=== PATIENT | male | born 1950 | race Caucasian/White ===

== ENCOUNTER 2019-01-25 10:08 | Inpatient (IN) | payer MEDICARE, OTHER ==
[~2019-01-25] VITALS: Ht 132.1 cm; Wt 101.2 kg
[~2019-01-25 10:08] MED LIST: CLIN150C14 PO; HYDR-3164 PO
[2019-01-25 12:37] LABS: PROTHROMBIN TIME PATIENT 18.9 SEC (11.7-14.0)
[2019-01-25] MEDS ORDERED: ZINC50TA2 PO (12:57)
[2019-01-25] MEDS ORDERED: CARV25TA2 PO (12:57)
[2019-01-25] MEDS ORDERED: FOLI1TAB16 PO (12:57)
[2019-01-25] MEDS ORDERED: LISI10TA2 PO (12:57)
[2019-01-25] MEDS ORDERED: FAMO20TA5 PO (12:57)
[2019-01-25] MEDS ORDERED: OLAN5TAB9 PO (12:57)
[2019-01-25] MEDS ORDERED: NITR1PAT5 TD (12:57)
[2019-01-25] MEDS ORDERED: POLY255P11 PO (12:57)
[2019-01-25] MEDS ORDERED: HYDR25TA PO ×2 (12:57)
[2019-01-25] MEDS ORDERED: ESCITALOPRAM OX10 MG PO (12:57)
[2019-01-25] MEDS ORDERED: [UNRECOGNIZED DRUG - CODE] VG (12:57)
[2019-01-25] MEDS ORDERED: TAMS0.4C97 PO (12:57)
[2019-01-25] MEDS ORDERED: TRAM50TA PO (12:57)
[2019-01-25] MEDS ORDERED: AMIO200T4 PO (12:57)
[2019-01-25] MEDS ORDERED: OXCA300T19 PO (12:57)
[2019-01-25] MEDS ORDERED: ASCO500C PO (12:57)
[2019-01-25] MEDS ORDERED: ASPI-630 PO (12:57)
[2019-01-25] MEDS ORDERED: MIRT15TA3 PO (12:57)
[2019-01-25] MEDS ORDERED: APIX5TAB PO (12:57)
[2019-01-25] MEDS ORDERED: MELA3TAB2 PO (12:57)
[2019-01-25] MEDS ORDERED: OLAN10TA9 PO (12:57)
[2019-01-25] MEDS ORDERED: MERO1VIA15 IV (12:57)
[2019-01-25] MEDS ORDERED: SENN8.6T99 PO (12:57)
[2019-01-25] MEDS ORDERED: ATOR20TA58 PO (12:57)
[2019-01-25] MEDS ORDERED: MULT1TAB52 PO (12:57)
[2019-01-25] MEDS ORDERED: AMLO5TAB10 PO (12:57)
[2019-01-25] MEDS ORDERED: VALP500V2 IV (12:57)
[2019-01-25 13:08] LABS: ALBUMIN 1.7 g/dL (3.4-5.0); ALBUMIN/GLOBULIN RATIO 0.5 (1.0-1.7); CALCIUM 8.6 mg/dL (8.5-10.1); CREATININE 0.7 mg/dL (0.7-1.3); GFR 111.8; MAGNESIUM 2.5 mg/dL (1.8-2.4); POTASSIUM 4.3 mmol/L (3.5-5.1); TOTAL BILIRUBIN 0.3 mg/dL (0.2-1.0); TOTAL PROTEIN 5.2 g/dL (6.4-8.2)
[2019-01-25] MEDS ORDERED: OLANZAPINE PO PRN (13:15)
[2019-01-25] MEDS ORDERED: HYDROXYZINE HCL PO PRN (13:15)
[2019-01-25] MEDS ORDERED: DEXTROSE 50% 25 GM / 50ML DISP.SYRIN. IV PRN (13:30)
--- NOTE | 2019-01-25 13:49 | PDOC2 ---
CARDIAC CONSULT DATE OF CONSULT Date of Consult DATE: 01/25/19 TIME: 13:46 REASON FOR CONSULT Reason for Consult: Bradycardia REFERRING PHYSICIAN Referring Physician: Dr. Reece SOURCE Source: Chart review HISTORY OF PRESENT ILLNESS HISTORY OF PRESENT ILLNESS This is a 68 yo male who was transferred from [facility] secondary to bradycardia and significant pause reportedly 15 seconds in duration. He initially presented to 12/23/18 secondary to respiratory failure. Was diagnosed with sepsis and bacteremia. Was tranferred to [facility] for ongoing IV antibiotic therapy 01/06/19. Last night, patient was noted with pause on telemetry. Patient was asymptomatic. Telemetry strip sent with patient notable for 4 second pause. Contact Charge Nurse at [facility]; this was apparently the longest pause noted. No 15 second pause occurred as agency nurse had initially reported. Patient presently denies any chest pain, palpitations, dizziness, diaphoresis, or SOA. PAST MEDICAL HISTORY Past Medical History achondroplasia Cardiovascular: AFIB, CAD, CHF, HTN, Hyperlipidemia, Other (cardiac arrest due to ventrivular arrhythmia at [facility] 2/2 hyperkalemia ) Pulmonary: COPD, Pulmonary embolus CENTRAL NERVOUS SYSTEM: CVA Psych: Anxiety, Depression Renal/: UTI, Other (bladder outlet obstruction) Endocrine: Diabetes PAST SURGICAL HISTORY Past Surgical History: No pertinent history FAMILY HISTORY Family History: Other (noncontributory ) SOCIAL HISTORY Smoke: Quit ALCOHOL: none Drugs: None Lives: Alone ALLERGIES ALLERGIES: Coded Allergies: No Known Drug Allergies (Unverified , 07/20/16) ROS Review of System 14 point ROS conducted with pertinent positives noted above in HPI. PHYSICAL EXAM General: Alert, Oriented X3, Cooperative, No acute distress HEENT: Atraumatic Lungs: Clear to auscultation Heart: Regular rate (SR/SB) Abdomen: Soft, No tenderness, Other (obese ) Extremities: No edema, Normal pulses Skin: No significant lesion Neuro: Normal speech, Sensation intact Psych/Mental Status: Mental status NL, Mood NL MUSCULOSKELETAL: No swelling LABS Lab: Laboratory Tests Test 01/25/19 12:20 Prothrombin Time 18.9 SEC (11.7-14.0) Prothromb Time International Ratio 1.6 (0.8-1.1) Activated Partial Thromboplast Time 30 SEC (24-38) Sodium Level 150 mmol/L (136-145) Potassium Level 4.3 mmol/L (3.5-5.1) Chloride Level 113 mmol/L (98-107) Carbon Dioxide Level 32 mmol/L (21-32) Anion Gap 5 (6-14) Blood Urea Nitrogen 16 mg/dL (8-26) Creatinine 0.7 mg/dL (0.7-1.3) Estimated GFR (Cockcroft-Gault) 111.8 BUN/Creatinine Ratio 23 (6-20) Glucose Level 89 mg/dL (70-99) Calcium Level 8.6 mg/dL (8.5-10.1) Magnesium Level 2.5 mg/dL (1.8-2.4) Total Bilirubin 0.3 mg/dL (0.2-1.0) Aspartate Amino Transf (AST/SGOT) 45 U/L (15-37) Alanine Aminotransferase (ALT/SGPT) 60 U/L (16-63) Alkaline Phosphatase 71 U/L (46-116) Total Protein 5.2 g/dL (6.4-8.2) Albumin 1.7 g/dL (3.4-5.0) Albumin/Globulin Ratio 0.5 (1.0-1.7) ASSESSMENT/PLAN ASSESSMENT/PLAN 1. Bradycardia, sinus. 4 second pause noted overnight at [facility]. No acute event or significant bradycardia noted on tele thus far 2. CAD; reportedly abnormal stress test at 10/2018. No prior cardiac cath. Clinically stable. 3. Hypertension; controlled. 4. Hyperlipidemia 5. PAFIB; on Amiodarone. maintaining SR 6. Diabetes, II; per PCP 7. Hypernatremia 8. Chronic sacral pressure wound Recommendations Echo to assess LV systolic function D/c coreg, amiodarone Avoid AV dagoberto blocking agents. Hold Eliquis for now Start heparin per protocol Keep NPO Monitor telemetry overnight Obtain cardiac records from [facility] JUAN LOPEZ APRN Jan 25, 2019 13:49
[2019-01-25] MEDS: FOLIC ACID 1 MG TABLET. PO SCH (14:00)
[2019-01-25] MEDS ORDERED: hydrOXYzine PAMOATE 25 MG CAPSULE PO PRN (14:00)
[2019-01-25] MEDS: MULTIVITAMIN with MINERAL TABLET. PO SCH (14:00)
[2019-01-25] MEDS ORDERED: MEROPENEM 1 GM IV SCH (14:00)
[2019-01-25] MEDS: TAMSULOSIN 0.4 MG CAP.ER.24H. PO SCH (14:00)
[2019-01-25] MEDS: ASCORBIC ACID 500 MG TABLET PO SCH (14:00)
[2019-01-25] MEDS: amLODIPine BESYLATE 5 MG TABLET PO SCH (14:00)
[2019-01-25] MEDS: LISINOPRIL 10 MG TABLET PO SCH (14:00)
[2019-01-25] MEDS: NITROGLYCERIN 0.2MG/HR PATCH. TD SCH (14:00)
--- NOTE | 2019-01-25 14:07 | PDOC ---
Infectious Disease Note Subjective Subjective Known to service from [facility]. Transferred to [facility] for Bradycardia Doing ok but feels a little cold No F/S/SOA/N/V/D/RASH and no gross pain ROS ROS O/w neg Physical Exam PHYSICAL EXAM CONST: NAD and coop HEENT: PERRLA, nml conj, OC/OP - edentulous and clean NECK: Supple, No JVD LUNGS: CTA CV: S1/S2 ABD: Soft, NT, ND, Soft EXT: No C/C/E NEURO: Alert and coop. talkative - less confused today than 01/24 Skin: No Rash IV: RUE - PICC - clean Labs Lab Laboratory Tests Test 01/25/19 12:20 Prothrombin Time 18.9 SEC (11.7-14.0) Prothromb Time International Ratio 1.6 (0.8-1.1) Activated Partial Thromboplast Time 30 SEC (24-38) Sodium Level 150 mmol/L (136-145) Potassium Level 4.3 mmol/L (3.5-5.1) Chloride Level 113 mmol/L (98-107) Carbon Dioxide Level 32 mmol/L (21-32) Anion Gap 5 (6-14) Blood Urea Nitrogen 16 mg/dL (8-26) Creatinine 0.7 mg/dL (0.7-1.3) Estimated GFR (Cockcroft-Gault) 111.8 BUN/Creatinine Ratio 23 (6-20) Glucose Level 89 mg/dL (70-99) Calcium Level 8.6 mg/dL (8.5-10.1) Magnesium Level 2.5 mg/dL (1.8-2.4) Total Bilirubin 0.3 mg/dL (0.2-1.0) Aspartate Amino Transf (AST/SGOT) 45 U/L (15-37) Alanine Aminotransferase (ALT/SGPT) 60 U/L (16-63) Alkaline Phosphatase 71 U/L (46-116) Total Protein 5.2 g/dL (6.4-8.2) Albumin 1.7 g/dL (3.4-5.0) Albumin/Globulin Ratio 0.5 (1.0-1.7) Objective Assessment Bradycardia Large sacral decub with osteo s/p Sugery 12/30 bone covered now ESBL Ecoli/Morganella/Pseuodomonas Res Forta I Zosyn, Bacteroides and clostridium species Transaminitis - improving Afib H/o CVA Chronic crooks DM Plan Plan of Care Cont Meropenem until 02/12 Labs in am Reviewed [facility] notes D/w nursing JENNIFER MCNAMARA MD Jan 25, 2019 14:07
--- NOTE | 2019-01-25 14:10 | HP ---
ADMIT DATE: 01/25/2019 HISTORY OF PRESENT ILLNESS: The patient is a 68-year-old male patient who was transferred from [facility] where he was noted this morning to have prolonged pauses and his heart rate dropped down to 29 beats per minute. He apparently has had history of cardiac arrest before when he was at [facility] due to ventricular arrhythmia secondary to hyperkalemia and apparently had abnormal thallium stress test in 11/15/2018 with finding consistent with coronary artery disease. We did contacted Dr. Reece who recommended to transfer him to [facility] for permanent pacemaker placement. The patient himself is very confused and does not really give useful information. His past medical history is significant for achondroplasia, chronic heart disease, chronic obstructive pulmonary disease, hyperlipidemia, hypertension. He is also known to have paroxysmal atrial fibrillation and had cardiac arrest at [facility] due to ventricular arrhythmia secondary to hyperkalemia. He has also had recent cerebellar stroke and an MRI of the brain done on 11/25/2018 showed left subacute cerebellar infarct, moderate cerebellar volume loss and mild chronic white matter microvascular ischemia. The patient also known to have pulmonary embolism, for which he is on apixaban. He is also known to have type 2 diabetes with recurrent urinary tract infection, bladder outlet obstruction, for which he has a Linn catheter. He anxiety and depression and in fact, he was admitted as a transfer from [facility] to [facility] to continue treatment of his stage IV sacral decubitus ulcer. He has had a CT scan of the abdomen and pelvis, which showed sacrococcygeal pressure ulcer with gas and soft tissue thickening, no bone destruction with underlying osteomyelitis, nonobstructing 9 mm right ureteropelvic junction stone with no hydronephrosis. He was admitted to continue with IV antibiotic in the form of meropenem 1 gram IV q.8 hourly, to continue with wound care and wound VAC and assist closure device. PAST SURGICAL HISTORY: Significant for surgical debridement of his sacral decubitus ulcer. FAMILY HISTORY: Unremarkable. SOCIAL HISTORY: He is apparently . He is a former smoker. He used to smoke 2 packs a day and smoked for 30 years. He quit smoking in 08/29/2009. He has never used smokeless tobacco. He does not drink alcohol. He does not use any recreational drugs. ALLERGIES: The patient has no known drug allergies. MEDICATIONS: He is currently on following medications: He is on meropenem 1 gram IV q.8 hourly, tamsulosin 0.4 mg once a day, apixaban 5 mg twice a day, amiodarone 200 mg twice a day, atorvastatin calcium 20 mg at bedtime, nitroglycerin (Nitro-Dur) 0.2 mg per hour patch topically daily, carvedilol 3.125 mg twice a day with meals, amlodipine 5 mg once a day, lisinopril 10 mg once a day, aspirin 81 mg once a day, tramadol 50 mg 4 times a day, oxcarbazepine 150 mg twice a day, valproic acid 250 mg IV twice a day, escitalopram oxalate 10 mg once a day, mirtazapine 50 mg at bedtime, olanzapine ____ mg every 4 hours, hydroxyzine 25 mg every 6-8 hours, zinc gluconate 220 mg twice a day, polyethylene glycol 17 g p.o. b.i.d., Senokot 1 tablet twice a day, famotidine 20 mg p.o. b.i.d., miconazole cream apply topically twice a day, folic acid 1 mg once a day, ascorbic acid 500 mg p.o. daily, multivitamin 1 tablet once a day, and melatonin 3 mg p.o. at bedtime. REVIEW OF SYSTEMS: As per history of present illness. PHYSICAL EXAMINATION GENERAL: When I examined him, the patient was resting slightly propped up in bed, in no apparent respiratory distress. He was pale. No jaundice, cyanosis, or thyromegaly. No jugular venous distension. No lower limb edema. VITAL SIGNS: His heart rate was 55, blood pressure was 90/60, temperature was 98, respiratory rate was 18 and oxygen saturation was 94%. HEAD, EYES, EARS, NOSE AND THROAT: Showed normocephalic, atraumatic. NECK: Supple. HEART: Showed normal first and second sounds. No gallop, rub or murmur. CHEST: Showed central trachea, equal bilateral expansion, air entry, vesicular sounds with no crepitation or rhonchi. ABDOMEN: Distended, soft, nontender. NEUROLOGIC: He is somewhat confused, but however, otherwise he is definitely more awake and alert. All his cranial nerves are intact. He moves his upper extremities to much good extent than lower extremities. He has stage 4 sacral decubitus ulcer with clean base, no surrounding erythema. He has an indwelling Linn catheter. LABORATORY DATA: His lab work as of this morning showed a serum sodium 150, potassium 4.3, chloride 113, bicarbonate 32, anion gap of 5, BUN 16, creatinine 0.7, estimated GFR was 111, glucose was 89, calcium was 8.6, magnesium 2.5. Total bilirubin, AST, ALT, alkaline phosphatase were normal. Total protein was 5.2, albumin was 1.7. His prothrombin time was 18.9, INR 1.6, aPTT was 30. His white cell count this morning was 7900, hemoglobin 10, hematocrit 33, MCV 98 and platelet count 240,000 with normal manual differential. IMPRESSION: In summary, this is a 68-year-old male patient who was transferred from [facility] with prolonged pauses and he had history of cardiac arrest twice according to his son. We did contact Dr. Reece recommended transferring him to [facility] for placement of a permanent pacemaker. I held his aspirin and apixaban as he is known to have deep venous thrombosis and pulmonary emboli. The patient has multiple other medical problems including, 1. Sepsis due to Proteus mirabilis, for which he continues to be on IV meropenem. 2. Sacral decubitus ulcer, stage 4. 3. Acute metabolic encephalopathy, it has improved. 4. Acute hypoxic respiratory failure, it has resolved. 5. He has multiple other medical problems including, A. Achondroplasia. B. Chronic obstructive pulmonary disease. C. Chronic heart failure with reduced ejection fraction. D. Hypertension. E. Hyperlipidemia. F. He is also known to have paroxysmal atrial fibrillation and recent cardiac arrest while at [facility]. G. History of coronary artery disease. H. Multiple strokes including left subacute cerebellar infarct. I. He is also known to have type 2 diabetes mellitus, benign prostatic hypertrophy and an occlusive pulmonary emboli. We will resume all his medication. I held both his aspirin and apixaban. His sodium is high, we will start him on D5 half normal. We will cover him with aspirin if need be. CINDY SULLIVAN MD DR: AMY/afsaneh JOB#: [id number] / [id number]
[2019-01-25] MEDS ORDERED: OLANZapine 5 MG TABLET PO PRN (14:15)
[2019-01-25] MEDS: traMADol 50 MG TABLET PO SCH ×3 (14:52→21:57)
[2019-01-25] MEDS: CITALOPRAM 20 MG TABLET. PO SCH (14:52)
[2019-01-25] MEDS: MEROPENEM 1 GM in IV NORMAL SALINE 100ML 100 ML IV SCH ×2 (14:53→21:56)
[2019-01-25] MEDS: IV DEXTROSE 5% 1,000 ML IV SCH (14:54)
[2019-01-25 15:00] VITALS: BP 117/53
--- NOTE | 2019-01-25 15:50 | NUR ---
Functional screen complete. Per RN, Pt admitted for bradycardia. Reports that family stated that pt had recent stroke. Pt would benefit from PT/Ot assessment. Please write PT/Ot evla and treat orders if you agree. Addendum: 01/25/19 at 1550 by ROSALINO HA PT Amended: Links added.
--- NOTE | 2019-01-25 16:12 | NUR ---
Wound Care: Consult to eval and treat for ST IV PU present on admission. Pt admits from [facility]. Per pt, has had wound vac before. Pt is poor historian and it is unclear how this wound originated, and how long ago. Pt states that he does prefer to sit in a wheelchair much of the time. Advised RN and pt that sitting upright in WC should be limited to mealtimes, all other times pt much be positioned in bed turning every 2H from side to side, to minimize pressure to coccyx wound. Wound cleansed and 3 pieces of silver foam applied to wound bed. Ostomy ring to periwound bordering rectum. Bridged to L lateral abdomen, exuderm to border of dressing proximal to rectum. Pt is in ICU bed at this time. No other open areas noted on head to toe assessment. Plan to follow up 01/27/19 to change vac dressing.
[2019-01-25] MEDS ORDERED: CARVEDILOL 3.125 MG TABLET. PO SCH (17:00)
[2019-01-25] MEDS: INSULIN LISPRO 300 UNITS/3 ML INSULN.PEN. SQ SCH (17:00)
--- NOTE | 2019-01-25 18:22 | NUR ---
Patient arrived to room as direct admission from [facility] due to reported bradycardia and 20 second pause. Patient arrived to unit asymptomatic with rate in the 60s. Dr. Lin and consults notified. Patient was noted to have massive wound on alfaro area. Wound was pictured, wet to dry packed, and wound care notified. Patient had crooks on arrival and IV abx at [facility]. ID continued abx. Patient was admitted as CVC patient but placed in ICU due to bed availability.
[2019-01-25 19:00] VITALS: BP 167/82
[2019-01-25] MEDS ORDERED: MICONAZOLE NITRATE VG SCH (21:00)
[2019-01-25] MEDS ORDERED: AMIODARONE HCL 200 MG TABLET. PO SCH (21:00)
[2019-01-25] MEDS ORDERED: NON FORMULARY ITEM (Melatonin 1 TAB) PO SCH (21:00)
[2019-01-25] MEDS ORDERED: VALPROATE SODIUM 250 MG IV SCH (21:00)
[2019-01-25] MEDS: FAMOTIDINE 20 MG TABLET. PO SCH (21:56)
[2019-01-25] MEDS: VALPROIC ACID (AS SODIUM SALT) 250 MG in IV DEXTROSE 5% 50 ML IV SCH (21:56)
[2019-01-25] MEDS: ATORVASTATIN CALCIUM 20 MG TABLET PO SCH (21:56)
[2019-01-25] MEDS: MIRTAZAPINE 15 MG TABLET PO SCH (21:57)
[2019-01-25] MEDS: OXcarbazepine 300 MG TABLET PO SCH (21:57)
[2019-01-25] MEDS: ZINC SULFATE 220 MG CAPSULE. PO SCH (21:57)
[2019-01-25 22:06] VITALS: BP 100/55
[2019-01-25 23:58] VITALS: BP 110/43
[2019-01-26] MEDS: IV DEXTROSE 5% 1,000 ML IV SCH ×2 (02:50→22:14)
[2019-01-26 04:30] VITALS: BP 92/52
[2019-01-26 05:12] LABS: HEMATOCRIT 27.8 % (39.0-53.0); HEMOGLOBIN 8.8 g/dL (13.0-17.5); RED BLOOD COUNT 2.94 x10^6/uL (4.30-5.70); WHITE BLOOD COUNT 8.6 x10^3/uL (4.0-11.0)
[2019-01-26] MEDS: MEROPENEM 1 GM in IV NORMAL SALINE 100ML 100 ML IV SCH ×3 (05:39→23:25)
[2019-01-26 05:43] LABS: ALBUMIN 1.6 g/dL (3.4-5.0); CALCIUM 8.2 mg/dL (8.5-10.1); CREATININE 0.9 mg/dL (0.7-1.3); DIRECT BILIRUBIN 0.1 mg/dL (0.0-0.2); GFR 83.7; TOTAL BILIRUBIN 0.3 mg/dL (0.2-1.0)
[2019-01-26 05:50] LABS: CHOLESTEROL/HDL RATIO 2.8
[2019-01-26 07:00] VITALS: BP 86/50
--- NOTE | 2019-01-26 07:32 | PDOC ---
Infectious Disease Note Subjective Subjective Known to service from [facility] Transferred to [facility] for Bradycardia Doing well. Going to be transferred upstairs No F/S/SOA/N/V/D/RASH and no gross pain. No CP/palpatations ROS ROS o/w neg Vital Sign Vital Signs Vital Signs Date Time Temp Pulse Resp B/P (MAP) Pulse Ox O2 Delivery O2 Flow Rate FiO2 01/26/19 04:30 98.9 66 16 92/52 (65) 94 Room Air 98.9 01/25/19 15:52 2.0 Physical Exam PHYSICAL EXAM CONST: NAD and coop HEENT: PERRLA, nml conj, OC/OP - edentulous and clean NECK: Supple, No JVD LUNGS: CTA CV: S1/S2 ABD: Soft, NT, ND, Soft EXT: No C/C/E NEURO: Alert and coop. talkative - less confused today than 01/24 Skin: No Rash IV: RUE - PICC - clean Sacral Wound vac in place. examined 01/25 with Wound care and very clean and no bone Labs Lab Laboratory Tests Test 01/25/19 12:20 01/25/19 17:07 01/25/19 23:53 01/26/19 04:35 Prothrombin Time 18.9 SEC (11.7-14.0) Prothromb Time International Ratio 1.6 (0.8-1.1) Activated Partial Thromboplast Time 30 SEC (24-38) Sodium Level 150 mmol/L (136-145) 145 mmol/L (136-145) Potassium Level 4.3 mmol/L (3.5-5.1) 4.0 mmol/L (3.5-5.1) Chloride Level 113 mmol/L (98-107) 109 mmol/L (98-107) Carbon Dioxide Level 32 mmol/L (21-32) 30 mmol/L (21-32) Anion Gap 5 (6-14) 6 (6-14) Blood Urea Nitrogen 16 mg/dL (8-26) 17 mg/dL (8-26) Creatinine 0.7 mg/dL (0.7-1.3) 0.9 mg/dL (0.7-1.3) Estimated GFR (Cockcroft-Gault) 111.8 83.7 BUN/Creatinine Ratio 23 (6-20) Glucose Level 89 mg/dL (70-99) 105 mg/dL (70-99) Calcium Level 8.6 mg/dL (8.5-10.1) 8.2 mg/dL (8.5-10.1) Magnesium Level 2.5 mg/dL (1.8-2.4) Total Bilirubin 0.3 mg/dL (0.2-1.0) 0.3 mg/dL (0.2-1.0) Aspartate Amino Transf (AST/SGOT) 45 U/L (15-37) 38 U/L (15-37) Alanine Aminotransferase (ALT/SGPT) 60 U/L (16-63) 63 U/L (16-63) Alkaline Phosphatase 71 U/L (46-116) 69 U/L (46-116) Total Protein 5.2 g/dL (6.4-8.2) 5.0 g/dL (6.4-8.2) Albumin 1.7 g/dL (3.4-5.0) 1.6 g/dL (3.4-5.0) Albumin/Globulin Ratio 0.5 (1.0-1.7) Glucose (Fingerstick) 106 mg/dL (70-99) 113 mg/dL (70-99) White Blood Count 8.6 x10^3/uL (4.0-11.0) Red Blood Count 2.94 x10^6/uL (4.30-5.70) Hemoglobin 8.8 g/dL (13.0-17.5) Hematocrit 27.8 % (39.0-53.0) Mean Corpuscular Volume 95 fL (79-100) Mean Corpuscular Hemoglobin 30 pg (25-35) Mean Corpuscular Hemoglobin Concent 32 g/dL (31-37) Red Cell Distribution Width 17.0 % (11.5-14.5) Platelet Count 227 x10^3/uL (140-400) Direct Bilirubin 0.1 mg/dL (0.0-0.2) Triglycerides Level 84 mg/dL (0-150) Cholesterol Level 92 mg/dL (0-200) LDL Cholesterol, Calculated 42 mg/dL (0-100) VLDL Cholesterol, Calculated 17 mg/dL (0-40) Non-HDL Cholesterol Calculated 59 mg/dL (0-129) HDL Cholesterol 33 mg/dL (40-60) Cholesterol/HDL Ratio 2.8 Objective Assessment Bradycardia Large sacral decub with osteo s/p Sugery 12/30 bone covered now ESBL Ecoli/Morganella/Pseuodomonas Res Forta I Zosyn, Bacteroides and clostridium species Transaminitis - improving Afib H/o CVA Chronic crooks DM Plan Plan of Care Cont Meropenem until 02/[address] [facility] with ID but await Card f/u D/w nursing JENNIFER MCNAMARA MD Jan 26, 2019 07:32
[2019-01-26] MEDS: INSULIN LISPRO 300 UNITS/3 ML INSULN.PEN. SQ SCH ×3 (08:00→17:00)
[2019-01-26] MEDS: LISINOPRIL 10 MG TABLET PO SCH (09:00)
[2019-01-26] MEDS: ZINC SULFATE 220 MG CAPSULE. PO SCH ×2 (09:00→22:14)
[2019-01-26] MEDS: NITROGLYCERIN 0.2MG/HR PATCH. TD SCH (09:00)
[2019-01-26] MEDS ORDERED: POLYETHYLENE GLYCOL 3350 17 GM PACKET. PO PRN (09:00)
[2019-01-26] MEDS: traMADol 50 MG TABLET PO SCH ×4 (09:00→22:15)
[2019-01-26] MEDS: CITALOPRAM 20 MG TABLET. PO SCH (09:00)
[2019-01-26] MEDS: FOLIC ACID 1 MG TABLET. PO SCH (09:00)
[2019-01-26] MEDS: TAMSULOSIN 0.4 MG CAP.ER.24H. PO SCH (09:00)
[2019-01-26] MEDS: amLODIPine BESYLATE 5 MG TABLET PO SCH (09:00)
[2019-01-26] MEDS: ASCORBIC ACID 500 MG TABLET PO SCH (09:00)
[2019-01-26] MEDS: FAMOTIDINE 20 MG TABLET. PO SCH ×2 (09:00→22:14)
[2019-01-26] MEDS: OXcarbazepine 300 MG TABLET PO SCH ×2 (09:00→22:18)
[2019-01-26] MEDS: MULTIVITAMIN with MINERAL TABLET. PO SCH (09:00)
--- NOTE | 2019-01-26 09:08 | CARD ---
MR#: [id number] Date of Study: 01/26/2019 Ordering Physician: JUAN LOPEZ, Referring Physician: CINDY SULLIVAN Tech: Alicja Foreman RDCS APPROVED REPORT EXAM: Two-dimensional and M-mode echocardiogram with Doppler and color Doppler. Other Information Technically limited study due to body habitus. INDICATION Arrhythmia 2D DIMENSIONS RVDd2.8 (2.9-3.5cm)Left Atrium(2D)3.2 (1.6-4.0cm) IVSd0.9 (0.7-1.1cm)Aortic Root(2D)2.8 (2.0-3.7cm) LVDd4.0 (3.9-5.9cm)LVOT Diameter2.0 (1.8-2.4cm) PWd1.0 (0.7-1.1cm)LVDs2.6 (2.5-4.0cm) FS (%) 34.6 %SV43.9 ml LVEF(%)64.3 (>50%) Aortic Valve AoV Peak Maged.124.4cm/sAoV VTI22.6cm AO Peak GR.6.2mmHgLVOT VTI 16.07cm AO Mean GR.4mmHgAVA (VTI)2.20cm2 Mitral Valve MV E Ocxinguz33.2cm/sMV DECEL OHZH732ps MV A Ubfmbaop04.8cm/sE/A Ratio0.9 TDI Lateral E' P. V9.14cm/sMedial E' P. V8.69cm/s E/Lateral E'6.8E/Medial E'7.2 Tricuspid Valve TR P. Jnxffllv881vs/sRAP BYAIJLLN4gzIt TR Peak Gr.76lvUgZCGF47tjKv Pulmonary Vein S1 Yatpbmcc48.4cm/sS2 Obflpzxv14.71cm/s D2 Hcncdhdq97.7cm/s LEFT VENTRICLE The left ventricle is normal size. There is normal left ventricular wall thickness. The left ventricu lar systolic function is normal and the ejection fraction is within normal range. The Ejection Fracti on is 60-65%. There is grossly normal LV segmental wall motion. Transmitral Doppler flow pattern is G rade II-pseudonormal filling dynamics. RIGHT VENTRICLE The right ventricle is normal size. The right ventricular systolic function is normal. ATRIA The left atrium size is normal. The right atrium size is normal. The interatrial septum is intact wit h no evidence for an atrial septal defect or patent foramen ovale as noted on 2-D or Doppler imaging. AORTIC VALVE Not well visualized. Doppler and Color Flow revealed no significant aortic regurgitation. There is no significant aortic valvular stenosis. MITRAL VALVE The mitral valve is calcified but opens well. There is no evidence of mitral valve prolapse. There is no mitral valve stenosis. Doppler and Color Flow revealed no mitral valve regurgitation noted. TRICUSPID VALVE Not well visualized. Doppler and Color Flow revealed physiological tricuspid regurgitation. The PA pr essure was estimated at 38 mmHg. There is no tricuspid valve stenosis. PULMONIC VALVE The pulmonic valve is not well visualized. Doppler and Color Flow revealed trace pulmonic valvular re gurgitation. There is no pulmonic valvular stenosis. GREAT VESSELS The aortic root is normal in size. The ascending aorta is normal in size. The IVC is normal in size a nd collapses >50% with inspiration. PERICARDIAL EFFUSION There is no evidence of significant pericardial effusion. Critical Notification Critical Value: No <Conclusion> The left ventricular systolic function is normal and the ejection fraction is within normal range. Th e Ejection Fraction is 60-65%. There is grossly normal LV segmental wall motion. Doppler and Color Flow revealed physiological tricuspid regurgitation. The PA pressure was estimated at 38 mmHg. Signed by : Bari Peterson, Electronically Approved : 01/26/2019 09:07:53
[2019-01-26] MEDS: VALPROIC ACID (AS SODIUM SALT) 250 MG in IV DEXTROSE 5% 50 ML IV SCH ×2 (09:29→22:13)
--- NOTE | 2019-01-26 09:56 | EKG ---
[facility] [address] [place] [address] Test Date: 2019-01-26 Test Time: 09:46:59 Pat Name: ROGELIO MYERS Department: Room: 204 1 Gender: M Oral Pathologist: KELLIE : 1950 Requested By: JUAN LOPEZ Order Number: [id number] Reading MD: Bari Peterson MD Measurements Intervals [place] Rate: 68 P: 31 MS: 188 QRS: 65 QRSD: 80 T: 44 QT: 406 QTc: 432 Interpretive Statements SINUS RHYTHM NON-SPECIFIC ST/T CHANGES Electronically Signed On 01-26-2019 14:31:31 CDT by Bari Peterson MD
[2019-01-26 11:00] VITALS: BP 82/50
--- NOTE | 2019-01-26 11:13 | PDOC ---
CARDIO Progress Notes Date and Time Date of Service 01/26/19 Time of Evaluation 0910 Subjective Subjective: No Chest Pain, No shortness of breath, No Palpitations Vitals Vitals Vital Signs Date Time Temp Pulse Resp B/P (MAP) Pulse Ox O2 Delivery O2 Flow Rate FiO2 01/26/19 09:00 73 86/50 01/26/19 08:00 Room Air 2.0 01/26/19 07:00 98.3 18 96 98.3 Weight Weight [ ] Input and Output Intake and Output Intake and Output 01/26/19 06:59 Intake Total 712.5 ml Output Total 400 ml Balance 312.5 ml Intake Oral 560 ml IV Total 152.5 ml Output Urine Total 400 ml Laboratory Labs Laboratory Tests Test 01/25/19 12:20 01/25/19 17:07 01/25/19 23:53 01/26/19 04:35 Prothrombin Time 18.9 SEC (11.7-14.0) Prothromb Time International Ratio 1.6 (0.8-1.1) Activated Partial Thromboplast Time 30 SEC (24-38) Sodium Level 150 mmol/L (136-145) 145 mmol/L (136-145) Potassium Level 4.3 mmol/L (3.5-5.1) 4.0 mmol/L (3.5-5.1) Chloride Level 113 mmol/L (98-107) 109 mmol/L (98-107) Carbon Dioxide Level 32 mmol/L (21-32) 30 mmol/L (21-32) Anion Gap 5 (6-14) 6 (6-14) Blood Urea Nitrogen 16 mg/dL (8-26) 17 mg/dL (8-26) Creatinine 0.7 mg/dL (0.7-1.3) 0.9 mg/dL (0.7-1.3) Estimated GFR (Cockcroft-Gault) 111.8 83.7 BUN/Creatinine Ratio 23 (6-20) Glucose Level 89 mg/dL (70-99) 105 mg/dL (70-99) Calcium Level 8.6 mg/dL (8.5-10.1) 8.2 mg/dL (8.5-10.1) Magnesium Level 2.5 mg/dL (1.8-2.4) Total Bilirubin 0.3 mg/dL (0.2-1.0) 0.3 mg/dL (0.2-1.0) Aspartate Amino Transf (AST/SGOT) 45 U/L (15-37) 38 U/L (15-37) Alanine Aminotransferase (ALT/SGPT) 60 U/L (16-63) 63 U/L (16-63) Alkaline Phosphatase 71 U/L (46-116) 69 U/L (46-116) Total Protein 5.2 g/dL (6.4-8.2) 5.0 g/dL (6.4-8.2) Albumin 1.7 g/dL (3.4-5.0) 1.6 g/dL (3.4-5.0) Albumin/Globulin Ratio 0.5 (1.0-1.7) Glucose (Fingerstick) 106 mg/dL (70-99) 113 mg/dL (70-99) White Blood Count 8.6 x10^3/uL (4.0-11.0) Red Blood Count 2.94 x10^6/uL (4.30-5.70) Hemoglobin 8.8 g/dL (13.0-17.5) Hematocrit 27.8 % (39.0-53.0) Mean Corpuscular Volume 95 fL (79-100) Mean Corpuscular Hemoglobin 30 pg (25-35) Mean Corpuscular Hemoglobin Concent 32 g/dL (31-37) Red Cell Distribution Width 17.0 % (11.5-14.5) Platelet Count 227 x10^3/uL (140-400) Direct Bilirubin 0.1 mg/dL (0.0-0.2) Triglycerides Level 84 mg/dL (0-150) Cholesterol Level 92 mg/dL (0-200) LDL Cholesterol, Calculated 42 mg/dL (0-100) VLDL Cholesterol, Calculated 17 mg/dL (0-40) Non-HDL Cholesterol Calculated 59 mg/dL (0-129) HDL Cholesterol 33 mg/dL (40-60) Cholesterol/HDL Ratio 2.8 Physical Exam HEENT: Neck Supple W Full Motion Chest: Symmetric LUNGS: Clear to Auscultation Heart: S1S2, RRR (SR) Abdomen: Soft N/T Extremities: No Edema Neurology: alert, oriented, follow commands Assessment Assessment 1. Bradycardia, sinus. 4 second pause noted overnight at [facility]. Coreg and Amiodarone discontinued. No further pauses noted overnight, but reportedly mildly bradycardic. Discontinued from ICU tele so it cannot be review. No significant bradycardiac since transfer since transfer to 2nd floor. Echo showed preserved LV systolic function. 2. Possible CAD; Stress test 11/15/18 at [facility] showed abnormal myocardial perfusion with relative hypoperfusion of the mid to apical inferior wall, septal wall, and anteroseptal wall. Technically difficult study. Opted for medical management. Clinically stable, CP free. 3. Hypertension; controlled. 4. Hyperlipidemia 5. PAFIB; maintaining SR 6. Diabetes, II; per PCP 7. Hypernatremia 8. Chronic sacral pressure wound 9. Recent PE Recommendations ASA, statin No BB with bradycardia Avoid AV dagoberto blocking agents. Eliquis presently on hold in the event that intervention is warranted; anticoagulation with heparin Keep NPO p MN Monitor telemetry overnight Supportive care If no further significant pauses/significant bradycardiac noted overnight, will plan for transfer back to [facility] tomorrow. JUAN LOPEZ APRN Jan 26, 2019 11:13
--- NOTE | 2019-01-26 11:36 | NUR ---
SS following for discharge planning. SS reviewed pt chart. Pt is from [facility], ; fax [phone]. SS contacted [facility] to verify pt's previous placement. [facility] confirmed that pt was from there facility and was able to return when medically stable for transfer.
[2019-01-26] MEDS ORDERED: HEPARIN 25,000UTS/500ML PREMIX 500 ML IV PRN (14:15)
[2019-01-26] MEDS ORDERED: HEPARIN for IV BOLUS 10,000 UNIT/10 ML VIAL. IV PRN (14:15)
[2019-01-26 15:00] VITALS: BP 101/56
[2019-01-26 19:33] VITALS: BP 93/43
[2019-01-26 22:13] VITALS: BP 108/53
[2019-01-26] MEDS: MIRTAZAPINE 15 MG TABLET PO SCH (22:13)
[2019-01-26] MEDS: LACTOBACILLUS RHAMNOSUS GG 1 CAPSULE. PO SCH (22:14)
[2019-01-26] MEDS: ATORVASTATIN CALCIUM 20 MG TABLET PO SCH (23:29)
[2019-01-27 02:03] VITALS: BP 109/75
--- NOTE | 2019-01-27 03:53 | PN ---
DATE: 01/26/2019 SUBJECTIVE: The patient is resting, slightly propped up in bed. No apparent distress. Awake, alert at times, confused; however, he denied any complaint. Nursing staff stated that he is hypertensive, however, his heart rate is 60s and 70s. PHYSICAL EXAMINATION: GENERAL: When I examined him, he was pale. No jaundice, cyanosis or thyromegaly. No jugular venous distension. No limb edema. VITAL SIGNS: His heart rate was 73, blood pressure was 86/50, temperature was 98.3, respiratory rate was 18 and oxygen saturation was 96% on room air. HEAD, EYES, EARS, NOSE AND THROAT: Showed normocephalic and atraumatic. NECK: Supple. HEART: Showed normal first and second heart sounds. No gallop, rub or murmur. CHEST: Clear to auscultation. No crepitation or rhonchi. ABDOMEN: Distended, soft and nontender. No guarding or rigidity. No organomegaly. All hernial orifice intact. Bowel sounds normal. NEUROLOGICAL: He is awake, alert and responding appropriately. All cranial nerves intact. He moves extremities without difficulty, although he is mostly bed bound. He has a large stage 4 sacral decubitus ulcer. His intake and output are incompletely recorded. LABORATORY DATA: His white cell count was 8600; hemoglobin 8.8; hematocrit 27.8; MCV 95 and platelet count 227,000. His chemistry showed a serum sodium of 145, potassium 4, chloride 109, bicarbonate 30, anion gap of 6, BUN 17, creatinine 0.9, estimated GFR was 84 mL per minute, his glucose 105 and calcium was 8.2. Total bilirubin, AST, ALT, alkaline phosphatase were normal. Total protein 5, albumin was 1.6. His lipid panel was well within normal range. RADIOLOGICAL DATA: Has had an echocardiogram done, which basically showed that his left ventricular systolic function is normal and ejection fraction is within normal range and the ejection fraction is 60%-65%, grossly normal left ventricular segmental wall motion showed he has a physiological tricuspid regurgitation. Pulmonary artery pressure was estimated 38 mmHg. PLAN: To continue with IV antibiotic as recommended by the Infectious Disease specialist. Continue with wound care. Await Cardiology evauation. CINDY SULLIVAN MD DR: AMY/afsaneh JOB#: [id number] / [id number]
[2019-01-27] MEDS: MEROPENEM 1 GM in IV NORMAL SALINE 100ML 100 ML IV SCH ×3 (05:50→21:44)
[2019-01-27 07:00] VITALS: BP 114/64
[2019-01-27 07:16] LABS: HEMATOCRIT 32.3 % (39.0-53.0); HEMOGLOBIN 9.9 g/dL (13.0-17.5); RED BLOOD COUNT 3.3 x10^6/uL (4.30-5.70); WHITE BLOOD COUNT 5.5 x10^3/uL (4.0-11.0)
--- NOTE | 2019-01-27 07:52 | PDOC ---
Infectious Disease Note Subjective Subjective Known to service from [facility]. Transferred to [facility] for Bradycardia Doing well. No major complaints No F/S/SOA/N/V/D/RASH and no gross pain. No CP/palpatations ROS ROS o/w neg Vital Sign Vital Signs Vital Signs Date Time Temp Pulse Resp B/P (MAP) Pulse Ox O2 Delivery O2 Flow Rate FiO2 01/27/19 02:03 98.1 63 16 109/75 (86) 99 Nasal Cannula 1.0 98.1 Physical Exam PHYSICAL EXAM CONST: NAD and coop - looks well HEENT: PERRLA, nml conj, OC/OP - edentulous and clean NECK: Supple, No JVD LUNGS: CTA CV: S1/S2 ABD: Soft, NT, ND, Soft EXT: No C/C/E NEURO: Alert and coop. talkative - less confused today Skin: No Rash IV: RUE - PICC - clean Sacral Wound vac in place. examined 01/25 with Wound care and very clean and no bone Labs Lab Laboratory Tests Test 01/26/19 11:45 01/26/19 17:18 01/26/19 20:41 01/26/19 22:35 Glucose (Fingerstick) 109 mg/dL (70-99) 89 mg/dL (70-99) 120 mg/dL (70-99) Heparin Anti-Xa Act, Unfractionated > 1.10 IU/mL (0.30-0.70) Test 01/27/19 06:00 White Blood Count 5.5 x10^3/uL (4.0-11.0) Red Blood Count 3.30 x10^6/uL (4.30-5.70) Hemoglobin 9.9 g/dL (13.0-17.5) Hematocrit 32.3 % (39.0-53.0) Mean Corpuscular Volume 98 fL (79-100) Mean Corpuscular Hemoglobin 30 pg (25-35) Mean Corpuscular Hemoglobin Concent 31 g/dL (31-37) Red Cell Distribution Width 17.0 % (11.5-14.5) Platelet Count 194 x10^3/uL (140-400) Objective Assessment Bradycardia Large sacral decub with osteo s/p Sugery 12/30 bone covered now ESBL Ecoli/Morganella/Pseuodomonas Res Forta I Zosyn, Bacteroides and clostridium species MRSA + Transaminitis - improving Afib H/o CVA Chronic crooks DM Plan Plan of Care Cont Meropenem until 02/12 PICC Await further Card assessment Transfer to [facility] with ID if PICC placed D/w nursing JENNIFER MCNAMARA MD Jan 27, 2019 07:52
[2019-01-27] MEDS ORDERED: ASPIRIN ENTERIC COATED 81 MG TABLET.DR. PO SCH ×2 (08:00)
[2019-01-27] MEDS: INSULIN LISPRO 300 UNITS/3 ML INSULN.PEN. SQ SCH ×3 (08:00→17:00)
--- NOTE | 2019-01-27 08:52 | NUR ---
IP: Pt is mrsa screen + requiring contact precautions.
[2019-01-27] MEDS: amLODIPine BESYLATE 5 MG TABLET PO SCH (09:00)
[2019-01-27] MEDS: traMADol 50 MG TABLET PO SCH ×4 (09:00→20:37)
[2019-01-27] MEDS: LISINOPRIL 10 MG TABLET PO SCH (09:00)
[2019-01-27] MEDS: NITROGLYCERIN 0.2MG/HR PATCH. TD SCH (09:00)
[2019-01-27] MEDS: VALPROIC ACID (AS SODIUM SALT) 250 MG in IV DEXTROSE 5% 50 ML IV SCH ×2 (09:18→20:35)
--- NOTE | 2019-01-27 09:42 | NUR ---
SS following up with discharge planning. SS phoned and faxed clinical updates to [facility], ; fax [phone]. SS will continue to follow for discharge planning.
--- NOTE | 2019-01-27 10:30 | PDOC ---
CARDIO Progress Notes Date and Time Date of Service 01/27/2019 Time of Evaluation 1020 Subjective Subjective: No Chest Pain, No shortness of breath, No Palpitations Vitals Vitals Vital Signs Date Time Temp Pulse Resp B/P (MAP) Pulse Ox O2 Delivery O2 Flow Rate FiO2 01/27/19 07:00 98.3 68 18 114/64 (81) 97 Room Air 98.3 01/27/19 02:03 1.0 Weight Weight [ ] Input and Output Intake and Output Intake and Output 01/27/19 07:00 Intake Total 1700 ml Balance 1700 ml Intake Oral 550 ml IV Total 1150 ml Laboratory Labs Laboratory Tests Test 01/26/19 11:45 01/26/19 17:18 01/26/19 20:41 01/26/19 22:35 Glucose (Fingerstick) 109 mg/dL (70-99) 89 mg/dL (70-99) 120 mg/dL (70-99) Heparin Anti-Xa Act, Unfractionated > 1.10 IU/mL (0.30-0.70) Test 01/27/19 06:00 01/27/19 07:35 White Blood Count 5.5 x10^3/uL (4.0-11.0) Red Blood Count 3.30 x10^6/uL (4.30-5.70) Hemoglobin 9.9 g/dL (13.0-17.5) Hematocrit 32.3 % (39.0-53.0) Mean Corpuscular Volume 98 fL (79-100) Mean Corpuscular Hemoglobin 30 pg (25-35) Mean Corpuscular Hemoglobin Concent 31 g/dL (31-37) Red Cell Distribution Width 17.0 % (11.5-14.5) Platelet Count 194 x10^3/uL (140-400) Heparin Anti-Xa Act, Unfractionated > 1.10 IU/mL (0.30-0.70) Glucose (Fingerstick) 83 mg/dL (70-99) Physical Exam HEENT: Neck Supple W Full Motion Chest: Symmetric LUNGS: Clear to Auscultation, Other (diminished bases) Heart: S1S2, RRR (SR/SB) Abdomen: Soft N/T Extremities: Other (trace LE edema) Neurology: alert, oriented, follow commands Assessment Assessment 1. Asymptomatic SB: lowest mid 40s overnight. So far no pauses like reported from [facility]. EF and WM nml. 2. Possible CAD; Stress test 11/15/18 at [facility] showed abnormal myocardial perfusion with relative hypoperfusion of the mid to apical inferior wall, septal wall, and anteroseptal wall. Technically difficult study. Opted for medical management. Clinically stable, CP free. 3. Hypertension; controlled. 4. Hyperlipidemia 5. PAFIB; maintaining SR/SB 6. Diabetes, II; per PCP 7. Hypernatremia 8. Chronic sacral pressure wound: per ID 9. Recent PE 10. Protein malnutrition Recommendations ASA, statin. on Heparin drip. Will resume eliquis. Pause likely associated with AV dagoberto blocking agents namely amiodarone, BB. No indication for PPM currently. With intolerance to AFIB controlling meds with potential tachy shane issue will likely need future PPM. Possible [facility] transfer and will continue to monitor from over there. Supportive care TIMBO CHRISTENSEN APRN Jan 27, 2019 10:30
[2019-01-27 11:00] VITALS: BP 106/61
[2019-01-27] MEDS ORDERED: ANTI-COAG MONITOR BY PHARMACY. MC PRN (11:15)
[2019-01-27] MEDS: LACTOBACILLUS RHAMNOSUS GG 1 CAPSULE. PO SCH ×2 (12:25→20:35)
[2019-01-27] MEDS: FAMOTIDINE 20 MG TABLET. PO SCH ×2 (12:26→20:36)
[2019-01-27] MEDS: TAMSULOSIN 0.4 MG CAP.ER.24H. PO SCH (12:26)
[2019-01-27] MEDS: CITALOPRAM 20 MG TABLET. PO SCH (12:26)
[2019-01-27] MEDS: OXcarbazepine 300 MG TABLET PO SCH ×2 (12:26→20:37)
[2019-01-27] MEDS: ASCORBIC ACID 500 MG TABLET PO SCH (12:26)
[2019-01-27] MEDS: ZINC SULFATE 220 MG CAPSULE. PO SCH ×2 (12:26→20:36)
[2019-01-27] MEDS: SENNOSIDES 8.6 MG TABLET PO PRN (12:27)
[2019-01-27] MEDS: APIXABAN 5 MG TABLET. PO SCH ×2 (12:27→20:36)
[2019-01-27] MEDS: FOLIC ACID 1 MG TABLET. PO SCH (12:27)
[2019-01-27] MEDS: MULTIVITAMIN with MINERAL TABLET. PO SCH (12:27)
[2019-01-27] MEDS: IV DEXTROSE 5% 1,000 ML IV SCH (12:29)
--- NOTE | 2019-01-27 13:14 | NUR ---
SS following up with discharge planning. Pt's RN reported that pt may be ready for discharge today or tomorrow. SS contacted [facility] and notified. [facility] reported that they do not currently have any beds available but have put pt on the weekend list for admissions. [facility] will notify when bed is available. SS will continue to follow for discharge planning.
[2019-01-27] MEDS ORDERED: LIDOCAINE WITH 8.4% SOD BICARB 3 ML DISP.SYRIN. ONE (14:21)
[2019-01-27 15:00] VITALS: BP 119/60
[2019-01-27] MEDS ORDERED: LIDOCAINE WITH 8.4% SOD BICARB 3 ML DISP.SYRIN. INJ ONE (15:15)
--- NOTE | 2019-01-27 15:27 | NUR ---
Pt to IR for PICC placement, R upper arm. Pt tolerated without difficulty. ELLY RN
--- NOTE | 2019-01-27 16:08 | RAD ---
Exam: Fluoroscopic and ultrasound guided right percutaneous inserted central venous catheter placement 01/27/2019 4:04 PM .Indication: manager long term care antibiotic Technique: Informed oral and written consent were obtained. The right upper extremity was prepped and draped using sterile barrier technique. All elements of maximal sterile barrier technique including the use of a cap, mask, sterile gown, sterile gloves, large sterile sheet, appropriate hand hygiene, and 2% chlorhexidine for cutaneous antisepsis (or acceptable alternative antiseptic per current guidelines) were followed for this procedure.. Real-time ultrasound demonstrated a patent right basilic vein. The right upper extremity was prepped and draped in usual sterile fashion. 1% lidocaine used for local anesthesia. Using real-time ultrasound guidance the access needle percutaneously punctured the selected vein. Reference ultrasound images were saved to the medical record. A guidewire was advanced through the needle to the cavoatrial junction, and a peel-away sheath placed. The catheter was cut to length and inserted through the peel-away sheath such that its tip is at the cavoatrial junction. The wire and sheath were removed, and the catheter secured in place, and a sterile dressing was applied. Catheter was found to flush and aspirate normally. No immediate complications are identified. FLUORO TIME: 1.5 MIN Dose area product: 2 Gycm2 Impression: Ultrasound and fluoroscopically guided placement of a right upper extremity PICC line.
--- NOTE | 2019-01-27 17:00 | NUR ---
Wound Care: Wound care f/u on coccyx wound with wound vac change today. Wound cleansed with wound wash, skin prep applied to periwound, ostomy ring applied to periwound bordering rectum, 2 pieces of silver foam applied to wound bed. Bridged to L lateral abdomen, Exuderm to border of dressing proximal to rectum applied. Wound care to change vac dressing on 01/30/19. Pt turned to his left side, side rails up x2, call light within reach.
[2019-01-27 19:26] VITALS: BP 93/51
[2019-01-27] MEDS: MIRTAZAPINE 15 MG TABLET PO SCH (20:35)
[2019-01-27] MEDS: ATORVASTATIN CALCIUM 20 MG TABLET PO SCH (20:35)
[2019-01-27 23:08] VITALS: BP 101/52
[2019-01-28] VITALS (7 sets, daily range): BP systolic 81–122; BP diastolic 47–58
[2019-01-28] MEDS: IV DEXTROSE 5% 1,000 ML IV SCH ×2 (03:30→19:39)
--- NOTE | 2019-01-28 04:35 | PN ---
DATE: 01/27/2019 SUBJECTIVE: The patient is resting slightly propped up in bed, sleeping comfortably. On questioning him, he denied any complaint. The nursing staff did not voice any concern. The Cardiology team apparently decided not to proceed with the pacemaker placement and to hold basically his AV dagoberto blocking agent, namely amiodarone and beta dominic. When I saw him this afternoon, he looked well and was clearly in no apparent respiratory distress. No pallor, jaundice, cyanosis. PHYSICAL EXAMINATION: GENERAL: When I examined him, he looked pale. No jaundice, cyanosis, or thyromegaly. No jugular venous distension. No limb edema. VITAL SIGNS: His heart rate was 68, blood pressure 114/64, temperature was 98.3, respiratory rate was 18, oxygen saturation was 97% on room air, on 1 liter of oxygen. The rest of clinical exam is stable, has not changed. LABORATORY DATA: His lab work this morning showed a white cell count 5500, hemoglobin 10, hematocrit 32, MCV 98 and platelet count of 194,000. His serum sodium 145, potassium 4, chloride 109, bicarbonate 30, anion gap of 6, BUN 17, creatinine 0.9, estimated GFR was 84 mL per minute, his glucose 105, calcium was 8.2. Total bilirubin, AST, ALT, alkaline phosphatase are normal. Total protein is 5, albumin was 1.6. Serum triglyceride was 84, total cholesterol 92, LDL was 42, VLDL was 17, and HDL was 33, and cholesterol to HDL cholesterol ratio was 2.8. ASSESSMENT AND PLAN: The patient has no pauses since admission to [facility], hypertension, hyperlipidemia, paroxysmal atrial fibrillation, type 2 diabetes, hypernatremia, chronic sacral decubitus ulcer stage 4, recent pulmonary emboli for which he is on apixaban, severe protein-calorie malnutrition. The patient is needing a PICC line for long-term IV antibiotic. If this can be done today, probably can be discharged later on to [facility]. CINDY SULLIVAN MD DR: AMY/afsaneh JOB#: [id number] / [id number]
[2019-01-28] MEDS: MEROPENEM 1 GM in IV NORMAL SALINE 100ML 100 ML IV SCH ×3 (05:47→21:44)
[2019-01-28] MEDS: INSULIN LISPRO 300 UNITS/3 ML INSULN.PEN. SQ SCH ×3 (08:00→17:00)
[2019-01-28] MEDS: MULTIVITAMIN with MINERAL TABLET. PO SCH (08:25)
[2019-01-28] MEDS: FOLIC ACID 1 MG TABLET. PO SCH (08:25)
[2019-01-28] MEDS: OXcarbazepine 300 MG TABLET PO SCH ×2 (08:25→21:00)
[2019-01-28] MEDS: FAMOTIDINE 20 MG TABLET. PO SCH ×2 (08:26→21:00)
[2019-01-28] MEDS: LACTOBACILLUS RHAMNOSUS GG 1 CAPSULE. PO SCH ×2 (08:26→21:00)
[2019-01-28] MEDS: ASPIRIN CHEWABLE 81 MG TABLET. PO SCH (08:26)
[2019-01-28] MEDS: traMADol 50 MG TABLET PO SCH ×4 (08:26→21:00)
[2019-01-28] MEDS: CITALOPRAM 20 MG TABLET. PO SCH (08:27)
[2019-01-28] MEDS: APIXABAN 5 MG TABLET. PO SCH ×2 (08:27→21:01)
[2019-01-28] MEDS: ASCORBIC ACID 500 MG TABLET PO SCH (08:27)
[2019-01-28] MEDS: TAMSULOSIN 0.4 MG CAP.ER.24H. PO SCH (08:27)
[2019-01-28] MEDS: LISINOPRIL 10 MG TABLET PO SCH (08:32)
[2019-01-28] MEDS: amLODIPine BESYLATE 5 MG TABLET PO SCH (08:32)
[2019-01-28] MEDS: NITROGLYCERIN 0.2MG/HR PATCH. TD SCH (08:32)
[2019-01-28] MEDS: ZINC SULFATE 220 MG CAPSULE. PO SCH ×2 (09:00→21:00)
[2019-01-28] MEDS: VALPROIC ACID (AS SODIUM SALT) 250 MG in IV DEXTROSE 5% 50 ML IV SCH ×2 (10:10→21:00)
--- NOTE | 2019-01-28 10:51 | PDOC ---
Infectious Disease Note Subjective Subjective Known to service from [facility]. Transferred to [facility] for Bradycardia Doing well. No major complaints No F/S/SOA/N/V/D/RASH and no gross pain. No CP/palpatations ROS ROS NO N/V/D/ Vital Sign Vital Signs Vital Signs Date Time Temp Pulse Resp B/P (MAP) Pulse Ox O2 Delivery O2 Flow Rate FiO2 01/28/19 09:25 96 Room Air 01/28/19 08:26 2.0 01/28/19 07:20 98.1 84 20 117/52 (73) 98.1 Physical Exam PHYSICAL EXAM CONST: NAD and coop - looks well HEENT: PERRLA, nml conj, OC/OP - edentulous and clean NECK: Supple, No JVD LUNGS: CTA CV: S1/S2 ABD: Soft, NT, ND, Soft EXT: No C/C/E NEURO: Alert and coop. talkative - less confused today Skin: No Rash IV: RUE - PICC - clean Sacral Wound vac in place. examined 01/25 with Wound care and very clean and no bone Labs Lab Laboratory Tests Test 01/27/19 12:14 01/27/19 17:01 01/27/19 20:53 01/28/19 07:55 Glucose (Fingerstick) 78 mg/dL (70-99) 115 mg/dL (70-99) 109 mg/dL (70-99) 88 mg/dL (70-99) Objective Assessment Bradycardia Large sacral decub with osteo s/p Sugery 12/30 bone covered now ESBL Ecoli/Morganella/Pseuodomonas Res Forta I Zosyn, Bacteroides and clostridium species MRSA + Transaminitis - improving Afib H/o CVA Chronic crooks DM Plan Plan of Care Cont Meropenem until 02/12 PICC Await further Card assessment Transfer to [facility] ok D/w nursing ERLINDA QUINTERO MD Jan 28, 2019 10:51
[2019-01-28] MEDS: MIRTAZAPINE 15 MG TABLET PO SCH (21:00)
[2019-01-28] MEDS: ATORVASTATIN CALCIUM 20 MG TABLET PO SCH (21:00)
--- NOTE | 2019-01-28 21:43 | PN ---
DATE: 01/28/2019 SUBJECTIVE: The patient is resting, slightly propped up in bed, no apparent distress. He is awake, alert. On questioning him, he denied any complaint. Nursing staff stated that he has had an uneventful night. He actually asked to get out of the bed; however, he has stage 4 sacral decubitus ulcer. He is on bed rest. PHYSICAL EXAMINATION: GENERAL: When I examined him this morning, he was pale. No jaundice, cyanosis or thyromegaly. No jugular venous distension. No lower limb edema. VITAL SIGNS: Her heart rate was 84, blood pressure was 117/52, temperature was 98.1, respiratory rate 20 and oxygen saturation was 100% on 2 liters of oxygen. HEAD, EYES, EARS, NOSE AND THROAT: Showed normocephalic and atraumatic. NECK: Supple. HEART: Showed normal first and second sounds. No gallop, rub or murmur. CHEST: Clear to auscultation. No crepitation or rhonchi. ABDOMEN: Distended, soft and nontender. NEUROLOGICAL: He is definitely awake, alert, responding appropriately. All cranial nerves intact. He moves extremities without difficulty, though he is mostly bed bound. DERMATOLOGICAL: He has large stage 4 sacral decubitus ulcer. GENITOURINARY: He has an indwelling Linn catheter. His intake was 1700 AND output was 2450. His blood sugar seems to be well controlled. ASSESSMENT AND PLAN: 1. The patient was transferred after has a prolonged on Telemetry and was on the basis of Cardiology recommendation as he might require permanent pacemaker placement and he is on beta blockers and amiodarone that was discontinued. So far, he has not displayed any severe sinus bradycardia or high-grade heart block after discontinuing his amiodarone and beta dominic. 2. The patient has other medical problems include: A. Hypertension. B. Hyperlipidemia. C. Paroxysmal atrial fibrillation, although he is in sinus rhythm. D. Type 2 diabetes mellitus. E. Chronic stage 4 sacral decubitus ulcer. F. Deep venous thrombosis and pulmonary emboli for which he is on apixaban. G. Severe protein-calorie malnutrition with serum albumin is only 1.6 g/dL. The patient has had a peripherally inserted central catheter line placed and he is now on IV antibiotic. Apparently [facility] are unable to accept him today. We will keep him over the weekend and hopefully transfer him there on Wednesday once a bed becomes available. CINDY SULLIVAN MD DR: AMY/afsaneh JOB#: [id number] / [id number]
[2019-01-29 03:30] VITALS: BP 95/49
[2019-01-29] MEDS: MEROPENEM 1 GM in IV NORMAL SALINE 100ML 100 ML IV SCH ×3 (05:33→21:05)
[2019-01-29 05:37] LABS: HEMATOCRIT 27.2 % (39.0-53.0); HEMOGLOBIN 8.6 g/dL (13.0-17.5); RED BLOOD COUNT 2.9 x10^6/uL (4.30-5.70); WHITE BLOOD COUNT 7.2 x10^3/uL (4.0-11.0)
[2019-01-29 06:08] LABS: CALCIUM 7.9 mg/dL (8.5-10.1); CREATININE 0.8 mg/dL (0.7-1.3); GFR 95.8; MAGNESIUM 2.3 mg/dL (1.8-2.4); POTASSIUM 4.2 mmol/L (3.5-5.1)
[2019-01-29 07:31] VITALS: BP 105/53
[2019-01-29] MEDS: INSULIN LISPRO 300 UNITS/3 ML INSULN.PEN. SQ SCH ×3 (08:00→17:00)
[2019-01-29] MEDS: FOLIC ACID 1 MG TABLET. PO SCH (08:34)
[2019-01-29] MEDS: MULTIVITAMIN with MINERAL TABLET. PO SCH (08:36)
[2019-01-29] MEDS: CITALOPRAM 20 MG TABLET. PO SCH (08:36)
[2019-01-29] MEDS: LACTOBACILLUS RHAMNOSUS GG 1 CAPSULE. PO SCH ×2 (08:36→20:04)
[2019-01-29] MEDS: ASPIRIN CHEWABLE 81 MG TABLET. PO SCH (08:36)
[2019-01-29] MEDS: ASCORBIC ACID 500 MG TABLET PO SCH (08:37)
[2019-01-29] MEDS: SENNOSIDES 8.6 MG TABLET PO PRN (08:37)
[2019-01-29] MEDS: VALPROIC ACID (AS SODIUM SALT) 250 MG in IV DEXTROSE 5% 50 ML IV SCH ×2 (08:37→20:04)
[2019-01-29] MEDS: traMADol 50 MG TABLET PO SCH ×4 (08:37→20:06)
[2019-01-29] MEDS: FAMOTIDINE 20 MG TABLET. PO SCH ×2 (08:37→20:05)
[2019-01-29] MEDS: amLODIPine BESYLATE 5 MG TABLET PO SCH (08:37)
[2019-01-29] MEDS: APIXABAN 5 MG TABLET. PO SCH ×2 (08:37→20:04)
[2019-01-29] MEDS: TAMSULOSIN 0.4 MG CAP.ER.24H. PO SCH (08:37)
[2019-01-29] MEDS: LISINOPRIL 10 MG TABLET PO SCH (08:38)
[2019-01-29] MEDS: NITROGLYCERIN 0.2MG/HR PATCH. TD SCH (08:38)
[2019-01-29] MEDS: ZINC SULFATE 220 MG CAPSULE. PO SCH ×2 (08:44→21:06)
[2019-01-29] MEDS: OXcarbazepine 300 MG TABLET PO SCH ×2 (09:43→20:04)
--- NOTE | 2019-01-29 09:45 | PDOC ---
Infectious Disease Note Subjective Subjective Known to service from [facility] [place]. Transferred to [facility] for Bradycardia Doing well. No major complaints No F/S/SOA/N/V/D/RASH and no gross pain. No CP/palpatations Vital Sign Vital Signs Vital Signs Date Time Temp Pulse Resp B/P (MAP) Pulse Ox O2 Delivery O2 Flow Rate FiO2 01/29/19 09:35 92 Room Air 2.0 01/29/19 07:31 98.6 76 18 105/53 (70) 98.6 Physical Exam PHYSICAL EXAM CONST: NAD and coop - looks well HEENT: PERRLA, nml conj, OC/OP - edentulous and clean NECK: Supple, No JVD LUNGS: CTA CV: S1/S2 ABD: Soft, NT, ND, Soft EXT: No C/C/E NEURO: Alert and coop. talkative - less confused today Skin: No Rash IV: RUE - PICC - clean Sacral Wound vac in place. examined 01/25 with Wound care and very clean and no bone Labs Lab Laboratory Tests Test 01/28/19 12:05 01/28/19 17:06 01/28/19 20:59 01/29/19 05:20 Glucose (Fingerstick) 110 mg/dL (70-99) 83 mg/dL (70-99) 94 mg/dL (70-99) White Blood Count 7.2 x10^3/uL (4.0-11.0) Red Blood Count 2.90 x10^6/uL (4.30-5.70) Hemoglobin 8.6 g/dL (13.0-17.5) Hematocrit 27.2 % (39.0-53.0) Mean Corpuscular Volume 94 fL (79-100) Mean Corpuscular Hemoglobin 30 pg (25-35) Mean Corpuscular Hemoglobin Concent 32 g/dL (31-37) Red Cell Distribution Width 16.0 % (11.5-14.5) Platelet Count 219 x10^3/uL (140-400) Sodium Level 140 mmol/L (136-145) Potassium Level 4.2 mmol/L (3.5-5.1) Chloride Level 105 mmol/L (98-107) Carbon Dioxide Level 33 mmol/L (21-32) Anion Gap 2 (6-14) Blood Urea Nitrogen 14 mg/dL (8-26) Creatinine 0.8 mg/dL (0.7-1.3) Estimated GFR (Cockcroft-Gault) 95.8 Glucose Level 140 mg/dL (70-99) Calcium Level 7.9 mg/dL (8.5-10.1) Magnesium Level 2.3 mg/dL (1.8-2.4) Test 01/29/19 07:57 Glucose (Fingerstick) 78 mg/dL (70-99) Objective Assessment Bradycardia Large sacral decub with osteo s/p Sugery 12/30 bone covered now ESBL Ecoli/Morganella/Pseuodomonas Res Forta I Zosyn, Bacteroides and clostridium species MRSA + Transaminitis - improving Afib H/o CVA Chronic crooks DM Plan Plan of Care Cont Meropenem until 02/12 PICC Await further Card assessment Transfer to [facility] D/w nursing ERLINDA QUINTERO MD Jan 29, 2019 09:45
--- NOTE | 2019-01-29 10:26 | PN ---
DATE: 01/29/2019 SUBJECTIVE: The patient is resting, slightly propped up, sleeping comfortably, in no apparent respiratory distress, sleepy but arousable. On questioning him, he denied any complaint. The nursing staff did not voice any concern except that his blood pressure medications were held as the blood pressure was low. OBJECTIVE: GENERAL: When I examined him this morning, he looked pale, not jaundice or cyanosed or thyromegaly. No jugular venous distension. No limb edema. VITAL SIGNS: His heart rate was 76, blood pressure is 105/53, temperature was 98.6, respiratory rate was 18, and oxygen saturation was 92%. HEAD, EYES, EARS, NOSE AND THROAT: Normocephalic, atraumatic. NECK: Supple. HEART: Showed normal first and second heart sounds. No gallop or murmur. CHEST: Clear to auscultation. No crepitation or rhonchi. ABDOMEN: Distended, soft, nontender. No guarding or rigidity. No organomegaly. All hernial orifice intact. Bowel sounds normal. NEUROLOGIC: He was sleepy, but arousable. All cranial nerves are intact. He moves extremities without difficulty. He has large stage 4 sacral decubitus ulcer. He has an indwelling Linn catheter. INS AND OUTS: His intake over the last 24 hours was 1400, output was 2450. LABORATORY AND DIAGNOSTIC DATA: As of this morning, his white cell count was 7200, hemoglobin 8.6, hematocrit 27.2, MCV 94 and platelet count 219,000. His chemistry showed a serum sodium 140, potassium 4.2, chloride 105, bicarbonate 33, anion gap of 2, BUN 14, creatinine 0.8, estimated GFR was 96 mL per minute, his glucose was 140, calcium was 7.9, and magnesium was 2.3. ASSESSMENT: 1. The patient was transferred to [facility] as he has prolonged pauses on telemetry and Dr. Reece recommended transferring him as he might require permanent pacemaker placement. 2. His beta blockers amiodarone was discontinued and so far he has not displayed any severe sinus bradycardia or high grade heart block after discontinuing his amiodarone and beta dominic. 3. The patient has multiple other medical problems including: A. Hypertension. B. Hyperlipidemia. C. Paroxysmal atrial fibrillation, although he is currently in sinus rhythm. D. Type 2 diabetes mellitus that seems to be reasonably controlled. E. Chronic stage 4 sacral decubitus ulcer. F. Deep vein thrombosis and pulmonary embolism for which he is on apixaban. G. Severe protein-calorie malnutrition, serum albumin is only 1.6 g/dL. PLAN: To continue with IV antibiotic. Again the patient could not be transferred to [facility] today as his blood pressure is consistently low. I will discontinue some of his blood pressure medication. CINDY SULLIVAN MD DR: AMY/afsaneh JOB#: [id number] / [id number]
[2019-01-29 10:31] VITALS: BP 117/87
[2019-01-29] MEDS: IV DEXTROSE 5% 1,000 ML IV SCH ×2 (11:33→21:05)
[2019-01-29 14:06] VITALS: BP 96/73
[2019-01-29 19:45] VITALS: BP 83/52
[2019-01-29] MEDS: MIRTAZAPINE 15 MG TABLET PO SCH (20:04)
[2019-01-29] MEDS: ATORVASTATIN CALCIUM 20 MG TABLET PO SCH (20:05)
[2019-01-29 22:55] VITALS: BP 97/61
[2019-01-30] MEDS: IV DEXTROSE 5% 1,000 ML IV SCH (00:10)
[2019-01-30 03:20] VITALS: BP 111/67
[2019-01-30] MEDS: MEROPENEM 1 GM in IV NORMAL SALINE 100ML 100 ML IV SCH (05:04)
[2019-01-30 07:16] VITALS: BP 137/78
[2019-01-30] MEDS: INSULIN LISPRO 300 UNITS/3 ML INSULN.PEN. SQ SCH ×2 (08:00→12:00)
--- NOTE | 2019-01-30 08:24 | SNU/HH DC ---
DISCHARGE ORDERS DISCHARGE INFORMATION: CONDITION ON DISCHARGE: Stable CODE STATUS: Code Status: Full NURSING HOME: SNF STAY <30 DAYS: Yes POST DISCHARGE ORDERS: ACTIVITY ORDERS: Resume previous activity DIET AFTER DISCHARGE: Cardiac TREATMENT/EQUIPMENT ORDERS: Physical Therapy For: Evalulation/Treatment Occupational Therapy For: Evaluation/Treatment DISCHARGE MEDICATIONS: Home Meds Reported Medications Apixaban (ELIQUIS) 5 Mg Tablet, 5 MG PO BID for a fib, TAB 01/25/19 Ascorbic Acid (VITAMIN C) 500 Mg Capsule.er, 500 MG PO DAILY for wound, CAP.SR 01/25/19 Multivitamin (MULTIVITAMINS) 1 Each Tablet, 1 TAB PO DAILY for wound, #90 TAB 3 Refills 01/25/19 Zinc Gluconate (ZINC) 50 Mg Tablet, 220 MG PO BID for wound, TAB 01/25/19 Atorvastatin Calcium (ATORVASTATIN CALCIUM) 20 Mg Tablet, 1 TAB PO HS for cholest., #30 TAB 5 Refills 01/25/19 Aspirin (ASPIRIN) 81 Mg Tab.chew, 1 TAB PO DAILY for blood, #30 TAB 3 Refills 01/25/19 Famotidine (FAMOTIDINE) 20 Mg Tablet, 20 MG PO BID for stomach, TAB 01/25/19 Folic Acid (FOLIC ACID) 1 Mg Tablet, 1 TAB PO DAILY for replacement, #90 TAB 1 Refill 01/25/19 Hydroxyzine Hcl (HYDROXYZINE HCL) 25 Mg Tablet, 1 TAB PO Q6HRS PRN for ITCHING, #30 TAB 01/25/19 Hydroxyzine Hcl (HYDROXYZINE HCL) 25 Mg Tablet, 1 TAB PO Q6-8HRS PRN for ITCHING , #30 TAB 01/25/19 Melatonin (MELATONIN) 3 Mg Tablet, 1 TAB PO QHS for sleep, #30 TAB 2 Refills 01/25/19 Miconazole Nitrate (MICONAZOLE 3) 24 Gm Cmb.pf.crm, 24 GM VG BID for yeast, EACH 01/25/19 Sennosides (SENOKOT) 8.6 Mg Tablet, 1 TAB PO BID PRN for CONSTIPATION, #40 TAB 01/25/19 Tamsulosin Hcl (FLOMAX) 0.4 Mg Cap.er.24h, 1 CAP PO DAILY for flow, #30 CAP 11 Refills 01/25/19 Meropenem (MEROPENEM) 1 Gm Vial, 1 GM IV Q8HRS for antibiotic, EACH 01/25/19 Nitroglycerin (NITRO-DUR 0.2mg/hr) 1 Each Patch.td24, 1 EACH TD DAILY for heart , PATCH 01/25/19 Polyethylene Glycol 3350 (POLYETHYLENE GLYCOL 3350) 255 Gm Powder, 17 GM PO BID PRN for CONSTIPATION, #527 GM 01/25/19 Olanzapine (OLANZAPINE) 5 Mg Tablet, 1 TAB PO Q4DAYS PRN for AGITATION, #30 TAB 2 Refills 01/25/19 Amlodipine Besylate (AMLODIPINE BESYLATE) 5 Mg Tablet, 5 MG PO DAILY for htn, TAB 01/25/19 Lisinopril (LISINOPRIL) 10 Mg Tablet, 1 TAB PO DAILY for htn, #30 TAB 5 Refills 01/25/19 Escitalopram Oxalate (ESCITALOPRAM OXALATE) 10 Mg Tablet, 1 TAB PO DAILY for depression, #30 TAB 3 Refills 01/25/19 Olanzapine (OLANZAPINE) 10 Mg Tablet, 10 MG PO Q4HRS PRN for AGITATION, TAB 01/25/19 Valproate Sodium (VALPROATE SODIUM) 500 Mg/5 Ml Vial, 250 MG IV BID for ?, EACH 01/25/19 Tramadol Hcl (TRAMADOL HCL) 50 Mg Tablet, 50 MG PO QID for pain, TAB 0 Refills 01/25/19 Mirtazapine (MIRTAZAPINE) 15 Mg Tablet, 1 TAB PO QHS for depression, #30 TAB 3 Refills 01/25/19 Oxcarbazepine (OXCARBAZEPINE) 300 Mg Tablet, 150 MG PO BID for ?, TAB 01/25/19 Discontinued Reported Medications Amiodarone Hcl (AMIODARONE HCL) 200 Mg Tablet, 1 TAB PO BID for heart, #90 TAB 1 Refill 01/25/19 Carvedilol (CARVEDILOL) 25 Mg Tablet, 3.125 MG PO BIDWMEALS for CARDIAC, TAB 01/25/19 CINDY SULLIVAN MD Jan 30, 2019 08:24
[2019-01-30] MEDS: FOLIC ACID 1 MG TABLET. PO SCH (08:53)
[2019-01-30] MEDS: TAMSULOSIN 0.4 MG CAP.ER.24H. PO SCH (08:53)
[2019-01-30] MEDS: LISINOPRIL 10 MG TABLET PO SCH (08:53)
[2019-01-30] MEDS: APIXABAN 5 MG TABLET. PO SCH (08:54)
[2019-01-30] MEDS: CITALOPRAM 20 MG TABLET. PO SCH (08:54)
[2019-01-30] MEDS: FAMOTIDINE 20 MG TABLET. PO SCH (08:54)
[2019-01-30] MEDS: ASCORBIC ACID 500 MG TABLET PO SCH (08:54)
[2019-01-30] MEDS: ZINC SULFATE 220 MG CAPSULE. PO SCH (08:55)
[2019-01-30] MEDS: LACTOBACILLUS RHAMNOSUS GG 1 CAPSULE. PO SCH (08:55)
[2019-01-30] MEDS: ASPIRIN CHEWABLE 81 MG TABLET. PO SCH (08:55)
[2019-01-30] MEDS: OXcarbazepine 300 MG TABLET PO SCH (08:55)
[2019-01-30] MEDS: MULTIVITAMIN with MINERAL TABLET. PO SCH (08:55)
[2019-01-30] MEDS: traMADol 50 MG TABLET PO SCH (08:55)
[2019-01-30] MEDS: VALPROIC ACID (AS SODIUM SALT) 250 MG in IV DEXTROSE 5% 50 ML IV SCH (08:59)
[2019-01-30] MEDS: NITROGLYCERIN 0.2MG/HR PATCH. TD SCH (09:00)
--- NOTE | 2019-01-30 09:24 | PDOC ---
Infectious Disease Note Subjective Subjective Known to service from [facility]. Transferred to [facility] for Bradycardia Doing well. No major complaints No F/S/SOA/N/V/D/RASH and no gross pain. No CP/palpatations ROS ROS no n/v/d/ Vital Sign Vital Signs Vital Signs Date Time Temp Pulse Resp B/P (MAP) Pulse Ox O2 Delivery O2 Flow Rate FiO2 01/30/19 08:55 18 98 Room Air 2.0 01/30/19 08:53 79 137/78 01/30/19 07:16 98.0 98.0 Physical Exam PHYSICAL EXAM CONST: NAD and coop - looks well HEENT: PERRLA, nml conj, OC/OP - edentulous and clean NECK: Supple, No JVD LUNGS: CTA CV: S1/S2 ABD: Soft, NT, ND, Soft EXT: No C/C/E NEURO: Alert and coop. talkative - less confused today Skin: No Rash IV: RUE - PICC - clean Sacral Wound vac in place. examined 01/25 with Wound seen and very clean, healthy granulation, and a very small area of bone palpable Labs Lab Laboratory Tests Test 01/29/19 11:29 01/29/19 16:18 01/29/19 20:41 01/30/19 07:21 Glucose (Fingerstick) 116 mg/dL (70-99) 95 mg/dL (70-99) 121 mg/dL (70-99) 75 mg/dL (70-99) Objective Assessment Bradycardia Large sacral decub with osteo s/p Sugery 12/30 bone covered now ESBL Ecoli/Morganella/Pseuodomonas Res Forta I Zosyn, Bacteroides and clostridium species MRSA + Transaminitis - improving Afib H/o CVA Chronic crooks DM Plan Plan of Care Cont Meropenem until 02/12 PICC Transfer to [facility] ok D/w nursing ERLINDA QUINTERO MD Jan 30, 2019 09:24
[2019-01-30 11:24] VITALS: BP 114/62
--- NOTE | 2019-01-30 11:40 | NUR ---
SS following up with discharge planning. [facility] contacted SS and stated that bed was available at 1200. Discharge orders received. SS phoned and faxed discharge orders to [facility], ; fax [phone]. Pt will discharge today and return to [facility] at 1200 via [facility] ambulance. Pt, pt's son, and pt's RN notified.
--- NOTE | 2019-01-30 12:27 | NUR ---
Discharge Note: ROGELIO [facility] Discharge instructions and discharge home medications reviewed with Other facility and a copy given. All questions have been answered and understanding verbalized. Pt sent with right upper arm sinlge lumen PICC. Pt wound vac removed prior to DC and wet to dry dressing applied. Pt stable at time of DC.
--- NOTE | 2019-01-30 13:07 | DS ---
DATE OF DISCHARGE: 01/30/2019 HOSPITAL COURSE: The patient is a 68-year-old male patient who was transferred from [facility] as he has prolonged sinus pauses and on their bridge operator's recommendation the patient was transferred as he might require permanent pacemaker placement. He was on amiodarone and carvedilol. Both were discontinued and has been observed over the last 4 days and his heart rate remained stable, showed no further episode of bradycardia and as he remained stable hemodynamically, has had no further episodes of bradycardia, a decision was made to discharge him back to [facility] to continue with IV antibiotic, continue with wound care, nutritional support and to start the process of physical and occupational therapy. When I questioned him this morning, he denied any complaint and said that he had an uneventful night. PHYSICAL EXAMINATION: GENERAL: When I examined him, he looked pale, no jaundice, cyanosis, or thyromegaly. No jugular venous distension. No lower limb edema. VITAL SIGNS: His heart rate was 79, blood pressure was 137/78, temperature was 98, respiratory rate was 18 and oxygen saturation was 98% on room air. HEAD, EYES, EARS, NOSE AND THROAT: Showed normocephalic, atraumatic. NECK: Supple. HEART: Showed normal first and second heart sounds. No gallop, rub or murmur. CHEST: Clear to auscultation. No crepitation or rhonchi. ABDOMEN: Distended, soft, nontender. NEUROLOGIC: He was awake, alert, responding appropriately. All cranial nerves intact. He moves extremities without difficulty, ambulates without assistance or assistive devices. INS AND OUTS: His intake over the last 24 hours was 600, output was 2075. LABORATORY DATA: As of yesterday showed a serum sodium 140, potassium 4.2, chloride 105, bicarbonate 33, anion gap of 2, BUN 14, creatinine 0.8, estimated GFR was 96 mL per minute, his glucose 140, calcium was 7.9, magnesium 2.3. White cell count was 7200, hemoglobin 8.6, hematocrit 27.2, MCV 94 and platelet count 219,000. His nasal screen for MRSA by PCR was negative. DISCHARGE MEDICATIONS: He was discharged back to [facility] to continue with amlodipine 5 mg once a day, apixaban 5 mg twice a day, ascorbic acid 500 mg daily, aspirin 81 mg once a day, atorvastatin calcium 20 mg at bedtime, escitalopram oxalate 10 mg once a day, famotidine 20 mg p.o. b.i.d., folic acid 1 mg daily, hydroxyzine 25 mg every 6-8 hours, lisinopril 10 mg once a day, melatonin 3 mg at bedtime, meropenem 1 gram IV q.8 hourly, econazole nitrate applied twice a day, mirtazapine 15 mg at bedtime, multivitamin 1 tablet once a day, nitroglycerin 0.2 mg per hour transdermal daily, olanzapine 10 mg every 4 hours, olanzapine 5 mg every 4 hours as needed for agitation, oxcarbazepine 150 mg twice a day, polyethylene glycol 17 grams daily, senna 1 tablet twice a day, tamsulosin for Flomax 0.4 mg at bedtime, tramadol 50 mg 4 times a day as needed, valproic acid 250 mg IV b.i.d., zinc gluconate 220 mg twice a day. We discontinued his amiodarone and carvedilol as per bridge operator's recommendation. FINAL DISCHARGE DIAGNOSES: 1. The patient was transferred to [facility] as prolonged sinus pauses on telemetry. However, after discontinuation of his amiodarone and beta blockers he has had no further episode of bradycardia. 2. The patient has multiple other medical problems including: A. Hypertension. B. Hyperlipidemia. C. Paroxysmal atrial fibrillation, rate controlled, well anticoagulated. D. Type 2 diabetes mellitus, seems to be reasonably controlled. E. Chronic stage 4 sacral decubitus ulcer. F. Deep vein thrombosis and pulmonary embolism for which he is on apixaban. G. Severe protein-calorie malnutrition, serum albumin is only 1.6 g/dL. CINDY SULLIVAN MD DR: AMY/afsaneh JOB#: [id number] / [id number]
== END 2019-01-30 12:29 | DRG 871 ==
LOC: 1 WEST ICU 11:09 → 2 NORTH 01-26 06:44
PROVIDERS: ADMIT Internal Medicine; ATTEND Internal Medicine
PROC: 02HV33Z Insertion of Infusion Device into Superior Vena Cava, Percutaneous Approach (ICD-10-PCS; principal; 2019-01-27)
PROC: B5181ZA Fluoroscopy of Superior Vena Cava using Low Osmolar Contrast, Guidance (ICD-10-PCS; 2019-01-27)
PROC: B548ZZA Ultrasonography of Superior Vena Cava, Guidance (ICD-10-PCS; 2019-01-27)
DX: A41.59 Other Gram-negative sepsis (principal); L89.154 Pressure ulcer of sacral region, stage 4; G93.41 Metabolic encephalopathy; J96.01 Acute respiratory failure with hypoxia; E43 Unspecified severe protein-calorie malnutrition; E87.0 Hyperosmolality and hypernatremia; Z68.43 Body mass index [BMI] 50.0-59.9, adult; I25.10 Atherosclerotic heart disease of native coronary artery without angina pectoris; J44.9 Chronic obstructive pulmonary disease, unspecified; E78.5 Hyperlipidemia, unspecified; I11.0 Hypertensive heart disease with heart failure; I48.0 Paroxysmal atrial fibrillation; E11.9 Type 2 diabetes mellitus without complications; Q77.4 Achondroplasia; F32.9 Major depressive disorder, single episode, unspecified; F41.9 Anxiety disorder, unspecified; E66.9 Obesity, unspecified; I50.9 Heart failure, unspecified; Z86.74 Personal history of sudden cardiac arrest; Z86.73 Personal history of transient ischemic attack (TIA), and cerebral infarction without residual deficits; Z86.711 Personal history of pulmonary embolism; Z87.440 Personal history of urinary (tract) infections; Z87.891 Personal history of nicotine dependence; Z79.899 Other long term (current) drug therapy
CPT/HCPCS: 36415; 36569; 76937; 77001; 80048; 80053; 80061; 80076; 82962; 83735; 85027; 85520; 85610; 85730; 87641; 93005; 93306; C1751; C1892; J1815; J2185

== ENCOUNTER 2019-02-25 21:56 | Inpatient (IN) | payer MEDICARE, OTHER ==
[~2019-02-25] VITALS: Ht 121.9 cm; Wt 92.5 kg
[~2019-02-25 21:56] MED LIST changes: +AMIO200T4 PO; +AMLO5TAB10 PO; +APIX5TAB PO; +ASCO500C PO; +ASPI-630 PO; +ATOR20TA58 PO; +CARV25TA2 PO; +ESCITALOPRAM OX10 MG PO; +FAMO20TA5 PO; +FOLI1TAB16 PO; +HYDR25TA PO; +LISI10TA2 PO; +MELA3TAB2 PO; +MERO1VIA15 IV; +MIRT15TA3 PO; +MULT1TAB52 PO; +NITR1PAT5 TD; +OLAN10TA9 PO; +OLAN5TAB9 PO; +OXCA300T19 PO; +POLY255P11 PO; +SENN8.6T99 PO; +TAMS0.4C97 PO; +TRAM50TA PO; +VALP500V2 IV; +ZINC50TA2 PO; +[UNRECOGNIZED DRUG - CODE] VG
[2019-02-25] MEDS ORDERED: IV NORMAL SALINE 1000ML BAG 1,000 ML IV ONE (22:45)
[2019-02-25] MEDS ORDERED: PIP/TAZO PER PHARMACY MC PRN (22:45)
[2019-02-25 23:19] LABS: BASO % 0 % (0-3); EOS # 0.2 x10^3/uL (0.0-0.7); EOS % 1 % (0-3); HEMATOCRIT 32.9 % (39.0-53.0); HEMOGLOBIN 10.4 g/dL (13.0-17.5); LYMPH % 6 % (24-48); MEAN CORPUSCULAR HEMOGLOBIN 28 pg (25-35); MEAN CORPUSCULAR HGB CONC 32 g/dL (31-37); MEAN CORPUSCULAR VOLUME 90 fL (79-100); MONO % 12 % (0-9); NEUT # 13.4 x10^3uL (1.8-7.7); NEUT % 81 % (31-73); PLATELET COUNT 320 x10^3/uL (140-400); RED BLOOD COUNT 3.67 x10^6/uL (4.30-5.70); RED CELL DISTRIBUTION WIDTH 14.6 % (11.5-14.5); WHITE BLOOD COUNT 16.6 x10^3/uL (4.0-11.0)
[2019-02-25 23:26] LABS: CALCIUM 8.9 mg/dL (8.5-10.1); GFR 33.3; POTASSIUM 3.4 mmol/L (3.5-5.1)
[2019-02-25 23:32] LABS: ALBUMIN 1.5 g/dL (3.4-5.0); ALBUMIN/GLOBULIN RATIO 0.4 (1.0-1.7); TOTAL BILIRUBIN 0.2 mg/dL (0.2-1.0); TOTAL PROTEIN 4.9 g/dL (6.4-8.2)
[2019-02-26] VITALS (7 sets, daily range): BP systolic 58–123; BP diastolic 40–64
[2019-02-26] MEDS ORDERED: PIPERACILLIN/TAZOBACTAM 2.25 GM in IV NORMAL SALINE 50ML 50 ML IV ONE (00:15)
[2019-02-26] MEDS ORDERED: fentaNYL PF VIAL 100 MCG/2 ML VIAL IV PRN (00:30)
[2019-02-26] MEDS ORDERED: IV NORMAL SALINE 1000ML BAG 1,000 ML IV ONE (00:30)
[2019-02-26 00:40] LABS: BILIRUBIN,URINE NEGATIVE (NEG); CLARITY,URINE CLOUDY; COLOR,URINE YELLOW; NITRITE,URINE NEGATIVE (NEG); PROTEIN,URINE 30 mg/dL (NEG-TRACE)
[2019-02-26 00:53] LABS: BACTERIA,URINE MODERATE /HPF (0-FEW); WBC,URINE TNTC /HPF (0-4)
[2019-02-26 00:54] LABS: SQUAMOUS EPITHELIAL CELL,UR MOD /LPF
[2019-02-26 01:01] LABS: % BANDS 17 % (0-9); % BASOS 2 % (0-3); % EOS 2 % (0-5); % LYMPHS 5 % (24-48); % MONOS 11 % (0-10); % SEGS 63 % (35-66)
[2019-02-26 01:02] LABS: BURR CELLS OCC; PLT ESTIMATE ADEQUATE (ADEQUATE)
--- NOTE | 2019-02-26 01:33 | RAD ---
Examination: CT of the abdomen pelvis without contrast HISTORY: History of sacral ulcer COMPARISON: None available TECHNIQUE: Axial CT images of the abdomen pelvis were performed without contrast. Coronal and sagittal reformats are performed. Exposure: One or more of the following individualized dose reduction techniques were utilized for this examination: 1. Automated exposure control 2. Adjustment of the mA and/or kV according to patient size 3. Use of iterative reconstruction technique Findings: Mild bibasilar lung atelectasis. No evidence of free air identified in the abdomen. The evaluation of the solid organs is limited due to lack of IV contrast. The evaluation of bowel is limited due to lack of oral contrast. The visualized noncontrasted liver, adrenals grossly appears unremarkable. The gallbladder is likely collapsed. Faint fat stranding identified about the pancreas probably artifactual and less likely mild pancreatitis. Few calcifications identified in the spleen. The stomach is mildly distended. Small bowel is nondilated. There is moderate thickened appearance of the wall of the distal sigmoid colon and the rectum with surrounding inflammatory fat stranding likely colitis/proctitis. The appendix is normal. Feces and gas noted in the colon. 6 mm calculus identified in the right kidney likely intrarenal collecting system calculus. No evidence of hydronephrosis. Linn catheter balloon identified in the urinary bladder. There is mild fat stranding identified about the collapsed urinary bladder. There is a moderate-sized ulcer identified in the midline low back extending up to the sacrum. No obvious sacral cortical disruption evident. Dysplastic bilateral hips. Moderate degenerative changes lumbar spine. IMPRESSION: 1. Moderate diffuse thickening of the wall of the sigmoid colon and the rectum with surrounding inflammatory fat stranding likely colitis/proctitis. 2. Moderate size ulcer identified in the low back extending of the sacrum. No evidence of cortical disruption evident in the sacrum however osteomyelitis is not cannot be completely excluded. 3. Questionable minimal fat stranding identified about the pancreas probably due to artifactual and less likely mild pancreatitis. Correlate with lab values. 4. 6 mm calculus right kidney 5. Mild fracture identified about the collapsed urinary bladder nonspecific underlying cystitis is not excluded. Electronically signed by: Lucio Patel MD (02/26/2019 1:30 AM) [facility]
[2019-02-26] MEDS: IV NORMAL SALINE 1000ML BAG 1,000 ML IV SCH ×3 (02:01→16:30)
--- NOTE | 2019-02-26 02:10 | NUR ---
Pt arrived to unit via cart accompanied by ED staff. Pt was transferred to bed from cart X3 assist. Pt was rolled on his side and pt had a large Diarrhea BM also a very large wound was exposed see chart for picture and wound assessment. Pt was cleaned, wound was rinsed with saline wound wash and a pkg of NS soaked kerlex was packed in wound with an ABD and medipore tape over it. Pt was then placed on his right side with a wedge behind him to keep pt off his back side. Call light was placed in reach. Assessment was completed. Home medications and medical history was obtained from past admissions and papers brought from nursing station. Pt is alert to self only and not able to provide any history.
--- NOTE | 2019-02-26 02:17 | PHYS DOC ---
Past Medical History Past Medical History: Asthma, Other Additional Past Medical Histor: BORDERLINE DM Past Surgical History: No Surgical History Alcohol Use: None Drug Use: None Adult General Chief Complaint Chief Complaint: ALTERED MENTAL STATUS HPI HPI Patient is a 68 year old M P/W CC OF elevated white blood count as well as rising creatinine. Patient has a history of a large sacral ulcer he had a significant surgery at some sort of a debridement followed by wound VAC the wound VAC just got taken off 2 days ago he has had increasing drainage and abnormal smell to this area he also has a rising white blood so, creatinine is now 2.0 blood pressure was okay denies chest pain shortness of breath she was somewhat limited by the patient's underlying mental status. He was referred in for admission Review of Systems Review of Systems Constitutional: No definite fever Eyes: Denies change in visual acuity, redness, or eye pain [] Musculoskeletal: Denies back pain or joint pain [] Integument: See above Neurologic: Denies headache, focal weakness or sensory changes [] Endocrine: Denies polyuria or polydipsia [] All other systems were reviewed and found to be within normal limits, except as documented in this note. Current Medications Current Medications Current Medications Medications (Trade) Dose Ordered Sig/Ronald Start Time Stop Time Status Last Admin Dose Admin Fentanyl Citrate (Fentanyl 2ml Vial) 50 mcg PRN Q1HR PRN 02/26/19 00:30 02/27/19 00:29 Piperacillin Sod/ Tazobactam Sod (Zosyn Per Pharmacy) 1 each PRN DAILY PRN 02/25/19 22:45 UNV Piperacillin Sod/ Tazobactam Sod 2.25 gm/Sodium Chloride 50 ml @ 100 mls/hr ONCE ONCE 02/26/19 00:15 02/26/19 00:44 DC 02/26/19 00:25 100 MLS/HR Sodium Chloride 1,000 ml @ 1,000 mls/hr 1X ONCE 02/26/19 00:30 02/26/19 01:29 DC Allergies Allergies Allergies Coded Allergies Type Severity Reaction Last Updated Verified I S O L A T I O N *CONTACT* Allergy Unknown 01/27/19 Yes No Known Medication Allergies Allergy Unknown 01/27/19 Yes Physical Exam Physical Exam Constitutional: Patient appears 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 [] Eyes: PERRLA, EOMI, conjunctiva normal, no discharge. [] Neck: Normal range of motion, no tenderness, supple, no stridor. [] Cardiovascular:Heart rate regular rhythm, no murmur [] Lungs & Thorax: Decreased breath sounds bilateral bases Abdomen: Bowel sounds normal, soft, no tenderness, no masses, no pulsatile masses. [] Skin: There is a large wound significant sized at least 10-12 cm very close BUT APPEARS SOMEWHAT FROM the ANUS to. THERE IS ABNORMAL SMELLING DISCHARGE. Extremities: No tenderness, no cyanosis, no clubbing, ROM intact, no edema. [] Achondroplasia otherwise no obvious pathology Neurologic: Alert and oriented X 2, normal motor function, normal sensory function, no focal deficits noted. [] Psychologic: Affect normal, judgement normal, mood normal. [] Current Patient Data Vital Signs Vital Signs Date Time Temp Pulse Resp B/P (MAP) Pulse Ox O2 Delivery O2 Flow Rate FiO2 02/26/19 00:28 82 17 97 Lab Values Laboratory Tests Test 02/25/19 23:00 02/26/19 00:20 02/26/19 00:25 White Blood Count 16.6 x10^3/uL (4.0-11.0) H Red Blood Count 3.67 x10^6/uL (4.30-5.70) L Hemoglobin 10.4 g/dL (13.0-17.5) L Hematocrit 32.9 % (39.0-53.0) L Mean Corpuscular Volume 90 fL (79-100) Mean Corpuscular Hemoglobin 28 pg (25-35) Mean Corpuscular Hemoglobin Concent 32 g/dL (31-37) Red Cell Distribution Width 14.6 % (11.5-14.5) H Platelet Count 320 x10^3/uL (140-400) Neutrophils (%) (Auto) 81 % (31-73) H Lymphocytes (%) (Auto) 6 % (24-48) L Monocytes (%) (Auto) 12 % (0-9) H Eosinophils (%) (Auto) 1 % (0-3) Basophils (%) (Auto) 0 % (0-3) Neutrophils # (Auto) 13.4 x10^3uL (1.8-7.7) H Lymphocytes # (Auto) 1.0 x10^3/uL (1.0-4.8) Monocytes # (Auto) 2.0 x10^3/uL (0.0-1.1) H Eosinophils # (Auto) 0.2 x10^3/uL (0.0-0.7) Basophils # (Auto) 0.0 x10^3/uL (0.0-0.2) Segmented Neutrophils % 63 % (35-66) Band Neutrophils % 17 % (0-9) H Lymphocytes % 5 % (24-48) L Monocytes % 11 % (0-10) H Eosinophils % 2 % (0-5) Basophils % 2 % (0-3) Platelet Estimate Adequate (ADEQUATE) Senthil Cells Occ Sodium Level 140 mmol/L (136-145) Potassium Level 3.4 mmol/L (3.5-5.1) L Chloride Level 104 mmol/L (98-107) Carbon Dioxide Level 21 mmol/L (21-32) Anion Gap 15 (6-14) H Blood Urea Nitrogen 82 mg/dL (8-26) H Creatinine 2.0 mg/dL (0.7-1.3) H Estimated GFR (Cockcroft-Gault) 33.3 BUN/Creatinine Ratio 41 (6-20) H Glucose Level 81 mg/dL (70-99) Calcium Level 8.9 mg/dL (8.5-10.1) Total Bilirubin 0.2 mg/dL (0.2-1.0) Aspartate Amino Transferase (AST) 31 U/L (15-37) Alanine Aminotransferase (ALT) 26 U/L (16-63) Alkaline Phosphatase 77 U/L (46-116) Troponin I Quantitative < 0.017 ng/mL (0.000-0.055) Total Protein 4.9 g/dL (6.4-8.2) L Albumin 1.5 g/dL (3.4-5.0) L Albumin/Globulin Ratio 0.4 (1.0-1.7) L Procalcitonin 0.60 ng/mL (0.00-0.10) H Urine Collection Type U cath Urine Color Yellow Urine Clarity Cloudy Urine pH 5.0 Urine Specific Markle 1.020 Urine Protein 30 mg/dL (NEG-TRACE) Urine Glucose (UA) Negative mg/dL (NEG) Urine Ketones (Stick) Negative mg/dL (NEG) Urine Blood Trace (NEG) Urine Nitrite Negative (NEG) Urine Bilirubin Negative (NEG) Urine Urobilinogen Dipstick 1.0 mg/dL (0.2 mg/dL) Urine Leukocyte Esterase Moderate (NEG) Urine RBC 6-10 /HPF (0-2) Urine WBC Tntc /HPF (0-4) Urine Squamous Epithelial Cells Mod /LPF Urine Bacteria Moderate /HPF (0-FEW) Urine Mucus Mod /LPF Lactic Acid Level 0.9 mmol/L (0.4-2.0) Laboratory Tests 02/25/19 23:00 Laboratory Tests 02/25/19 23:00 EKG EKG [] Radiology/Procedures Radiology/Procedures [] Impressions: IMPRESSION: 1. Moderate diffuse thickening of the wall of the sigmoid colon and the rectum with surrounding inflammatory fat stranding likely colitis/proctitis. 2. Moderate size ulcer identified in the low back extending of the sacrum. No evidence of cortical disruption evident in the sacrum however osteomyelitis is not cannot be completely excluded. 3. Questionable minimal fat stranding identified about the pancreas probably due to artifactual and less likely mild pancreatitis. Correlate with lab values. 4. 6 mm calculus right kidney 5. Mild fracture identified about the collapsed urinary bladder nonspecific underlying cystitis is not excluded. Electronically signed by: Lucio Patel MD (02/26/2019 1:30 AM) [facility] I ADDED THE LIPASE BACK ON. Course & Med Decision Making Course & Med Decision Making Pertinent Labs and Imaging studies reviewed. (See chart for details) 68-year-old male presenting with elevated white blood count leukocytosis as well as rising creatinine found to have a large sacral wound he had a complex debridement at [facility] time in the last 2 months recent wound VAC Noted the CT abdomen and pelvis patient was given broad-spectrum antibiotics in the emergency room as well as IV fluids likely lactic acid and blood pressure were within normal limits Patient be admitted to the service of Dr. carreon I discussed case with him. Chest x-ray no definite pneumonia may be some streaking at the lung bases lipase is pending I noted the CT read plan for surgical consultation in the morning. Family was in agreement with the plan. Dragon Disclaimer Dragon Disclaimer This electronic medical record was generated, in whole or in part, using a voice recognition dictation system. Departure Departure Impression: Primary Impression: Leukocytosis Additional Impression: Decubitus ulcer of sacral region, stage 4 Disposition: 09 ADMITTED INPATIENT Admitting Physician: Bianca Carreon Condition: STABLE Referrals: Ozzy AHN MD (PCP) Problem Qualifiers MARTY DC MD February 26, 2019 02:17
[2019-02-26] MEDS: PIPERACILLIN/TAZOBACTAM 2.25 GM in IV NORMAL SALINE 50ML 50 ML IV SCH ×2 (05:33→11:58)
[2019-02-26] MEDS ORDERED: DIVA500T4 PO (07:15)
[2019-02-26] MEDS ORDERED: FLUC200T PO (07:15)
[2019-02-26] MEDS ORDERED: MAGN400O7 PO (07:15)
[2019-02-26] MEDS ORDERED: CALC200T3 PO (07:15)
[2019-02-26] MEDS ORDERED: AMOX1TAB61 PO (07:15)
--- NOTE | 2019-02-26 07:38 | RAD ---
EXAM: Chest, single view. HISTORY: Line placement. COMPARISON: 01/27/2019 FINDINGS: A frontal view of the chest is obtained. The left costophrenic angle is partially excluded from the [id number]. There is suspected bilateral basilar atelectasis. There is a stable prominent cardiac silhouette, a component of which is due to portable technique. There is curvilinear opacity overlying the right mid thorax due to a prominent anterior rib end. There is no consolidation. There is no pneumothorax. IMPRESSION: No acute pulmonary finding. No correlate for reported line placement. Electronically signed by: Monik Kim MD (02/26/2019 7:35 AM) [facility]
--- NOTE | 2019-02-26 09:44 | NUR ---
This nurse paged MD, orders received, this nurse will continue to monitor.
[2019-02-26] MEDS ORDERED: IV NORMAL SALINE 500ML BAG 500 ML IV ONE (10:15)
--- NOTE | 2019-02-26 10:30 | NUR ---
This nurse discussed with Dr. Cherry who was to take over care, Dr. Cherry researched the patient's last admission at the hospital, Dr. Lin was handling the patient's care at that time. This nurse notified Dr. Lin to request patient be added to case load, Dr. Lin agreed. This nurse received orders, and will continue to monitor.
[2019-02-26] MEDS ORDERED: VANCOMYCIN 2 GM in IV NORMAL SALINE 500ML BAG 500 ML IV ONE (11:30)
[2019-02-26 13:27] LABS: CREATININE 1.7 mg/dL (0.7-1.3); GFR 40.2
[2019-02-26] MEDS: VANCOMYCIN PER PHARMACY MC PRN ×2 (14:32→14:36)
--- NOTE | 2019-02-26 14:34 | NUR ---
Pharmacy Vancomycin Dosing Note S:Consulted to monitor and dose vancomycin started 02/26/19. O:ROGELIO MYERS is a 68 year old M with Cellulitis Osteomyelitis SACRAL WOUND . Height: 4 feet, 0 inches Weight: 92.945487 kg [place] Body Weight: 22.40 Adjusted Body Weight: 50.24 Dosing Weight: Actual Other Antibiotics: ZOSYN LABS: Last BUN: 84 Last Creatinine: 1.7 Creatinine Clearance: 38 mL/min Last WBC: 16.6 Last Procalcitonin: - Tmax (past 24 hours): 98.6 Microbiology: 02/26 BCX, UCX IN PROCESS I/O: - Drug Levels: Last level: on at Last dose given 02/26/19 at 1300 Vancomycin Dosing: Loading Dose: 2000 mg x1 Dosing Weight: Actual Target Trough: 15-20 A: Based on: WEIGHT, CRCL~38, P: 1. Initiate Vancomycin 2000 mg IV q24h the 1250 mg q24h 2. Follow up Trough level on 02/28/19 at 1230 3. Pharmacy will continue to monitor, follow and adjust therapy as needed. CECY DESHPANDE [facility], 02/26/19 1327
--- NOTE | 2019-02-26 14:44 | PDOC2 ---
CONSULT Date of Consult Date of Consult DATE: 02/26/19 TIME: 14:43 History of Present Illness Reason for Visit: The patient is a 68 year old male who was admitted due to altered mental status. He is a poor historian but the records indicate that he has had prior surgeries for a sacral decubitus at . Surgery was consulted due to concerns regarding the sacral ulcer. Past Medical History Past Medical History records indicate asthma, sacral ulcer Past Surgical History Past Surgical History sacral debridement Social History Social History unknown Current Medications Current Medications Current Medications Piperacillin Sod/ Tazobactam Sod (Zosyn Per Pharmacy) 1 each PRN DAILY PRN MC SEE COMMENTS; Start 02/25/19 at 22:45 Sodium Chloride 1,000 ml @ 1,000 mls/hr 1X ONCE IV Last administered on 02/26/19at 00:25; Start 02/25/19 at 22:45; Stop 02/25/19 at 23:44; Status DC Piperacillin Sod/ Tazobactam Sod 2.25 gm/Sodium Chloride 50 ml @ 100 mls/hr ONCE ONCE IV Last administered on 02/26/19at 00:25; Start 02/26/19 at 00:15; Stop 02/26/19 at 00:44; Status DC Fentanyl Citrate (Fentanyl 2ml Vial) 50 mcg PRN Q1HR PRN IV PAIN; Start 02/26/19 at 00:30; Stop 02/27/19 at 00:29 Sodium Chloride 1,000 ml @ 125 mls/hr Q8H IV Last administered on 02/26/19at 02:01; Start 02/26/19 at 00:30; Stop 02/27/19 at 00:29 Sodium Chloride 1,000 ml @ 1,000 mls/hr 1X ONCE IV Last administered on 02/26/19at 02:40; Start 02/26/19 at 00:30; Stop 02/26/19 at 01:29; Status DC Piperacillin Sod/ Tazobactam Sod 2.25 gm/Sodium Chloride 50 ml @ 100 mls/hr Q6HRS IV Last administered on 02/26/19at 11:58; Start 02/26/19 at 06:00 Sodium Chloride 500 ml @ 500 mls/hr 1X ONCE IV Last administered on 02/26/19at 10:15; Start 02/26/19 at 10:15; Stop 02/26/19 at 11:14; Status DC Vancomycin HCl (Vanco Per Pharmacy) 1 each PRN DAILY PRN MC SEE COMMENTS Last administered on 02/26/19at 14:36; Start 02/26/19 at 11:15 Vancomycin HCl 2 gm/Sodium Chloride 500 ml @ 250 mls/hr ONCE ONCE IV Last administered on 02/26/19at 12:39; Start 02/26/19 at 11:30; Stop 02/26/19 at 13:29; Status DC Vancomycin HCl 1.25 gm/Sodium Chloride 250 ml @ 167 mls/hr Q24H IV ; Start 02/27/19 at 13:00 Vancomycin HCl (Vancomycin Trough Level) 1 each 1X ONCE MC ; Start 02/28/19 at 12:30; Stop 02/28/19 at 12:31 Active Scripts Active Reported Tums (Calcium Carbonate) 200 Mg Tab.chew 200 Mg PO Q8HRS PRN Milk Of Magnesia (Magnesium Hydroxide) 400 Mg/5 Ml Oral.susp 400 Mg PO DAILY PRN Diflucan (Fluconazole) 200 Mg Tablet 1 Tab PO DAILY Depakote Er (Divalproex Sodium) 500 Mg Tab.er.24h 1 Tab PO QHS Augmentin 875-125 Tablet (Amoxicillin/Potassium Clav) 1 Each Tablet 1 Tab PO BID Eliquis (Apixaban) 5 Mg Tablet 5 Mg PO BID Vitamin C (Ascorbic Acid) 500 Mg Capsule.er 500 Mg PO DAILY Multivitamins (Multivitamin) 1 Each Tablet 1 Tab PO DAILY Zinc (Zinc Gluconate) 50 Mg Tablet 220 Mg PO BID Atorvastatin Calcium 20 Mg Tablet 0.5 Tab PO HS Aspirin 81 Mg Tab.chew 1 Tab PO DAILY Famotidine 20 Mg Tablet 20 Mg PO BID Folic Acid 1 Mg Tablet 1 Tab PO DAILY Miconazole 3 (Miconazole Nitrate) 24 Gm Cmb.pf.crm 24 Gm VG BID Senokot (Sennosides) 8.6 Mg Tablet 1 Tab PO BID PRN Flomax (Tamsulosin Hcl) 0.4 Mg Cap.er.24h 1 Cap PO DAILY NITRO-DUR 0.2mg/hr (Nitroglycerin) 1 Each Patch.td24 1 Each TD DAILY Polyethylene Glycol 3350 255 Gm Powder 17 Gm PO BID PRN Lisinopril 10 Mg Tablet 1 Tab PO DAILY Escitalopram Oxalate 10 Mg Tablet 1 Tab PO DAILY Tramadol Hcl 50 Mg Tablet 50 Mg PO QID Mirtazapine 15 Mg Tablet 1 Tab PO QHS Oxcarbazepine 300 Mg Tablet 300 Mg PO BID Allergies Allergies: Coded Allergies: I S O L A T I O N *CONTACT* (Verified Allergy, Unknown, 01/27/19) mrsa No Known Medication Allergies (Verified Allergy, Unknown, 01/27/19) ROS Review of System poor historian Physical Exam HEENT: Atraumatic Lungs: Clear to auscultation Heart: Regular rate Abdomen: Soft (obese) Extremities: No clubbing Skin: Other (large sacral ulcer with devitalized tissue in the base, contaminated with stool) Vitals VITALS Vital Signs Date Time Temp Pulse Resp B/P (MAP) Pulse Ox O2 Delivery O2 Flow Rate FiO2 02/26/19 11:34 90 112/54 (73) Room Air 02/26/19 11:00 97.9 16 95 97.9 Labs Labs Laboratory Tests Test 02/25/19 23:00 02/26/19 00:20 02/26/19 00:25 02/26/19 07:37 White Blood Count 16.6 x10^3/uL (4.0-11.0) Red Blood Count 3.67 x10^6/uL (4.30-5.70) Hemoglobin 10.4 g/dL (13.0-17.5) Hematocrit 32.9 % (39.0-53.0) Mean Corpuscular Volume 90 fL (79-100) Mean Corpuscular Hemoglobin 28 pg (25-35) Mean Corpuscular Hemoglobin Concent 32 g/dL (31-37) Red Cell Distribution Width 14.6 % (11.5-14.5) Platelet Count 320 x10^3/uL (140-400) Neutrophils (%) (Auto) 81 % (31-73) Lymphocytes (%) (Auto) 6 % (24-48) Monocytes (%) (Auto) 12 % (0-9) Eosinophils (%) (Auto) 1 % (0-3) Basophils (%) (Auto) 0 % (0-3) Neutrophils # (Auto) 13.4 x10^3uL (1.8-7.7) Lymphocytes # (Auto) 1.0 x10^3/uL (1.0-4.8) Monocytes # (Auto) 2.0 x10^3/uL (0.0-1.1) Eosinophils # (Auto) 0.2 x10^3/uL (0.0-0.7) Basophils # (Auto) 0.0 x10^3/uL (0.0-0.2) Segmented Neutrophils % 63 % (35-66) Band Neutrophils % 17 % (0-9) Lymphocytes % 5 % (24-48) Monocytes % 11 % (0-10) Eosinophils % 2 % (0-5) Basophils % 2 % (0-3) Platelet Estimate Adequate (ADEQUATE) Senthil Cells Occ Sodium Level 140 mmol/L (136-145) Potassium Level 3.4 mmol/L (3.5-5.1) Chloride Level 104 mmol/L (98-107) Carbon Dioxide Level 21 mmol/L (21-32) Anion Gap 15 (6-14) Blood Urea Nitrogen 82 mg/dL (8-26) Creatinine 2.0 mg/dL (0.7-1.3) Estimated GFR (Cockcroft-Gault) 33.3 BUN/Creatinine Ratio 41 (6-20) Glucose Level 81 mg/dL (70-99) Calcium Level 8.9 mg/dL (8.5-10.1) Total Bilirubin 0.2 mg/dL (0.2-1.0) Aspartate Amino Transf (AST/SGOT) 31 U/L (15-37) Alanine Aminotransferase (ALT/SGPT) 26 U/L (16-63) Alkaline Phosphatase 77 U/L (46-116) Troponin I Quantitative < 0.017 ng/mL (0.000-0.055) Total Protein 4.9 g/dL (6.4-8.2) Albumin 1.5 g/dL (3.4-5.0) Albumin/Globulin Ratio 0.4 (1.0-1.7) Procalcitonin 0.60 ng/mL (0.00-0.10) Urine Collection Type U cath Urine Color Yellow Urine Clarity Cloudy Urine pH 5.0 Urine Specific [place] 1.020 Urine Protein 30 mg/dL (NEG-TRACE) Urine Glucose (UA) Negative mg/dL (NEG) Urine Ketones (Stick) Negative mg/dL (NEG) Urine Blood Trace (NEG) Urine Nitrite Negative (NEG) Urine Bilirubin Negative (NEG) Urine Urobilinogen Dipstick 1.0 mg/dL (0.2 mg/dL) Urine Leukocyte Esterase Moderate (NEG) Urine RBC 6-10 /HPF (0-2) Urine WBC Tntc /HPF (0-4) Urine Squamous Epithelial Cells Mod /LPF Urine Bacteria Moderate /HPF (0-FEW) Urine Mucus Mod /LPF Lactic Acid Level 0.9 mmol/L (0.4-2.0) Glucose (Fingerstick) 72 mg/dL (70-99) Test 02/26/19 08:55 02/26/19 10:58 Creatinine 1.7 mg/dL (0.7-1.3) Estimated GFR (Cockcroft-Gault) 40.2 Lipase 35 U/L (73-393) Glucose (Fingerstick) 72 mg/dL (70-99) Laboratory Tests Test 02/25/19 23:00 02/26/19 00:20 02/26/19 00:25 02/26/19 07:37 White Blood Count 16.6 x10^3/uL (4.0-11.0) Red Blood Count 3.67 x10^6/uL (4.30-5.70) Hemoglobin 10.4 g/dL (13.0-17.5) Hematocrit 32.9 % (39.0-53.0) Mean Corpuscular Volume 90 fL (79-100) Mean Corpuscular Hemoglobin 28 pg (25-35) Mean Corpuscular Hemoglobin Concent 32 g/dL (31-37) Red Cell Distribution Width 14.6 % (11.5-14.5) Platelet Count 320 x10^3/uL (140-400) Neutrophils (%) (Auto) 81 % (31-73) Lymphocytes (%) (Auto) 6 % (24-48) Monocytes (%) (Auto) 12 % (0-9) Eosinophils (%) (Auto) 1 % (0-3) Basophils (%) (Auto) 0 % (0-3) Neutrophils # (Auto) 13.4 x10^3uL (1.8-7.7) Lymphocytes # (Auto) 1.0 x10^3/uL (1.0-4.8) Monocytes # (Auto) 2.0 x10^3/uL (0.0-1.1) Eosinophils # (Auto) 0.2 x10^3/uL (0.0-0.7) Basophils # (Auto) 0.0 x10^3/uL (0.0-0.2) Segmented Neutrophils % 63 % (35-66) Band Neutrophils % 17 % (0-9) Lymphocytes % 5 % (24-48) Monocytes % 11 % (0-10) Eosinophils % 2 % (0-5) Basophils % 2 % (0-3) Platelet Estimate Adequate (ADEQUATE) Senthil Cells Occ Sodium Level 140 mmol/L (136-145) Potassium Level 3.4 mmol/L (3.5-5.1) Chloride Level 104 mmol/L (98-107) Carbon Dioxide Level 21 mmol/L (21-32) Anion Gap 15 (6-14) Blood Urea Nitrogen 82 mg/dL (8-26) Creatinine 2.0 mg/dL (0.7-1.3) Estimated GFR (Cockcroft-Gault) 33.3 BUN/Creatinine Ratio 41 (6-20) Glucose Level 81 mg/dL (70-99) Calcium Level 8.9 mg/dL (8.5-10.1) Total Bilirubin 0.2 mg/dL (0.2-1.0) Aspartate Amino Transf (AST/SGOT) 31 U/L (15-37) Alanine Aminotransferase (ALT/SGPT) 26 U/L (16-63) Alkaline Phosphatase 77 U/L (46-116) Troponin I Quantitative < 0.017 ng/mL (0.000-0.055) Total Protein 4.9 g/dL (6.4-8.2) Albumin 1.5 g/dL (3.4-5.0) Albumin/Globulin Ratio 0.4 (1.0-1.7) Procalcitonin 0.60 ng/mL (0.00-0.10) Urine Collection Type U cath Urine Color Yellow Urine Clarity Cloudy Urine pH 5.0 Urine Specific [place] 1.020 Urine Protein 30 mg/dL (NEG-TRACE) Urine Glucose (UA) Negative mg/dL (NEG) Urine Ketones (Stick) Negative mg/dL (NEG) Urine Blood Trace (NEG) Urine Nitrite Negative (NEG) Urine Bilirubin Negative (NEG) Urine Urobilinogen Dipstick 1.0 mg/dL (0.2 mg/dL) Urine Leukocyte Esterase Moderate (NEG) Urine RBC 6-10 /HPF (0-2) Urine WBC Tntc /HPF (0-4) Urine Squamous Epithelial Cells Mod /LPF Urine Bacteria Moderate /HPF (0-FEW) Urine Mucus Mod /LPF Lactic Acid Level 0.9 mmol/L (0.4-2.0) Glucose (Fingerstick) 72 mg/dL (70-99) Test 02/26/19 08:55 02/26/19 10:58 Creatinine 1.7 mg/dL (0.7-1.3) Estimated GFR (Cockcroft-Gault) 40.2 Lipase 35 U/L (73-393) Glucose (Fingerstick) 72 mg/dL (70-99) Assessment/Plan Assessment/Plan Sacral decubitus, can attempt redebridement during the week when stable medically. CALVIN POLLARD MD February 26, 2019 14:44
--- NOTE | 2019-02-26 14:53 | PDOC ---
Infectious Disease Note Vital Sign Vital Signs Vital Signs Date Time Temp Pulse Resp B/P (MAP) Pulse Ox O2 Delivery O2 Flow Rate FiO2 02/26/19 11:34 90 112/54 (73) Room Air 02/26/19 11:00 97.9 16 95 97.9 Labs Lab Laboratory Tests Test 02/25/19 23:00 02/26/19 00:20 02/26/19 00:25 02/26/19 07:37 White Blood Count 16.6 x10^3/uL (4.0-11.0) Red Blood Count 3.67 x10^6/uL (4.30-5.70) Hemoglobin 10.4 g/dL (13.0-17.5) Hematocrit 32.9 % (39.0-53.0) Mean Corpuscular Volume 90 fL (79-100) Mean Corpuscular Hemoglobin 28 pg (25-35) Mean Corpuscular Hemoglobin Concent 32 g/dL (31-37) Red Cell Distribution Width 14.6 % (11.5-14.5) Platelet Count 320 x10^3/uL (140-400) Neutrophils (%) (Auto) 81 % (31-73) Lymphocytes (%) (Auto) 6 % (24-48) Monocytes (%) (Auto) 12 % (0-9) Eosinophils (%) (Auto) 1 % (0-3) Basophils (%) (Auto) 0 % (0-3) Neutrophils # (Auto) 13.4 x10^3uL (1.8-7.7) Lymphocytes # (Auto) 1.0 x10^3/uL (1.0-4.8) Monocytes # (Auto) 2.0 x10^3/uL (0.0-1.1) Eosinophils # (Auto) 0.2 x10^3/uL (0.0-0.7) Basophils # (Auto) 0.0 x10^3/uL (0.0-0.2) Segmented Neutrophils % 63 % (35-66) Band Neutrophils % 17 % (0-9) Lymphocytes % 5 % (24-48) Monocytes % 11 % (0-10) Eosinophils % 2 % (0-5) Basophils % 2 % (0-3) Platelet Estimate Adequate (ADEQUATE) Freer Cells Occ Sodium Level 140 mmol/L (136-145) Potassium Level 3.4 mmol/L (3.5-5.1) Chloride Level 104 mmol/L (98-107) Carbon Dioxide Level 21 mmol/L (21-32) Anion Gap 15 (6-14) Blood Urea Nitrogen 82 mg/dL (8-26) Creatinine 2.0 mg/dL (0.7-1.3) Estimated GFR (Cockcroft-Gault) 33.3 BUN/Creatinine Ratio 41 (6-20) Glucose Level 81 mg/dL (70-99) Calcium Level 8.9 mg/dL (8.5-10.1) Total Bilirubin 0.2 mg/dL (0.2-1.0) Aspartate Amino Transf (AST/SGOT) 31 U/L (15-37) Alanine Aminotransferase (ALT/SGPT) 26 U/L (16-63) Alkaline Phosphatase 77 U/L (46-116) Troponin I Quantitative < 0.017 ng/mL (0.000-0.055) Total Protein 4.9 g/dL (6.4-8.2) Albumin 1.5 g/dL (3.4-5.0) Albumin/Globulin Ratio 0.4 (1.0-1.7) Procalcitonin 0.60 ng/mL (0.00-0.10) Urine Collection Type U cath Urine Color Yellow Urine Clarity Cloudy Urine pH 5.0 Urine Specific [place] 1.020 Urine Protein 30 mg/dL (NEG-TRACE) Urine Glucose (UA) Negative mg/dL (NEG) Urine Ketones (Stick) Negative mg/dL (NEG) Urine Blood Trace (NEG) Urine Nitrite Negative (NEG) Urine Bilirubin Negative (NEG) Urine Urobilinogen Dipstick 1.0 mg/dL (0.2 mg/dL) Urine Leukocyte Esterase Moderate (NEG) Urine RBC 6-10 /HPF (0-2) Urine WBC Tntc /HPF (0-4) Urine Squamous Epithelial Cells Mod /LPF Urine Bacteria Moderate /HPF (0-FEW) Urine Mucus Mod /LPF Lactic Acid Level 0.9 mmol/L (0.4-2.0) Glucose (Fingerstick) 72 mg/dL (70-99) Test 02/26/19 08:55 02/26/19 10:58 Creatinine 1.7 mg/dL (0.7-1.3) Estimated GFR (Cockcroft-Gault) 40.2 Lipase 35 U/L (73-393) Glucose (Fingerstick) 72 mg/dL (70-99) Objective Assessment 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 diff and stool cultures Monitor labs/renal function closely f/u cultures Local wound care Glycemic control Optimize nutrition Contact isolation D/w nursing Thank you Pt seen and examined. Lab,micro,radiology reviewed D/W BENEFITS PROCESSOR Wound examined with BENEFITS PROCESSOR Coformulated above A/P with BENEFITS PROCESSOR YUNG PITT APRN February 26, 2019 14:53 MAYKEL QUINTERO MD February 26, 2019 17:33
--- NOTE | 2019-02-26 15:00 | NUR ---
This nurse called Dr. Lin for orders to restart home medications, hold ASA, and Eliquis today, potential PICC line placement. This nurse stopped Vanco running at this time per discussion with KLAUS Geller. Will continue to monitor.
[2019-02-26] MEDS: FAMOTIDINE 20 MG TABLET. PO SCH (15:15)
[2019-02-26] MEDS: MEROPENEM 500 MG in IV NORMAL SALINE 50ML 50 ML IV SCH ×2 (15:24→22:43)
[2019-02-26] MEDS ORDERED: CALCIUM CARBONATE 500 MG TAB.CHEW PO PRN (16:00)
[2019-02-26] MEDS: TAMSULOSIN 0.4 MG CAP.ER.24H. PO SCH (16:15)
[2019-02-26] MEDS: LISINOPRIL 10 MG TABLET PO SCH (16:15)
[2019-02-26] MEDS: FOLIC ACID 1 MG TABLET. PO SCH (16:15)
[2019-02-26] MEDS: NITROGLYCERIN 0.2MG/HR PATCH. TD SCH (16:15)
[2019-02-26] MEDS ORDERED: DEXTROSE 50% 25 GM / 50ML DISP.SYRIN. IV PRN (16:15)
[2019-02-26] MEDS: traMADol 50 MG TABLET PO SCH ×2 (17:00→21:00)
[2019-02-26] MEDS: DIVALPROEX EXTENDED RELEASE 500 MG TAB.ER.24H. PO SCH (21:00)
[2019-02-26] MEDS: MICONAZOLE NITRATE 2% TOPICAL CREAM 28GM TUBE. TP SCH (21:00)
[2019-02-26] MEDS: ZINC SULFATE 220 MG CAPSULE. PO SCH (21:00)
[2019-02-26] MEDS: OXcarbazepine 300 MG TABLET PO SCH (21:00)
[2019-02-26] MEDS: MIRTAZAPINE 15 MG TABLET PO SCH (21:00)
[2019-02-26] MEDS: ATORVASTATIN CALCIUM 10 MG TABLET. PO SCH (21:00)
[2019-02-27 03:00] VITALS: BP 135/60
[2019-02-27] MEDS: MEROPENEM 500 MG in IV NORMAL SALINE 50ML 50 ML IV SCH ×3 (05:53→23:17)
[2019-02-27 06:53] LABS: BASO % 0 % (0-3); EOS # 0.2 x10^3/uL (0.0-0.7); EOS % 1 % (0-3); HEMATOCRIT 32.4 % (39.0-53.0); HEMOGLOBIN 10.3 g/dL (13.0-17.5); LYMPH # 0.9 x10^3/uL (1.0-4.8); LYMPH % 5 % (24-48); MEAN CORPUSCULAR HEMOGLOBIN 29 pg (25-35); MEAN CORPUSCULAR HGB CONC 32 g/dL (31-37); MEAN CORPUSCULAR VOLUME 90 fL (79-100); MONO % 11 % (0-9); NEUT # 15.9 x10^3uL (1.8-7.7); NEUT % 84 % (31-73); PLATELET COUNT 353 x10^3/uL (140-400); RED BLOOD COUNT 3.61 x10^6/uL (4.30-5.70); RED CELL DISTRIBUTION WIDTH 14.7 % (11.5-14.5)
[2019-02-27 07:00] VITALS: BP 120/67
[2019-02-27 07:05] LABS: CALCIUM 9.1 mg/dL (8.5-10.1); CREATININE 1.2 mg/dL (0.7-1.3)
[2019-02-27 07:18] LABS: POTASSIUM 2.4 mmol/L (3.5-5.1)
--- NOTE | 2019-02-27 07:20 | NUR ---
Critical Lab received from Johanna in lab. Potassium level came back 2.4. Called Dr. Lin at 0718 and paged him twice at [address] Lin returned call to this RN and gave the following orders for the critical result. Change IVF to NS 40 MeQ K Chloride @ 100 ml/hr 40 MeQ potassium chloride pill, given in three one time doses at 0800, 0900, 1000. Follow up BMP lab draw to recheck potassium level at 1200 on 02/27/19. These instructions were passed on dayshift WILFRED Sarmiento. Will continue to monitor the patient.
--- NOTE | 2019-02-27 07:41 | CONS ---
DATE OF CONSULTATION: 02/26/2019 This is Vishnu Kathleen, nurse practitioner dictating for Dr. Atul Andersen, Infectious Disease. REFERRING PHYSICIAN: Cas Jones M.D. REASON FOR CONSULTATION: Sacral wound. HISTORY OF PRESENT ILLNESS: This patient is a 68-year-old male who is encephalopathic, unable to provide history of present illness, past medical history or review of systems. He is well known to our service. He has a history of developing a large sacral decubitus wound with osteomyelitis for which he underwent debridement on 12/30/2018 at . Cultures then grew ESBL E. coli, Morganella, pseudomonas (resistant ceftazidime, intermediate Zosyn), Bacteroides and Clostridium species. He completed a course of meropenem on 02/12/2019. The wound was very clean, healthy, granulating tissue and bone coverage. He was discharged from [facility] on a wound VAC. About 2 days ago, the wound VAC was removed. He apparently was having increased drainage and abnormal smell to the area. He has since been transferred to the ER for evaluation of altered mental status, elevated white blood cell count and creatinine level. A CT abdomen/pelvis scan showed no evidence of cortical disruption. However, osteomyelitis could not be completely excluded. General Surgery has been consulted and he is currently on vancomycin and Zosyn. ID has been asked to consult for further evaluation and antibiotic management. PAST MEDICAL HISTORY: As mentioned above. 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 PAST SURGICAL HISTORY: Surgical debridement of sacral decubitus ulcer on 12/30/2018. FAMILY HISTORY: Noncontributory. SOCIAL HISTORY: The patient is residing at a intermediate facility. He is . He is a former smoker. He has a son named Roberto who is very supportive. ALLERGIES: No known drug allergies. MEDICATIONS: Vancomycin and Zosyn. Other medications are available and have been reviewed on the DEC. REVIEW OF SYSTEMS: Unobtainable as the patient is encephalopathic and confused. According to the nurse, he has been afebrile and is having diarrhea. PHYSICAL EXAMINATION: VITAL SIGNS: Temperature is 97.9, blood pressure 112/54, heart rate 90, respiratory rate 16 and pulse oximetry 95% on room air. GENERAL: The patient is lying down. His eyes are closed, quiet. HEENT: Pupils equally round. Normal conjunctivae. Oral cavity clear. NECK: Supple. LUNGS: Clear to auscultation. HEART: S1 and S2. ABDOMEN: Soft. No grimace or guarding to palpation. Bowel sounds present. GENITOURINARY: Indwelling Linn in place. EXTREMITIES: No gross edema or cyanosis. SKIN: Warm without generalized rash. He has a large sacrococcygeal wound with dark nonviable tissue, malodor, drainage and bone exposure with area excoriation. NEUROLOGICAL: Arouses to name but is confused. He has a left EJ. LABORATORY DATA: From 02/25/2019: WBC 16.4; hemoglobin 10.4; platelets 320,000; segs 63% and bands 17%. Creatinine 1.7 from 2.0 on admission, BUN 82, sodium 140, potassium 3.4 and glucose 81. Total bilirubin 0.2, AST 31 and ALT 26. Troponin less than 0.017. Albumin 1.5. Procalcitonin 0.60. Lipase 35. Urinalysis showed wbc's too numerous to count, moderate leukocyte esterase, negative nitrite with moderate squamous epithelial cells and bacteria. RADIOLOGICAL DATA: Abdominal/pelvis CT showed no evidence of cortical disruption evident in the sacrum; however, osteomyelitis cannot be completely excluded; moderate diffuse thickening of the wall of the sigmoid colon and rectum with surrounding inflammatory fat stranding, likely colitis/proctitis; questionable minimal fat stranding identified about the pancreas, probably due to artifactual and less likely mild pancreatitis; 6 mm calculus, right kidney; mild fracture identified about the collapsed urinary bladder, nonspecific underlying cystitis not excluded. IMPRESSION: 1. 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 He has a history of osteomyelitis status post debridement on 12/30/2018 at . Previous cultures grew extended-spectrum beta-lactamase, Escherichia coli, Morganella, pseudomonas (resistant Fortaz, intermediate Zosyn), Bacteroides and Clostridium species. He completed a course of meropenem. 2. Leukocytosis. 3. Pyuria. 4. Methicillin-resistant Staphylococcus aureus screen positive. 5. Diarrhea. 6. 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 7. Encephalopathy. 8. Protein-calorie malnutrition. 9. History of cerebrovascular accident. 10. Paroxysmal atrial fibrillation. 11. Diabetes mellitus type 2. PLAN: The patient will likely need debridement. Awaiting General Surgery input. Based on previous wound cultures, we will change Zosyn to meropenem and renal dosing. Cont IV Vanc renal dosing, We will send a stool sample for C. difficile and cultures. Maintain glycemic control and optimize nutrition. Monitor laboratory values, renal function closely. We will follow up on culture results. Supportive care. Thank you, Dr. Jones for asking us to participate in this patient's care. Should have further questions or concerns, please call. The patient was seen and examined and plan of care implemented by Dr. Atul Andersen. ATUL ANDERSEN MD DR: ELVIRA/afsaneh JOB#: [id number] / [id number] NEHA
[2019-02-27] MEDS ORDERED: POTASSIUM CHLORIDE 20 MEQ TABLET.ER. PO ONE ×3 (08:00→10:00)
[2019-02-27] MEDS: LISINOPRIL 10 MG TABLET PO SCH (09:00)
--- NOTE | 2019-02-27 10:05 | PDOC ---
PROGRESS NOTES Subjective Subjective pt sleeping, arouses, answers "yes"' but not clear if fully oriented Objective Objective Vital Signs Date Time Temp Pulse Resp B/P (MAP) Pulse Ox O2 Delivery O2 Flow Rate FiO2 02/27/19 07:00 98.1 83 18 120/67 (84) 96 Room Air 98.1 Intake and Output 02/27/19 06:59 Intake Total 800 ml Output Total 350 ml Balance 450 ml Intake Oral 800 ml Output Urine Total 350 ml # Bowel Movements 2 Physical Exam Physical Exam sacrum is dressed Assessment Assessment Sacral ulcer Plan Plan of Care Can debride in OR tomorrow; wound care consulted, may benefit from wound vac Comment Review of Relevant I have reviewed the following items lg (where applicable) has been applied. Labs Laboratory Tests Test 02/25/19 23:00 02/26/19 00:20 02/26/19 00:25 02/26/19 07:37 White Blood Count 16.6 x10^3/uL (4.0-11.0) Red Blood Count 3.67 x10^6/uL (4.30-5.70) Hemoglobin 10.4 g/dL (13.0-17.5) Hematocrit 32.9 % (39.0-53.0) Mean Corpuscular Volume 90 fL (79-100) Mean Corpuscular Hemoglobin 28 pg (25-35) Mean Corpuscular Hemoglobin Concent 32 g/dL (31-37) Red Cell Distribution Width 14.6 % (11.5-14.5) Platelet Count 320 x10^3/uL (140-400) Neutrophils (%) (Auto) 81 % (31-73) Lymphocytes (%) (Auto) 6 % (24-48) Monocytes (%) (Auto) 12 % (0-9) Eosinophils (%) (Auto) 1 % (0-3) Basophils (%) (Auto) 0 % (0-3) Neutrophils # (Auto) 13.4 x10^3uL (1.8-7.7) Lymphocytes # (Auto) 1.0 x10^3/uL (1.0-4.8) Monocytes # (Auto) 2.0 x10^3/uL (0.0-1.1) Eosinophils # (Auto) 0.2 x10^3/uL (0.0-0.7) Basophils # (Auto) 0.0 x10^3/uL (0.0-0.2) Segmented Neutrophils % 63 % (35-66) Band Neutrophils % 17 % (0-9) Lymphocytes % 5 % (24-48) Monocytes % 11 % (0-10) Eosinophils % 2 % (0-5) Basophils % 2 % (0-3) Platelet Estimate Adequate (ADEQUATE) Senthil Cells Occ Sodium Level 140 mmol/L (136-145) Potassium Level 3.4 mmol/L (3.5-5.1) Chloride Level 104 mmol/L (98-107) Carbon Dioxide Level 21 mmol/L (21-32) Anion Gap 15 (6-14) Blood Urea Nitrogen 82 mg/dL (8-26) Creatinine 2.0 mg/dL (0.7-1.3) Estimated GFR (Cockcroft-Gault) 33.3 BUN/Creatinine Ratio 41 (6-20) Glucose Level 81 mg/dL (70-99) Calcium Level 8.9 mg/dL (8.5-10.1) Total Bilirubin 0.2 mg/dL (0.2-1.0) Aspartate Amino Transf (AST/SGOT) 31 U/L (15-37) Alanine Aminotransferase (ALT/SGPT) 26 U/L (16-63) Alkaline Phosphatase 77 U/L (46-116) Troponin I Quantitative < 0.017 ng/mL (0.000-0.055) Total Protein 4.9 g/dL (6.4-8.2) Albumin 1.5 g/dL (3.4-5.0) Albumin/Globulin Ratio 0.4 (1.0-1.7) Procalcitonin 0.60 ng/mL (0.00-0.10) Urine Collection Type U cath Urine Color Yellow Urine Clarity Cloudy Urine pH 5.0 Urine Specific [place] 1.020 Urine Protein 30 mg/dL (NEG-TRACE) Urine Glucose (UA) Negative mg/dL (NEG) Urine Ketones (Stick) Negative mg/dL (NEG) Urine Blood Trace (NEG) Urine Nitrite Negative (NEG) Urine Bilirubin Negative (NEG) Urine Urobilinogen Dipstick 1.0 mg/dL (0.2 mg/dL) Urine Leukocyte Esterase Moderate (NEG) Urine RBC 6-10 /HPF (0-2) Urine WBC Tntc /HPF (0-4) Urine Squamous Epithelial Cells Mod /LPF Urine Bacteria Moderate /HPF (0-FEW) Urine Mucus Mod /LPF Lactic Acid Level 0.9 mmol/L (0.4-2.0) Glucose (Fingerstick) 72 mg/dL (70-99) Test 02/26/19 08:55 02/26/19 10:58 02/26/19 16:08 02/26/19 16:33 Creatinine 1.7 mg/dL (0.7-1.3) Estimated GFR (Cockcroft-Gault) 40.2 Lipase 35 U/L (73-393) Glucose (Fingerstick) 72 mg/dL (70-99) 62 mg/dL (70-99) 65 mg/dL (70-99) Test 02/26/19 17:00 02/27/19 05:36 02/27/19 08:08 Glucose (Fingerstick) 126 mg/dL (70-99) 71 mg/dL (70-99) White Blood Count 19.0 x10^3/uL (4.0-11.0) Red Blood Count 3.61 x10^6/uL (4.30-5.70) Hemoglobin 10.3 g/dL (13.0-17.5) Hematocrit 32.4 % (39.0-53.0) Mean Corpuscular Volume 90 fL (79-100) Mean Corpuscular Hemoglobin 29 pg (25-35) Mean Corpuscular Hemoglobin Concent 32 g/dL (31-37) Red Cell Distribution Width 14.7 % (11.5-14.5) Platelet Count 353 x10^3/uL (140-400) Neutrophils (%) (Auto) 84 % (31-73) Lymphocytes (%) (Auto) 5 % (24-48) Monocytes (%) (Auto) 11 % (0-9) Eosinophils (%) (Auto) 1 % (0-3) Basophils (%) (Auto) 0 % (0-3) Neutrophils # (Auto) 15.9 x10^3uL (1.8-7.7) Lymphocytes # (Auto) 0.9 x10^3/uL (1.0-4.8) Monocytes # (Auto) 2.0 x10^3/uL (0.0-1.1) Eosinophils # (Auto) 0.2 x10^3/uL (0.0-0.7) Basophils # (Auto) 0.0 x10^3/uL (0.0-0.2) Erythrocyte Sedimentation Rate 53 (0-15) Sodium Level 143 mmol/L (136-145) Potassium Level 2.4 mmol/L (3.5-5.1) Chloride Level 108 mmol/L (98-107) Carbon Dioxide Level 21 mmol/L (21-32) Anion Gap 14 (6-14) Blood Urea Nitrogen 49 mg/dL (8-26) Creatinine 1.2 mg/dL (0.7-1.3) Estimated GFR (Cockcroft-Gault) 60.0 Glucose Level 76 mg/dL (70-99) Calcium Level 9.1 mg/dL (8.5-10.1) Laboratory Tests Test 02/26/19 10:58 02/26/19 16:08 02/26/19 16:33 02/26/19 17:00 Glucose (Fingerstick) 72 mg/dL (70-99) 62 mg/dL (70-99) 65 mg/dL (70-99) 126 mg/dL (70-99) Test 02/27/19 05:36 02/27/19 08:08 White Blood Count 19.0 x10^3/uL (4.0-11.0) Red Blood Count 3.61 x10^6/uL (4.30-5.70) Hemoglobin 10.3 g/dL (13.0-17.5) Hematocrit 32.4 % (39.0-53.0) Mean Corpuscular Volume 90 fL (79-100) Mean Corpuscular Hemoglobin 29 pg (25-35) Mean Corpuscular Hemoglobin Concent 32 g/dL (31-37) Red Cell Distribution Width 14.7 % (11.5-14.5) Platelet Count 353 x10^3/uL (140-400) Neutrophils (%) (Auto) 84 % (31-73) Lymphocytes (%) (Auto) 5 % (24-48) Monocytes (%) (Auto) 11 % (0-9) Eosinophils (%) (Auto) 1 % (0-3) Basophils (%) (Auto) 0 % (0-3) Neutrophils # (Auto) 15.9 x10^3uL (1.8-7.7) Lymphocytes # (Auto) 0.9 x10^3/uL (1.0-4.8) Monocytes # (Auto) 2.0 x10^3/uL (0.0-1.1) Eosinophils # (Auto) 0.2 x10^3/uL (0.0-0.7) Basophils # (Auto) 0.0 x10^3/uL (0.0-0.2) Erythrocyte Sedimentation Rate 53 (0-15) Sodium Level 143 mmol/L (136-145) Potassium Level 2.4 mmol/L (3.5-5.1) Chloride Level 108 mmol/L (98-107) Carbon Dioxide Level 21 mmol/L (21-32) Anion Gap 14 (6-14) Blood Urea Nitrogen 49 mg/dL (8-26) Creatinine 1.2 mg/dL (0.7-1.3) Estimated GFR (Cockcroft-Gault) 60.0 Glucose Level 76 mg/dL (70-99) Calcium Level 9.1 mg/dL (8.5-10.1) Glucose (Fingerstick) 71 mg/dL (70-99) Microbiology 02/26/19 Blood Culture - Preliminary, Resulted NO GROWTH AFTER 1 DAY Medications Current Medications Piperacillin Sod/ Tazobactam Sod (Zosyn Per Pharmacy) 1 each PRN DAILY PRN MC SEE COMMENTS; Start 02/25/19 at 22:45; Stop 02/26/19 at 14:48; Status DC Sodium Chloride 1,000 ml @ 1,000 mls/hr 1X ONCE IV Last administered on 02/26/19at 00:25; Start 02/25/19 at 22:45; Stop 02/25/19 at 23:44; Status DC Piperacillin Sod/ Tazobactam Sod 2.25 gm/Sodium Chloride 50 ml @ 100 mls/hr ONCE ONCE IV Last administered on 02/26/19at 00:25; Start 02/26/19 at 00:15; Stop 02/26/19 at 00:44; Status DC Fentanyl Citrate (Fentanyl 2ml Vial) 50 mcg PRN Q1HR PRN IV PAIN; Start 02/26/19 at 00:30; Stop 02/27/19 at 00:29; Status DC Sodium Chloride 1,000 ml @ 125 mls/hr Q8H IV Last administered on 02/26/19at 02:01; Start 02/26/19 at 00:30; Stop 02/27/19 at 00:29; Status DC Sodium Chloride 1,000 ml @ 1,000 mls/hr 1X ONCE IV Last administered on 02/26/19at 02:40; Start 02/26/19 at 00:30; Stop 02/26/19 at 01:29; Status DC Piperacillin Sod/ Tazobactam Sod 2.25 gm/Sodium Chloride 50 ml @ 100 mls/hr Q6HRS IV Last administered on 02/26/19at 11:58; Start 02/26/19 at 06:00; Stop 02/26/19 at 14:48; Status DC Sodium Chloride 500 ml @ 500 mls/hr 1X ONCE IV Last administered on 02/26/19at 10:15; Start 02/26/19 at 10:15; Stop 02/26/19 at 11:14; Status DC Vancomycin HCl (Vanco Per Pharmacy) 1 each PRN DAILY PRN MC SEE COMMENTS Last administered on 02/26/19at 14:36; Start 02/26/19 at 11:15 Vancomycin HCl 2 gm/Sodium Chloride 500 ml @ 250 mls/hr ONCE ONCE IV Last administered on 02/26/19at 12:39; Start 02/26/19 at 11:30; Stop 02/26/19 at 13:29; Status DC Vancomycin HCl 1.25 gm/Sodium Chloride 250 ml @ 167 mls/hr Q24H IV ; Start 02/27/19 at 13:00 Vancomycin HCl (Vancomycin Trough Level) 1 each 1X ONCE MC ; Start 02/28/19 at 12:30; Stop 02/28/19 at 12:31 Meropenem 500 mg/ Sodium Chloride 50 ml @ 100 mls/hr Q8HRS IV Last administered on 02/27/19at 05:53; Start 02/26/19 at 15:00 Atorvastatin Calcium (Lipitor) 10 mg QHS PO ; Start 02/26/19 at 21:00 Calcium Carbonate/ Glycine (Tums) 250 mg PRN Q8HRS PRN PO INDIGESTION; Start 02/26/19 at 16:00 Divalproex Sodium (Depakote Er) 500 mg QHS PO ; Start 02/26/19 at 21:00 Famotidine (Pepcid) 20 mg DAILY PO ; Start 02/26/19 at 15:15 Folic Acid (Folic Acid) 1 mg DAILY PO ; Start 02/26/19 at 16:15 Lisinopril (Prinivil) 10 mg DAILY PO ; Start 02/26/19 at 16:15 Tamsulosin HCl (Flomax) 0.4 mg DAILY PO ; Start 02/26/19 at 16:15 Tramadol HCl (Ultram) 50 mg QID PO ; Start 02/26/19 at 17:00 Ascorbic Acid (Vitamin C) 500 mg DAILY PO ; Start 02/27/19 at 09:00 Citalopram Hydrobromide (CeleXA) 20 mg DAILY PO ; Start 02/27/19 at 09:00 Miconazole Nitrate (Monistat-Derm) 1 jaymie BID TP ; Start 02/26/19 at 21:00 Mirtazapine (Remeron) 15 mg QHS PO ; Start 02/26/19 at 21:00 Multivitamins (Thera M Plus) 1 tab DAILY PO ; Start 02/27/19 at 09:00 Nitroglycerin (Nitro-Dur) 1 patch DAILY TD ; Start 02/26/19 at 16:15 Oxcarbazepine (Trileptal) 300 mg BID PO ; Start 02/26/19 at 21:00 Zinc Sulfate (Orazinc) 220 mg BID PO ; Start 02/26/19 at 21:00 Dextrose (Dextrose 50%-Water Syringe) 12.5 gm PRN Q15MIN PRN IV SEE COMMENTS Last administered on 02/26/19at 16:39; Start 02/26/19 at 16:15 Potassium Chloride/Sodium Chloride 1,000 ml @ 100 mls/hr Q10H IV ; Start 02/27/19 at 08:00 Potassium Chloride (Klor-Con) 40 meq 1X ONCE PO ; Start 02/27/19 at 08:00; Stop 02/27/19 at 08:01; Status DC Potassium Chloride (Klor-Con) 40 meq 1X ONCE PO ; Start 02/27/19 at 09:00; Stop 02/27/19 at 09:01; Status DC Potassium Chloride (Klor-Con) 40 meq 1X ONCE PO ; Start 02/27/19 at 10:00; Stop 02/27/19 at 10:01; Status DC Active Scripts Active Reported Tums (Calcium Carbonate) 200 Mg Tab.chew 200 Mg PO Q8HRS PRN Milk Of Magnesia (Magnesium Hydroxide) 400 Mg/5 Ml Oral.susp 400 Mg PO DAILY PRN Diflucan (Fluconazole) 200 Mg Tablet 1 Tab PO DAILY Depakote Er (Divalproex Sodium) 500 Mg Tab.er.24h 1 Tab PO QHS Augmentin 875-125 Tablet (Amoxicillin/Potassium Clav) 1 Each Tablet 1 Tab PO BID Eliquis (Apixaban) 5 Mg Tablet 5 Mg PO BID Vitamin C (Ascorbic Acid) 500 Mg Capsule.er 500 Mg PO DAILY Multivitamins (Multivitamin) 1 Each Tablet 1 Tab PO DAILY Zinc (Zinc Gluconate) 50 Mg Tablet 220 Mg PO BID Atorvastatin Calcium 20 Mg Tablet 0.5 Tab PO HS Aspirin 81 Mg Tab.chew 1 Tab PO DAILY Famotidine 20 Mg Tablet 20 Mg PO BID Folic Acid 1 Mg Tablet 1 Tab PO DAILY Miconazole 3 (Miconazole Nitrate) 24 Gm Cmb.pf.crm 24 Gm VG BID Senokot (Sennosides) 8.6 Mg Tablet 1 Tab PO BID PRN Flomax (Tamsulosin Hcl) 0.4 Mg Cap.er.24h 1 Cap PO DAILY NITRO-DUR 0.2mg/hr (Nitroglycerin) 1 Each Patch.td24 1 Each TD DAILY Polyethylene Glycol 3350 255 Gm Powder 17 Gm PO BID PRN Lisinopril 10 Mg Tablet 1 Tab PO DAILY Escitalopram Oxalate 10 Mg Tablet 1 Tab PO DAILY Tramadol Hcl 50 Mg Tablet 50 Mg PO QID Mirtazapine 15 Mg Tablet 1 Tab PO QHS Oxcarbazepine 300 Mg Tablet 300 Mg PO BID Vitals/I & O Vital Sign - Last 24 Hours 02/26/19 02/26/19 02/26/19 02/26/19 11:00 11:34 19:30 20:00 Temp 97.9 98.2 97.9 98.2 Pulse 110 90 93 Resp 16 20 B/P (MAP) 98/54 (69) 112/54 (73) 107/40 (62) Pulse Ox 95 93 O2 Delivery Room Air Room Air Room Air Room Air 02/26/19 02/27/19 02/27/19 23:00 03:00 07:00 Temp 97.5 98.2 98.1 97.5 98.2 98.1 Pulse 91 87 83 Resp 20 18 18 B/P (MAP) 123/64 (83) 135/60 (85) 120/67 (84) Pulse Ox 91 96 96 O2 Delivery Room Air Room Air Room Air Intake and Output 02/26/19 02/26/19 02/27/19 14:59 22:59 06:59 Intake Total 800 ml Output Total 350 ml Balance -350 ml 800 ml CALVIN POLLARD MD February 27, 2019 10:05
--- NOTE | 2019-02-27 10:11 | PDOC ---
Infectious Disease Note Subjective: Subjective pt is more alert,still somewhat confused but better than yesterday no fevers, still has loose bm ROS: ROS d/w rn unable to obtain Vital Signs: Vital Signs Vital Signs Date Time Temp Pulse Resp B/P (MAP) Pulse Ox O2 Delivery O2 Flow Rate FiO2 02/27/19 07:00 98.1 83 18 120/67 (84) 96 Room Air 98.1 Physical Exam: PHYSICAL EXAM GENERAL: The patient is lying down. awake,alert ,confused HEENT: Pupils equally round. Normal conjunctivae. Oral cavity clear. NECK: Supple. LUNGS: Clear to auscultation. HEART: S1 and S2. ABDOMEN: Soft. No grimace or guarding to palpation. Bowel sounds present. GENITOURINARY: Indwelling Linn in place. EXTREMITIES: No gross edema or cyanosis. SKIN: Warm without generalized rash. He has a large sacrococcygeal wound with dark nonviable tissue, malodor, drainage and bone exposure with area excoriation. NEUROLOGICAL: alert awake, confused PIV looks ok Medications: Inpatient Meds: Current Medications Medications (Trade) Dose Ordered Sig/Ronald Start Time Stop Time Status Last Admin Dose Admin Ascorbic Acid (Vitamin C) 500 mg DAILY 02/27/19 09:00 Atorvastatin Calcium (Lipitor) 10 mg QHS 02/26/19 21:00 Calcium Carbonate/ Glycine (Tums) 250 mg PRN Q8HRS PRN 02/26/19 16:00 Citalopram Hydrobromide (CeleXA) 20 mg DAILY 02/27/19 09:00 Dextrose (Dextrose 50%-Water Syringe) 12.5 gm PRN Q15MIN PRN 02/26/19 16:15 02/26/19 16:39 12.5 GM Divalproex Sodium (Depakote Er) 500 mg QHS 02/26/19 21:00 Famotidine (Pepcid) 20 mg DAILY 02/26/19 15:15 Fentanyl Citrate (Fentanyl 2ml Vial) 50 mcg PRN Q1HR PRN 02/26/19 00:30 02/27/19 00:29 DC Folic Acid (Folic Acid) 1 mg DAILY 02/26/19 16:15 Lisinopril (Prinivil) 10 mg DAILY 02/26/19 16:15 Meropenem 500 mg/ Sodium Chloride 50 ml @ 100 mls/hr Q8HRS 02/26/19 15:00 02/27/19 05:53 100 MLS/HR Miconazole Nitrate (Monistat-Derm) 1 jaymie BID 02/26/19 21:00 Mirtazapine (Remeron) 15 mg QHS 02/26/19 21:00 Multivitamins (Thera M Plus) 1 tab DAILY 02/27/19 09:00 Nitroglycerin (Nitro-Dur) 1 patch DAILY 02/26/19 16:15 Oxcarbazepine (Trileptal) 300 mg BID 02/26/19 21:00 Piperacillin Sod/ Tazobactam Sod (Zosyn Per Pharmacy) 1 each PRN DAILY PRN 02/25/19 22:45 02/26/19 14:48 DC Piperacillin Sod/ Tazobactam Sod 2.25 gm/Sodium Chloride 50 ml @ 100 mls/hr Q6HRS 02/26/19 06:00 02/26/19 14:48 DC 02/26/19 11:58 100 MLS/HR Potassium Chloride/Sodium Chloride 1,000 ml @ 100 mls/hr Q10H 02/27/19 08:00 Potassium Chloride (Klor-Con) 40 meq 1X ONCE 02/27/19 10:00 02/27/19 10:01 DC Sodium Chloride 500 ml @ 500 mls/hr 1X ONCE 02/26/19 10:15 02/26/19 11:14 DC 02/26/19 10:15 500 MLS/HR Tamsulosin HCl (Flomax) 0.4 mg DAILY 02/26/19 16:15 Tramadol HCl (Ultram) 50 mg QID 02/26/19 17:00 Vancomycin HCl (Vanco Per Pharmacy) 1 each PRN DAILY PRN 02/26/19 11:15 02/26/19 14:36 1 EACH Vancomycin HCl (Vancomycin Trough Level) 1 each 1X ONCE 02/28/19 12:30 02/28/19 12:31 Vancomycin HCl 1.25 gm/Sodium Chloride 250 ml @ 167 mls/hr Q24H 02/27/19 13:00 Vancomycin HCl 2 gm/Sodium Chloride 500 ml @ 250 mls/hr ONCE ONCE 02/26/19 11:30 02/26/19 13:29 DC 02/26/19 12:39 250 MLS/HR Zinc Sulfate (Orazinc) 220 mg BID 02/26/19 21:00 Labs: Lab Laboratory Tests Test 02/26/19 10:58 02/26/19 16:08 02/26/19 16:33 02/26/19 17:00 Glucose (Fingerstick) 72 mg/dL (70-99) 62 mg/dL (70-99) 65 mg/dL (70-99) 126 mg/dL (70-99) Test 02/27/19 05:36 02/27/19 08:08 White Blood Count 19.0 x10^3/uL (4.0-11.0) Red Blood Count 3.61 x10^6/uL (4.30-5.70) Hemoglobin 10.3 g/dL (13.0-17.5) Hematocrit 32.4 % (39.0-53.0) Mean Corpuscular Volume 90 fL (79-100) Mean Corpuscular Hemoglobin 29 pg (25-35) Mean Corpuscular Hemoglobin Concent 32 g/dL (31-37) Red Cell Distribution Width 14.7 % (11.5-14.5) Platelet Count 353 x10^3/uL (140-400) Neutrophils (%) (Auto) 84 % (31-73) Lymphocytes (%) (Auto) 5 % (24-48) Monocytes (%) (Auto) 11 % (0-9) Eosinophils (%) (Auto) 1 % (0-3) Basophils (%) (Auto) 0 % (0-3) Neutrophils # (Auto) 15.9 x10^3uL (1.8-7.7) Lymphocytes # (Auto) 0.9 x10^3/uL (1.0-4.8) Monocytes # (Auto) 2.0 x10^3/uL (0.0-1.1) Eosinophils # (Auto) 0.2 x10^3/uL (0.0-0.7) Basophils # (Auto) 0.0 x10^3/uL (0.0-0.2) Erythrocyte Sedimentation Rate 53 (0-15) Sodium Level 143 mmol/L (136-145) Potassium Level 2.4 mmol/L (3.5-5.1) Chloride Level 108 mmol/L (98-107) Carbon Dioxide Level 21 mmol/L (21-32) Anion Gap 14 (6-14) Blood Urea Nitrogen 49 mg/dL (8-26) Creatinine 1.2 mg/dL (0.7-1.3) Estimated GFR (Cockcroft-Gault) 60.0 Glucose Level 76 mg/dL (70-99) Calcium Level 9.1 mg/dL (8.5-10.1) Glucose (Fingerstick) 71 mg/dL (70-99) Objective: Assessment: 1. 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 He has a history of osteomyelitis status post debridement on 12/30/2018 at . Previous cultures grew extended-spectrum beta-lactamase, Escherichia coli, Morganella, pseudomonas (resistant Fortaz, intermediate Zosyn), Bacteroides and Clostridium species. He completed a course of meropenem.Now with worsening secondary infected wound 2. Leukocytosis. 3. Pyuria. 4. Methicillin-resistant Staphylococcus aureus screen positive. 5. Diarrhea. 6. 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 7. Encephalopathy. 8. Protein-calorie malnutrition. 9. History of cerebrovascular accident. 10. Paroxysmal atrial fibrillation. 11. Diabetes mellitus type 2. Plan: Plan of Care Gen surgery is planning for debridement tomorrow cont meropenem, renal dosing daptomycin micafungin check stool for c. diff and stool cultures Monitor labs/renal function closely f/u cultures Local wound care Glycemic control Optimize nutrition Contact isolation D/w nursing MAYKEL QUINTERO MD February 27, 2019 10:11
[2019-02-27] MEDS: MULTIVITAMIN with MINERAL TABLET. PO SCH (10:42)
[2019-02-27] MEDS: CITALOPRAM 20 MG TABLET. PO SCH (10:44)
[2019-02-27] MEDS: ASCORBIC ACID 500 MG TABLET PO SCH (10:48)
[2019-02-27] MEDS: ZINC SULFATE 220 MG CAPSULE. PO SCH ×2 (10:50→22:32)
[2019-02-27] MEDS: traMADol 50 MG TABLET PO SCH ×5 (10:54→22:32)
[2019-02-27] MEDS: FAMOTIDINE 20 MG TABLET. PO SCH (10:54)
--- NOTE | 2019-02-27 10:55 | NUR ---
IP: Pt has a hx of + mrsa screen 01/25/19. Pt also has C.diff pending. Pt to be in contact + precautions.
[2019-02-27 11:00] VITALS: BP 94/70
[2019-02-27] MEDS: MICONAZOLE NITRATE 2% TOPICAL CREAM 28GM TUBE. TP SCH ×2 (11:04→21:00)
--- NOTE | 2019-02-27 11:05 | NUR ---
SW following for discharge planning. Discussed with RN, pt is from [facility], very large wound, possible I&D tomorrow (02/28/19), pt may need a picc line, IV abx. RN trying to get in touch with pt's sonRoberto to discuss plan of care and get consent for various procedures. SW to fax updates to [facility] when more notes are available. SW will continue to follow.
[2019-02-27] MEDS: NITROGLYCERIN 0.2MG/HR PATCH. TD SCH (11:11)
[2019-02-27] MEDS: TAMSULOSIN 0.4 MG CAP.ER.24H. PO SCH (11:11)
[2019-02-27] MEDS: OXcarbazepine 300 MG TABLET PO SCH ×2 (11:12→22:32)
[2019-02-27] MEDS: FOLIC ACID 1 MG TABLET. PO SCH (11:12)
[2019-02-27] MEDS: POTASSIUM CL 40MEQ IN 0.9%NACL 1,000 ML IV SCH ×2 (11:16→18:00)
[2019-02-27] MEDS: MICAFUNGIN 100 MG in IV DEXTROSE 5% 100ML 100 ML IV SCH (13:00)
[2019-02-27] MEDS ORDERED: VANCOMYCIN 1.25 GM in IV NORMAL SALINE 250ML 250 ML IV SCH (13:00)
--- NOTE | 2019-02-27 14:00 | NUR ---
wound care per Dr. Hubbard, patient going to the OR for debridement of the wound to the sacrum. wound care will f/u after surgical debridement.
[2019-02-27 15:00] VITALS: BP 100/49
--- NOTE | 2019-02-27 15:02 | PDOC2 ---
NEUROLOGY CONSULT Date of Admission Date of Admission DATE: 02/27/19 TIME: 14:51 Reason for Consult Reason for Consult: Altered mental status Referring Physician Referring Physician: Dr. Lin Source Source: Caregiver (son), Chart review, Patient History of Present Illness History of Present Illness The patient is a 68-year-old right-handed male admitted for sacral decubitus wound infection with possible sepsis. He is well known to the neurology service. I last saw him during his stay at [facility]. His sacral decubitus now involves osteomyelitis and he has undergone debridement. There is further debridement planned for tomorrow. He was sent to our emergency department early yesterday morning for evaluation of altered mental status with elevated white blood count and creatinine level. CT of the abdomen and pelvis was done but not a study of the head. Family thinks he is doing a little better today. While in [facility] he had a cardiac arrest due to hyperkalemia and was also found to have a left cerebellar infarct on 11/25/18. I believe he also had a cardiac arrest while at [facility]. When I saw him he was neurologically intact. 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 Past Medical History Cardiovascular: AFIB (has been on eliquis), CAD, CHF, HTN, Hyperlipidemia, Other (cardiac arrests) Pulmonary: COPD, Pulmonary embolus, Previously Intubated CENTRAL NERVOUS SYSTEM: CVA Psych: Anxiety, Depression Musculoskeletal: Other (achondroplasia) Infectious disease: Other (sacral decube) Renal/: Benign prostatic enlarg. (chronic crooks) Endocrine: Diabetes Past Surgical History Past Surgical History: Other (multiple debridements) Family History Family History: Other (seizures) Social History Social History [facility], , former smoker, no alcohol Current Medications Current Medications Current Medications Piperacillin Sod/ Tazobactam Sod (Zosyn Per Pharmacy) 1 each PRN DAILY PRN MC SEE COMMENTS; Start 02/25/19 at 22:45; Stop 02/26/19 at 14:48; Status DC Sodium Chloride 1,000 ml @ 1,000 mls/hr 1X ONCE IV Last administered on 02/26/19at 00:25; Start 02/25/19 at 22:45; Stop 02/25/19 at 23:44; Status DC Piperacillin Sod/ Tazobactam Sod 2.25 gm/Sodium Chloride 50 ml @ 100 mls/hr ONCE ONCE IV Last administered on 02/26/19at 00:25; Start 02/26/19 at 00:15; Stop 02/26/19 at 00:44; Status DC Fentanyl Citrate (Fentanyl 2ml Vial) 50 mcg PRN Q1HR PRN IV PAIN; Start 02/26/19 at 00:30; Stop 02/27/19 at 00:29; Status DC Sodium Chloride 1,000 ml @ 125 mls/hr Q8H IV Last administered on 02/26/19at 02:01; Start 02/26/19 at 00:30; Stop 02/27/19 at 00:29; Status DC Sodium Chloride 1,000 ml @ 1,000 mls/hr 1X ONCE IV Last administered on 02/26/19at 02:40; Start 02/26/19 at 00:30; Stop 02/26/19 at 01:29; Status DC Piperacillin Sod/ Tazobactam Sod 2.25 gm/Sodium Chloride 50 ml @ 100 mls/hr Q6HRS IV Last administered on 02/26/19at 11:58; Start 02/26/19 at 06:00; Stop 02/26/19 at 14:48; Status DC Sodium Chloride 500 ml @ 500 mls/hr 1X ONCE IV Last administered on 02/26/19at 10:15; Start 02/26/19 at 10:15; Stop 02/26/19 at 11:14; Status DC Vancomycin HCl (Vanco Per Pharmacy) 1 each PRN DAILY PRN MC SEE COMMENTS Last administered on 02/26/19at 14:36; Start 02/26/19 at 11:15 Vancomycin HCl 2 gm/Sodium Chloride 500 ml @ 250 mls/hr ONCE ONCE IV Last administered on 02/26/19at 12:39; Start 02/26/19 at 11:30; Stop 02/26/19 at 13:29; Status DC Vancomycin HCl 1.25 gm/Sodium Chloride 250 ml @ 167 mls/hr Q24H IV Last administered on 02/27/19at 13:00; Start 02/27/19 at 13:00 Vancomycin HCl (Vancomycin Trough Level) 1 each 1X ONCE MC ; Start 02/28/19 at 12:30; Stop 02/28/19 at 12:31 Meropenem 500 mg/ Sodium Chloride 50 ml @ 100 mls/hr Q8HRS IV Last administered on 02/27/19 13:33; Start 02/26/19 at 15:00 Atorvastatin Calcium (Lipitor) 10 mg QHS PO ; Start 02/26/19 at 21:00 Calcium Carbonate/ Glycine (Tums) 250 mg PRN Q8HRS PRN PO INDIGESTION; Start 02/26/19 at 16:00 Divalproex Sodium (Depakote Er) 500 mg QHS PO ; Start 02/26/19 at 21:00 Famotidine (Pepcid) 20 mg DAILY PO Last administered on 02/27/19 10:54; Start 02/26/19 at 15:15 Folic Acid (Folic Acid) 1 mg DAILY PO Last administered on 02/27/19 11:12; Start 02/26/19 at 16:15 Lisinopril (Prinivil) 10 mg DAILY PO ; Start 02/26/19 at 16:15 Tamsulosin HCl (Flomax) 0.4 mg DAILY PO Last administered on 02/27/19 11:11; Start 02/26/19 at 16:15 Tramadol HCl (Ultram) 50 mg QID PO Last administered on 02/27/19 10:54; Start 02/26/19 at 17:00 Ascorbic Acid (Vitamin C) 500 mg DAILY PO Last administered on 02/27/19 10:48; Start 02/27/19 at 09:00 Citalopram Hydrobromide (CeleXA) 20 mg DAILY PO Last administered on 02/27/19 10:44; Start 02/27/19 at 09:00 Miconazole Nitrate (Monistat-Derm) 1 jaymie BID TP Last administered on 02/27/19 11:04; Start 02/26/19 at 21:00 Mirtazapine (Remeron) 15 mg QHS PO ; Start 02/26/19 at 21:00 Multivitamins (Thera M Plus) 1 tab DAILY PO Last administered on 02/27/19 10:42; Start 02/27/19 at 09:00 Nitroglycerin (Nitro-Dur) 1 patch DAILY TD Last administered on 02/27/19 11:11; Start 02/26/19 at 16:15 Oxcarbazepine (Trileptal) 300 mg BID PO Last administered on 02/27/19 11:12; Start 02/26/19 at 21:00 Zinc Sulfate (Orazinc) 220 mg BID PO Last administered on 02/27/19at 10:50; Sta rt 02/26/19 at 21:00 Dextrose (Dextrose 50%-Water Syringe) 12.5 gm PRN Q15MIN PRN IV SEE COMMENTS Last administered on 02/26/19 16:39; Start 02/26/19 at 16:15 Potassium Chloride/Sodium Chloride 1,000 ml @ 100 mls/hr Q10H IV Last administered on 02/27/19 11:16; Start 02/27/19 at 08:00 Potassium Chloride (Klor-Con) 40 meq 1X ONCE PO Last administered on 02/27/19at 10:43; Start 02/27/19 at 08:00; Stop 02/27/19 at 08:01; Status DC Potassium Chloride (Klor-Con) 40 meq 1X ONCE PO Last administered on 02/27/19 11:03; Start 02/27/19 at 09:00; Stop 02/27/19 at 09:01; Status DC Potassium Chloride (Klor-Con) 40 meq 1X ONCE PO Last administered on 02/27/19at 11:13; Start 02/27/19 at 10:00; Stop 02/27/19 at 10:01; Status DC Micafungin Sodium 100 mg/Dextrose 100 ml @ 100 mls/hr Q24H IV Last administered on 02/27/19at 13:00; Start 02/27/19 at 13:00 Active Scripts Active Reported Tums (Calcium Carbonate) 200 Mg Tab.chew 200 Mg PO Q8HRS PRN Milk Of Magnesia (Magnesium Hydroxide) 400 Mg/5 Ml Oral.susp 400 Mg PO DAILY PRN Diflucan (Fluconazole) 200 Mg Tablet 1 Tab PO DAILY Depakote Er (Divalproex Sodium) 500 Mg Tab.er.24h 1 Tab PO QHS Augmentin 875-125 Tablet (Amoxicillin/Potassium Clav) 1 Each Tablet 1 Tab PO BID Eliquis (Apixaban) 5 Mg Tablet 5 Mg PO BID Vitamin C (Ascorbic Acid) 500 Mg Capsule.er 500 Mg PO DAILY Multivitamins (Multivitamin) 1 Each Tablet 1 Tab PO DAILY Zinc (Zinc Gluconate) 50 Mg Tablet 220 Mg PO BID Atorvastatin Calcium 20 Mg Tablet 0.5 Tab PO HS Aspirin 81 Mg Tab.chew 1 Tab PO DAILY Famotidine 20 Mg Tablet 20 Mg PO BID Folic Acid 1 Mg Tablet 1 Tab PO DAILY Miconazole 3 (Miconazole Nitrate) 24 Gm Cmb.pf.crm 24 Gm VG BID Senokot (Sennosides) 8.6 Mg Tablet 1 Tab PO BID PRN Flomax (Tamsulosin Hcl) 0.4 Mg Cap.er.24h 1 Cap PO DAILY NITRO-DUR 0.2mg/hr (Nitroglycerin) 1 Each Patch.td24 1 Each TD DAILY Polyethylene Glycol 3350 255 Gm Powder 17 Gm PO BID PRN Lisinopril 10 Mg Tablet 1 Tab PO DAILY Escitalopram Oxalate 10 Mg Tablet 1 Tab PO DAILY Tramadol Hcl 50 Mg Tablet 50 Mg PO QID Mirtazapine 15 Mg Tablet 1 Tab PO QHS Oxcarbazepine 300 Mg Tablet 300 Mg PO BID Allergies Allergies: Coded Allergies: I S O L A T I O N *CONTACT* (Verified Allergy, Unknown, 01/27/19) mrsa No Known Medication Allergies (Verified Allergy, Unknown, 01/27/19) ROS Review of System Negative for fever, chills, weight loss, shortness of breath, chest pain, indigestion, hematochezia, melena, and dysuria. Full 14-point review of systems is negative. Physical Exam Physical Examination General: Well-developed, well-nourished white male in no acute distress. Physical appearance consistent with the known achondroplasia HEENT: Normocephalic andatraumatic. Temporal arteriespulsatile and nontender. Neck: Supple without bruit, no meningismus Musculoskeletal: Stability:see neurologic. Gait exam:see neurologic. Tone:see neurologic.Strength:see neurologic. Neurological: Mental Status:orientation, memory, attention span/concentration, language, fund of knowledge: Knows he is in the hospital, does not know its name, does not know the date, does not know the president, names, repeats, and comprehends well. Cranial Nerves:Pupils equal and reactive to light, extraocular movements areintact, visual tapia are full to confrontation. Facial sensation is normal. There is no facial asymmetry. Vestibulo-ocular reflex is intact. Palate elevates and tongue protrudes in midline. All other cranial related problems are negative except as mentioned before.Reflexes:0-1+ and symmetric with flexor plantar responses. Motor:3/5 strength with normal tone and bulk. Coordination:Finger- nose finger and vhtn-ot-bwpi testing are normal. Rapid alternating movements and fine finger movements are intact. Gait:Not tested. Sensory:Suspect a stocking loss, not fully cooperative. Vitals VITALS Vital Signs Date Time Temp Pulse Resp B/P (MAP) Pulse Ox O2 Delivery O2 Flow Rate FiO2 02/27/19 13:00 96 Room Air 02/27/19 11:00 97.3 86 20 94/70 (78) 97.3 Labs Labs Laboratory Tests Test 02/25/19 23:00 02/26/19 00:20 02/26/19 00:25 02/26/19 06:30 White Blood Count 16.6 x10^3/uL (4.0-11.0) Red Blood Count 3.67 x10^6/uL (4.30-5.70) Hemoglobin 10.4 g/dL (13.0-17.5) Hematocrit 32.9 % (39.0-53.0) Mean Corpuscular Volume 90 fL (79-100) Mean Corpuscular Hemoglobin 28 pg (25-35) Mean Corpuscular Hemoglobin Concent 32 g/dL (31-37) Red Cell Distribution Width 14.6 % (11.5-14.5) Platelet Count 320 x10^3/uL (140-400) Neutrophils (%) (Auto) 81 % (31-73) Lymphocytes (%) (Auto) 6 % (24-48) Monocytes (%) (Auto) 12 % (0-9) Eosinophils (%) (Auto) 1 % (0-3) Basophils (%) (Auto) 0 % (0-3) Neutrophils # (Auto) 13.4 x10^3uL (1.8-7.7) Lymphocytes # (Auto) 1.0 x10^3/uL (1.0-4.8) Monocytes # (Auto) 2.0 x10^3/uL (0.0-1.1) Eosinophils # (Auto) 0.2 x10^3/uL (0.0-0.7) Basophils # (Auto) 0.0 x10^3/uL (0.0-0.2) Segmented Neutrophils % 63 % (35-66) Band Neutrophils % 17 % (0-9) Lymphocytes % 5 % (24-48) Monocytes % 11 % (0-10) Eosinophils % 2 % (0-5) Basophils % 2 % (0-3) Platelet Estimate Adequate (ADEQUATE) [place] Cells Occ Sodium Level 140 mmol/L (136-145) Potassium Level 3.4 mmol/L (3.5-5.1) Chloride Level 104 mmol/L (98-107) Carbon Dioxide Level 21 mmol/L (21-32) Anion Gap 15 (6-14) Blood Urea Nitrogen 82 mg/dL (8-26) Creatinine 2.0 mg/dL (0.7-1.3) Estimated GFR (Cockcroft-Gault) 33.3 BUN/Creatinine Ratio 41 (6-20) Glucose Level 81 mg/dL (70-99) Calcium Level 8.9 mg/dL (8.5-10.1) Total Bilirubin 0.2 mg/dL (0.2-1.0) Aspartate Amino Transf (AST/SGOT) 31 U/L (15-37) Alanine Aminotransferase (ALT/SGPT) 26 U/L (16-63) Alkaline Phosphatase 77 U/L (46-116) Troponin I Quantitative < 0.017 ng/mL (0.000-0.055) Total Protein 4.9 g/dL (6.4-8.2) Albumin 1.5 g/dL (3.4-5.0) Albumin/Globulin Ratio 0.4 (1.0-1.7) Procalcitonin 0.60 ng/mL (0.00-0.10) Urine Collection Type U cath Urine Color Yellow Urine Clarity Cloudy Urine pH 5.0 Urine Specific [place] 1.020 Urine Protein 30 mg/dL (NEG-TRACE) Urine Glucose (UA) Negative mg/dL (NEG) Urine Ketones (Stick) Negative mg/dL (NEG) Urine Blood Trace (NEG) Urine Nitrite Negative (NEG) Urine Bilirubin Negative (NEG) Urine Urobilinogen Dipstick 1.0 mg/dL (0.2 mg/dL) Urine Leukocyte Esterase Moderate (NEG) Urine RBC 6-10 /HPF (0-2) Urine WBC Tntc /HPF (0-4) Urine Squamous Epithelial Cells Mod /LPF Urine Bacteria Moderate /HPF (0-FEW) Urine Mucus Mod /LPF Lactic Acid Level 0.9 mmol/L (0.4-2.0) Nasal Screen MRSA (PCR) Positive (Negative) Test 02/26/19 07:37 02/26/19 08:55 02/26/19 10:58 02/26/19 16:08 Glucose (Fingerstick) 72 mg/dL (70-99) 72 mg/dL (70-99) 62 mg/dL (70-99) Creatinine 1.7 mg/dL (0.7-1.3) Estimated GFR (Cockcroft-Gault) 40.2 Lipase 35 U/L (73-393) Test 02/26/19 16:33 02/26/19 17:00 02/27/19 05:36 02/27/19 08:08 Glucose (Fingerstick) 65 mg/dL (70-99) 126 mg/dL (70-99) 71 mg/dL (70-99) White Blood Count 19.0 x10^3/uL (4.0-11.0) Red Blood Count 3.61 x10^6/uL (4.30-5.70) Hemoglobin 10.3 g/dL (13.0-17.5) Hematocrit 32.4 % (39.0-53.0) Mean Corpuscular Volume 90 fL (79-100) Mean Corpuscular Hemoglobin 29 pg (25-35) Mean Corpuscular Hemoglobin Concent 32 g/dL (31-37) Red Cell Distribution Width 14.7 % (11.5-14.5) Platelet Count 353 x10^3/uL (140-400) Neutrophils (%) (Auto) 84 % (31-73) Lymphocytes (%) (Auto) 5 % (24-48) Monocytes (%) (Auto) 11 % (0-9) Eosinophils (%) (Auto) 1 % (0-3) Basophils (%) (Auto) 0 % (0-3) Neutrophils # (Auto) 15.9 x10^3uL (1.8-7.7) Lymphocytes # (Auto) 0.9 x10^3/uL (1.0-4.8) Monocytes # (Auto) 2.0 x10^3/uL (0.0-1.1) Eosinophils # (Auto) 0.2 x10^3/uL (0.0-0.7) Basophils # (Auto) 0.0 x10^3/uL (0.0-0.2) Erythrocyte Sedimentation Rate 53 (0-15) Sodium Level 143 mmol/L (136-145) Potassium Level 2.4 mmol/L (3.5-5.1) Chloride Level 108 mmol/L (98-107) Carbon Dioxide Level 21 mmol/L (21-32) Anion Gap 14 (6-14) Blood Urea Nitrogen 49 mg/dL (8-26) Creatinine 1.2 mg/dL (0.7-1.3) Estimated GFR (Cockcroft-Gault) 60.0 Glucose Level 76 mg/dL (70-99) Calcium Level 9.1 mg/dL (8.5-10.1) Test 02/27/19 11:32 Glucose (Fingerstick) 73 mg/dL (70-99) Laboratory Tests Test 02/26/19 16:08 02/26/19 16:33 02/26/19 17:00 02/27/19 05:36 Glucose (Fingerstick) 62 mg/dL (70-99) 65 mg/dL (70-99) 126 mg/dL (70-99) White Blood Count 19.0 x10^3/uL (4.0-11.0) Red Blood Count 3.61 x10^6/uL (4.30-5.70) Hemoglobin 10.3 g/dL (13.0-17.5) Hematocrit 32.4 % (39.0-53.0) Mean Corpuscular Volume 90 fL (79-100) Mean Corpuscular Hemoglobin 29 pg (25-35) Mean Corpuscular Hemoglobin Concent 32 g/dL (31-37) Red Cell Distribution Width 14.7 % (11.5-14.5) Platelet Count 353 x10^3/uL (140-400) Neutrophils (%) (Auto) 84 % (31-73) Lymphocytes (%) (Auto) 5 % (24-48) Monocytes (%) (Auto) 11 % (0-9) Eosinophils (%) (Auto) 1 % (0-3) Basophils (%) (Auto) 0 % (0-3) Neutrophils # (Auto) 15.9 x10^3uL (1.8-7.7) Lymphocytes # (Auto) 0.9 x10^3/uL (1.0-4.8) Monocytes # (Auto) 2.0 x10^3/uL (0.0-1.1) Eosinophils # (Auto) 0.2 x10^3/uL (0.0-0.7) Basophils # (Auto) 0.0 x10^3/uL (0.0-0.2) Erythrocyte Sedimentation Rate 53 (0-15) Sodium Level 143 mmol/L (136-145) Potassium Level 2.4 mmol/L (3.5-5.1) Chloride Level 108 mmol/L (98-107) Carbon Dioxide Level 21 mmol/L (21-32) Anion Gap 14 (6-14) Blood Urea Nitrogen 49 mg/dL (8-26) Creatinine 1.2 mg/dL (0.7-1.3) Estimated GFR (Cockcroft-Gault) 60.0 Glucose Level 76 mg/dL (70-99) Calcium Level 9.1 mg/dL (8.5-10.1) Test 02/27/19 08:08 02/27/19 11:32 Glucose (Fingerstick) 71 mg/dL (70-99) 73 mg/dL (70-99) Assessment/Plan Assessment/Plan Impression: Metabolic encephalopathy, he is a little better today. History of left cerebellar stroke Achondroplasia Suspected diabetic neuropathy. Recommendations: CT of the head for completeness. Treat medical diseases and supportive care Discussed with family. Thank you for letting me help with the patient's care. ALVARO GALINDO MD February 27, 2019 15:02
[2019-02-27] MEDS: VANCOMYCIN PER PHARMACY MC PRN ×2 (15:05→15:07)
--- NOTE | 2019-02-27 15:07 | NUR ---
BRIEF VANCOMYCIN DOSING NOTE Patient started on vancomycin for a sacral ulcer with cellulitis. Admission labs were SCr of 2.0 and eCrCl of 38 ml/min, therefore patient started on vancomycin 1250 mg IV q 24hrs. His labs have since improved with a SC of 1.2 and an eCrCl of 55 ml/min. Will adjust vancomycin regimen slightly to account for improvement in renal function. Plan: 1. Change to vancomycin 1250 mg IV q 24hrs 2. Change trough to 5 @ 1830 Pharmacy will continue to monitor renal function and adjust regimen accordingly. Hanna Baez, Pharm. D.
--- NOTE | 2019-02-27 15:50 | RAD ---
CT of the head without contrast, 02/27/2019: HISTORY: Altered mental status There is moderate cerebral atrophy. The ventricles are mildly enlarged on a compensatory basis. There is no shift of the midline structures. There is no evidence of acute intracranial hemorrhage or mass effect. A small lucency in the posterior aspect of the left cerebellar hemispheres compatible with an old infarct. Sclerotic change and incomplete aeration of the left mastoid air cells is compatible with mild chronic inflammation. IMPRESSION: 1. Moderate cerebral atrophy. 2. Small old left cerebellar infarct. 3. No acute intracranial abnormality is detected. PQRS Compliance Statement: One or more of the following individualized dose reduction techniques were utilized for this examination: 1. Automated exposure control 2. Adjustment of the mA and/or kV according to patient size 3. Use of iterative reconstruction technique Electronically signed by: Shahid Raza MD (02/27/2019 3:48 PM) [facility]
[2019-02-27 19:00] VITALS: BP 135/64
[2019-02-27 19:54] LABS: CALCIUM 8.8 mg/dL (8.5-10.1); CREATININE 1.1 mg/dL (0.7-1.3); GFR 66.4; POTASSIUM 3.1 mmol/L (3.5-5.1)
--- NOTE | 2019-02-27 20:55 | NUR ---
notified by lab of critical lab value c-diff. Notified Dr. Lin at 2024, received orders at this time. Will continue to monitor the patient.
[2019-02-27] MEDS: ATORVASTATIN CALCIUM 10 MG TABLET. PO SCH (22:32)
[2019-02-27] MEDS: MIRTAZAPINE 15 MG TABLET PO SCH (22:32)
[2019-02-27] MEDS: DIVALPROEX EXTENDED RELEASE 500 MG TAB.ER.24H. PO SCH (22:32)
[2019-02-27 23:00] VITALS: BP 119/57
--- NOTE | 2019-02-27 23:11 | RAD ---
EXAM: Chest, single view. HISTORY: PICC line placement. COMPARISON: 02/25/2019 FINDINGS: A frontal view of the chest is obtained. There is a right PICC looped over the right axilla. There is suspected left greater than right lower lobe atelectasis or interstitial infiltrate. There is cardiomegaly. No pneumothorax is seen. There is chronic deformity of both shoulders with associated chronic left shoulder dislocation or subluxation. IMPRESSION: 1. Right PICC looped over the right axilla. Catheter repositioning and repeat radiographic evaluation to confirm appropriate positioning is recommended. 2. Bilateral lower lobe atelectasis or interstitial infiltrate. 3. Stable prominent cardiac silhouette. Electronically signed by: Monik Kim MD (02/27/2019 11:09 PM) [facility]
--- NOTE | 2019-02-28 02:16 | PN ---
DATE: The patient is a 68-year-old male patient who has a history of a large sacral decubitus ulcer wound with osteomyelitis for which he underwent debridement at [facility]. At that time, his culture grew extended-spectrum beta-lactamase E. coli, Morganella, Pseudomonas that was resistant to ceftazidime, intermediate to Zosyn, Bacteroides and Clostridium species. He completed a course of meropenem on 02/12/2019. The wound was very clean, healthy, granulating tissue and bone coverage. [facility] was [facility] on a wound VAC. His wound VAC was discontinued 2 days prior to admission. He apparently was having increased drainage and abnormal smell to the area. He was seen in the Emergency Room of [facility] for evaluation of altered mental status, leukocytosis and also acute on chronic kidney injury. CT scan of the abdomen and pelvis showed no evidence of cortical disruption; however, osteomyelitis could not be completely excluded. General Surgery was consulted and he was started on vancomycin and Zosyn, and we did consult the Infectious Disease specialist for antibiotic management. 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 PAST SURGICAL HISTORY: Significant for surgical debridement of his sacral decubitus ulcer on 12/30/2018. FAMILY HISTORY: Noncontributory. SOCIAL HISTORY: The patient is residing at a detention facility. He is . He is a former smoker. His son named, Jose, is very supportive. ALLERGIES: He has no known drug allergies. MEDICATIONS: He is currently on following medications: He was on Augmentin/potassium clavulanic acid 875 mg twice a day, fluconazole 200 mg once a day, tamsulosin 0.4 mg once a day, apixaban 5 mg twice a day, atorvastatin calcium 10 mg at bedtime, nitroglycerin, Nitro-Dur 0.2 mg per hour patch applied topically daily, lisinopril 10 mg once a day, aspirin 81 mg once a day, tramadol 50 mg 4 times a day, Depakote extended release 500 mg at bedtime, oxcarbazepine 300 mg twice a day, escitalopram oxalate 10 mg daily, mirtazapine 15 mg at bedtime, gluconate 220 mg twice a day, calcium carbonate or Tums every 8 hours, magnesium hydroxide or milk of magnesia 30 mL p.o. daily p.r.n. for constipation, polyethylene glycol 17 grams twice a day, senna 8.6 mg twice a day, famotidine 20 mg twice a day, miconazole nitrate applied topically twice a day, folic acid 1 mg daily, ascorbic acid 500 mg once a day, multivitamin 1 tablet once a day. On arrival to the Emergency Room, he was encephalopathic and apparently arousable and he has a large sacral decubitus ulcer that has increased drainage and abnormal smell to that area. His white cell count and serum creatinine are rising. PHYSICAL EXAMINATION: GENERAL: He was pale, not jaundiced or cyanosed from thyromegaly. No jugular venous distention. No limb edema. VITAL SIGNS: His heart rate was 86, blood pressure was 117/74, temperature was 98.5, respiratory rate was 18 and oxygen saturation was 97%. HEAD, EYES, EARS, NOSE AND THROAT: Normocephalic, atraumatic. NECK: Supple. HEART: Showed normal first and second heart sounds with no gallop, rub or murmur. CHEST: Clear to auscultation. No crepitation or rhonchi. ABDOMEN: Distended, soft, nontender. NEUROLOGIC: He was encephalopathic. He does open his eyes and occasionally mouths some words, but drifts back. All of his cranial nerves are intact. He moves his upper extremities without difficulty. He is mostly bedbound. LABORATORY WORK: On admission showed a serum sodium 140, potassium 3.4, chloride 104, bicarbonate 21, anion gap of 15, BUN 82, creatinine 2, estimated GFR was 33 mL per minute. His glucose was 81, calcium was 8.9. Total bilirubin, AST, ALT, alkaline phosphatase were normal. Total protein was 4.9, albumin was 1.5. His procalcitonin was 0.6. Urinalysis showed the urine was yellow, cloudy with a pH of 5, specific gravity 1.020. Small amount of protein. The urine was negative for glucose and ketones. There was trace of blood, negative for nitrite and there is moderate amount of leukocyte esterase. There were 6-10 rbc's, too numerous to count rbc's and moderate amount of bacteria. In summary, this is a 68-year-old male patient who was [facility] with altered mental status, leukocytosis, acute kidney injury with creatinine rising to 2 mg. He has probably urinary tract infection and infected sacral decubitus ulcer. He was started on IV vancomycin and Zosyn and continues to have both of them. He was switched to meropenem and we did consult the Infectious Disease specialist as well as the surgical team. Given his altered mental status, I will also consult the urologist. CINDY SULLIVAN MD DR: AMY/afsaneh JOB#: [id number] / [id number]
[2019-02-28 03:00] VITALS: BP 121/71
[2019-02-28] MEDS: POTASSIUM CL 40MEQ IN 0.9%NACL 1,000 ML IV SCH (04:00)
[2019-02-28] MEDS: MEROPENEM 500 MG in IV NORMAL SALINE 50ML 50 ML IV SCH ×3 (05:58→22:45)
[2019-02-28 07:00] VITALS: BP 153/68
[2019-02-28] MEDS ORDERED: PROCHLORPERAZINE 10 MG/2 ML VIAL. IV PRN (07:00)
[2019-02-28] MEDS ORDERED: MORPHINE SULFATE 2 MG/ML VIAL. IV PRN (07:00)
[2019-02-28] MEDS ORDERED: HYDROmorphone 2 MG/ML VIAL IV PRN (07:00)
[2019-02-28] MEDS ORDERED: IV RINGERS,LACTATED 1000ML 1,000 ML IV SCH (07:00)
[2019-02-28] MEDS: CITALOPRAM 20 MG TABLET. PO SCH (07:47)
[2019-02-28] MEDS: FOLIC ACID 1 MG TABLET. PO SCH (07:50)
[2019-02-28] MEDS: TAMSULOSIN 0.4 MG CAP.ER.24H. PO SCH (07:50)
[2019-02-28] MEDS: VANCOMYCIN 1.25 GM in IV NORMAL SALINE 250ML 250 ML IV SCH (07:50)
[2019-02-28] MEDS: ZINC SULFATE 220 MG CAPSULE. PO SCH ×2 (07:51→20:11)
[2019-02-28] MEDS: FAMOTIDINE 20 MG TABLET. PO SCH (07:54)
[2019-02-28] MEDS: LISINOPRIL 10 MG TABLET PO SCH (07:55)
[2019-02-28] MEDS: MULTIVITAMIN with MINERAL TABLET. PO SCH (07:55)
[2019-02-28] MEDS: ASCORBIC ACID 500 MG TABLET PO SCH (07:57)
[2019-02-28] MEDS: NITROGLYCERIN 0.2MG/HR PATCH. TD SCH (07:59)
[2019-02-28 08:05] LABS: BASO # 0.1 x10^3/uL (0.0-0.2); BASO % 1 % (0-3); EOS # 0.6 x10^3/uL (0.0-0.7); EOS % 3 % (0-3); HEMATOCRIT 32.1 % (39.0-53.0); LYMPH # 1.6 x10^3/uL (1.0-4.8); LYMPH % 9 % (24-48); MEAN CORPUSCULAR HEMOGLOBIN 28 pg (25-35); MEAN CORPUSCULAR HGB CONC 31 g/dL (31-37); MEAN CORPUSCULAR VOLUME 90 fL (79-100); MONO # 1.8 x10^3/uL (0.0-1.1); MONO % 10 % (0-9); NEUT # 13.7 x10^3uL (1.8-7.7); NEUT % 77 % (31-73); PLATELET COUNT 354 x10^3/uL (140-400); RED BLOOD COUNT 3.56 x10^6/uL (4.30-5.70); WHITE BLOOD COUNT 17.8 x10^3/uL (4.0-11.0)
[2019-02-28] MEDS: traMADol 50 MG TABLET PO SCH ×4 (08:05→20:11)
[2019-02-28] MEDS: OXcarbazepine 300 MG TABLET PO SCH ×2 (08:05→20:10)
[2019-02-28] MEDS: MICONAZOLE NITRATE 2% TOPICAL CREAM 28GM TUBE. TP SCH ×2 (08:17→20:25)
[2019-02-28 08:20] LABS: ALBUMIN 1.4 g/dL (3.4-5.0); ALBUMIN/GLOBULIN RATIO 0.4 (1.0-1.7); CALCIUM 8.8 mg/dL (8.5-10.1); CREATININE 0.9 mg/dL (0.7-1.3); GFR 83.7; POTASSIUM 3.6 mmol/L (3.5-5.1); TOTAL BILIRUBIN 0.1 mg/dL (0.2-1.0)
[2019-02-28] MEDS ORDERED: POTASSIUM CL 40MEQ D5-0.45NACL 1,000 ML IV ONE (09:00)
--- NOTE | 2019-02-28 10:10 | PDOC ---
Infectious Disease Note Subjective: Subjective pt is more alert,still somewhat confused no fevers, still has loose bm ROS: ROS unable to obtain d/w rn Vital Signs: Vital Signs Vital Signs Date Time Temp Pulse Resp B/P (MAP) Pulse Ox O2 Delivery O2 Flow Rate FiO2 02/28/19 09:30 97 Room Air 02/28/19 07:55 82 121/71 02/28/19 07:00 98.3 16 98.3 Physical Exam: PHYSICAL EXAM GENERAL: The patient is lying down. awake,alert ,confused HEENT: Pupils equally round. Normal conjunctivae. Oral cavity clear. NECK: Supple. LUNGS: Clear to auscultation. HEART: S1 and S2. ABDOMEN: Soft. No grimace or guarding to palpation. Bowel sounds present. GENITOURINARY: Indwelling Linn in place. EXTREMITIES: No gross edema or cyanosis. SKIN: Warm without generalized rash. He has a large sacrococcygeal wound with dark nonviable tissue, malodor, drainage and bone exposure with area excoriation. NEUROLOGICAL: alert awake, confused PIV looks ok Medications: Inpatient Meds: Current Medications Medications (Trade) Dose Ordered Sig/Ronald Start Time Stop Time Status Last Admin Dose Admin Ascorbic Acid (Vitamin C) 500 mg DAILY 02/27/19 09:00 02/27/19 10:48 500 MG Atorvastatin Calcium (Lipitor) 10 mg QHS 02/26/19 21:00 02/27/19 22:32 10 MG Calcium Carbonate/ Glycine (Tums) 250 mg PRN Q8HRS PRN 02/26/19 16:00 Citalopram Hydrobromide (CeleXA) 20 mg DAILY 02/27/19 09:00 02/27/19 10:44 20 MG Dextrose (Dextrose 50%-Water Syringe) 12.5 gm PRN Q15MIN PRN 02/26/19 16:15 02/26/19 16:39 12.5 GM Divalproex Sodium (Depakote Er) 500 mg QHS 02/26/19 21:00 02/27/19 22:32 500 MG Famotidine (Pepcid) 20 mg DAILY 02/26/19 15:15 02/27/19 10:54 20 MG Fentanyl Citrate (Fentanyl 2ml Vial) 50 mcg PRN Q1HR PRN 02/26/19 00:30 02/27/19 00:29 DC Folic Acid (Folic Acid) 1 mg DAILY 02/26/19 16:15 02/27/19 11:12 1 MG Hydromorphone HCl (Dilaudid) 0.5 mg PRN Q10MIN PRN 02/28/19 07:00 03/01/19 06:59 Lisinopril (Prinivil) 10 mg DAILY 02/26/19 16:15 Meropenem 500 mg/ Sodium Chloride 50 ml @ 100 mls/hr Q8HRS 02/26/19 15:00 02/28/19 05:58 100 MLS/HR Metronidazole 100 ml @ 100 mls/hr Q8HRS 02/27/19 22:00 02/28/19 05:58 100 MLS/HR Micafungin Sodium 100 mg/Dextrose 100 ml @ 100 mls/hr Q24H 02/27/19 13:00 02/27/19 13:00 100 MLS/HR Miconazole Nitrate (Monistat-Derm) 1 jaymie BID 02/26/19 21:00 02/28/19 08:17 1 JAYMIE Mirtazapine (Remeron) 15 mg QHS 02/26/19 21:00 02/27/19 22:32 15 MG Morphine Sulfate (Morphine Sulfate) 1 mg PRN Q10MIN PRN 02/28/19 07:00 03/01/19 06:59 Multivitamins (Thera M Plus) 1 tab DAILY 02/27/19 09:00 02/27/19 10:42 1 TAB Nitroglycerin (Nitro-Dur) 1 patch DAILY 02/26/19 16:15 02/27/19 11:11 1 PATCH Oxcarbazepine (Trileptal) 300 mg BID 02/26/19 21:00 02/28/19 08:05 300 MG Piperacillin Sod/ Tazobactam Sod (Zosyn Per Pharmacy) 1 each PRN DAILY PRN 02/25/19 22:45 02/26/19 14:48 DC Piperacillin Sod/ Tazobactam Sod 2.25 gm/Sodium Chloride 50 ml @ 100 mls/hr Q6HRS 02/26/19 06:00 02/26/19 14:48 DC 02/26/19 11:58 100 MLS/HR Potassium Chloride/Dextrose/ Sod Cl 1,000 ml @ 80 mls/hr 1X ONCE 02/28/19 09:00 02/28/19 21:29 02/28/19 09:41 80 MLS/HR Potassium Chloride/Sodium Chloride 1,000 ml @ 100 mls/hr Q10H 02/27/19 08:00 02/28/19 08:51 DC 02/28/19 04:00 100 MLS/HR Potassium Chloride (Klor-Con) 40 meq 1X ONCE 02/27/19 10:00 02/28/19 08:53 DC 02/27/19 11:13 40 MEQ Prochlorperazine Edisylate (Compazine) 5 mg PACU PRN PRN 02/28/19 07:00 03/01/19 06:59 Ringer's Solution 1,000 ml @ 30 mls/hr Q24H 02/28/19 07:00 02/28/19 18:59 Sodium Chloride 500 ml @ 500 mls/hr 1X ONCE 02/26/19 10:15 02/26/19 11:14 DC 02/26/19 10:15 500 MLS/HR Tamsulosin HCl (Flomax) 0.4 mg DAILY 02/26/19 16:15 02/27/19 11:11 0.4 MG Tramadol HCl (Ultram) 50 mg QID 02/26/19 17:00 02/28/19 08:05 50 MG Vancomycin HCl (Vanco Per Pharmacy) 1 each PRN DAILY PRN 02/26/19 11:15 02/27/19 15:07 1 EACH Vancomycin HCl (Vancomycin Trough Level) 1 each 1X ONCE 03/01/19 18:30 03/01/19 18:31 Vancomycin HCl 1.25 gm/Sodium Chloride 250 ml @ 167 mls/hr Q18H 02/28/19 07:00 02/28/19 07:50 167 MLS/HR Vancomycin HCl 2 gm/Sodium Chloride 500 ml @ 250 mls/hr ONCE ONCE 02/26/19 11:30 02/26/19 13:29 DC 02/26/19 12:39 250 MLS/HR Zinc Sulfate (Orazinc) 220 mg BID 02/26/19 21:00 02/27/19 22:32 220 MG Labs: Lab Laboratory Tests Test 02/27/19 11:32 02/27/19 16:24 02/27/19 16:52 02/27/19 19:35 Glucose (Fingerstick) 73 mg/dL (70-99) 69 mg/dL (70-99) 72 mg/dL (70-99) Sodium Level 142 mmol/L (136-145) Potassium Level 3.1 mmol/L (3.5-5.1) Chloride Level 106 mmol/L (98-107) Carbon Dioxide Level 24 mmol/L (21-32) Anion Gap 12 (6-14) Blood Urea Nitrogen 36 mg/dL (8-26) Creatinine 1.1 mg/dL (0.7-1.3) Estimated GFR (Cockcroft-Gault) 66.4 Glucose Level 100 mg/dL (70-99) Calcium Level 8.8 mg/dL (8.5-10.1) Test 02/28/19 07:38 White Blood Count 17.8 x10^3/uL (4.0-11.0) Red Blood Count 3.56 x10^6/uL (4.30-5.70) Hemoglobin 10.0 g/dL (13.0-17.5) Hematocrit 32.1 % (39.0-53.0) Mean Corpuscular Volume 90 fL (79-100) Mean Corpuscular Hemoglobin 28 pg (25-35) Mean Corpuscular Hemoglobin Concent 31 g/dL (31-37) Red Cell Distribution Width 15.0 % (11.5-14.5) Platelet Count 354 x10^3/uL (140-400) Neutrophils (%) (Auto) 77 % (31-73) Lymphocytes (%) (Auto) 9 % (24-48) Monocytes (%) (Auto) 10 % (0-9) Eosinophils (%) (Auto) 3 % (0-3) Basophils (%) (Auto) 1 % (0-3) Neutrophils # (Auto) 13.7 x10^3uL (1.8-7.7) Lymphocytes # (Auto) 1.6 x10^3/uL (1.0-4.8) Monocytes # (Auto) 1.8 x10^3/uL (0.0-1.1) Eosinophils # (Auto) 0.6 x10^3/uL (0.0-0.7) Basophils # (Auto) 0.1 x10^3/uL (0.0-0.2) Sodium Level 142 mmol/L (136-145) Potassium Level 3.6 mmol/L (3.5-5.1) Chloride Level 111 mmol/L (98-107) Carbon Dioxide Level 23 mmol/L (21-32) Anion Gap 8 (6-14) Blood Urea Nitrogen 31 mg/dL (8-26) Creatinine 0.9 mg/dL (0.7-1.3) Estimated GFR (Cockcroft-Gault) 83.7 BUN/Creatinine Ratio 34 (6-20) Glucose Level 94 mg/dL (70-99) Calcium Level 8.8 mg/dL (8.5-10.1) Total Bilirubin 0.1 mg/dL (0.2-1.0) Aspartate Amino Transf (AST/SGOT) 20 U/L (15-37) Alanine Aminotransferase (ALT/SGPT) 25 U/L (16-63) Alkaline Phosphatase 72 U/L (46-116) Total Protein 5.0 g/dL (6.4-8.2) Albumin 1.4 g/dL (3.4-5.0) Albumin/Globulin Ratio 0.4 (1.0-1.7) Objective: Assessment: 1. 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 He has a history of osteomyelitis status post debridement on 12/30/2018 at . Previous cultures grew extended-spectrum beta-lactamase, Escherichia coli, Morganella, pseudomonas (resistant Fortaz, intermediate Zosyn), Bacteroides and Clostridium species. He completed a course of meropenem.Now with worsening secondary infected wound 2. Leukocytosis. 3. Pyuria. 4. Methicillin-resistant Staphylococcus aureus screen positive. 5. C difficile colitis 6. 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 7. Encephalopathy. 8. Protein-calorie malnutrition. 9. History of cerebrovascular accident. 10. Paroxysmal atrial fibrillation. 11. Diabetes mellitus type 2. Plan: Plan of Care Gen surgery is planning for debridement cont meropenem,IV Vanc ,adjust according to renal func add po vanc micafungin Monitor labs/renal function closely f/u cultures Local wound care Glycemic control Optimize nutrition Contact isolation D/w nursing MAYKEL QUINTERO MD February 28, 2019 10:10
--- NOTE | 2019-02-28 10:27 | PDOC ---
PROGRESS NOTES Assessment Metabolic encephalopathy History of left cerebellar stroke Achondroplasia Suspected diabetic neuropathy. Negative CT of the head Plan Agree with surgical debridement of sacral decubitus today Treat medical diseases and supportive care Holding off on additional neurological studies such as electroencephalogram Subjective Has back pain Objective Vital Signs Date Time Temp Pulse Resp B/P (MAP) Pulse Ox O2 Delivery O2 Flow Rate FiO2 02/28/19 09:30 97 Room Air 02/28/19 07:55 82 121/71 02/28/19 07:00 98.3 16 98.3 Intake and Output 02/28/19 06:59 Intake Total 1240 ml Output Total 1050 ml Balance 190 ml Intake Oral 1240 ml Output Urine Total 1050 ml PHYSICAL EXAM Eyes closed, alerts easily, knows he's in the hospital but does not know its name, does not know the date, follows commands. PERRL. EOMI. CN: no focal findings. Muscle tone: normal. Muscle strength: 3/5, some tremulousness DTR: 0-1+ Plantar reflex: flexor Gait: not examined in bed. Sensory exam: probable stocking loss. No cerebellar signs elicited. Review of Relevant I have reviewed the following items lg (where applicable) has been applied. Labs Laboratory Tests Test 02/26/19 10:58 02/26/19 14:55 02/26/19 16:08 02/26/19 16:33 Glucose (Fingerstick) 72 mg/dL (70-99) 62 mg/dL (70-99) 65 mg/dL (70-99) Clostridium difficile Toxin B Gene Positive (Negative) Test 02/26/19 17:00 02/27/19 05:36 02/27/19 08:08 02/27/19 11:32 Glucose (Fingerstick) 126 mg/dL (70-99) 71 mg/dL (70-99) 73 mg/dL (70-99) White Blood Count 19.0 x10^3/uL (4.0-11.0) Red Blood Count 3.61 x10^6/uL (4.30-5.70) Hemoglobin 10.3 g/dL (13.0-17.5) Hematocrit 32.4 % (39.0-53.0) Mean Corpuscular Volume 90 fL (79-100) Mean Corpuscular Hemoglobin 29 pg (25-35) Mean Corpuscular Hemoglobin Concent 32 g/dL (31-37) Red Cell Distribution Width 14.7 % (11.5-14.5) Platelet Count 353 x10^3/uL (140-400) Neutrophils (%) (Auto) 84 % (31-73) Lymphocytes (%) (Auto) 5 % (24-48) Monocytes (%) (Auto) 11 % (0-9) Eosinophils (%) (Auto) 1 % (0-3) Basophils (%) (Auto) 0 % (0-3) Neutrophils # (Auto) 15.9 x10^3uL (1.8-7.7) Lymphocytes # (Auto) 0.9 x10^3/uL (1.0-4.8) Monocytes # (Auto) 2.0 x10^3/uL (0.0-1.1) Eosinophils # (Auto) 0.2 x10^3/uL (0.0-0.7) Basophils # (Auto) 0.0 x10^3/uL (0.0-0.2) Erythrocyte Sedimentation Rate 53 (0-15) Sodium Level 143 mmol/L (136-145) Potassium Level 2.4 mmol/L (3.5-5.1) Chloride Level 108 mmol/L (98-107) Carbon Dioxide Level 21 mmol/L (21-32) Anion Gap 14 (6-14) Blood Urea Nitrogen 49 mg/dL (8-26) Creatinine 1.2 mg/dL (0.7-1.3) Estimated GFR (Cockcroft-Gault) 60.0 Glucose Level 76 mg/dL (70-99) Calcium Level 9.1 mg/dL (8.5-10.1) Test 02/27/19 16:24 02/27/19 16:52 02/27/19 19:35 02/28/19 07:38 Glucose (Fingerstick) 69 mg/dL (70-99) 72 mg/dL (70-99) Sodium Level 142 mmol/L (136-145) 142 mmol/L (136-145) Potassium Level 3.1 mmol/L (3.5-5.1) 3.6 mmol/L (3.5-5.1) Chloride Level 106 mmol/L (98-107) 111 mmol/L (98-107) Carbon Dioxide Level 24 mmol/L (21-32) 23 mmol/L (21-32) Anion Gap 12 (6-14) 8 (6-14) Blood Urea Nitrogen 36 mg/dL (8-26) 31 mg/dL (8-26) Creatinine 1.1 mg/dL (0.7-1.3) 0.9 mg/dL (0.7-1.3) Estimated GFR (Cockcroft-Gault) 66.4 83.7 Glucose Level 100 mg/dL (70-99) 94 mg/dL (70-99) Calcium Level 8.8 mg/dL (8.5-10.1) 8.8 mg/dL (8.5-10.1) White Blood Count 17.8 x10^3/uL (4.0-11.0) Red Blood Count 3.56 x10^6/uL (4.30-5.70) Hemoglobin 10.0 g/dL (13.0-17.5) Hematocrit 32.1 % (39.0-53.0) Mean Corpuscular Volume 90 fL (79-100) Mean Corpuscular Hemoglobin 28 pg (25-35) Mean Corpuscular Hemoglobin Concent 31 g/dL (31-37) Red Cell Distribution Width 15.0 % (11.5-14.5) Platelet Count 354 x10^3/uL (140-400) Neutrophils (%) (Auto) 77 % (31-73) Lymphocytes (%) (Auto) 9 % (24-48) Monocytes (%) (Auto) 10 % (0-9) Eosinophils (%) (Auto) 3 % (0-3) Basophils (%) (Auto) 1 % (0-3) Neutrophils # (Auto) 13.7 x10^3uL (1.8-7.7) Lymphocytes # (Auto) 1.6 x10^3/uL (1.0-4.8) Monocytes # (Auto) 1.8 x10^3/uL (0.0-1.1) Eosinophils # (Auto) 0.6 x10^3/uL (0.0-0.7) Basophils # (Auto) 0.1 x10^3/uL (0.0-0.2) BUN/Creatinine Ratio 34 (6-20) Total Bilirubin 0.1 mg/dL (0.2-1.0) Aspartate Amino Transf (AST/SGOT) 20 U/L (15-37) Alanine Aminotransferase (ALT/SGPT) 25 U/L (16-63) Alkaline Phosphatase 72 U/L (46-116) Total Protein 5.0 g/dL (6.4-8.2) Albumin 1.4 g/dL (3.4-5.0) Albumin/Globulin Ratio 0.4 (1.0-1.7) Laboratory Tests Test 02/27/19 11:32 02/27/19 16:24 02/27/19 16:52 02/27/19 19:35 Glucose (Fingerstick) 73 mg/dL (70-99) 69 mg/dL (70-99) 72 mg/dL (70-99) Sodium Level 142 mmol/L (136-145) Potassium Level 3.1 mmol/L (3.5-5.1) Chloride Level 106 mmol/L (98-107) Carbon Dioxide Level 24 mmol/L (21-32) Anion Gap 12 (6-14) Blood Urea Nitrogen 36 mg/dL (8-26) Creatinine 1.1 mg/dL (0.7-1.3) Estimated GFR (Cockcroft-Gault) 66.4 Glucose Level 100 mg/dL (70-99) Calcium Level 8.8 mg/dL (8.5-10.1) Test 02/28/19 07:38 White Blood Count 17.8 x10^3/uL (4.0-11.0) Red Blood Count 3.56 x10^6/uL (4.30-5.70) Hemoglobin 10.0 g/dL (13.0-17.5) Hematocrit 32.1 % (39.0-53.0) Mean Corpuscular Volume 90 fL (79-100) Mean Corpuscular Hemoglobin 28 pg (25-35) Mean Corpuscular Hemoglobin Concent 31 g/dL (31-37) Red Cell Distribution Width 15.0 % (11.5-14.5) Platelet Count 354 x10^3/uL (140-400) Neutrophils (%) (Auto) 77 % (31-73) Lymphocytes (%) (Auto) 9 % (24-48) Monocytes (%) (Auto) 10 % (0-9) Eosinophils (%) (Auto) 3 % (0-3) Basophils (%) (Auto) 1 % (0-3) Neutrophils # (Auto) 13.7 x10^3uL (1.8-7.7) Lymphocytes # (Auto) 1.6 x10^3/uL (1.0-4.8) Monocytes # (Auto) 1.8 x10^3/uL (0.0-1.1) Eosinophils # (Auto) 0.6 x10^3/uL (0.0-0.7) Basophils # (Auto) 0.1 x10^3/uL (0.0-0.2) Sodium Level 142 mmol/L (136-145) Potassium Level 3.6 mmol/L (3.5-5.1) Chloride Level 111 mmol/L (98-107) Carbon Dioxide Level 23 mmol/L (21-32) Anion Gap 8 (6-14) Blood Urea Nitrogen 31 mg/dL (8-26) Creatinine 0.9 mg/dL (0.7-1.3) Estimated GFR (Cockcroft-Gault) 83.7 BUN/Creatinine Ratio 34 (6-20) Glucose Level 94 mg/dL (70-99) Calcium Level 8.8 mg/dL (8.5-10.1) Total Bilirubin 0.1 mg/dL (0.2-1.0) Aspartate Amino Transf (AST/SGOT) 20 U/L (15-37) Alanine Aminotransferase (ALT/SGPT) 25 U/L (16-63) Alkaline Phosphatase 72 U/L (46-116) Total Protein 5.0 g/dL (6.4-8.2) Albumin 1.4 g/dL (3.4-5.0) Albumin/Globulin Ratio 0.4 (1.0-1.7) Microbiology 02/26/19 Blood Culture - Preliminary, Resulted NO GROWTH AFTER 2 DAYS 02/26/19 Urine Culture - Preliminary, Resulted 02/26/19 Urine Culture Result 1 (YAMINI) - Preliminary, Resulted 02/26/19 Urine Culture Result 2 (YAMINI) - Preliminary, Resulted Medications Current Medications Piperacillin Sod/ Tazobactam Sod (Zosyn Per Pharmacy) 1 each PRN DAILY PRN MC SEE COMMENTS; Start 02/25/19 at 22:45; Stop 02/26/19 at 14:48; Status DC Sodium Chloride 1,000 ml @ 1,000 mls/hr 1X ONCE IV Last administered on 02/26/19at 00:25; Start 02/25/19 at 22:45; Stop 02/25/19 at 23:44; Status DC Piperacillin Sod/ Tazobactam Sod 2.25 gm/Sodium Chloride 50 ml @ 100 mls/hr ONCE ONCE IV Last administered on 02/26/19at 00:25; Start 02/26/19 at 00:15; Stop 02/26/19 at 00:44; Status DC Fentanyl Citrate (Fentanyl 2ml Vial) 50 mcg PRN Q1HR PRN IV PAIN; Start 02/26/19 at 00:30; Stop 02/27/19 at 00:29; Status DC Sodium Chloride 1,000 ml @ 125 mls/hr Q8H IV Last administered on 02/26/19at 02:01; Start 02/26/19 at 00:30; Stop 02/27/19 at 00:29; Status DC Sodium Chloride 1,000 ml @ 1,000 mls/hr 1X ONCE IV Last administered on 02/26/19at 02:40; Start 02/26/19 at 00:30; Stop 02/26/19 at 01:29; Status DC Piperacillin Sod/ Tazobactam Sod 2.25 gm/Sodium Chloride 50 ml @ 100 mls/hr Q6HRS IV Last administered on 02/26/19at 11:58; Start 02/26/19 at 06:00; Stop 02/26/19 at 14:48; Status DC Sodium Chloride 500 ml @ 500 mls/hr 1X ONCE IV Last administered on 02/26/19at 10:15; Start 02/26/19 at 10:15; Stop 02/26/19 at 11:14; Status DC Vancomycin HCl (Vanco Per Pharmacy) 1 each PRN DAILY PRN MC SEE COMMENTS Last administered on 02/27/19at 15:07; Start 02/26/19 at 11:15 Vancomycin HCl 2 gm/Sodium Chloride 500 ml @ 250 mls/hr ONCE ONCE IV Last administered on 02/26/19at 12:39; Start 02/26/19 at 11:30; Stop 02/26/19 at 13:29; Status DC Vancomycin HCl 1.25 gm/Sodium Chloride 250 ml @ 167 mls/hr Q24H IV Last administered on 02/27/19 13:00; Start 02/27/19 at 13:00; Stop 02/27/19 at 15:00; Status DC Vancomycin HCl (Vancomycin Trough Level) 1 each 1X ONCE MC ; Start 02/28/19 at 12:30; Stop 02/28/19 at 12:30; Status DC Meropenem 500 mg/ Sodium Chloride 50 ml @ 100 mls/hr Q8HRS IV Last administered on 02/28/19at 05:58; Start 02/26/19 at 15:00 Atorvastatin Calcium (Lipitor) 10 mg QHS PO Last administered on 02/27/19 22:32; Start 02/26/19 at 21:00 Calcium Carbonate/ Glycine (Tums) 250 mg PRN Q8HRS PRN PO INDIGESTION; Start 02/26/19 at 16:00 Divalproex Sodium (Depakote Er) 500 mg QHS PO Last administered on 02/27/19 22:32; Start 02/26/19 at 21:00 Famotidine (Pepcid) 20 mg DAILY PO Last administered on 02/27/19 10:54; Start 02/26/19 at 15:15 Folic Acid (Folic Acid) 1 mg DAILY PO Last administered on 02/27/19 11:12; Start 02/26/19 at 16:15 Lisinopril (Prinivil) 10 mg DAILY PO ; Start 02/26/19 at 16:15 Tamsulosin HCl (Flomax) 0.4 mg DAILY PO Last administered on 02/27/19 11:11; Start 02/26/19 at 16:15 Tramadol HCl (Ultram) 50 mg QID PO Last administered on 02/28/19 08:05; Start 02/26/19 at 17:00 Ascorbic Acid (Vitamin C) 500 mg DAILY PO Last administered on 02/27/19 10:48; Start 02/27/19 at 09:00 Citalopram Hydrobromide (CeleXA) 20 mg DAILY PO Last administered on 02/27/19 10:44; Start 02/27/19 at 09:00 Miconazole Nitrate (Monistat-Derm) 1 jaymie BID TP Last administered on 02/28/19at 08:17; Start 02/26/19 at 21:00 Mirtazapine (Remeron) 15 mg QHS PO Last administered on 02/27/19 22:32; Start 02/26/19 at 21:00 Multivitamins (Thera M Plus) 1 tab DAILY PO Last administered on 02/27/19at 10:42; Start 02/27/19 at 09:00 Nitroglycerin (Nitro-Dur) 1 patch DAILY TD Last administered on 02/27/19 11:11; Start 02/26/19 at 16:15 Oxcarbazepine (Trileptal) 300 mg BID PO Last administered on 02/28/19 08:05; Start 02/26/19 at 21:00 Zinc Sulfate (Orazinc) 220 mg BID PO Last administered on 02/27/19 22:32; Start 02/26/19 at 21:00 Dextrose (Dextrose 50%-Water Syringe) 12.5 gm PRN Q15MIN PRN IV SEE COMMENTS Last administered on 02/26/19at 16:39; Start 02/26/19 at 16:15 Potassium Chloride/Sodium Chloride 1,000 ml @ 100 mls/hr Q10H IV Last administered on 02/28/19 04:00; Start 02/27/19 at 08:00; Stop 02/28/19 at 08:51; Status DC Potassium Chloride (Klor-Con) 40 meq 1X ONCE PO Last administered on 02/27/19at 10:43; Start 02/27/19 at 08:00; Stop 02/27/19 at 08:01; Status DC Potassium Chloride (Klor-Con) 40 meq 1X ONCE PO Last administered on 02/27/19at 11:03; Start 02/27/19 at 09:00; Stop 02/28/19 at 08:53; Status DC Potassium Chloride (Klor-Con) 40 meq 1X ONCE PO Last administered on 02/27/19 11:13; Start 02/27/19 at 10:00; Stop 02/28/19 at 08:53; Status DC Micafungin Sodium 100 mg/Dextrose 100 ml @ 100 mls/hr Q24H IV Last administered on 02/27/19at 13:00; Start 02/27/19 at 13:00 Vancomycin HCl 1.25 gm/Sodium Chloride 250 ml @ 167 mls/hr Q18H IV Last administered on 02/28/19at 07:50; Start 02/28/19 at 07:00 Vancomycin HCl (Vancomycin Trough Level) 1 each 1X ONCE MC ; Start 03/01/19 at 18:30; Stop 03/01/19 at 18:31 Morphine Sulfate (Morphine Sulfate) 1 mg PRN Q10MIN PRN IV SEVERE PAIN; Start 02/28/19 at 07:00; Stop 03/01/19 at 06:59 Ringer's Solution 1,000 ml @ 30 mls/hr Q24H IV ; Start 02/28/19 at 07:00; Stop 02/28/19 at 18:59 Hydromorphone HCl (Dilaudid) 0.5 mg PRN Q10MIN PRN IV SEV PAIN, Second choice; Start 02/28/19 at 07:00; Stop 03/01/19 at 06:59 Prochlorperazine Edisylate (Compazine) 5 mg PACU PRN PRN IV NAUSEA, MRX1; Start 02/28/19 at 07:00; Stop 03/01/19 at 06:59 Metronidazole 100 ml @ 100 mls/hr Q8HRS IV Last administered on 02/28/19at 05:58; Start 02/27/19 at 22:00; Stop 02/28/19 at 10:08; Status DC Potassium Chloride/Dextrose/ Sod Cl 1,000 ml @ 80 mls/hr 1X ONCE IV Last administered on 02/28/19at 09:41; Start 02/28/19 at 09:00; Stop 02/28/19 at 21:29 Vancomycin HCl (Vancomycin Oral Solution) 125 mg [id number] PO ; Start 02/28/19 at 10:30 Active Scripts Active Reported Tums (Calcium Carbonate) 200 Mg Tab.chew 200 Mg PO Q8HRS PRN Milk Of Magnesia (Magnesium Hydroxide) 400 Mg/5 Ml Oral.susp 400 Mg PO DAILY PRN Diflucan (Fluconazole) 200 Mg Tablet 1 Tab PO DAILY Depakote Er (Divalproex Sodium) 500 Mg Tab.er.24h 1 Tab PO QHS Augmentin 875-125 Tablet (Amoxicillin/Potassium Clav) 1 Each Tablet 1 Tab PO BID Eliquis (Apixaban) 5 Mg Tablet 5 Mg PO BID Vitamin C (Ascorbic Acid) 500 Mg Capsule.er 500 Mg PO DAILY Multivitamins (Multivitamin) 1 Each Tablet 1 Tab PO DAILY Zinc (Zinc Gluconate) 50 Mg Tablet 220 Mg PO BID Atorvastatin Calcium 20 Mg Tablet 0.5 Tab PO HS Aspirin 81 Mg Tab.chew 1 Tab PO DAILY Famotidine 20 Mg Tablet 20 Mg PO BID Folic Acid 1 Mg Tablet 1 Tab PO DAILY Miconazole 3 (Miconazole Nitrate) 24 Gm Cmb.pf.crm 24 Gm VG BID Senokot (Sennosides) 8.6 Mg Tablet 1 Tab PO BID PRN Flomax (Tamsulosin Hcl) 0.4 Mg Cap.er.24h 1 Cap PO DAILY NITRO-DUR 0.2mg/hr (Nitroglycerin) 1 Each Patch.td24 1 Each TD DAILY Polyethylene Glycol 3350 255 Gm Powder 17 Gm PO BID PRN Lisinopril 10 Mg Tablet 1 Tab PO DAILY Escitalopram Oxalate 10 Mg Tablet 1 Tab PO DAILY Tramadol Hcl 50 Mg Tablet 50 Mg PO QID Mirtazapine 15 Mg Tablet 1 Tab PO QHS Oxcarbazepine 300 Mg Tablet 300 Mg PO BID Vitals/I & O Vital Sign - Last 24 Hours 02/27/19 02/27/19 02/27/19 02/27/19 10:54 11:00 13:00 15:00 Temp 97.3 98.2 97.3 98.2 Pulse 86 62 Resp 20 18 B/P (MAP) 94/70 (78) 100/49 (66) Pulse Ox 96 96 96 95 O2 Delivery Room Air Room Air Room Air Room Air 02/27/19 02/27/19 02/27/19 02/27/19 17:00 19:00 20:00 22:32 Temp 98.1 98.1 Pulse 85 Resp 20 B/P (MAP) 135/64 (87) Pulse Ox 95 97 97 O2 Delivery Room Air Room Air Room Air Room Air 02/27/19 02/28/19 02/28/19 02/28/19 23:00 03:00 07:00 07:55 Temp 98.3 98.1 98.3 98.3 98.1 98.3 Pulse 92 82 88 82 Resp 20 20 16 B/P (MAP) 119/57 (77) 121/71 (88) 153/68 (96) 121/71 Pulse Ox 98 97 97 O2 Delivery Room Air Room Air Room Air 02/28/19 02/28/19 08:05 09:30 Pulse Ox 97 97 O2 Delivery Room Air Room Air Intake and Output 02/27/19 02/27/19 02/28/19 14:59 22:59 06:59 Intake Total 600 ml 440 ml 200 ml Output Total 550 ml 500 ml Balance 600 ml -110 ml -[address] of the head without contrast, 02/27/2019: There is moderate cerebral atrophy. The ventricles are mildly enlarged on a compensatory basis. There is no shift of the midline structures. There is no evidence of acute intracranial hemorrhage or mass effect. A small lucency in the posterior aspect of the left cerebellar hemispheres compatible with an old infarct. Sclerotic change and incomplete aeration of the left mastoid air cells is compatible with mild chronic inflammation. IMPRESSION: 1. Moderate cerebral atrophy. 2. Small old left cerebellar infarct. 3. No acute intracranial abnormality is detected. ALVARO GALINDO MD February 28, 2019 10:27
[2019-02-28] MEDS: VANCOMYCIN 125 MG/2.5 ML ORAL SOLUTION. PO SCH ×4 (10:30→20:10)
[2019-02-28 11:00] VITALS: BP 104/57
[2019-02-28] MEDS ORDERED: fentaNYL PF VIAL 100 MCG/2 ML VIAL ONE (11:39)
[2019-02-28] MEDS ORDERED: PROPOFOL 0 ML IV ONE (11:39)
[2019-02-28] MEDS ORDERED: LIDOCAINE 2% PF 5 ML VIAL. ONE ×2 (11:39)
[2019-02-28] MEDS ORDERED: ONDANSETRON PF 4 MG/2 ML VIAL. ONE (11:39)
[2019-02-28] MEDS ORDERED: DEXAMETHASONE SOD PHOS 4 MG/ML VIAL ONE (11:39)
[2019-02-28] MEDS ORDERED: SEVOFLURANE 31 TO 60 MINUTES. IH ONE (11:39)
[2019-02-28] MEDS: MICAFUNGIN 100 MG in IV DEXTROSE 5% 100ML 100 ML IV SCH (12:43)
--- NOTE | 2019-02-28 13:01 | NUR ---
DEXTER following for discharge planning. Discussed with RN, pt having surgery today. DEXTER confirmed pt is from [facility]. DEXTER faxed updates to [facility]. DEXTER will continue to follow for discharge planning.
[2019-02-28 15:00] VITALS: BP 148/74
--- NOTE | 2019-02-28 18:31 | NUR ---
Pt has indwelling crooks catheter that was placed [facility] on 02/10/19 at [facility]. According to the order summary report, catheter is to be changed every 30 days.
[2019-02-28 19:00] VITALS: BP 126/81
--- NOTE | 2019-02-28 19:33 | PN ---
DATE: 02/28/2019 SUBJECTIVE: The patient is resting, slightly propped up in bed, sleeping comfortably. On questioning him, he denied any complaint. Apparently, his stool came back positive for C. diff and he is now on IV Flagyl as he was unable to take his medication by mouth. His serum potassium has improved to 3.6. OBJECTIVE: GENERAL: When I examined him, he looked pale, but not jaundiced or cyanosed. No lymphadenopathy, no thyromegaly. No jugular venous distension. No limb edema. VITAL SIGNS: His heart rate was 82, blood pressure was 121/71, temperature was 98.1, respiratory rate 20, and oxygen saturation was 97% on room air. HEAD, EYES, EARS, NOSE AND THROAT: Showed normocephalic, atraumatic. NECK: Supple. HEART: Showed normal first and second heart sounds. No gallop, rub or murmur. CHEST: Clear to auscultation. No crepitation or rhonchi. ABDOMEN: Distended, soft, nontender. NEUROLOGIC: He was sleepy, but arousable. He seemed to be much better today. He is answering questions appropriately. All his cranial nerves are intact. He moves extremities without difficulty, though he is mostly bed bound. He has large stage 4 sacral decubitus ulcer. His intake was 800, output was 350. LABORATORY DATA: As of this morning, his serum sodium was 142, potassium 3.6, chloride 111, bicarbonate 23, anion gap of 8, BUN 31, creatinine 0.9, estimated GFR was 84 mL per minute. His glucose was 94, calcium was 8.8. Total bilirubin, AST, ALT, alkaline phosphatase were normal. His total protein was 5, albumin was 1.4. His white cell count is down to 17,800, hemoglobin 10, hematocrit 32, MCV 90 and platelet count of 354,000 with normal manual differential. His stool for C. diff came back positive and his nasal screen for MRSA by PCR was positive. ASSESSMENT: 1. Altered mental status, multifactorial, improving. 2. Acute kidney injury, creatinine is down to 0.9. 3. Probable urinary tract infection. 4. Infected sacral decubitus ulcer. 5. Hypokalemia, resolved. PLAN: To continue with IV vancomycin and Zosyn. His stool came back positive for C. diff toxin and he is now on IV Flagyl 500 mg IV every 8 hours. He is scheduled for surgical debridement today. CINDY SULLIVAN MD DR: AMY/afsaneh JOB#: [id number] / [id number]
[2019-02-28] MEDS: LACTOBACILLUS RHAMNOSUS GG 1 CAPSULE. PO SCH (20:10)
[2019-02-28] MEDS: DIVALPROEX EXTENDED RELEASE 500 MG TAB.ER.24H. PO SCH (20:10)
[2019-02-28] MEDS: ATORVASTATIN CALCIUM 10 MG TABLET. PO SCH (20:10)
[2019-02-28] MEDS: MIRTAZAPINE 15 MG TABLET PO SCH (20:11)
[2019-02-28 21:19] LABS: VANC TR 22.1 mcg/mL (10.0-20.0)
[2019-02-28] MEDS: VANCOMYCIN PER PHARMACY MC PRN (21:22)
--- NOTE | 2019-02-28 21:25 | NUR ---
Pharmacy Vancomycin Dosing Note S: Consulted to monitor and dose vancomycin started 02/26/19. O: ROGELIO MEYRS is a 68 year old M with Cellulitis, Osteomyelitis, SACRAL WOUND Other Antibiotics: MEROPENEM 500MG IV Q8HRS MICAFUNGIN 100 MG IV Q24HRS LABS: Last BUN: 49 Last Creatinine: 1.2 Creatinine Clearance: 55 mL/min Last WBC: 19 Last Procalcitonin: - Tmax (past 24 hours): 98.2 Microbiology: BLOOD CX (02/26): NGTD UCX IN PROCESS I/O: 800/350 Drug Levels: Last Trough level: 22.1 (~13 HOUR LEVEL FROM LAST DOSE) on 02/28/19 at 2050 Last dose given 02/28/19 at 0750 Vancomycin Dosing: Dosing Weight: Actual Target Trough: 15-20 A: Based on: level (approximate 13 hour level) P: 1. Continue Vancomycin 1250 mg IV q18h 2. Follow up Trough level to be ordered by pharmacy 3. Pharmacy will continue to monitor, follow and adjust therapy as needed. Alena Olmstead RPH, 02/28/19 [id number]
[2019-02-28 23:00] VITALS: BP 127/66
[2019-03-01] VITALS (13 sets, daily range): BP systolic 92–135; BP diastolic 41–90
[2019-03-01] MEDS: VANCOMYCIN 1.25 GM in IV NORMAL SALINE 250ML 250 ML IV SCH ×2 (01:16→21:26)
[2019-03-01] MEDS: MEROPENEM 500 MG in IV NORMAL SALINE 50ML 50 ML IV SCH ×3 (05:15→21:37)
[2019-03-01] MEDS: POTASSIUM CL 40MEQ D5-0.45NACL 1,000 ML IV SCH ×2 (06:42→21:52)
[2019-03-01] MEDS ORDERED: ONDANSETRON PF 4 MG/2 ML VIAL. IV PRN (07:00)
[2019-03-01] MEDS ORDERED: fentaNYL PF VIAL 100 MCG/2 ML VIAL IV PRN ×2 (07:00)
[2019-03-01] MEDS ORDERED: LIDOCAINE 1% PF 2 ML VIAL. ID PRN (07:00)
[2019-03-01] MEDS ORDERED: HYDROmorphone 2 MG/ML VIAL IV PRN (07:00)
[2019-03-01] MEDS ORDERED: PROCHLORPERAZINE 10 MG/2 ML VIAL. IV PRN (07:00)
[2019-03-01] MEDS ORDERED: MORPHINE SULFATE 2 MG/ML VIAL. IV PRN (07:00)
[2019-03-01] MEDS ORDERED: IV RINGERS,LACTATED 1000ML 1,000 ML IV SCH (07:00)
[2019-03-01] MEDS: CITALOPRAM 20 MG TABLET. PO SCH (07:36)
[2019-03-01] MEDS: LACTOBACILLUS RHAMNOSUS GG 1 CAPSULE. PO SCH ×2 (07:37→21:18)
[2019-03-01] MEDS: TAMSULOSIN 0.4 MG CAP.ER.24H. PO SCH (07:38)
[2019-03-01] MEDS: FOLIC ACID 1 MG TABLET. PO SCH (07:42)
[2019-03-01] MEDS: FAMOTIDINE 20 MG TABLET. PO SCH (07:44)
[2019-03-01] MEDS: LISINOPRIL 10 MG TABLET PO SCH (07:44)
[2019-03-01] MEDS: MULTIVITAMIN with MINERAL TABLET. PO SCH (07:46)
[2019-03-01] MEDS: ASCORBIC ACID 500 MG TABLET PO SCH (07:46)
[2019-03-01] MEDS: ZINC SULFATE 220 MG CAPSULE. PO SCH ×2 (07:47→21:18)
[2019-03-01] MEDS: NITROGLYCERIN 0.2MG/HR PATCH. TD SCH (07:47)
[2019-03-01] MEDS: OXcarbazepine 300 MG TABLET PO SCH ×2 (08:30→21:18)
[2019-03-01] MEDS: traMADol 50 MG TABLET PO SCH ×4 (08:30→21:00)
[2019-03-01] MEDS: VANCOMYCIN 125 MG/2.5 ML ORAL SOLUTION. PO SCH ×4 (08:31→21:18)
[2019-03-01] MEDS: MICONAZOLE NITRATE 2% TOPICAL CREAM 28GM TUBE. TP SCH ×2 (08:37→21:25)
--- NOTE | 2019-03-01 08:40 | PDOC ---
Infectious Disease Note Subjective: Subjective pt is off unit getting I and D of sacral wound no fevers, still has loose bm per RN Vital Signs: Vital Signs Vital Signs Date Time Temp Pulse Resp B/P (MAP) Pulse Ox O2 Delivery O2 Flow Rate FiO2 03/01/19 07:44 74 134/68 03/01/19 07:00 97.9 17 94 Room Air 97.9 Physical Exam: PHYSICAL EXAM not done Medications: Inpatient Meds: Current Medications Medications (Trade) Dose Ordered Sig/Ronald Start Time Stop Time Status Last Admin Dose Admin Ascorbic Acid (Vitamin C) 500 mg DAILY 02/27/19 09:00 02/27/19 10:48 500 MG Atorvastatin Calcium (Lipitor) 10 mg QHS 02/26/19 21:00 02/28/19 20:10 10 MG Calcium Carbonate/ Glycine (Tums) 250 mg PRN Q8HRS PRN 02/26/19 16:00 Citalopram Hydrobromide (CeleXA) 20 mg DAILY 02/27/19 09:00 02/27/19 10:44 20 MG Dexamethasone Sodium Phosphate (Decadron) 4 mg STK-MED ONCE 02/28/19 11:39 02/28/19 11:40 DC Dextrose (Dextrose 50%-Water Syringe) 12.5 gm PRN Q15MIN PRN 02/26/19 16:15 02/26/19 16:39 12.5 GM Divalproex Sodium (Depakote Er) 500 mg QHS 02/26/19 21:00 02/28/19 20:10 500 MG Famotidine (Pepcid) 20 mg DAILY 02/26/19 15:15 02/27/19 10:54 20 MG Fentanyl Citrate (Fentanyl 2ml Vial) 50 mcg PRN Q5MIN PRN 03/01/19 07:00 03/02/19 06:59 Folic Acid (Folic Acid) 1 mg DAILY 02/26/19 16:15 02/27/19 11:12 1 MG Hydromorphone HCl (Dilaudid) 0.5 mg PRN Q10MIN PRN 03/01/19 07:00 03/02/19 06:59 Lactobacillus Rhamnosus (Culturelle) 1 cap BID 02/28/19 21:00 02/28/19 20:10 1 CAP Lidocaine HCl (Lidocaine Pf 2% Vial) 5 ml STK-MED ONCE 5/7/19 11:39 02/28/19 11:40 DC Lidocaine HCl (Xylocaine-Mpf 1% 2ml Vial) 2 ml PRN 1X PRN 03/01/19 07:00 03/02/19 06:59 Lisinopril (Prinivil) 10 mg DAILY 02/26/19 16:15 Meropenem 500 mg/ Sodium Chloride 50 ml @ 100 mls/hr Q8HRS 02/26/19 15:00 03/01/19 05:15 100 MLS/HR Metronidazole 100 ml @ 100 mls/hr Q8HRS 02/27/19 22:00 02/28/19 10:08 DC 02/28/19 05:58 100 MLS/HR Micafungin Sodium 100 mg/Dextrose 100 ml @ 100 mls/hr Q24H 02/27/19 13:00 02/28/19 12:43 100 MLS/HR Miconazole Nitrate (Monistat-Derm) 1 jaymie BID 02/26/19 21:00 02/28/19 20:25 1 JAYMIE Mirtazapine (Remeron) 15 mg QHS 02/26/19 21:00 02/28/19 20:11 15 MG Morphine Sulfate (Morphine Sulfate) 1 mg PRN Q10MIN PRN 03/01/19 07:00 03/02/19 06:59 Multivitamins (Thera M Plus) 1 tab DAILY 02/27/19 09:00 02/27/19 10:42 1 TAB Nitroglycerin (Nitro-Dur) 1 patch DAILY 02/26/19 16:15 02/27/19 11:11 1 PATCH Ondansetron HCl (Zofran) 4 mg PRN Q6HRS PRN 03/01/19 07:00 03/02/19 06:59 Oxcarbazepine (Trileptal) 300 mg BID 02/26/19 21:00 02/28/19 20:10 300 MG Piperacillin Sod/ Tazobactam Sod (Zosyn Per Pharmacy) 1 each PRN DAILY PRN 02/25/19 22:45 02/26/19 14:48 DC Piperacillin Sod/ Tazobactam Sod 2.25 gm/Sodium Chloride 50 ml @ 100 mls/hr Q6HRS 5/5/19 06:00 02/26/19 14:48 DC 02/26/19 11:58 100 MLS/HR Potassium Chloride/Dextrose/ Sod Cl 1,000 ml @ 80 mls/hr [id number] 03/01/19 06:45 03/01/19 06:42 80 MLS/HR Potassium Chloride/Sodium Chloride 1,000 ml @ 100 mls/hr Q10H 02/27/19 08:00 02/28/19 08:51 DC 02/28/19 04:00 100 MLS/HR Potassium Chloride (Klor-Con) 40 meq 1X ONCE 02/27/19 10:00 02/28/19 08:53 DC 02/27/19 11:13 40 MEQ Prochlorperazine Edisylate (Compazine) 5 mg PACU PRN PRN 03/01/19 07:00 03/02/19 06:59 Propofol 0 ml @ As Directed STK-MED ONCE 02/28/19 11:39 02/28/19 11:40 DC Ringer's Solution 1,000 ml @ 30 mls/hr Q24H 03/01/19 07:00 03/01/19 18:59 Sevoflurane (Ultane) 30 ml STK-MED ONCE 02/28/19 11:39 02/28/19 11:40 DC Sodium Chloride 500 ml @ 500 mls/hr 1X ONCE 02/26/19 10:15 02/26/19 11:14 DC 02/26/19 10:15 500 MLS/HR Tamsulosin HCl (Flomax) 0.4 mg DAILY 02/26/19 16:15 02/27/19 11:11 0.4 MG Tramadol HCl (Ultram) 50 mg QID 02/26/19 17:00 02/28/19 20:11 50 MG Vancomycin HCl (Vanco Per Pharmacy) 1 each PRN DAILY PRN 02/26/19 11:15 02/28/19 21:22 1 EACH Vancomycin HCl (Vancomycin Trough Level) 1 each 1X ONCE 02/28/19 19:30 02/28/19 19:31 DC 02/28/19 19:30 1 EACH Vancomycin HCl (Vancomycin Oral Solution) 125 mg [id number] 02/28/19 10:30 02/28/19 20:10 125 MG Vancomycin HCl 1.25 gm/Sodium Chloride 250 ml @ 167 mls/hr Q18H 02/28/19 07:00 03/01/19 01:16 167 MLS/HR Vancomycin HCl 2 gm/Sodium Chloride 500 ml @ 250 mls/hr ONCE ONCE 02/26/19 11:30 02/26/19 13:29 DC 02/26/19 12:39 250 MLS/HR Zinc Sulfate (Orazinc) 220 mg BID 02/26/19 21:00 02/28/19 20:11 220 MG Labs: Lab Laboratory Tests Test 02/28/19 12:43 02/28/19 20:50 03/01/19 00:11 Glucose (Fingerstick) 82 mg/dL (70-99) 82 mg/dL (70-99) Vancomycin Level Trough 22.1 mcg/mL (10.0-20.0) Vancomycin Last Dose Date 02/28/19 Vancomycin Last Dose Time 0750 Objective: Assessment: 1. 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 He has a history of osteomyelitis status post debridement on 12/30/2018 at . Previous cultures grew extended-spectrum beta-lactamase, Escherichia coli, Morganella, pseudomonas (resistant Fortaz, intermediate Zosyn), Bacteroides and Clostridium species. He completed a course of meropenem.Now with worsening secondary infected wound 2. Leukocytosis. 3. Pyuria. 4. Methicillin-resistant Staphylococcus aureus screen positive. 5. C difficile colitis 6. 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 7. Encephalopathy. 8. Protein-calorie malnutrition. 9. History of cerebrovascular accident. 10. Paroxysmal atrial fibrillation. 11. Diabetes mellitus type 2. Plan: Plan of Care Pt undergoing I and D today cont meropenem,IV Vanc ,adjust according to renal func , Vanc trough 22 on 02/28,creat wnl cont po vanc micafungin Monitor labs/renal function closely f/u cultures Local wound care Glycemic control Optimize nutrition Contact isolation D/w nursing MAYKEL QUINTERO MD March 01, 2019 08:40
[2019-03-01] MEDS ORDERED: SEVOFLURANE 31 TO 60 MINUTES. IH ONE (09:14)
[2019-03-01] MEDS ORDERED: PROPOFOL 20 ML IV ONE ×2 (09:15→14:03)
[2019-03-01] MEDS ORDERED: SUCCINYLCHOLINE 200 MG/10 ML VIAL. ONE (09:15)
[2019-03-01] MEDS ORDERED: LIDOCAINE 2% PF 5 ML VIAL. ONE ×2 (09:15→14:03)
[2019-03-01] MEDS ORDERED: DEXAMETHASONE SOD PHOS 4 MG/ML VIAL ONE ×4 (09:15→15:06)
[2019-03-01] MEDS ORDERED: ONDANSETRON PF 4 MG/2 ML VIAL. ONE ×3 (09:15→15:06)
[2019-03-01] MEDS ORDERED: fentaNYL PF VIAL 100 MCG/2 ML VIAL ONE (09:15)
--- NOTE | 2019-03-01 09:32 | PDOC ---
PROGRESS NOTES Assessment Metabolic encephalopathy History of left cerebellar stroke Achondroplasia Suspected diabetic neuropathy. Negative CT of the head Plan Agree with surgical debridement of sacral decubitus today (was not done yesterday) Treat medical diseases and supportive care Holding off on additional neurological studies such as electroencephalogram Subjective Denies pain Objective Vital Signs Date Time Temp Pulse Resp B/P (MAP) Pulse Ox O2 Delivery O2 Flow Rate FiO2 03/01/19 08:30 94 Room Air 03/01/19 07:44 74 134/68 03/01/19 07:00 97.9 17 97.9 Intake and Output 03/01/19 07:00 Intake Total 0 ml Output Total 1000 ml Balance -1000 ml Intake Oral 0 ml Output Urine Total 1000 ml Stool Total 0 ml # Bowel Movements 3 PHYSICAL EXAM Eyes closed, alerts easily, knows he's in the hospital but does not know its name, does not know the date, follows commands. PERRL. EOMI. CN: no focal findings. Muscle tone: normal. Muscle strength: 3/5, no tremulousness DTR: 0-1+ Plantar reflex: flexor Gait: not examined in bed. Sensory exam: probable stocking loss. No cerebellar signs elicited. Review of Relevant I have reviewed the following items lg (where applicable) has been applied. Labs Laboratory Tests Test 02/27/19 11:32 02/27/19 16:24 02/27/19 16:52 02/27/19 19:35 Glucose (Fingerstick) 73 mg/dL (70-99) 69 mg/dL (70-99) 72 mg/dL (70-99) Sodium Level 142 mmol/L (136-145) Potassium Level 3.1 mmol/L (3.5-5.1) Chloride Level 106 mmol/L (98-107) Carbon Dioxide Level 24 mmol/L (21-32) Anion Gap 12 (6-14) Blood Urea Nitrogen 36 mg/dL (8-26) Creatinine 1.1 mg/dL (0.7-1.3) Estimated GFR (Cockcroft-Gault) 66.4 Glucose Level 100 mg/dL (70-99) Calcium Level 8.8 mg/dL (8.5-10.1) Test 02/28/19 07:38 02/28/19 12:43 02/28/19 20:50 5/8/19 00:11 White Blood Count 17.8 x10^3/uL (4.0-11.0) Red Blood Count 3.56 x10^6/uL (4.30-5.70) Hemoglobin 10.0 g/dL (13.0-17.5) Hematocrit 32.1 % (39.0-53.0) Mean Corpuscular Volume 90 fL (79-100) Mean Corpuscular Hemoglobin 28 pg (25-35) Mean Corpuscular Hemoglobin Concent 31 g/dL (31-37) Red Cell Distribution Width 15.0 % (11.5-14.5) Platelet Count 354 x10^3/uL (140-400) Neutrophils (%) (Auto) 77 % (31-73) Lymphocytes (%) (Auto) 9 % (24-48) Monocytes (%) (Auto) 10 % (0-9) Eosinophils (%) (Auto) 3 % (0-3) Basophils (%) (Auto) 1 % (0-3) Neutrophils # (Auto) 13.7 x10^3uL (1.8-7.7) Lymphocytes # (Auto) 1.6 x10^3/uL (1.0-4.8) Monocytes # (Auto) 1.8 x10^3/uL (0.0-1.1) Eosinophils # (Auto) 0.6 x10^3/uL (0.0-0.7) Basophils # (Auto) 0.1 x10^3/uL (0.0-0.2) Sodium Level 142 mmol/L (136-145) Potassium Level 3.6 mmol/L (3.5-5.1) Chloride Level 111 mmol/L (98-107) Carbon Dioxide Level 23 mmol/L (21-32) Anion Gap 8 (6-14) Blood Urea Nitrogen 31 mg/dL (8-26) Creatinine 0.9 mg/dL (0.7-1.3) Estimated GFR (Cockcroft-Gault) 83.7 BUN/Creatinine Ratio 34 (6-20) Glucose Level 94 mg/dL (70-99) Calcium Level 8.8 mg/dL (8.5-10.1) Total Bilirubin 0.1 mg/dL (0.2-1.0) Aspartate Amino Transf (AST/SGOT) 20 U/L (15-37) Alanine Aminotransferase (ALT/SGPT) 25 U/L (16-63) Alkaline Phosphatase 72 U/L (46-116) Total Protein 5.0 g/dL (6.4-8.2) Albumin 1.4 g/dL (3.4-5.0) Albumin/Globulin Ratio 0.4 (1.0-1.7) Glucose (Fingerstick) 82 mg/dL (70-99) 82 mg/dL (70-99) Vancomycin Level Trough 22.1 mcg/mL (10.0-20.0) Vancomycin Last Dose Date 02/28/19 Vancomycin Last Dose Time 0750 Laboratory Tests Test 02/28/19 12:43 02/28/19 20:50 03/01/19 00:11 Glucose (Fingerstick) 82 mg/dL (70-99) 82 mg/dL (70-99) Vancomycin Level Trough 22.1 mcg/mL (10.0-20.0) Vancomycin Last Dose Date 02/28/19 Vancomycin Last Dose Time 0750 Microbiology 02/26/19 Blood Culture - Preliminary, Resulted NO GROWTH AFTER 3 DAYS 02/26/19 Urine Culture - Final, Complete 02/26/19 Urine Culture Result 1 (YAMINI) - Final, Complete 02/26/19 Urine Culture Result 2 (YAMINI) - Final, Complete 02/26/19 Antimicrobic Susceptibility - Final, Complete Medications Current Medications Piperacillin Sod/ Tazobactam Sod (Zosyn Per Pharmacy) 1 each PRN DAILY PRN MC SEE COMMENTS; Start 02/25/19 at 22:45; Stop 02/26/19 at 14:48; Status DC Sodium Chloride 1,000 ml @ 1,000 mls/hr 1X ONCE IV Last administered on 02/26/19at 00:25; Start 02/25/19 at 22:45; Stop 02/25/19 at 23:44; Status DC Piperacillin Sod/ Tazobactam Sod 2.25 gm/Sodium Chloride 50 ml @ 100 mls/hr ONCE ONCE IV Last administered on 02/26/19at 00:25; Start 02/26/19 at 00:15; Stop 02/26/19 at 00:44; Status DC Fentanyl Citrate (Fentanyl 2ml Vial) 50 mcg PRN Q1HR PRN IV PAIN; Start 02/26/19 at 00:30; Stop 02/27/19 at 00:29; Status DC Sodium Chloride 1,000 ml @ 125 mls/hr Q8H IV Last administered on 02/26/19at 02:01; Start 02/26/19 at 00:30; Stop 02/27/19 at 00:29; Status DC Sodium Chloride 1,000 ml @ 1,000 mls/hr 1X ONCE IV Last administered on 02/26/19at 02:40; Start 02/26/19 at 00:30; Stop 02/26/19 at 01:29; Status DC Piperacillin Sod/ Tazobactam Sod 2.25 gm/Sodium Chloride 50 ml @ 100 mls/hr Q6HRS IV Last administered on 02/26/19at 11:58; Start 02/26/19 at 06:00; Stop 02/26/19 at 14:48; Status DC Sodium Chloride 500 ml @ 500 mls/hr 1X ONCE IV Last administered on 02/26/19at 10:15; Start 02/26/19 at 10:15; Stop 02/26/19 at 11:14; Status DC Vancomycin HCl (Vanco Per Pharmacy) 1 each PRN DAILY PRN MC SEE COMMENTS Last administered on 02/28/19at 21:22; Start 02/26/19 at 11:15 Vancomycin HCl 2 gm/Sodium Chloride 500 ml @ 250 mls/hr ONCE ONCE IV Last administered on 02/26/19at 12:39; Start 02/26/19 at 11:30; Stop 02/26/19 at 13:29; Status DC Vancomycin HCl 1.25 gm/Sodium Chloride 250 ml @ 167 mls/hr Q24H IV Last administered on 02/27/19at 13:00; Start 02/27/19 at 13:00; Stop 02/27/19 at 15:00; Status DC Vancomycin HCl (Vancomycin Trough Level) 1 each 1X ONCE MC ; Start 02/28/19 at 12:30; Stop 02/28/19 at 12:30; Status DC Meropenem 500 mg/ Sodium Chloride 50 ml @ 100 mls/hr Q8HRS IV Last administered on 03/01/19at 05:15; Start 02/26/19 at 15:00 Atorvastatin Calcium (Lipitor) 10 mg QHS PO Last administered on 02/28/19at 20:10; Start 02/26/19 at 21:00 Calcium Carbonate/ Glycine (Tums) 250 mg PRN Q8HRS PRN PO INDIGESTION; Start 02/26/19 at 16:00 Divalproex Sodium (Depakote Er) 500 mg QHS PO Last administered on 02/28/19 20:10; Start 02/26/19 at 21:00 Famotidine (Pepcid) 20 mg DAILY PO Last administered on 02/27/19 10:54; Start 02/26/19 at 15:15 Folic Acid (Folic Acid) 1 mg DAILY PO Last administered on 02/27/19 11:12; Start 02/26/19 at 16:15 Lisinopril (Prinivil) 10 mg DAILY PO ; Start 02/26/19 at 16:15 Tamsulosin HCl (Flomax) 0.4 mg DAILY PO Last administered on 02/27/19 11:11; Start 02/26/19 at 16:15 Tramadol HCl (Ultram) 50 mg QID PO Last administered on 03/01/19 08:30; Start 02/26/19 at 17:00 Ascorbic Acid (Vitamin C) 500 mg DAILY PO Last administered on 02/27/19 10:48; Start 02/27/19 at 09:00 Citalopram Hydrobromide (CeleXA) 20 mg DAILY PO Last administered on 02/27/19 10:44; Start 02/27/19 at 09:00 Miconazole Nitrate (Monistat-Derm) 1 jaymie BID TP Last administered on 03/01/19 08:37; Start 02/26/19 at 21:00 Mirtazapine (Remeron) 15 mg QHS PO Last administered on 02/28/19 20:11; Start 02/26/19 at 21:00 Multivitamins (Thera M Plus) 1 tab DAILY PO Last administered on 02/27/19 10:42; Start 02/27/19 at 09:00 Nitroglycerin (Nitro-Dur) 1 patch DAILY TD Last administered on 02/27/19 11:11; Start 02/26/19 at 16:15 Oxcarbazepine (Trileptal) 300 mg BID PO Last administered on 03/01/19 08:30; Start 02/26/19 at 21:00 Zinc Sulfate (Orazinc) 220 mg BID PO Last administered on 02/28/19at 20:11; Start 02/26/19 at 21:00 Dextrose (Dextrose 50%-Water Syringe) 12.5 gm PRN Q15MIN PRN IV SEE COMMENTS Last administered on 02/26/19at 16:39; Start 02/26/19 at 16:15 Potassium Chloride/Sodium Chloride 1,000 ml @ 100 mls/hr Q10H IV Last administered on 02/28/19at 04:00; Start 02/27/19 at 08:00; Stop 02/28/19 at 08:51; Status DC Potassium Chloride (Klor-Con) 40 meq 1X ONCE PO Last administered on 02/27/19at 10:43; Start 02/27/19 at 08:00; Stop 02/27/19 at 08:01; Status DC Potassium Chloride (Klor-Con) 40 meq 1X ONCE PO Last administered on 02/27/19at 11:03; Start 02/27/19 at 09:00; Stop 02/28/19 at 08:53; Status DC Potassium Chloride (Klor-Con) 40 meq 1X ONCE PO Last administered on 02/27/19at 11:13; Start 02/27/19 at 10:00; Stop 02/28/19 at 08:53; Status DC Micafungin Sodium 100 mg/Dextrose 100 ml @ 100 mls/hr Q24H IV Last administered on 02/28/19at 12:43; Start 02/27/19 at 13:00 Vancomycin HCl 1.25 gm/Sodium Chloride 250 ml @ 167 mls/hr Q18H IV Last administered on 03/01/19at 01:16; Start 02/28/19 at 07:00 Vancomycin HCl (Vancomycin Trough Level) 1 each 1X ONCE MC ; Start 03/01/19 at 18:30; Stop 03/01/19 at 18:30; Status DC Morphine Sulfate (Morphine Sulfate) 1 mg PRN Q10MIN PRN IV SEVERE PAIN; Start 02/28/19 at 07:00; Stop 03/01/19 at 06:59; Status DC Ringer's Solution 1,000 ml @ 30 mls/hr Q24H IV ; Start 02/28/19 at 07:00; Stop 02/28/19 at 18:59; Status DC Hydromorphone HCl (Dilaudid) 0.5 mg PRN Q10MIN PRN IV SEV PAIN, Second choice; Start 02/28/19 at 07:00; Stop 03/01/19 at 06:59; Status DC Prochlorperazine Edisylate (Compazine) 5 mg PACU PRN PRN IV NAUSEA, MRX1; Start 02/28/19 at 07:00; Stop 03/01/19 at 06:59; Status DC Metronidazole 100 ml @ 100 mls/hr Q8HRS IV Last administered on 02/28/19at 05:58; Start 02/27/19 at 22:00; Stop 02/28/19 at 10:08; Status DC Potassium Chloride/Dextrose/ Sod Cl 1,000 ml @ 80 mls/hr 1X ONCE IV Last administered on 02/28/19at 09:41; Start 02/28/19 at 09:00; Stop 02/28/19 at 21:29; Status DC Vancomycin HCl (Vancomycin Oral Solution) 125 mg [id number] PO Last administered on 03/01/19at 08:31; Start 02/28/19 at 10:30 Sevoflurane (Ultane) 30 ml STK-MED ONCE IH ; Start 02/28/19 at 11:39; Stop 02/28/19 at 11:40; Status DC Fentanyl Citrate (Fentanyl 2ml Vial) 100 mcg STK-MED ONCE .ROUTE ; Start 02/28/19 at 11:39; Stop 02/28/19 at 11:40; Status DC Propofol 0 ml @ As Directed STK-MED ONCE IV ; Start 02/28/19 at 11:39; Stop 02/28/19 at 11:40; Status DC Lidocaine HCl (Lidocaine Pf 2% Vial) 5 ml STK-MED ONCE .ROUTE ; Start 02/28/19 at 11:39; Stop 02/28/19 at 11:40; Status DC Lidocaine HCl (Lidocaine Pf 2% Vial) 5 ml STK-MED ONCE .ROUTE ; Start 02/28/19 at 11:39; Stop 02/28/19 at 11:40; Status DC Dexamethasone Sodium Phosphate (Decadron) 4 mg STK-MED ONCE .ROUTE ; Start 02/28/19 at 11:39; Stop 02/28/19 at 11:40; Status DC Ondansetron HCl (Zofran) 4 mg STK-MED ONCE .ROUTE ; Start 02/28/19 at 11:39; Stop 02/28/19 at 11:40; Status DC Vancomycin HCl (Vancomycin Trough Level) 1 each 1X ONCE MC Last administered on 02/28/19at 19:30; Start 02/28/19 at 19:30; Stop 02/28/19 at 19:31; Status DC Lactobacillus Rhamnosus (Culturelle) 1 cap BID PO Last administered on 02/28/19at 20:10; Start 02/28/19 at 21:00 Ondansetron HCl (Zofran) 4 mg PRN Q6HRS PRN IV NAUSEA/VOMITING; Start 03/01/19 at 07:00; Stop 03/02/19 at 06:59 Fentanyl Citrate (Fentanyl 2ml Vial) 25 mcg PRN Q5MIN PRN IV MILD PAIN; Start 03/01/19 at 07:00; Stop 03/02/19 at 06:59 Fentanyl Citrate (Fentanyl 2ml Vial) 50 mcg PRN Q5MIN PRN IV MODERATE TO SEVERE PAIN; Start 03/01/19 at 07:00; Stop 03/02/19 at 06:59 Morphine Sulfate (Morphine Sulfate) 1 mg PRN Q10MIN PRN IV SEVERE PAIN; Start 03/01/19 at 07:00; Stop 03/02/19 at 06:59 Ringer's Solution 1,000 ml @ 30 mls/hr Q24H IV ; Start 03/01/19 at 07:00; Stop 03/01/19 at 18:59 Lidocaine HCl (Xylocaine-Mpf 1% 2ml Vial) 2 ml PRN 1X PRN ID PRIOR TO IV START; Start 03/01/19 at 07:00; Stop 03/02/19 at 06:59 Hydromorphone HCl (Dilaudid) 0.5 mg PRN Q10MIN PRN IV SEV PAIN, Second choice; Start 03/01/19 at 07:00; Stop 03/02/19 at 06:59 Prochlorperazine Edisylate (Compazine) 5 mg PACU PRN PRN IV NAUSEA, MRX1; Start 03/01/19 at 07:00; Stop 03/02/19 at 06:59 Potassium Chloride/Dextrose/ Sod Cl 1,000 ml @ 80 mls/hr [id number] IV Last administered on 03/01/19at 06:42; Start 03/01/19 at 06:45 Sevoflurane (Ultane) 30 ml STK-MED ONCE IH ; Start 03/01/19 at 09:14; Stop 03/01/19 at 09:15; Status DC Succinylcholine Chloride (Anectine) 200 mg STK-MED ONCE .ROUTE ; Start 03/01/19 at 09:15; Stop 03/01/19 at 09:16; Status DC Fentanyl Citrate (Fentanyl 2ml Vial) 100 mcg STK-MED ONCE .ROUTE ; Start 03/01/19 at 09:15; Stop 03/01/19 at 09:16; Status DC Propofol 20 ml @ As Directed STK-MED ONCE IV ; Start 03/01/19 at 09:15; Stop 03/01/19 at 09:16; Status DC Lidocaine HCl (Lidocaine Pf 2% Vial) 5 ml STK-MED ONCE .ROUTE ; Start 03/01/19 at 09:15; Stop 03/01/19 at 09:16; Status DC Ondansetron HCl (Zofran) 4 mg STK-MED ONCE .ROUTE ; Start 03/01/19 at 09:15; Stop 03/01/19 at 09:16; Status DC Dexamethasone Sodium Phosphate (Decadron) 4 mg STK-MED ONCE .ROUTE ; Start 03/01/19 at 09:15; Stop 03/01/19 at 09:16; Status DC Active Scripts Active Reported Tums (Calcium Carbonate) 200 Mg Tab.chew 200 Mg PO Q8HRS PRN Milk Of Magnesia (Magnesium Hydroxide) 400 Mg/5 Ml Oral.susp 400 Mg PO DAILY PRN Diflucan (Fluconazole) 200 Mg Tablet 1 Tab PO DAILY Depakote Er (Divalproex Sodium) 500 Mg Tab.er.24h 1 Tab PO QHS Augmentin 875-125 Tablet (Amoxicillin/Potassium Clav) 1 Each Tablet 1 Tab PO BID Eliquis (Apixaban) 5 Mg Tablet 5 Mg PO BID Vitamin C (Ascorbic Acid) 500 Mg Capsule.er 500 Mg PO DAILY Multivitamins (Multivitamin) 1 Each Tablet 1 Tab PO DAILY Zinc (Zinc Gluconate) 50 Mg Tablet 220 Mg PO BID Atorvastatin Calcium 20 Mg Tablet 0.5 Tab PO HS Aspirin 81 Mg Tab.chew 1 Tab PO DAILY Famotidine 20 Mg Tablet 20 Mg PO BID Folic Acid 1 Mg Tablet 1 Tab PO DAILY Miconazole 3 (Miconazole Nitrate) 24 Gm Cmb.pf.crm 24 Gm VG BID Senokot (Sennosides) 8.6 Mg Tablet 1 Tab PO BID PRN Flomax (Tamsulosin Hcl) 0.4 Mg Cap.er.24h 1 Cap PO DAILY NITRO-DUR 0.2mg/hr (Nitroglycerin) 1 Each Patch.td24 1 Each TD DAILY Polyethylene Glycol 3350 255 Gm Powder 17 Gm PO BID PRN Lisinopril 10 Mg Tablet 1 Tab PO DAILY Escitalopram Oxalate 10 Mg Tablet 1 Tab PO DAILY Tramadol Hcl 50 Mg Tablet 50 Mg PO QID Mirtazapine 15 Mg Tablet 1 Tab PO QHS Oxcarbazepine 300 Mg Tablet 300 Mg PO BID Vitals/I & O Vital Sign - Last 24 Hours 02/28/19 02/28/19 02/28/19 02/28/19 11:00 12:52 15:00 19:00 Temp 98.4 98.1 97.9 98.4 98.1 97.9 Pulse 79 84 80 Resp 16 16 18 B/P (MAP) 104/57 (73) 148/74 (98) 126/81 (96) Pulse Ox 93 93 95 96 O2 Delivery Room Air Room Air Room Air Room Air 02/28/19 02/28/19 02/28/19 02/28/19 20:00 20:11 21:11 23:00 Temp 97.8 97.8 Pulse 73 Resp 20 18 18 B/P (MAP) 127/66 (86) Pulse Ox 95 95 93 O2 Delivery Room Air Room Air Room Air Room Air 03/01/19 03/01/19 03/01/19 03/01/19 03:00 07:00 07:44 08:30 Temp 97.9 97.9 97.9 97.9 Pulse 72 74 74 Resp 18 17 B/P (MAP) 124/64 (84) 134/68 (90) 134/68 Pulse Ox 94 94 94 O2 Delivery Room Air Room Air Room Air Intake and Output 02/28/19 02/28/19 03/01/19 15:00 23:00 07:00 Intake Total 0 ml Output Total 500 ml 500 ml Balance -500 ml -500 ml ALVARO GALINDO MD March 01, 2019 09:32
[2019-03-01 09:35] LABS: CREATININE 0.8 mg/dL (0.7-1.3); GFR 95.8
[2019-03-01] MEDS ORDERED: ROCURONIUM 50 MG/5 ML VIAL. ONE ×2 (09:37→14:03)
[2019-03-01] MEDS ORDERED: ePHEDrine PF IN SALINE 50 MG/10 ML SYRINGE. IV ONE (10:02)
[2019-03-01] MEDS ORDERED: VASOPRESSIN 20 UNIT/ML VIAL. ONE ×2 (10:11→14:06)
[2019-03-01] MEDS ORDERED: GLYCOPYRROLATE 1 MG/5 ML VIAL. ONE ×2 (10:33→14:59)
[2019-03-01] MEDS ORDERED: NEOSTIGMINE METHYLSULFATE 5 MG/5 ML SYRINGE. ONE ×2 (10:33→14:59)
--- NOTE | 2019-03-01 10:57 | NUR ---
SW following for discharge planning. Discussed with RN, pt is having surgery today. SW will continue to follow for any discharge planning needs.
--- NOTE | 2019-03-01 11:12 | PDOC4 ---
Operative Note Operative Note Operative Note: Preoperative Diagnosis: Sacral decubitus ulcer Postoperative Diagnosis: Same Procedure: Debridement of sacral decubitus ulcer, 50 cm2, extension to bone Surgeon: Stevie Anesthesia: Gen. EBL: 25 mL Specimen: None Drains: None Complications: None Indication: The patient is a 68-year-old male with a known large decubitus ulcer that had prior debridement at . He was admitted here and inspection showed no amount of devitalized tissue. He is to undergo repeat debridement and informed consent was obtained. Description: The patient was taken the operating room and placed supine on the operating table. Gen. anesthesia was performed. He was then placed prone. The sa cral ulcer was prepped with Betadine and draped in a standard surgical manner. Initial inspection showed a very large ulcer with extension down to the bone which was exposed. The bone itself appeared intact with no overt signs of infection. There was significant amount of devitalized dark grayish any black tissue in patchy areas throughout the ulcer. Sharp dissection was used for a widespread debridement of all the involved tissue. The depth of the tissue included the deeper subcutanteous tissue, muscle, and fascia. There did not appear to be any need for bone debridement. In total approximately 50 cm2 of tissue was excised in multiple pieces. Several small bleeding spots were controlled with cautery. The entire wound base was then irrigated extensively with Pulsavac device. Upon completion the remaining base appeared much healthier with good bleeding. The wound care team was present to apply a wound VAC intraoperatively. The patient tolerated the procedure well sent to the recovery room in stable condition. At the end of the case all counts were correct. CALVIN POLLARD MD March 01, 2019 11:12
--- NOTE | 2019-03-01 11:15 | NUR ---
Wound Care Pt seen in OR during surgical debridement by Dr. Hubbard. After debridement was finished, wound vac was applied to sacral ulcer. Unable to take photos in OR setting, but wound measures approx. [id number] cm. Wound bed is beefy red, with bone exposed, and small amount of serosanguinous drainage at 10:00 that has clotted. Upon trying to apply wound vac, pt had a large liquid stool, area cleaned, luckily stool did not contaminate wound. Ostomy ring applied to periwound and above anus to help ensure a good seal, 2 pieces of clifton Veraflo foam placed into wound bed, foam bridged to right lateral upper thigh. Vac showing strong seal at -125 mmHg continuous suction. Will f/u with pt when he returns to his room to set up Veraflo saline instillation, as OR does not have Veraflo cassette supplies.
[2019-03-01] MEDS ORDERED: LIDOCAINE 1%/EPI 1:100,000 20 ML VIAL. ONE (12:29)
--- NOTE | 2019-03-01 13:30 | NUR ---
Pt returned to unit from surgery and was placed on frequency at 1245, wound vac canister measuring at 200cc upon arrival. Vitals were stable, pt was drowsy, this nurse lifted the sheets to assess pt and saw a large amount of blood pooling in between the pt's legs. All 4N RNs & CNAs available assisted immediately, pt was turned to his L side where copious amounts of blood and large clots were found coming from pt's wound vac. notified, orders given to hold pressure and contact WC team stat, wound care arrived at once and began to holding pressure, pt's blood BP began dropping, first 68/53, then 69/39, this nurse called Rapid Response, called back to inform him of pt's BP and active bleeding, returned call right away with orders to sent pt back down to surgery.
[2019-03-01] MEDS: VANCOMYCIN PER PHARMACY MC PRN (14:02)
[2019-03-01] MEDS ORDERED: SURGICEL HEMOSTAT 4X8 EACH. ONE (14:03)
--- NOTE | 2019-03-01 14:11 | NUR ---
Responded to Rapid Response call. Upon entering room wound care is holding pressure on sacral wound. Wound care states was there when RN noticed Wound vac filling up with blood. Upon taking dressing down blood started gushing from wound. Dr Hubbard notified and surgery notified. Pressure held to sacral area and pt transported to surgery holding. Anesthesia and surgery RN both updated on patient condition. Dr Hubbard in preop holding to check on patient. Pt remain A/o with vital stables. Addendum: 03/01/19 at 1416 by CECY MELENDEZ RN Amended: Links added.
[2019-03-01] MEDS ORDERED: VASOPRESSIN 20 UNIT/ML VIAL. IM ONE (14:15)
[2019-03-01] MEDS: MICAFUNGIN 100 MG in IV DEXTROSE 5% 100ML 100 ML IV SCH (14:55)
[2019-03-01] MEDS ORDERED: IV NORMAL SALINE 1000ML BAG 1,000 ML IV SCH (15:00)
[2019-03-01 15:01] LABS: BASO # 0.1 x10^3/uL (0.0-0.2); BASO % 0 % (0-3); EOS # 0.1 x10^3/uL (0.0-0.7); EOS % 1 % (0-3); HEMATOCRIT 26.5 % (39.0-53.0); HEMOGLOBIN 8.2 g/dL (13.0-17.5); LYMPH # 0.8 x10^3/uL (1.0-4.8); LYMPH % 4 % (24-48); MEAN CORPUSCULAR HEMOGLOBIN 28 pg (25-35); MEAN CORPUSCULAR HGB CONC 31 g/dL (31-37); MEAN CORPUSCULAR VOLUME 92 fL (79-100); MONO # 0.6 x10^3/uL (0.0-1.1); MONO % 3 % (0-9); NEUT # 18.4 x10^3uL (1.8-7.7); NEUT % 92 % (31-73); PLATELET COUNT 316 x10^3/uL (140-400); RED BLOOD COUNT 2.89 x10^6/uL (4.30-5.70); WHITE BLOOD COUNT 19.9 x10^3/uL (4.0-11.0)
--- NOTE | 2019-03-01 15:31 | PDOC4 ---
Operative Note Operative Note Operative Note: Preoperative Diagnosis: Bleeding sacral decubitus ulcer Postoperative Diagnosis: Same Procedure: Control of bleeding from sacral decubitus ulcer Surgeon: Stevie Anesthesia: Gen. EBL: 25 mL Specimen: None Drains: None Complications: None Indication: The patient is a 68-year-old male who earlier today underwent debridement of a sacral wound in the operating room with placement of a wound VAC. After returning to his hospital floor he has had problems with persistent oozing and delivery of blood clots and blood. The plan is to take back to the operating room for reexamination and control of any bleeding. Description: The patient was taken to the operating room and placed supine on the operating table. Gen. anesthesia was performed. He was then placed prone. The sacral wound was exposed and prepped with Betadine and draped in a standard surgical manner. There was a small size clot at the base of the wound which was removed. Inspection showed no significant active bleeding at this time. After some time there were a few spots of slow oozing which were all cauterized. I elected to cover the surface of the wound with a Surgicel pack and pressure was applied. Reinspection again showed no significant bleeding or slow oozing. A pressure gauze dressing was applied and the patient was transferred back to the recovery room. At the end of the case all counts were correct. CALVIN POLLARD MD March 01, 2019 15:31
[2019-03-01] MEDS ORDERED: SEVOFLURANE 61 TO 120 MINUTES. IH ONE (15:34)
--- NOTE | 2019-03-01 16:29 | RAD ---
AP chest, 03/01/2019: HISTORY: Check central line position, possible pneumothorax Comparison is made to a study from 02/27/2019. The patient positioning is lordotic. A right jugular central venous catheter has been inserted extending into the superior vena cava. The heart is at the upper limits of normal in size. The pulmonary vascularity is normal. There is a mild left basilar opacity suggesting atelectasis/infiltrate. A prominent epicardial fat pad may be contributing to this appearance. The right lung is clear. There is no evidence of pneumothorax. IMPRESSION: 1. The right jugular central venous catheter extends into the inferior aspect of the superior vena cava. 2. Mild left basilar atelectasis/infiltrate. Electronically signed by: Shahid Raza MD (03/01/2019 4:26 PM) [facility]
[2019-03-01] MEDS: MIRTAZAPINE 15 MG TABLET PO SCH (21:18)
[2019-03-01] MEDS: DIVALPROEX EXTENDED RELEASE 500 MG TAB.ER.24H. PO SCH (21:23)
[2019-03-01] MEDS: ATORVASTATIN CALCIUM 10 MG TABLET. PO SCH (21:23)
--- NOTE | 2019-03-01 22:17 | PN ---
DATE: 03/01/2019 SUBJECTIVE: The patient is resting, slightly propped up, sleeping comfortably, in no apparent distress. He is arousable. On questioning him, he denied any complaint. The nursing staff did not voice any concern. He is scheduled for surgical debridement this morning, was kept n.p.o. from midnight last night. He is on IV fluid. PHYSICAL EXAMINATION: GENERAL: When I examined him this morning, he was pale, no jaundice, cyanosis or thyromegaly. No jugular venous distention. No lower limb edema. VITAL SIGNS: His heart rate was 74, blood pressure was 134/68, temperature was 97.4, respiratory rate was 17 and oxygen saturation was 94% on room air. HEAD, EYES, EARS, NOSE AND THROAT: Showed normocephalic, atraumatic. NECK: Supple. HEART: Showed normal first and second heart sounds. No gallop, rub or murmur. CHEST: Clear to auscultation. No crepitation or rhonchi. ABDOMEN: Distended, soft, nontender. NEUROLOGIC: He was sleepy, but arousable. All cranial nerves are intact. He moves his upper extremities to much good extent than lower extremities, mostly bed bound. He has large stage 4 sacral decubitus ulcer with necrotic centers for which he is scheduled for surgical debridement. His intake over the last 24 hours was 1240, output was 1050. LABORATORY DATA: As of yesterday, his white cell count was 17,100, hemoglobin 10, hematocrit 32, MCV 90 and platelet count 354,000. Serum sodium 142, potassium 3.6, chloride 111, bicarbonate 23, anion gap of 8, BUN 31, creatinine 0.9. His blood sugar this morning was 82 mg/dL. ASSESSMENT: 1. Altered mental status, multifactorial, improving. 2. Acute kidney injury. Creatinine is down to 0.9. 3. Probable urinary tract infection. 4. Infected sacral decubitus ulcer. 5. Hypokalemia, resolved. Other medical problems include congestive heart failure, coronary artery disease, hypercholesterolemia, atrial fibrillation, hypertension, COPD, type 2 diabetes, depression, anxiety, bladder outlet obstruction, achondroplasia, history of pulmonary embolism. CINDY SULLIVAN MD DR: AMY/afsaneh JOB#: [id number] / [id number]
[2019-03-02 03:09] VITALS: BP 139/92
[2019-03-02 04:51] LABS: BASO % 0 % (0-3); EOS % 0 % (0-3); HEMATOCRIT 31.1 % (39.0-53.0); LYMPH # 1.4 x10^3/uL (1.0-4.8); LYMPH % 7 % (24-48); MEAN CORPUSCULAR HEMOGLOBIN 29 pg (25-35); MEAN CORPUSCULAR HGB CONC 32 g/dL (31-37); MEAN CORPUSCULAR VOLUME 89 fL (79-100); MONO # 1.2 x10^3/uL (0.0-1.1); MONO % 6 % (0-9); NEUT # 16.2 x10^3uL (1.8-7.7); NEUT % 86 % (31-73); PLATELET COUNT 269 x10^3/uL (140-400); RED CELL DISTRIBUTION WIDTH 14.7 % (11.5-14.5); WHITE BLOOD COUNT 18.8 x10^3/uL (4.0-11.0)
[2019-03-02 05:01] LABS: CALCIUM 7.9 mg/dL (8.5-10.1); CREATININE 0.8 mg/dL (0.7-1.3); GFR 95.8; POTASSIUM 4.3 mmol/L (3.5-5.1)
[2019-03-02] MEDS: MEROPENEM 500 MG in IV NORMAL SALINE 50ML 50 ML IV SCH ×3 (05:22→21:52)
[2019-03-02 07:00] VITALS: BP 106/52
--- NOTE | 2019-03-02 07:49 | PDOC ---
Infectious Disease Note Subjective: Subjective Pt is sleepy but arousable, says is ok but confused no fevers, fecal output in bag has decreased Had recieved 4 u of PRBCs Now in A fib with RVR per RN ROS: ROS d/w RN Vital Signs: Vital Signs Vital Signs Date Time Temp Pulse Resp B/P (MAP) Pulse Ox O2 Delivery O2 Flow Rate FiO2 03/02/19 03:09 98.0 72 16 139/92 (108) 98 Room Air 98.0 03/01/19 20:00 3.0 Physical Exam: PHYSICAL EXAM GENERAL: Pt is sleepy but arousable, does not answer all questions, confused HEENT: Pupils equally round. Normal conjunctivae. Oral cavity clear. NECK: Supple. LUNGS: Clear to auscultation anteriorly HEART: S1 and S2. ABDOMEN: Soft. No grimace or guarding to palpation. Bowel sounds present. GENITOURINARY: Indwelling Linn in place. EXTREMITIES: No gross edema or cyanosis. SKIN: Warm without generalized rash. He has a large sacrococcygeal wound vac in place Fecal tube in place NEUROLOGICAL: confused PICC line looks ok Medications: Inpatient Meds: Current Medications Medications (Trade) Dose Ordered Sig/Ronald Start Time Stop Time Status Last Admin Dose Admin Ascorbic Acid (Vitamin C) 500 mg DAILY 02/27/19 09:00 02/27/19 10:48 Atorvastatin Calcium (Lipitor) 10 mg QHS 02/26/19 21:00 03/01/19 21:23 Calcium Carbonate/ Glycine (Tums) 250 mg PRN Q8HRS PRN 02/26/19 16:00 Cellulose (Surgicel Hemostat 4x8) 1 each STK-MED ONCE 03/01/19 14:03 03/01/19 15:03 DC 03/01/19 15:06 Citalopram Hydrobromide (CeleXA) 20 mg DAILY 02/27/19 09:00 02/27/19 10:44 Dexamethasone Sodium Phosphate (Decadron) 4 mg STK-MED ONCE 03/01/19 15:06 03/01/19 15:07 DC Dextrose (Dextrose 50%-Water Syringe) 12.5 gm PRN Q15MIN PRN 02/26/19 16:15 02/26/19 16:39 Divalproex Sodium (Depakote Er) 500 mg QHS 02/26/19 21:00 03/01/19 21:23 Ephedrine Sulfate (ePHEDrine PF IN SALINE SYRINGE) 50 mg STK-MED ONCE 03/01/19 10:02 03/01/19 10:03 DC Famotidine (Pepcid) 20 mg DAILY 02/26/19 15:15 02/27/19 10:54 Fentanyl Citrate (Fentanyl 2ml Vial) 100 mcg STK-MED ONCE 03/01/19 09:15 03/01/19 09:16 DC Folic Acid (Folic Acid) 1 mg DAILY 02/26/19 16:15 02/27/19 11:12 Glycopyrrolate (Robinul) 1 mg STK-MED ONCE 03/01/19 14:59 03/01/19 15:00 DC Hydromorphone HCl (Dilaudid) 0.5 mg PRN Q10MIN PRN 03/01/19 07:00 03/02/19 06:59 DC Lactobacillus Rhamnosus (Culturelle) 1 cap BID 02/28/19 21:00 03/01/19 21:18 Lidocaine HCl (Lidocaine Pf 2% Vial) 5 ml STK-MED ONCE 03/01/19 14:03 03/01/19 14:04 DC Lidocaine HCl (Xylocaine-Mpf 1% 2ml Vial) 2 ml PRN 1X PRN 03/01/19 07:00 03/02/19 06:59 DC Lidocaine/ Epinephrine (LIDOCAINE 1%-EPI 1:100,000 Multi-Dose) 20 ml STK-MED ONCE 03/01/19 12:29 03/01/19 13:29 DC Lisinopril (Prinivil) 10 mg DAILY 02/26/19 16:15 Meropenem 500 mg/ Sodium Chloride 50 ml @ 100 mls/hr Q8HRS 02/26/19 15:00 03/02/19 05:22 Metronidazole 100 ml @ 100 mls/hr Q8HRS 02/27/19 22:00 02/28/19 10:08 DC 02/28/19 05:58 Micafungin Sodium 100 mg/Dextrose 100 ml @ 100 mls/hr Q24H 02/27/19 13:00 03/01/19 14:55 Miconazole Nitrate (Monistat-Derm) 1 jaymie BID 02/26/19 21:00 03/01/19 21:25 Mirtazapine (Remeron) 15 mg QHS 02/26/19 21:00 03/01/19 21:18 Morphine Sulfate (Morphine Sulfate) 1 mg PRN Q10MIN PRN 03/01/19 07:00 03/02/19 06:59 DC Multivitamins (Thera M Plus) 1 tab DAILY 02/27/19 09:00 02/27/19 10:42 Neostigmine Methylsulfate (Neostigmine Methylsulfate) 5 mg STK-MED ONCE 03/01/19 14:59 03/01/19 15:00 DC Nitroglycerin (Nitro-Dur) 1 patch DAILY 02/26/19 16:15 02/27/19 11:11 Ondansetron HCl (Zofran) 4 mg STK-MED ONCE 03/01/19 15:06 03/01/19 15:07 DC Oxcarbazepine (Trileptal) 300 mg BID 02/26/19 21:00 03/01/19 21:18 Piperacillin Sod/ Tazobactam Sod (Zosyn Per Pharmacy) 1 each PRN DAILY PRN 02/25/19 22:45 02/26/19 14:48 DC Piperacillin Sod/ Tazobactam Sod 2.25 gm/Sodium Chloride 50 ml @ 100 mls/hr Q6HRS 02/26/19 06:00 02/26/19 14:48 DC 02/26/19 11:58 Potassium Chloride/Dextrose/ Sod Cl 1,000 ml @ 80 mls/hr [id number] 03/01/19 06:45 03/01/19 21:52 Potassium Chloride/Sodium Chloride 1,000 ml @ 100 mls/hr Q10H 02/27/19 08:00 02/28/19 08:51 DC 02/28/19 04:00 Potassium Chloride (Klor-Con) 40 meq 1X ONCE 02/27/19 10:00 02/28/19 08:53 DC 02/27/19 11:13 Prochlorperazine Edisylate (Compazine) 5 mg PACU PRN PRN 03/01/19 07:00 03/02/19 06:59 DC Propofol 20 ml @ As Directed STK-MED ONCE 5/8/19 14:03 03/01/19 14:04 DC Ringer's Solution 1,000 ml @ 30 mls/hr Q24H 03/01/19 07:00 03/01/19 18:59 DC 03/01/19 15:00 Rocuronium [place] (Zemuron) 50 mg STK-MED ONCE 03/01/19 14:03 03/01/19 14:04 DC Sevoflurane (Ultane) 60 ml STK-MED ONCE 03/01/19 15:34 03/01/19 15:35 DC Sodium Chloride 1,000 ml @ 100 mls/hr Q10H 03/01/19 15:00 03/02/19 00:30 DC 03/01/19 15:00 Succinylcholine Chloride (Anectine) 200 mg STK-MED ONCE 03/01/19 09:15 03/01/19 09:16 DC Tamsulosin HCl (Flomax) 0.4 mg DAILY 02/26/19 16:15 02/27/19 11:11 Tramadol HCl (Ultram) 50 mg QID 02/26/19 17:00 03/01/19 08:30 Vancomycin HCl (Vanco Per Pharmacy) 1 each PRN DAILY PRN 02/26/19 11:15 03/01/19 14:02 Vancomycin HCl (Vancomycin Trough Level) 1 each 1X ONCE 02/28/19 19:30 02/28/19 19:31 DC 02/28/19 19:30 Vancomycin HCl (Vancomycin Oral Solution) 125 mg [id number] 02/28/19 10:30 03/01/19 21:18 Vancomycin HCl 1.25 gm/Sodium Chloride 250 ml @ 167 mls/hr Q18H 02/28/19 07:00 03/01/19 21:26 Vancomycin HCl 2 gm/Sodium Chloride 500 ml @ 250 mls/hr ONCE ONCE 02/26/19 11:30 02/26/19 13:29 DC 02/26/19 12:39 Vasopressin (Vasostrict) 20 unit STK-MED ONCE 03/01/19 14:06 03/01/19 14:07 DC Zinc Sulfate (Orazinc) 220 mg BID 02/26/19 21:00 03/01/19 21:18 Labs: Lab Laboratory Tests Test 03/01/19 08:40 03/01/19 14:20 03/01/19 18:25 03/02/19 00:02 Creatinine 0.8 mg/dL (0.7-1.3) Estimated GFR (Cockcroft-Gault) 95.8 White Blood Count 19.9 x10^3/uL (4.0-11.0) Red Blood Count 2.89 x10^6/uL (4.30-5.70) Hemoglobin 8.2 g/dL (13.0-17.5) Hematocrit 26.5 % (39.0-53.0) Mean Corpuscular Volume 92 fL (79-100) Mean Corpuscular Hemoglobin 28 pg (25-35) Mean Corpuscular Hemoglobin Concent 31 g/dL (31-37) Red Cell Distribution Width 15.0 % (11.5-14.5) Platelet Count 316 x10^3/uL (140-400) Neutrophils (%) (Auto) 92 % (31-73) Lymphocytes (%) (Auto) 4 % (24-48) Monocytes (%) (Auto) 3 % (0-9) Eosinophils (%) (Auto) 1 % (0-3) Basophils (%) (Auto) 0 % (0-3) Neutrophils # (Auto) 18.4 x10^3uL (1.8-7.7) Lymphocytes # (Auto) 0.8 x10^3/uL (1.0-4.8) Monocytes # (Auto) 0.6 x10^3/uL (0.0-1.1) Eosinophils # (Auto) 0.1 x10^3/uL (0.0-0.7) Basophils # (Auto) 0.1 x10^3/uL (0.0-0.2) Glucose (Fingerstick) 154 mg/dL (70-99) 106 mg/dL (70-99) Test 03/02/19 04:00 03/02/19 05:29 White Blood Count 18.8 x10^3/uL (4.0-11.0) Red Blood Count 3.50 x10^6/uL (4.30-5.70) Hemoglobin 10.0 g/dL (13.0-17.5) Hematocrit 31.1 % (39.0-53.0) Mean Corpuscular Volume 89 fL (79-100) Mean Corpuscular Hemoglobin 29 pg (25-35) Mean Corpuscular Hemoglobin Concent 32 g/dL (31-37) Red Cell Distribution Width 14.7 % (11.5-14.5) Platelet Count 269 x10^3/uL (140-400) Neutrophils (%) (Auto) 86 % (31-73) Lymphocytes (%) (Auto) 7 % (24-48) Monocytes (%) (Auto) 6 % (0-9) Eosinophils (%) (Auto) 0 % (0-3) Basophils (%) (Auto) 0 % (0-3) Neutrophils # (Auto) 16.2 x10^3uL (1.8-7.7) Lymphocytes # (Auto) 1.4 x10^3/uL (1.0-4.8) Monocytes # (Auto) 1.2 x10^3/uL (0.0-1.1) Eosinophils # (Auto) 0.0 x10^3/uL (0.0-0.7) Basophils # (Auto) 0.0 x10^3/uL (0.0-0.2) Sodium Level 139 mmol/L (136-145) Potassium Level 4.3 mmol/L (3.5-5.1) Chloride Level 109 mmol/L (98-107) Carbon Dioxide Level 20 mmol/L (21-32) Anion Gap 10 (6-14) Blood Urea Nitrogen 16 mg/dL (8-26) Creatinine 0.8 mg/dL (0.7-1.3) Estimated GFR (Cockcroft-Gault) 95.8 Glucose Level 126 mg/dL (70-99) Calcium Level 7.9 mg/dL (8.5-10.1) Glucose (Fingerstick) 121 mg/dL (70-99) Micro RUN DATE: 03/01/19 PAGE 1 RUN TIME: 916 [facility] [address] [place] [address] Marlon Martino M.D., Voice Teacher PATIENT: ROGELIO MYERS ACCT: [id number] LOC: [address] [place] [address] U: [id number] AGE/SX: 68/M ROOM: 430 RE02/26/[address]: CINDY SULLIVAN MD : 1950 BED: 1 DIS: STATUS: ADM IN TLOC: SPEC #: [id number] NASIR: 02/26/19 STATUS: COMP REQ #: [id number] RECD: 02/26/[address]: MARTY DC MD SOURCE: URINE CC ENTR: 02/26/[address]: CALVIN POLLARD MD SPDESC: Ozzy AHN MD, GLENN A MD ORDERED: URINE CULTURE Procedure Result URINE CULTURE Final Final report URINE CULTURE RES 1 Final Klebsiella pneumoniae 25,000-50,000 colony forming units per mL Cefazolin <=4 ug/mL Cefazolin with an YAMINI <=16 predicts susceptibility to the oral agents cefaclor, cefdinir, cefpodoxime, cefprozil, cefuroxime, cephalexin, and loracarbef when used for therapy of uncomplicated urinary tract infections due to E. coli, Klebsiella pneumoniae, and Proteus mirabilis. URINE CULTURE RES 2 Final Yeast 25,000-50,000 colony forming units per mL Request for further identification must be made within 3 days. ANTIMICROBIAL SUSCEPTIBILITY Final Comment S = Susceptible; I = Intermediate; R = Resistant P = Positive; N = Negative MICS are expressed in micrograms per mL Antibiotic RSLT#1 RSLT#2 RSLT#3 RSLT#4 Amoxicillin/Clavulanic Acid S<=2 Ampicillin R>=32 Cefepime S<=0.12 Ceftriaxone S<=0.25 Cefuroxime S =2 Ciprofloxacin S<=0.25 Ertapenem S<=0.12 Gentamicin S<=1 Imipenem S<=0.25 Levofloxacin S<=0.12 CONTINUED ON NEXT PAGE RUN DATE: 03/01/19 PAGE 2 RUN TIME: 916 [facility] [address] [place] [address] Marlon Martino M.D., Voice Teacher SPEC: [id number] PATIENT: ROGELIO MYERS [id number] (Continued) Procedure Result ANTIMICROBIAL SUSCEPTIBILITY Final (continued) Meropenem S<=0.25 Nitrofurantoin I =64 Piperacillin/Tazobactam S<=4 Tetracycline S<=1 Tobramycin S<=1 Trimethoprim/Sulfa S<=20 Performed at: [facility] [address], [place], [place] [id number] Land Agent: LUZ MARIA Crandall MD, Phone: [phone] Objective: Assessment: 1. 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 He has a history of osteomyelitis status post debridement on 12/30/2018 at . Previous cultures grew extended-spectrum beta-lactamase, Escherichia coli, Morganella, pseudomonas (resistant Fortaz, intermediate Zosyn), Bacteroides and Clostridium species. He completed a course of meropenem.Now with worsening secondary infected wound 5/8 S/P I and D with wound vac 5/8 control of bleeding areas 2. Leukocytosis. 3. Pyuria. 4. Methicillin-resistant Staphylococcus aureus screen positive. 5. C difficile colitis 6. 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 7. Encephalopathy. 8. Protein-calorie malnutrition. 9. History of cerebrovascular accident. 10. Paroxysmal atrial fibrillation. 11. Diabetes mellitus type 2. 12. Anemia s/p PRBCs Plan: Plan of Care cont meropenem,IV Vanc ,adjust according to renal func , Vanc trough 22 on 02/28,creat wnl currently cont po vanc micafungin Monitor labs/renal function closely f/u cultures Local wound care Glycemic control Optimize nutrition Contact isolation D/w nursing MAYKEL QUINTERO MD March 02, 2019 07:49
[2019-03-02] MEDS: MICONAZOLE NITRATE 2% TOPICAL CREAM 28GM TUBE. TP SCH ×2 (09:00→21:57)
[2019-03-02] MEDS: LISINOPRIL 10 MG TABLET PO SCH (09:00)
[2019-03-02] MEDS: NITROGLYCERIN 0.2MG/HR PATCH. TD SCH (09:00)
[2019-03-02] MEDS: VANCOMYCIN 125 MG/2.5 ML ORAL SOLUTION. PO SCH ×5 (09:45→21:49)
[2019-03-02] MEDS: TAMSULOSIN 0.4 MG CAP.ER.24H. PO SCH (09:46)
[2019-03-02] MEDS: CITALOPRAM 20 MG TABLET. PO SCH (09:46)
[2019-03-02] MEDS: FOLIC ACID 1 MG TABLET. PO SCH (09:46)
[2019-03-02] MEDS: ZINC SULFATE 220 MG CAPSULE. PO SCH ×2 (09:46→21:49)
[2019-03-02] MEDS: OXcarbazepine 300 MG TABLET PO SCH ×2 (09:47→21:47)
[2019-03-02] MEDS: traMADol 50 MG TABLET PO SCH ×5 (09:47→21:00)
[2019-03-02] MEDS: ASCORBIC ACID 500 MG TABLET PO SCH (09:47)
[2019-03-02] MEDS: LACTOBACILLUS RHAMNOSUS GG 1 CAPSULE. PO SCH ×2 (09:47→21:49)
[2019-03-02] MEDS: MULTIVITAMIN with MINERAL TABLET. PO SCH (09:47)
[2019-03-02] MEDS: FAMOTIDINE 20 MG TABLET. PO SCH (09:48)
--- NOTE | 2019-03-02 10:25 | PDOC ---
NANDO WHIPPLE RN LACTATION CONSULTANT 03/02/19 1025: SURGICAL PROGRESS NOTE Subjective resting d/w nursing, minimal wound drainage Vital Signs Vital Signs Date Time Temp Pulse Resp B/P (MAP) Pulse Ox O2 Delivery O2 Flow Rate FiO2 03/02/19 09:47 Room Air 03/02/19 09:00 74 106/52 03/02/19 07:00 96.9 18 97 96.9 03/01/19 20:00 3.0 I&O Intake and Output 03/02/19 07:00 Intake Total 3050 ml Output Total 295 ml Balance 2755 ml Intake Oral 550 ml IV Total 1600 ml Blood Product IV Normal Saline Flush 900 ml Output Urine Total 270 ml Estimated Blood Loss 25 ml General: Cooperative, No acute distress Skin: Other (dressing dry) Labs Laboratory Tests Test 02/28/19 12:43 02/28/19 20:50 03/01/19 00:11 03/01/19 08:40 Glucose (Fingerstick) 82 mg/dL (70-99) 82 mg/dL (70-99) Vancomycin Level Trough 22.1 mcg/mL (10.0-20.0) Vancomycin Last Dose Date 02/28/19 Vancomycin Last Dose Time 0750 Creatinine 0.8 mg/dL (0.7-1.3) Estimated GFR (Cockcroft-Gault) 95.8 Test 03/01/19 14:20 03/01/19 18:25 03/02/19 00:02 03/02/19 04:00 White Blood Count 19.9 x10^3/uL (4.0-11.0) 18.8 x10^3/uL (4.0-11.0) Red Blood Count 2.89 x10^6/uL (4.30-5.70) 3.50 x10^6/uL (4.30-5.70) Hemoglobin 8.2 g/dL (13.0-17.5) 10.0 g/dL (13.0-17.5) Hematocrit 26.5 % (39.0-53.0) 31.1 % (39.0-53.0) Mean Corpuscular Volume 92 fL (79-100) 89 fL (79-100) Mean Corpuscular Hemoglobin 28 pg (25-35) 29 pg (25-35) Mean Corpuscular Hemoglobin Concent 31 g/dL (31-37) 32 g/dL (31-37) Red Cell Distribution Width 15.0 % (11.5-14.5) 14.7 % (11.5-14.5) Platelet Count 316 x10^3/uL (140-400) 269 x10^3/uL (140-400) Neutrophils (%) (Auto) 92 % (31-73) 86 % (31-73) Lymphocytes (%) (Auto) 4 % (24-48) 7 % (24-48) Monocytes (%) (Auto) 3 % (0-9) 6 % (0-9) Eosinophils (%) (Auto) 1 % (0-3) 0 % (0-3) Basophils (%) (Auto) 0 % (0-3) 0 % (0-3) Neutrophils # (Auto) 18.4 x10^3uL (1.8-7.7) 16.2 x10^3uL (1.8-7.7) Lymphocytes # (Auto) 0.8 x10^3/uL (1.0-4.8) 1.4 x10^3/uL (1.0-4.8) Monocytes # (Auto) 0.6 x10^3/uL (0.0-1.1) 1.2 x10^3/uL (0.0-1.1) Eosinophils # (Auto) 0.1 x10^3/uL (0.0-0.7) 0.0 x10^3/uL (0.0-0.7) Basophils # (Auto) 0.1 x10^3/uL (0.0-0.2) 0.0 x10^3/uL (0.0-0.2) Glucose (Fingerstick) 154 mg/dL (70-99) 106 mg/dL (70-99) Sodium Level 139 mmol/L (136-145) Potassium Level 4.3 mmol/L (3.5-5.1) Chloride Level 109 mmol/L (98-107) Carbon Dioxide Level 20 mmol/L (21-32) Anion Gap 10 (6-14) Blood Urea Nitrogen 16 mg/dL (8-26) Creatinine 0.8 mg/dL (0.7-1.3) Estimated GFR (Cockcroft-Gault) 95.8 Glucose Level 126 mg/dL (70-99) Calcium Level 7.9 mg/dL (8.5-10.1) Test 03/02/19 05:29 Glucose (Fingerstick) 121 mg/dL (70-99) Laboratory Tests Test 03/01/19 14:20 03/01/19 18:25 03/02/19 00:02 03/02/19 04:00 White Blood Count 19.9 x10^3/uL (4.0-11.0) 18.8 x10^3/uL (4.0-11.0) Red Blood Count 2.89 x10^6/uL (4.30-5.70) 3.50 x10^6/uL (4.30-5.70) Hemoglobin 8.2 g/dL (13.0-17.5) 10.0 g/dL (13.0-17.5) Hematocrit 26.5 % (39.0-53.0) 31.1 % (39.0-53.0) Mean Corpuscular Volume 92 fL (79-100) 89 fL (79-100) Mean Corpuscular Hemoglobin 28 pg (25-35) 29 pg (25-35) Mean Corpuscular Hemoglobin Concent 31 g/dL (31-37) 32 g/dL (31-37) Red Cell Distribution Width 15.0 % (11.5-14.5) 14.7 % (11.5-14.5) Platelet Count 316 x10^3/uL (140-400) 269 x10^3/uL (140-400) Neutrophils (%) (Auto) 92 % (31-73) 86 % (31-73) Lymphocytes (%) (Auto) 4 % (24-48) 7 % (24-48) Monocytes (%) (Auto) 3 % (0-9) 6 % (0-9) Eosinophils (%) (Auto) 1 % (0-3) 0 % (0-3) Basophils (%) (Auto) 0 % (0-3) 0 % (0-3) Neutrophils # (Auto) 18.4 x10^3uL (1.8-7.7) 16.2 x10^3uL (1.8-7.7) Lymphocytes # (Auto) 0.8 x10^3/uL (1.0-4.8) 1.4 x10^3/uL (1.0-4.8) Monocytes # (Auto) 0.6 x10^3/uL (0.0-1.1) 1.2 x10^3/uL (0.0-1.1) Eosinophils # (Auto) 0.1 x10^3/uL (0.0-0.7) 0.0 x10^3/uL (0.0-0.7) Basophils # (Auto) 0.1 x10^3/uL (0.0-0.2) 0.0 x10^3/uL (0.0-0.2) Glucose (Fingerstick) 154 mg/dL (70-99) 106 mg/dL (70-99) Sodium Level 139 mmol/L (136-145) Potassium Level 4.3 mmol/L (3.5-5.1) Chloride Level 109 mmol/L (98-107) Carbon Dioxide Level 20 mmol/L (21-32) Anion Gap 10 (6-14) Blood Urea Nitrogen 16 mg/dL (8-26) Creatinine 0.8 mg/dL (0.7-1.3) Estimated GFR (Cockcroft-Gault) 95.8 Glucose Level 126 mg/dL (70-99) Calcium Level 7.9 mg/dL (8.5-10.1) Test 03/02/19 05:29 Glucose (Fingerstick) 121 mg/dL (70-99) Assessment/Plan d/w wound care, plans for vac today CALVIN POLLARD MD 03/02/19 1053: SURGICAL PROGRESS NOTE Assessment/Plan Agree with above NANDO WHIPPLE RN LACTATION CONSULTANT March 02, 2019 10:25 CALVIN POLLARD MD March 02, 2019 10:53
[2019-03-02 11:00] VITALS: BP 113/51
[2019-03-02] MEDS: VANCOMYCIN PER PHARMACY MC PRN (12:30)
--- NOTE | 2019-03-02 12:50 | NUR ---
SW following for discharge planning. Discussed with RN, pt not ready to discharge today. Had significant bleeding from the sacral wound yesterday and received 4 units of blood. Pt to discharge back to [facility] when ready. SW will continue to follow.
[2019-03-02] MEDS: POTASSIUM CL 40MEQ D5-0.45NACL 1,000 ML IV SCH ×2 (13:53→21:50)
[2019-03-02] MEDS: MICAFUNGIN 100 MG in IV DEXTROSE 5% 100ML 100 ML IV SCH (13:54)
[2019-03-02] MEDS: VANCOMYCIN 1.25 GM in IV NORMAL SALINE 250ML 250 ML IV SCH (13:58)
--- NOTE | 2019-03-02 14:19 | PDOC ---
PROGRESS NOTES Assessment Metabolic encephalopathy History of left cerebellar stroke Achondroplasia Suspected diabetic neuropathy. Negative CT of the head S/P surgical debridement of sacral decubitus Plan Treat medical diseases and supportive care Holding off on additional neurological studies such as electroencephalogram Subjective Denies pain Objective Vital Signs Date Time Temp Pulse Resp B/P (MAP) Pulse Ox O2 Delivery O2 Flow Rate FiO2 03/02/19 14:00 Room Air 03/02/19 11:00 97.8 74 18 113/51 (71) 93 97.8 03/01/19 20:00 3.0 Intake and Output 03/02/19 07:00 Intake Total 3050 ml Output Total 295 ml Balance 2755 ml Intake Oral 550 ml IV Total 1600 ml Blood Product IV Normal Saline Flush 900 ml Output Urine Total 270 ml Estimated Blood Loss 25 ml PHYSICAL EXAM Eyes closed, alerts easily, knows he's in the hospital but does not know its name, does not know the date, follows commands. PERRL. EOMI. CN: no focal findings. Muscle tone: normal. Muscle strength: 3/5, no tremulousness DTR: 0-1+ Plantar reflex: flexor Gait: not examined in bed. Sensory exam: probable stocking loss. No cerebellar signs elicited. Review of Relevant I have reviewed the following items lg (where applicable) has been applied. Labs Laboratory Tests Test 02/28/19 20:50 03/01/19 00:11 03/01/19 08:40 03/01/19 14:20 Vancomycin Level Trough 22.1 mcg/mL (10.0-20.0) Vancomycin Last Dose Date 02/28/19 Vancomycin Last Dose Time 0750 Glucose (Fingerstick) 82 mg/dL (70-99) Creatinine 0.8 mg/dL (0.7-1.3) Estimated GFR (Cockcroft-Gault) 95.8 White Blood Count 19.9 x10^3/uL (4.0-11.0) Red Blood Count 2.89 x10^6/uL (4.30-5.70) Hemoglobin 8.2 g/dL (13.0-17.5) Hematocrit 26.5 % (39.0-53.0) Mean Corpuscular Volume 92 fL (79-100) Mean Corpuscular Hemoglobin 28 pg (25-35) Mean Corpuscular Hemoglobin Concent 31 g/dL (31-37) Red Cell Distribution Width 15.0 % (11.5-14.5) Platelet Count 316 x10^3/uL (140-400) Neutrophils (%) (Auto) 92 % (31-73) Lymphocytes (%) (Auto) 4 % (24-48) Monocytes (%) (Auto) 3 % (0-9) Eosinophils (%) (Auto) 1 % (0-3) Basophils (%) (Auto) 0 % (0-3) Neutrophils # (Auto) 18.4 x10^3uL (1.8-7.7) Lymphocytes # (Auto) 0.8 x10^3/uL (1.0-4.8) Monocytes # (Auto) 0.6 x10^3/uL (0.0-1.1) Eosinophils # (Auto) 0.1 x10^3/uL (0.0-0.7) Basophils # (Auto) 0.1 x10^3/uL (0.0-0.2) Test 03/01/19 18:25 03/02/19 00:02 03/02/19 04:00 03/02/19 05:29 Glucose (Fingerstick) 154 mg/dL (70-99) 106 mg/dL (70-99) 121 mg/dL (70-99) White Blood Count 18.8 x10^3/uL (4.0-11.0) Red Blood Count 3.50 x10^6/uL (4.30-5.70) Hemoglobin 10.0 g/dL (13.0-17.5) Hematocrit 31.1 % (39.0-53.0) Mean Corpuscular Volume 89 fL (79-100) Mean Corpuscular Hemoglobin 29 pg (25-35) Mean Corpuscular Hemoglobin Concent 32 g/dL (31-37) Red Cell Distribution Width 14.7 % (11.5-14.5) Platelet Count 269 x10^3/uL (140-400) Neutrophils (%) (Auto) 86 % (31-73) Lymphocytes (%) (Auto) 7 % (24-48) Monocytes (%) (Auto) 6 % (0-9) Eosinophils (%) (Auto) 0 % (0-3) Basophils (%) (Auto) 0 % (0-3) Neutrophils # (Auto) 16.2 x10^3uL (1.8-7.7) Lymphocytes # (Auto) 1.4 x10^3/uL (1.0-4.8) Monocytes # (Auto) 1.2 x10^3/uL (0.0-1.1) Eosinophils # (Auto) 0.0 x10^3/uL (0.0-0.7) Basophils # (Auto) 0.0 x10^3/uL (0.0-0.2) Sodium Level 139 mmol/L (136-145) Potassium Level 4.3 mmol/L (3.5-5.1) Chloride Level 109 mmol/L (98-107) Carbon Dioxide Level 20 mmol/L (21-32) Anion Gap 10 (6-14) Blood Urea Nitrogen 16 mg/dL (8-26) Creatinine 0.8 mg/dL (0.7-1.3) Estimated GFR (Cockcroft-Gault) 95.8 Glucose Level 126 mg/dL (70-99) Calcium Level 7.9 mg/dL (8.5-10.1) Test 03/02/19 12:11 Glucose (Fingerstick) 108 mg/dL (70-99) Laboratory Tests Test 03/01/19 14:20 03/01/19 18:25 03/02/19 00:02 03/02/19 04:00 White Blood Count 19.9 x10^3/uL (4.0-11.0) 18.8 x10^3/uL (4.0-11.0) Red Blood Count 2.89 x10^6/uL (4.30-5.70) 3.50 x10^6/uL (4.30-5.70) Hemoglobin 8.2 g/dL (13.0-17.5) 10.0 g/dL (13.0-17.5) Hematocrit 26.5 % (39.0-53.0) 31.1 % (39.0-53.0) Mean Corpuscular Volume 92 fL (79-100) 89 fL (79-100) Mean Corpuscular Hemoglobin 28 pg (25-35) 29 pg (25-35) Mean Corpuscular Hemoglobin Concent 31 g/dL (31-37) 32 g/dL (31-37) Red Cell Distribution Width 15.0 % (11.5-14.5) 14.7 % (11.5-14.5) Platelet Count 316 x10^3/uL (140-400) 269 x10^3/uL (140-400) Neutrophils (%) (Auto) 92 % (31-73) 86 % (31-73) Lymphocytes (%) (Auto) 4 % (24-48) 7 % (24-48) Monocytes (%) (Auto) 3 % (0-9) 6 % (0-9) Eosinophils (%) (Auto) 1 % (0-3) 0 % (0-3) Basophils (%) (Auto) 0 % (0-3) 0 % (0-3) Neutrophils # (Auto) 18.4 x10^3uL (1.8-7.7) 16.2 x10^3uL (1.8-7.7) Lymphocytes # (Auto) 0.8 x10^3/uL (1.0-4.8) 1.4 x10^3/uL (1.0-4.8) Monocytes # (Auto) 0.6 x10^3/uL (0.0-1.1) 1.2 x10^3/uL (0.0-1.1) Eosinophils # (Auto) 0.1 x10^3/uL (0.0-0.7) 0.0 x10^3/uL (0.0-0.7) Basophils # (Auto) 0.1 x10^3/uL (0.0-0.2) 0.0 x10^3/uL (0.0-0.2) Glucose (Fingerstick) 154 mg/dL (70-99) 106 mg/dL (70-99) Sodium Level 139 mmol/L (136-145) Potassium Level 4.3 mmol/L (3.5-5.1) Chloride Level 109 mmol/L (98-107) Carbon Dioxide Level 20 mmol/L (21-32) Anion Gap 10 (6-14) Blood Urea Nitrogen 16 mg/dL (8-26) Creatinine 0.8 mg/dL (0.7-1.3) Estimated GFR (Cockcroft-Gault) 95.8 Glucose Level 126 mg/dL (70-99) Calcium Level 7.9 mg/dL (8.5-10.1) Test 03/02/19 05:29 03/02/19 12:11 Glucose (Fingerstick) 121 mg/dL (70-99) 108 mg/dL (70-99) Microbiology 02/26/19 Blood Culture - Preliminary, Resulted NO GROWTH AFTER 4 DAYS 02/26/19 Urine Culture - Final, Complete 02/26/19 Urine Culture Result 1 (YAMINI) - Final, Complete 02/26/19 Urine Culture Result 2 (YAMINI) - Final, Complete 02/26/19 Antimicrobic Susceptibility - Final, Complete Medications Current Medications Piperacillin Sod/ Tazobactam Sod (Zosyn Per Pharmacy) 1 each PRN DAILY PRN MC SEE COMMENTS; Start 02/25/19 at 22:45; Stop 02/26/19 at 14:48; Status DC Sodium Chloride 1,000 ml @ 1,000 mls/hr 1X ONCE IV Last administered on 02/26/19at 00:25; Start 02/25/19 at 22:45; Stop 02/25/19 at 23:44; Status DC Piperacillin Sod/ Tazobactam Sod 2.25 gm/Sodium Chloride 50 ml @ 100 mls/hr ONCE ONCE IV Last administered on 02/26/19at 00:25; Start 02/26/19 at 00:15; Stop 02/26/19 at 00:44; Status DC Fentanyl Citrate (Fentanyl 2ml Vial) 50 mcg PRN Q1HR PRN IV PAIN; Start 02/26/19 at 00:30; Stop 02/27/19 at 00:29; Status DC Sodium Chloride 1,000 ml @ 125 mls/hr Q8H IV Last administered on 02/26/19at 02:01; Start 02/26/19 at 00:30; Stop 02/27/19 at 00:29; Status DC Sodium Chloride 1,000 ml @ 1,000 mls/hr 1X ONCE IV Last administered on 02/26/19at 02:40; Start 02/26/19 at 00:30; Stop 02/26/19 at 01:29; Status DC Piperacillin Sod/ Tazobactam Sod 2.25 gm/Sodium Chloride 50 ml @ 100 mls/hr Q6HRS IV Last administered on 02/26/19at 11:58; Start 02/26/19 at 06:00; Stop 02/26/19 at 14:48; Status DC Sodium Chloride 500 ml @ 500 mls/hr 1X ONCE IV Last administered on 02/26/19at 10:15; Start 02/26/19 at 10:15; Stop 02/26/19 at 11:14; Status DC Vancomycin HCl (Vanco Per Pharmacy) 1 each PRN DAILY PRN MC SEE COMMENTS Last administered on 03/02/19 12:30; Start 02/26/19 at 11:15 Vancomycin HCl 2 gm/Sodium Chloride 500 ml @ 250 mls/hr ONCE ONCE IV Last administered on 02/26/19 12:39; Start 02/26/19 at 11:30; Stop 02/26/19 at 13:29; Status DC Vancomycin HCl 1.25 gm/Sodium Chloride 250 ml @ 167 mls/hr Q24H IV Last administered on 02/27/19 13:00; Start 02/27/19 at 13:00; Stop 02/27/19 at 15:00; Status DC Vancomycin HCl (Vancomycin Trough Level) 1 each 1X ONCE MC ; Start 02/28/19 at 12:30; Stop 02/28/19 at 12:30; Status DC Meropenem 500 mg/ Sodium Chloride 50 ml @ 100 mls/hr Q8HRS IV Last adm inistered on 03/02/19at 13:59; Start 02/26/19 at 15:00 Atorvastatin Calcium (Lipitor) 10 mg QHS PO Last administered on 03/01/19at 2 1:23; Start 02/26/19 at 21:00 Calcium Carbonate/ Glycine (Tums) 250 mg PRN Q8HRS PRN PO INDIGESTION; Start 02/26/19 at 16:00 Divalproex Sodium (Depakote Er) 500 mg QHS PO Last administered on 03/01/19 21:23; Start 02/26/19 at 21:00 Famotidine (Pepcid) 20 mg DAILY PO Last administered on 03/02/19 09:48; Start 02/26/19 at 15:15 Folic Acid (Folic Acid) 1 mg DAILY PO Last administered on 03/02/19 09:46; Start 02/26/19 at 16:15 Lisinopril (Prinivil) 10 mg DAILY PO ; Start 02/26/19 at 16:15 Tamsulosin HCl (Flomax) 0.4 mg DAILY PO Last administered on 03/02/19 09:46; Start 02/26/19 at 16:15 Tramadol HCl (Ultram) 50 mg QID PO Last administered on 03/02/19 14:00; Start 02/26/19 at 17:00 Ascorbic Acid (Vitamin C) 500 mg DAILY PO Last administered on 03/02/19 09:47; Start 02/27/19 at 09:00 Citalopram Hydrobromide (CeleXA) 20 mg DAILY PO Last administered on 03/02/19 09:46; Start 02/27/19 at 09:00 Miconazole Nitrate (Monistat-Derm) 1 jaymie BID TP Last administered on 03/01/19 21:25; Start 02/26/19 at 21:00 Mirtazapine (Remeron) 15 mg QHS PO Last administered on 03/01/19 21:18; Start 02/26/19 at 21:00 Multivitamins (Thera M Plus) 1 tab DAILY PO Last administered on 03/02/19 09:47; Start 02/27/19 at 09:00 Nitroglycerin (Nitro-Dur) 1 patch DAILY TD Last administered on 02/27/19 11:11; Start 02/26/19 at 16:15 Oxcarbazepine (Trileptal) 300 mg BID PO Last administered on 03/02/19 09:47; Start 02/26/19 at 21:00 Zinc Sulfate (Orazinc) 220 mg BID PO Last administered on 03/02/19 09:46; Start 02/26/19 at 21:00 Dextrose (Dextrose 50%-Water Syringe) 12.5 gm PRN Q15MIN PRN IV SEE COMMENTS Last administered on 02/26/19 16:39; Start 02/26/19 at 16:15 Potassium Chloride/Sodium Chloride 1,000 ml @ 100 mls/hr Q10H IV Last administered on 02/28/19 04:00; Start 02/27/19 at 08:00; Stop 02/28/19 at 08:51; Status DC Potassium Chloride (Klor-Con) 40 meq 1X ONCE PO Last administered on 5/6/19at 10:43; Start 02/27/19 at 08:00; Stop 02/27/19 at 08:01; Status DC Potassium Chloride (Klor-Con) 40 meq 1X ONCE PO Last administered on 02/27/19at 11:03; Start 02/27/19 at 09:00; Stop 02/28/19 at 08:53; Status DC Potassium Chloride (Klor-Con) 40 meq 1X ONCE PO Last administered on 02/27/19at 11:13; Start 02/27/19 at 10:00; Stop 02/28/19 at 08:53; Status DC Micafungin Sodium 100 mg/Dextrose 100 ml @ 100 mls/hr Q24H IV Last administered on 03/02/19at 13:54; Start 02/27/19 at 13:00 Vancomycin HCl 1.25 gm/Sodium Chloride 250 ml @ 167 mls/hr Q18H IV Last administered on 03/02/19at 13:58; Start 02/28/19 at 07:00 Vancomycin HCl (Vancomycin Trough Level) 1 each 1X ONCE MC ; Start 03/01/19 at 18:30; Stop 03/01/19 at 18:30; Status DC Morphine Sulfate (Morphine Sulfate) 1 mg PRN Q10MIN PRN IV SEVERE PAIN; Start 02/28/19 at 07:00; Stop 03/01/19 at 06:59; Status DC Ringer's Solution 1,000 ml @ 30 mls/hr Q24H IV ; Start 02/28/19 at 07:00; Stop 02/28/19 at 18:59; Status DC Hydromorphone HCl (Dilaudid) 0.5 mg PRN Q10MIN PRN IV SEV PAIN, Second choice; Start 02/28/19 at 07:00; Stop 03/01/19 at 06:59; Status DC Prochlorperazine Edisylate (Compazine) 5 mg PACU PRN PRN IV NAUSEA, MRX1; S tart 02/28/19 at 07:00; Stop 03/01/19 at 06:59; Status DC Metronidazole 100 ml @ 100 mls/hr Q8HRS IV Last administered on 02/28/19at 05:58; Start 02/27/19 at 22:00; Stop 02/28/19 at 10:08; Status DC Potassium Chloride/Dextrose/ Sod Cl 1,000 ml @ 80 mls/hr 1X ONCE IV Last administered on 02/28/19at 09:41; Start 02/28/19 at 09:00; Stop 02/28/19 at 21:29; Status DC Vancomycin HCl (Vancomycin Oral Solution) 125 mg [id number] PO Last administered on 03/02/19at 13:59; Start 02/28/19 at 10:30 Sevoflurane (Ultane) 30 ml STK-MED ONCE IH ; Start 02/28/19 at 11:39; Stop 02/28/19 at 11:40; Status DC Fentanyl Citrate (Fentanyl 2ml Vial) 100 mcg STK-MED ONCE .ROUTE ; Start 02/28/19 at 11:39; Stop 02/28/19 at 11:40; Status DC Propofol 0 ml @ As Directed STK-MED ONCE IV ; Start 02/28/19 at 11:39; Stop 02/28/19 at 11:40; Status DC Lidocaine HCl (Lidocaine Pf 2% Vial) 5 ml STK-MED ONCE .ROUTE ; Start 02/28/19 at 11:39; Stop 02/28/19 at 11:40; Status DC Lidocaine HCl (Lidocaine Pf 2% Vial) 5 ml STK-MED ONCE .ROUTE ; Start 02/28/19 at 11:39; Stop 02/28/19 at 11:40; Status DC Dexamethasone Sodium Phosphate (Decadron) 4 mg STK-MED ONCE .ROUTE ; Start 02/28/19 at 11:39; Stop 02/28/19 at 11:40; Status DC Ondansetron HCl (Zofran) 4 mg STK-MED ONCE .ROUTE ; Start 02/28/19 at 11:39; Stop 02/28/19 at 11:40; Status DC Vancomycin HCl (Vancomycin Trough Level) 1 each 1X ONCE MC Last administered on 02/28/19at 19:30; Start 02/28/19 at 19:30; Stop 02/28/19 at 19:31; Status DC Lactobacillus Rhamnosus (Culturelle) 1 cap BID PO Last administered on 03/02/19at 09:47; Start 02/28/19 at 21:00 Ondansetron HCl (Zofran) 4 mg PRN Q6HRS PRN IV NAUSEA/VOMITING; Start 03/01/19 at 07:00; Stop 03/02/19 at 06:59; Status DC Fentanyl Citrate (Fentanyl 2ml Vial) 25 mcg PRN Q5MIN PRN IV MILD PAIN; Start 03/01/19 at 07:00; Stop 03/02/19 at 06:59; Status DC Fentanyl Citrate (Fentanyl 2ml Vial) 50 mcg PRN Q5MIN PRN IV MODERATE TO SEVERE PAIN; Start 03/01/19 at 07:00; Stop 03/02/19 at 06:59; Status DC Morphine Sulfate (Morphine Sulfate) 1 mg PRN Q10MIN PRN IV SEVERE PAIN; Start 03/01/19 at 07:00; Stop 03/02/19 at 06:59; Status DC Ringer's Solution 1,000 ml @ 30 mls/hr Q24H IV Last administered on 03/01/19at 15:00; Start 03/01/19 at 07:00; Stop 03/01/19 at 18:59; Status DC Lidocaine HCl (Xylocaine-Mpf 1% 2ml Vial) 2 ml PRN 1X PRN ID PRIOR TO IV START; Start 03/01/19 at 07:00; Stop 03/02/19 at 06:59; Status DC Hydromorphone HCl (Dilaudid) 0.5 mg PRN Q10MIN PRN IV SEV PAIN, Second choice; Start 03/01/19 at 07:00; Stop 03/02/19 at 06:59; Status DC Prochlorperazine Edisylate (Compazine) 5 mg PACU PRN PRN IV NAUSEA, MRX1; Start 03/01/19 at 07:00; Stop 03/02/19 at 06:59; Status DC Potassium Chloride/Dextrose/ Sod Cl 1,000 ml @ 80 mls/hr [id number] IV Last administered on 03/02/19at 13:53; Start 03/01/19 at 06:45 Sevoflurane (Ultane) 30 ml STK-MED ONCE IH ; Start 03/01/19 at 09:14; Stop 03/01/19 at 09:15; Status DC Succinylcholine Chloride (Anectine) 200 mg STK-MED ONCE .ROUTE ; Start 03/01/19 at 09:15; Stop 03/01/19 at 09:16; Status DC Fentanyl Citrate (Fentanyl 2ml Vial) 100 mcg STK-MED ONCE .ROUTE ; Start 03/01/19 at 09:15; Stop 03/01/19 at 09:16; Status DC Propofol 20 ml @ As Directed STK-MED ONCE IV ; Start 03/01/19 at 09:15; Stop 03/01/19 at 09:16; Status DC Lidocaine HCl (Lidocaine Pf 2% Vial) 5 ml STK-MED ONCE .ROUTE ; Start 03/01/19 at 09:15; Stop 03/01/19 at 09:16; Status DC Ondansetron HCl (Zofran) 4 mg STK-MED ONCE .ROUTE ; Start 03/01/19 at 09:15; Stop 03/01/19 at 09:16; Status DC Dexamethasone Sodium Phosphate (Decadron) 4 mg STK-MED ONCE .ROUTE ; Start 03/01/19 at 09:15; Stop 03/01/19 at 09:16; Status DC Rocuronium Adolphus (Zemuron) 50 mg STK-MED ONCE .ROUTE ; Start 03/01/19 at 09:37; Stop 03/01/19 at 09:38; Status DC Ephedrine Sulfate (ePHEDrine PF IN SALINE SYRINGE) 50 mg STK-MED ONCE IV ; Start 03/01/19 at 10:02; Stop 03/01/19 at 10:03; Status DC Ephedrine Sulfate (ePHEDrine PF IN SALINE SYRINGE) 50 mg STK-MED ONCE IV ; Start 03/01/19 at 10:02; Stop 03/01/19 at 10:03; Status DC Vasopressin (Vasostrict) 20 unit STK-MED ONCE .ROUTE ; Start 03/01/19 at 10:11; Stop 03/01/19 at 10:12; Status DC Neostigmine Methylsulfate (Neostigmine Methylsulfate) 5 mg STK-MED ONCE .ROUTE ; Start 03/01/19 at 10:33; Stop 03/01/19 at 10:34; Status DC Glycopyrrolate (Robinul) 1 mg STK-MED ONCE .ROUTE ; Start 03/01/19 at 10:33; Stop 03/01/19 at 10:34; Status DC Lidocaine/ Epinephrine (LIDOCAINE 1%-EPI 1:100,000 Multi-Dose) 20 ml STK-MED ONCE .ROUTE ; Start 03/01/19 at 12:29; Stop 03/01/19 at 13:29; Status DC Lidocaine HCl (Lidocaine Pf 2% Vial) 5 ml STK-MED ONCE .ROUTE ; Start 03/01/19 at 14:03; Stop 03/01/19 at 14:04; Status DC Propofol 20 ml @ As Directed STK-MED ONCE IV ; Start 03/01/19 at 14:03; Stop 03/01/19 at 14:04; Status DC Ondansetron HCl (Zofran) 4 mg STK-MED ONCE .ROUTE ; Start 03/01/19 at 14:03; Stop 03/01/19 at 14:04; Status DC Dexamethasone Sodium Phosphate (Decadron) 4 mg STK-MED ONCE .ROUTE ; Start 03/01/19 at 14:03; Stop 03/01/19 at 14:04; Status DC Rocuronium Adolphus (Zemuron) 50 mg STK-MED ONCE .ROUTE ; Start 03/01/19 at 14:03; Stop 03/01/19 at 14:04; Status DC Vasopressin (Vasostrict) 20 unit 1X ONCE IM ; Start 03/01/19 at 14:15; Stop 03/01/19 at 14:16; Status DC Vasopressin (Vasostrict) 20 unit STK-MED ONCE .ROUTE ; Start 03/01/19 at 14:06; Stop 03/01/19 at 14:07; Status DC Neostigmine Methylsulfate (Neostigmine Methylsulfate) 5 mg STK-MED ONCE .ROUTE ; Start 03/01/19 at 14:59; Stop 03/01/19 at 15:00; Status DC Glycopyrrolate (Robinul) 1 mg STK-MED ONCE .ROUTE ; Start 03/01/19 at 14:59; Stop 03/01/19 at 15:00; Status DC Cellulose (Surgicel Hemostat 4x8) 1 each STK-MED ONCE .ROUTE Last administered on 03/01/19at 15:06; Start 03/01/19 at 14:03; Stop 03/01/19 at 15:03; Status DC Ondansetron HCl (Zofran) 4 mg STK-MED ONCE .ROUTE ; Start 03/01/19 at 15:06; Stop 03/01/19 at 15:07; Status DC Dexamethasone Sodium Phosphate (Decadron) 4 mg STK-MED ONCE .ROUTE ; Start 03/01/19 at 15:06; Stop 03/01/19 at 15:07; Status DC Dexamethasone Sodium Phosphate (Decadron) 4 mg STK-MED ONCE .ROUTE ; Start 03/01/19 at 15:06; Stop 03/01/19 at 15:07; Status DC Sevoflurane (Ultane) 60 ml STK-MED ONCE IH ; Start 03/01/19 at 15:34; Stop 03/01/19 at 15:35; Status DC Sodium Chloride 1,000 ml @ 100 mls/hr Q10H IV Last administered on 03/01/19at 15:00; Start 03/01/19 at 15:00; Stop 03/02/19 at 00:30; Status DC Vancomycin HCl (Vancomycin Trough Level) 1 each 1X ONCE MC ; Start 03/03/19 at 06:30; Stop 03/03/19 at 06:31 Active Scripts Active Reported Tums (Calcium Carbonate) 200 Mg Tab.chew 200 Mg PO Q8HRS PRN Milk Of Magnesia (Magnesium Hydroxide) 400 Mg/5 Ml Oral.susp 400 Mg PO DAILY PRN Diflucan (Fluconazole) 200 Mg Tablet 1 Tab PO DAILY Depakote Er (Divalproex Sodium) 500 Mg Tab.er.24h 1 Tab PO QHS Augmentin 875-125 Tablet (Amoxicillin/Potassium Clav) 1 Each Tablet 1 Tab PO BID Eliquis (Apixaban) 5 Mg Tablet 5 Mg PO BID Vitamin C (Ascorbic Acid) 500 Mg Capsule.er 500 Mg PO DAILY Multivitamins (Multivitamin) 1 Each Tablet 1 Tab PO DAILY Zinc (Zinc Gluconate) 50 Mg Tablet 220 Mg PO BID Atorvastatin Calcium 20 Mg Tablet 0.5 Tab PO HS Aspirin 81 Mg Tab.chew 1 Tab PO DAILY Famotidine 20 Mg Tablet 20 Mg PO BID Folic Acid 1 Mg Tablet 1 Tab PO DAILY Miconazole 3 (Miconazole Nitrate) 24 Gm Cmb.pf.crm 24 Gm VG BID Senokot (Sennosides) 8.6 Mg Tablet 1 Tab PO BID PRN Flomax (Tamsulosin Hcl) 0.4 Mg Cap.er.24h 1 Cap PO DAILY NITRO-DUR 0.2mg/hr (Nitroglycerin) 1 Each Patch.td24 1 Each TD DAILY Polyethylene Glycol 3350 255 Gm Powder 17 Gm PO BID PRN Lisinopril 10 Mg Tablet 1 Tab PO DAILY Escitalopram Oxalate 10 Mg Tablet 1 Tab PO DAILY Tramadol Hcl 50 Mg Tablet 50 Mg PO QID Mirtazapine 15 Mg Tablet 1 Tab PO QHS Oxcarbazepine 300 Mg Tablet 300 Mg PO BID Vitals/I & O Vital Sign - Last 24 Hours 03/01/19 03/01/19 03/01/19 03/01/19 15:38 15:38 15:53 16:08 Temp 97.2 97.2 Pulse 85 75 81 Resp 22 20 20 B/P (MAP) 100/50 99/55 100/55 Pulse Ox 99 99 95 O2 Delivery Mask Simple Mask Simple Mask Simple Mask O2 Flow Rate 10 10 10 10 03/01/19 03/01/19 03/01/19 03/01/19 16:20 16:22 16:30 16:35 Temp 97.2 97.2 97.0 97.2 97.2 97.0 Pulse 77 85 80 82 Resp 20 20 20 20 B/P (MAP) 99/84 100/58 102/60 102/60 Pulse Ox 95 93 O2 Delivery Room Air Room Air 03/01/19 03/01/19 03/01/19 03/01/19 16:44 17:00 17:15 17:35 Temp 97.8 97.8 97.2 97.8 97.8 97.2 Pulse 82 78 80 78 Resp 20 20 20 B/P (MAP) 107/56 87/62 87/62 94/55 Pulse Ox 99 99 99 O2 Delivery Room Air Room Air Room Air 03/01/19 03/01/19 03/01/19 03/01/19 18:35 18:45 19:00 19:55 Temp 97.1 97.3 98.4 98.4 97.1 97.3 98.4 98.4 Pulse 77 82 74 74 Resp 18 20 18 B/P (MAP) 92/57 92/57 125/57 (79) 125/57 Pulse Ox 99 O2 Delivery Room Air O2 Flow Rate 2.5 03/01/19 03/01/19 03/01/19 03/01/19 20:00 20:00 21:02 22:03 Temp 98.0 97.0 98.0 98.0 97.0 98.0 Pulse 72 69 89 Resp 18 20 20 B/P (MAP) 130/64 117/67 109/41 O2 Delivery Nasal Cannula O2 Flow Rate 3.0 03/01/19 03/02/19 03/02/19 03/02/19 23:00 03:09 07:00 08:00 Temp 98.1 98.0 96.9 98.1 98.0 96.9 Pulse 70 72 74 Resp 16 16 18 B/P (MAP) 135/90 (105) 139/92 (108) 106/52 (70) Pulse Ox 93 98 97 O2 Delivery Nasal Cannula Room Air Room Air Room Air 03/02/19 03/02/19 03/02/19 03/02/19 09:00 09:47 10:47 11:00 Temp 97.8 97.8 Pulse 74 74 Resp 18 B/P (MAP) 106/52 113/51 (71) Pulse Ox 93 O2 Delivery Room Air Room Air Room Air 03/02/19 14:00 O2 Delivery Room Air Intake and Output 03/01/19 03/01/19 03/02/19 15:00 23:00 07:00 Intake Total 2750 ml 300 ml Output Total 25 ml 270 ml Balance -25 ml 2480 ml 300 ml ALVARO GALINDO MD March 02, 2019 14:19
[2019-03-02 15:00] VITALS: BP 128/62
--- NOTE | 2019-03-02 15:36 | NUR ---
Wound care: Patient seen per wound care follow up regarding placement of wound vac to sacrum. See wound assessment. Patient is s/p surgical debridement on 03/01/19. Dressing removed and wound cleansed, assessed, measured, and pictured. Skin prepped for vac placement, ostomy ring applied to latricia-wound, 1 piece of silver foam used with a good seal maintained at 125mmHg continuous. vac tracked to left upper thigh. No other wounds noted. patient repositioned. Patient should be left and right turn only except for meals. Patient on a P-500 bed, turned to right side. Call light in reach and bed lowered. Dr. Stevie zapata with wound vac in place until Wednesday.
[2019-03-02 18:01] LABS: HEMATOCRIT 30.2 % (39.0-53.0); HEMOGLOBIN 9.8 g/dL (13.0-17.5)
[2019-03-02 19:15] VITALS: BP 124/67
--- NOTE | 2019-03-02 19:17 | PN ---
DATE: 03/02/2019 SUBJECTIVE: The patient is resting almost flat in bed, in no apparent respiratory distress. He underwent debridement of his sacral decubitus ulcer. Initially, the patient has underwent debridement of sacral decubitus ulcer, about 50 square cm extension to the bone and apparently, the patient started bleeding and was taken back to the OR and underwent control of bleeding from the sacral decubitus ulcer. The patient has actually required 4 units of packed RBCs. When I saw him this morning, he was resting flat in bed comfortably, in no apparent distress, sleeping, very lethargic, but he opens eyes and drifts back to sleep. The nursing staff did not voice any concern and stated that had an uneventful night. OBJECTIVE: GENERAL: When I examined him, he looked well and was clearly in no apparent respiratory distress, pale, no jaundice, cyanosis or thyromegaly. No jugular venous distension. No lower limb edema. VITAL SIGNS: His heart rate was 72, blood pressure was 139/92, his temperature was 98, respiratory rate was 16 and oxygen saturation was 98% on room air. HEAD, EYES, EARS, NOSE AND THROAT: Showed normocephalic, atraumatic. NECK: Supple. HEART: Showed normal first and second sounds. No gallop, rub or murmur. CHEST: Clear to auscultation. No crepitation or rhonchi. ABDOMEN: Distended, soft, nontender. No guarding or rigidity. No organomegaly. All hernial orifices intact. Bowel sounds normal. NEUROLOGIC: He was very lethargic, but arousable. All cranial nerves intact. He moves extremities without difficulty. SKIN: Has large stage 4 sacral decubitus ulcer, status post debridement and post procedure, excessive bleeding. His intake over the last 24 hours was incompletely recorded, output was 1000. LABORATORY DATA: As of this morning, his white cell count was 18,800, hemoglobin 10, hematocrit 31, MCV 89 and platelet count 269,000. His chemistry showed a serum sodium of 139, potassium 4.3, chloride 109, bicarbonate 20, anion gap of 10, BUN 16, creatinine 0.8, estimated GFR was 96 mL per minute and his glucose 126, calcium was 7.9. ASSESSMENT: 1. Altered mental status, multifactorial. 2. Acute kidney injury, resolving. His serum creatinine is down to 0.8 mg/dL. 3. Probable urinary tract infection. 4. Infected sacral decubitus ulcer. 5. Hypokalemia, resolved. 6. The patient has multiple other medical problems including: A. Congestive heart failure. B. Coronary artery disease. C. Hypercholesterolemia. D. Atrial fibrillation. His amiodarone and Coreg were discontinued. E. Hypertension. F. Chronic obstructive pulmonary disease. G. Type 2 diabetes mellitus. H. Depression and anxiety. PLAN: Is to continue with the IV antibiotic. Continue with IV fluid. Continue to monitor his H and H and transfuse as needed. CINDY SULLIVAN MD DR: AMY/afsaneh JOB#: [id number] / [id number]
--- NOTE | 2019-03-02 20:15 | NUR ---
Upon assessment of the patency of pt's midline in right arm, insertion site found to leak when flushed with normal saline. Site dried and dressing reinforced w/ soft roll and tape, pt tolerated well and will continue to monitor.
[2019-03-02] MEDS: MIRTAZAPINE 15 MG TABLET PO SCH (21:47)
[2019-03-02] MEDS: DIVALPROEX EXTENDED RELEASE 500 MG TAB.ER.24H. PO SCH (21:48)
[2019-03-02] MEDS: ATORVASTATIN CALCIUM 10 MG TABLET. PO SCH (21:49)
[2019-03-02 23:20] VITALS: BP 134/68
[2019-03-03 03:08] VITALS: BP 129/75
[2019-03-03] MEDS: MEROPENEM 500 MG in IV NORMAL SALINE 50ML 50 ML IV SCH ×3 (06:16→21:20)
[2019-03-03 06:34] LABS: HEMATOCRIT 29.7 % (39.0-53.0); HEMOGLOBIN 9.7 g/dL (13.0-17.5); RED BLOOD COUNT 3.35 x10^6/uL (4.30-5.70); RED CELL DISTRIBUTION WIDTH 14.8 % (11.5-14.5); WHITE BLOOD COUNT 15.7 x10^3/uL (4.0-11.0)
[2019-03-03 06:59] LABS: CREATININE 0.8 mg/dL (0.7-1.3); GFR 95.8; POTASSIUM 4.3 mmol/L (3.5-5.1)
[2019-03-03 07:00] VITALS: BP 144/74
[2019-03-03] MEDS: VANCOMYCIN 1.25 GM in IV NORMAL SALINE 250ML 250 ML IV SCH (07:00)
[2019-03-03 07:04] LABS: VANC TR 27.2 mcg/mL (10.0-20.0)
--- NOTE | 2019-03-03 08:39 | PDOC ---
Infectious Disease Note Subjective: Subjective Pt is more alert today says has some pain but under control with pain meds no apetite no fevers, fecal output in bag has decreased D/W RN ROS: ROS Negative except for above. Vital Signs: Vital Signs Vital Signs Date Time Temp Pulse Resp B/P (MAP) Pulse Ox O2 Delivery O2 Flow Rate FiO2 03/03/19 07:00 96.8 75 16 144/74 (97) 97 Room Air 96.8 Physical Exam: PHYSICAL EXAM GENERAL: Pt more alert today HEENT: Pupils equally round. Normal conjunctivae. Oral cavity clear. NECK: Supple.Neck line in place LUNGS: Clear to auscultation anteriorly HEART: S1 and S2. ABDOMEN: Soft. No grimace or guarding to palpation. Bowel sounds present.fecal tube in place GENITOURINARY: Indwelling Linn in place. EXTREMITIES: No gross edema or cyanosis. SKIN: Warm without generalized rash. He has a large sacrococcygeal wound vac in place Fecal tube in place NEUROLOGICAL: alert PICC line looks ok Medications: Inpatient Meds: Current Medications Medications (Trade) Dose Ordered Sig/Ronald Start Time Stop Time Status Last Admin Dose Admin Ascorbic Acid (Vitamin C) 500 mg DAILY 02/27/19 09:00 03/02/19 09:47 500 MG Atorvastatin Calcium (Lipitor) 10 mg QHS 02/26/19 21:00 03/02/19 21:49 10 MG Calcium Carbonate/ Glycine (Tums) 250 mg PRN Q8HRS PRN 02/26/19 16:00 Cellulose (Surgicel Hemostat 4x8) 1 each STK-MED ONCE 03/01/19 14:03 03/01/19 15:03 DC 03/01/19 15:06 1 EACH Citalopram Hydrobromide (CeleXA) 20 mg DAILY 02/27/19 09:00 03/02/19 09:46 20 MG Dexamethasone Sodium Phosphate (Decadron) 4 mg STK-MED ONCE 03/01/19 15:06 03/01/19 15:07 DC Dextrose (Dextrose 50%-Water Syringe) 12.5 gm PRN Q15MIN PRN 02/26/19 16:15 02/26/19 16:39 12.5 GM Divalproex Sodium (Depakote Er) 500 mg QHS 02/26/19 21:00 03/02/19 21:48 500 MG Ephedrine Sulfate (ePHEDrine PF IN SALINE SYRINGE) 50 mg STK-MED ONCE 03/01/19 10:02 03/01/19 10:03 DC Famotidine (Pepcid) 20 mg DAILY 02/26/19 15:15 03/02/19 09:48 20 MG Fentanyl Citrate (Fentanyl 2ml Vial) 100 mcg STK-MED ONCE 03/01/19 09:15 03/01/19 09:16 DC Folic Acid (Folic Acid) 1 mg DAILY 02/26/19 16:15 03/02/19 09:46 1 MG Glycopyrrolate (Robinul) 1 mg STK-MED ONCE 03/01/19 14:59 03/01/19 15:00 DC Hydromorphone HCl (Dilaudid) 0.5 mg PRN Q10MIN PRN 03/01/19 07:00 03/02/19 06:59 DC Lactobacillus Rhamnosus (Culturelle) 1 cap BID 02/28/19 21:00 03/02/19 21:49 1 CAP Lidocaine HCl (Lidocaine Pf 2% Vial) 5 ml STK-MED ONCE 03/01/19 14:03 03/01/19 14:04 DC Lidocaine HCl (Xylocaine-Mpf 1% 2ml Vial) 2 ml PRN 1X PRN 03/01/19 07:00 03/02/19 06:59 DC Lidocaine/ Epinephrine (LIDOCAINE 1%-EPI 1:100,000 Multi-Dose) 20 ml STK-MED ONCE 03/01/19 12:29 03/01/19 13:29 DC Lisinopril (Prinivil) 10 mg DAILY 02/26/19 16:15 Meropenem 500 mg/ Sodium Chloride 50 ml @ 100 mls/hr Q8HRS 02/26/19 15:00 03/03/19 06:16 100 MLS/HR Metronidazole 100 ml @ 100 mls/hr Q8HRS 02/27/19 22:00 02/28/19 10:08 DC 02/28/19 05:58 100 MLS/HR Micafungin Sodium 100 mg/Dextrose 100 ml @ 100 mls/hr Q24H 02/27/19 13:00 03/02/19 13:54 100 MLS/HR Miconazole Nitrate (Monistat-Derm) 1 jaymie BID 02/26/19 21:00 03/02/19 21:57 1 JAYMIE Mirtazapine (Remeron) 15 mg QHS 02/26/19 21:00 03/02/19 21:47 15 MG Morphine Sulfate (Morphine Sulfate) 1 mg PRN Q10MIN PRN 03/01/19 07:00 03/02/19 06:59 DC Multivitamins (Thera M Plus) 1 tab DAILY 02/27/19 09:00 03/02/19 09:47 1 TAB Neostigmine Methylsulfate (Neostigmine Methylsulfate) 5 mg STK-MED ONCE 03/01/19 14:59 03/01/19 15:00 DC Nitroglycerin (Nitro-Dur) 1 patch DAILY 02/26/19 16:15 02/27/19 11:11 1 PATCH Ondansetron HCl (Zofran) 4 mg STK-MED ONCE 03/01/19 15:06 03/01/19 15:07 DC Oxcarbazepine (Trileptal) 300 mg BID 02/26/19 21:00 03/02/19 21:47 300 MG Piperacillin Sod/ Tazobactam Sod (Zosyn Per Pharmacy) 1 each PRN DAILY PRN 02/25/19 22:45 02/26/19 14:48 DC Piperacillin Sod/ Tazobactam Sod 2.25 gm/Sodium Chloride 50 ml @ 100 mls/hr Q6HRS 02/26/19 06:00 02/26/19 14:48 DC 02/26/19 11:58 100 MLS/HR Potassium Chloride/Dextrose/ Sod Cl 1,000 ml @ 80 mls/hr [id number] 03/01/19 06:45 03/02/19 21:50 80 MLS/HR Potassium Chloride/Sodium Chloride 1,000 ml @ 100 mls/hr Q10H 02/27/19 08:00 02/28/19 08:51 DC 02/28/19 04:00 100 MLS/HR Potassium Chloride (Klor-Con) 40 meq 1X ONCE 02/27/19 10:00 02/28/19 08:53 DC 02/27/19 11:13 40 MEQ Prochlorperazine Edisylate (Compazine) 5 mg PACU PRN PRN 03/01/19 07:00 03/02/19 06:59 DC Propofol 20 ml @ As Directed STK-MED ONCE 03/01/19 14:03 03/01/19 14:04 DC Ringer's Solution 1,000 ml @ 30 mls/hr Q24H 03/01/19 07:00 03/01/19 18:59 DC 03/01/19 15:00 30 MLS/HR Rocuronium [place] (Zemuron) 50 mg STK-MED ONCE 03/01/19 14:03 03/01/19 14:04 DC Sevoflurane (Ultane) 60 ml STK-MED ONCE 03/01/19 15:34 03/01/19 15:35 DC Sodium Chloride 1,000 ml @ 100 mls/hr Q10H 03/01/19 15:00 03/02/19 00:30 DC 03/01/19 15:00 100 MLS/HR Succinylcholine Chloride (Anectine) 200 mg STK-MED ONCE 03/01/19 09:15 03/01/19 09:16 DC Tamsulosin HCl (Flomax) 0.4 mg DAILY 02/26/19 16:15 03/02/19 09:46 0.4 MG Tramadol HCl (Ultram) 50 mg QID 02/26/19 17:00 03/02/19 14:00 50 MG Vancomycin HCl (Vanco Per Pharmacy) 1 each PRN DAILY PRN 02/26/19 11:15 03/02/19 12:30 1 EACH Vancomycin HCl (Vancomycin Trough Level) 1 each 1X ONCE 03/03/19 06:30 03/03/19 06:31 DC 03/03/19 06:30 1 EACH Vancomycin HCl (Vancomycin Oral Solution) 125 mg [id number] 02/28/19 10:30 03/02/19 21:49 125 MG Vancomycin HCl 1.25 gm/Sodium Chloride 250 ml @ 167 mls/hr Q18H 02/28/19 07:00 03/02/19 13:58 167 MLS/HR Vancomycin HCl 2 gm/Sodium Chloride 500 ml @ 250 mls/hr ONCE ONCE 02/26/19 11:30 02/26/19 13:29 DC 02/26/19 12:39 250 MLS/HR Vasopressin (Vasostrict) 20 unit STK-MED ONCE 03/01/19 14:06 03/01/19 14:07 DC Zinc Sulfate (Orazinc) 220 mg BID 02/26/19 21:00 03/02/19 21:49 220 MG Labs: Lab Laboratory Tests Test 03/02/19 12:11 03/02/19 17:50 03/02/19 18:53 03/02/19 21:42 Glucose (Fingerstick) 108 mg/dL (70-99) 71 mg/dL (70-99) 104 mg/dL (70-99) Hemoglobin 9.8 g/dL (13.0-17.5) Hematocrit 30.2 % (39.0-53.0) Test 03/03/19 06:20 White Blood Count 15.7 x10^3/uL (4.0-11.0) Red Blood Count 3.35 x10^6/uL (4.30-5.70) Hemoglobin 9.7 g/dL (13.0-17.5) Hematocrit 29.7 % (39.0-53.0) Mean Corpuscular Volume 89 fL (79-100) Mean Corpuscular Hemoglobin 29 pg (25-35) Mean Corpuscular Hemoglobin Concent 33 g/dL (31-37) Red Cell Distribution Width 14.8 % (11.5-14.5) Platelet Count 240 x10^3/uL (140-400) Sodium Level 140 mmol/L (136-145) Potassium Level 4.3 mmol/L (3.5-5.1) Chloride Level 109 mmol/L (98-107) Carbon Dioxide Level 23 mmol/L (21-32) Anion Gap 8 (6-14) Blood Urea Nitrogen 12 mg/dL (8-26) Creatinine 0.8 mg/dL (0.7-1.3) Estimated GFR (Cockcroft-Gault) 95.8 Glucose Level 85 mg/dL (70-99) Calcium Level 8.0 mg/dL (8.5-10.1) Vancomycin Level Trough 27.2 mcg/mL (10.0-20.0) Vancomycin Last Dose Date 03/02/19 Vancomycin Last Dose Time 1300 Micro RUN DATE: 03/01/19 PAGE 1 RUN TIME: 916 [facility] [address] [place] [address] Marlon Martino M.D., Senior Information Security Consultant PATIENT: ROGELIO MYERS ACCT: [id number] LOC: [address] [place] [address] U: [id number] AGE/SX: 68/M ROOM: 430 RE02/26/[address]: CINDY SULLIVAN MD : 1950 BED: 1 DIS: STATUS: ADM IN TLOC: SPEC #: [id number] NASIR: 02/26/19 STATUS: COMP REQ #: [id number] RECD: 02/26/[address]: MARTY DC MD SOURCE: URINE CC ENTR: 02/26/[address]: CALVIN POLLARD MD SPDC: Ozzy AHN MD, GLENN A MD ORDERED: URINE CULTURE Procedure Result URINE CULTURE Final Final report URINE CULTURE RES 1 Final Klebsiella pneumoniae 25,000-50,000 colony forming units per mL Cefazolin <=4 ug/mL Cefazolin with an YAMINI <=16 predicts susceptibility to the oral agents cefaclor, cefdinir, cefpodoxime, cefprozil, cefuroxime, cephalexin, and loracarbef when used for therapy of uncomplicated urinary tract infections due to E. coli, Klebsiella pneumoniae, and Proteus mirabilis. URINE CULTURE RES 2 Final Yeast 25,000-50,000 colony forming units per mL Request for further identification must be made within 3 days. ANTIMICROBIAL SUSCEPTIBILITY Final Comment S = Susceptible; I = Intermediate; R = Resistant P = Positive; N = Negative MICS are expressed in micrograms per mL Antibiotic RSLT#1 RSLT#2 RSLT#3 RSLT#4 Amoxicillin/Clavulanic Acid S<=2 Ampicillin R>=32 Cefepime S<=0.12 Ceftriaxone S<=0.25 Cefuroxime S =2 Ciprofloxacin S<=0.25 Ertapenem S<=0.12 Gentamicin S<=1 Imipenem S<=0.25 Levofloxacin S<=0.12 CONTINUED ON NEXT PAGE RUN DATE: 03/01/19 PAGE 2 RUN TIME: 916 [facility] [address] [place] [address] Marlon Martino M.D., Senior Information Security Consultant SPEC: [id number] PATIENT: ROGELIO MYERS [id number] (Continued) Procedure Result ANTIMICROBIAL SUSCEPTIBILITY Final (continued) Meropenem S<=0.25 Nitrofurantoin I =64 Piperacillin/Tazobactam S<=4 Tetracycline S<=1 Tobramycin S<=1 Trimethoprim/Sulfa S<=20 Performed at: DA - [facility] [address], [place], [place] [id number] Family Medicine Physician: LUZ MARIA Crandall MD, Phone: [phone] Objective: Assessment: 1. 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 He has a history of osteomyelitis status post debridement on 12/30/2018 at . Previous cultures grew extended-spectrum beta-lactamase, Escherichia coli, Morganella, pseudomonas (resistant Fortaz, intermediate Zosyn), Bacteroides and Clostridium species. He completed a course of meropenem.Now with worsening secondary infected wound 03/01 S/P I and D with wound vac 03/01 control of bleeding areas 2. Leukocytosis. 3. Pyuria. 4. Methicillin-resistant Staphylococcus aureus screen positive. 5. C difficile colitis 6. 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 7. Encephalopathy. 8. Protein-calorie malnutrition. 9. History of cerebrovascular accident. 10. Paroxysmal atrial fibrillation. 11. Diabetes mellitus type 2. 12. Anemia s/p PRBCs Plan: Plan of Care cont meropenem, IV Vanc on hold today,adjust according to renal func , Vanc trough 27 on 03/03creat wnl cont po vanc micafungin Monitor labs/renal function closely f/u cultures Local wound care Optimize nutrition Contact isolation D/w nursing MAYKEL QUINTERO MD March 03, 2019 08:39
[2019-03-03] MEDS: NITROGLYCERIN 0.2MG/HR PATCH. TD SCH (09:00)
[2019-03-03] MEDS: traMADol 50 MG TABLET PO SCH ×4 (09:00→21:00)
[2019-03-03] MEDS: VANCOMYCIN PER PHARMACY MC PRN ×2 (09:29→15:14)
--- NOTE | 2019-03-03 09:30 | PDOC ---
NANDO WHIPPLE BOLT HEADER 03/03/19 0930: SURGICAL PROGRESS NOTE Subjective some pain in place vac in place Vital Signs Vital Signs Date Time Temp Pulse Resp B/P (MAP) Pulse Ox O2 Delivery O2 Flow Rate FiO2 03/03/19 07:00 96.8 75 16 144/74 (97) 97 Room Air 96.8 I&O Intake and Output 03/03/19 06:59 Intake Total 120 ml Output Total 850 ml Balance -730 ml Intake Oral 120 ml Output Urine Total 850 ml Stool Total 0 ml General: Cooperative, No acute distress Skin: Other (vac in place, no bleeding) Labs Laboratory Tests Test 03/01/19 14:20 03/01/19 18:25 03/02/19 00:02 03/02/19 04:00 White Blood Count 19.9 x10^3/uL (4.0-11.0) 18.8 x10^3/uL (4.0-11.0) Red Blood Count 2.89 x10^6/uL (4.30-5.70) 3.50 x10^6/uL (4.30-5.70) Hemoglobin 8.2 g/dL (13.0-17.5) 10.0 g/dL (13.0-17.5) Hematocrit 26.5 % (39.0-53.0) 31.1 % (39.0-53.0) Mean Corpuscular Volume 92 fL (79-100) 89 fL (79-100) Mean Corpuscular Hemoglobin 28 pg (25-35) 29 pg (25-35) Mean Corpuscular Hemoglobin Concent 31 g/dL (31-37) 32 g/dL (31-37) Red Cell Distribution Width 15.0 % (11.5-14.5) 14.7 % (11.5-14.5) Platelet Count 316 x10^3/uL (140-400) 269 x10^3/uL (140-400) Neutrophils (%) (Auto) 92 % (31-73) 86 % (31-73) Lymphocytes (%) (Auto) 4 % (24-48) 7 % (24-48) Monocytes (%) (Auto) 3 % (0-9) 6 % (0-9) Eosinophils (%) (Auto) 1 % (0-3) 0 % (0-3) Basophils (%) (Auto) 0 % (0-3) 0 % (0-3) Neutrophils # (Auto) 18.4 x10^3uL (1.8-7.7) 16.2 x10^3uL (1.8-7.7) Lymphocytes # (Auto) 0.8 x10^3/uL (1.0-4.8) 1.4 x10^3/uL (1.0-4.8) Monocytes # (Auto) 0.6 x10^3/uL (0.0-1.1) 1.2 x10^3/uL (0.0-1.1) Eosinophils # (Auto) 0.1 x10^3/uL (0.0-0.7) 0.0 x10^3/uL (0.0-0.7) Basophils # (Auto) 0.1 x10^3/uL (0.0-0.2) 0.0 x10^3/uL (0.0-0.2) Glucose (Fingerstick) 154 mg/dL (70-99) 106 mg/dL (70-99) Sodium Level 139 mmol/L (136-145) Potassium Level 4.3 mmol/L (3.5-5.1) Chloride Level 109 mmol/L (98-107) Carbon Dioxide Level 20 mmol/L (21-32) Anion Gap 10 (6-14) Blood Urea Nitrogen 16 mg/dL (8-26) Creatinine 0.8 mg/dL (0.7-1.3) Estimated GFR (Cockcroft-Gault) 95.8 Glucose Level 126 mg/dL (70-99) Calcium Level 7.9 mg/dL (8.5-10.1) Test 03/02/19 05:29 03/02/19 12:11 03/02/19 17:50 03/02/19 18:53 Glucose (Fingerstick) 121 mg/dL (70-99) 108 mg/dL (70-99) 71 mg/dL (70-99) Hemoglobin 9.8 g/dL (13.0-17.5) Hematocrit 30.2 % (39.0-53.0) Test 03/02/19 21:42 03/03/19 06:20 Glucose (Fingerstick) 104 mg/dL (70-99) White Blood Count 15.7 x10^3/uL (4.0-11.0) Red Blood Count 3.35 x10^6/uL (4.30-5.70) Hemoglobin 9.7 g/dL (13.0-17.5) Hematocrit 29.7 % (39.0-53.0) Mean Corpuscular Volume 89 fL (79-100) Mean Corpuscular Hemoglobin 29 pg (25-35) Mean Corpuscular Hemoglobin Concent 33 g/dL (31-37) Red Cell Distribution Width 14.8 % (11.5-14.5) Platelet Count 240 x10^3/uL (140-400) Sodium Level 140 mmol/L (136-145) Potassium Level 4.3 mmol/L (3.5-5.1) Chloride Level 109 mmol/L (98-107) Carbon Dioxide Level 23 mmol/L (21-32) Anion Gap 8 (6-14) Blood Urea Nitrogen 12 mg/dL (8-26) Creatinine 0.8 mg/dL (0.7-1.3) Estimated GFR (Cockcroft-Gault) 95.8 Glucose Level 85 mg/dL (70-99) Calcium Level 8.0 mg/dL (8.5-10.1) Vancomycin Level Trough 27.2 mcg/mL (10.0-20.0) Vancomycin Last Dose Date 03/02/19 Vancomycin Last Dose Time 1300 Laboratory Tests Test 03/02/19 12:11 03/02/19 17:50 03/02/19 18:53 03/02/19 21:42 Glucose (Fingerstick) 108 mg/dL (70-99) 71 mg/dL (70-99) 104 mg/dL (70-99) Hemoglobin 9.8 g/dL (13.0-17.5) Hematocrit 30.2 % (39.0-53.0) Test 03/03/19 06:20 White Blood Count 15.7 x10^3/uL (4.0-11.0) Red Blood Count 3.35 x10^6/uL (4.30-5.70) Hemoglobin 9.7 g/dL (13.0-17.5) Hematocrit 29.7 % (39.0-53.0) Mean Corpuscular Volume 89 fL (79-100) Mean Corpuscular Hemoglobin 29 pg (25-35) Mean Corpuscular Hemoglobin Concent 33 g/dL (31-37) Red Cell Distribution Width 14.8 % (11.5-14.5) Platelet Count 240 x10^3/uL (140-400) Sodium Level 140 mmol/L (136-145) Potassium Level 4.3 mmol/L (3.5-5.1) Chloride Level 109 mmol/L (98-107) Carbon Dioxide Level 23 mmol/L (21-32) Anion Gap 8 (6-14) Blood Urea Nitrogen 12 mg/dL (8-26) Creatinine 0.8 mg/dL (0.7-1.3) Estimated GFR (Cockcroft-Gault) 95.8 Glucose Level 85 mg/dL (70-99) Calcium Level 8.0 mg/dL (8.5-10.1) Vancomycin Level Trough 27.2 mcg/mL (10.0-20.0) Vancomycin Last Dose Date 03/02/19 Vancomycin Last Dose Time 1300 Problem List wound care Dr Weeks available over weekend if needed CALVIN POLLARD MD 03/03/19 1442: SURGICAL PROGRESS NOTE Assessment/Plan Agree with above; are available if needed, please call NANDO WHIPPLE APRN March 03, 2019 09:30 CALVIN POLLARD MD March 03, 2019 14:42
--- NOTE | 2019-03-03 09:38 | PDOC ---
PROGRESS NOTES Assessment Metabolic encephalopathy History of left cerebellar stroke Achondroplasia Suspected diabetic neuropathy. Negative CT of the head S/P surgical debridement of sacral decubitus Plan Treat medical diseases and supportive care Holding off on additional neurological studies such as electroencephalogram Subjective Denies pain Objective Vital Signs Date Time Temp Pulse Resp B/P (MAP) Pulse Ox O2 Delivery O2 Flow Rate FiO2 03/03/19 07:00 96.8 75 16 144/74 (97) 97 Room Air 96.8 Intake and Output 03/03/19 07:00 Intake Total 120 ml Output Total 850 ml Balance -730 ml Intake Oral 120 ml Output Urine Total 850 ml Stool Total 0 ml PHYSICAL EXAM Eyes open, knows he's in the hospital but does not know its name, does not know the date, follows commands. PERRL. EOMI. CN: no focal findings. Muscle tone: normal. Muscle strength: 3/5, no tremulousness DTR: 0-1+ Plantar reflex: flexor Gait: not examined in bed. Sensory exam: probable stocking loss. No cerebellar signs elicited. Review of Relevant I have reviewed the following items lg (where applicable) has been applied. Labs Laboratory Tests Test 03/01/19 14:20 03/01/19 18:25 03/02/19 00:02 03/02/19 04:00 White Blood Count 19.9 x10^3/uL (4.0-11.0) 18.8 x10^3/uL (4.0-11.0) Red Blood Count 2.89 x10^6/uL (4.30-5.70) 3.50 x10^6/uL (4.30-5.70) Hemoglobin 8.2 g/dL (13.0-17.5) 10.0 g/dL (13.0-17.5) Hematocrit 26.5 % (39.0-53.0) 31.1 % (39.0-53.0) Mean Corpuscular Volume 92 fL (79-100) 89 fL (79-100) Mean Corpuscular Hemoglobin 28 pg (25-35) 29 pg (25-35) Mean Corpuscular Hemoglobin Concent 31 g/dL (31-37) 32 g/dL (31-37) Red Cell Distribution Width 15.0 % (11.5-14.5) 14.7 % (11.5-14.5) Platelet Count 316 x10^3/uL (140-400) 269 x10^3/uL (140-400) Neutrophils (%) (Auto) 92 % (31-73) 86 % (31-73) Lymphocytes (%) (Auto) 4 % (24-48) 7 % (24-48) Monocytes (%) (Auto) 3 % (0-9) 6 % (0-9) Eosinophils (%) (Auto) 1 % (0-3) 0 % (0-3) Basophils (%) (Auto) 0 % (0-3) 0 % (0-3) Neutrophils # (Auto) 18.4 x10^3uL (1.8-7.7) 16.2 x10^3uL (1.8-7.7) Lymphocytes # (Auto) 0.8 x10^3/uL (1.0-4.8) 1.4 x10^3/uL (1.0-4.8) Monocytes # (Auto) 0.6 x10^3/uL (0.0-1.1) 1.2 x10^3/uL (0.0-1.1) Eosinophils # (Auto) 0.1 x10^3/uL (0.0-0.7) 0.0 x10^3/uL (0.0-0.7) Basophils # (Auto) 0.1 x10^3/uL (0.0-0.2) 0.0 x10^3/uL (0.0-0.2) Glucose (Fingerstick) 154 mg/dL (70-99) 106 mg/dL (70-99) Sodium Level 139 mmol/L (136-145) Potassium Level 4.3 mmol/L (3.5-5.1) Chloride Level 109 mmol/L (98-107) Carbon Dioxide Level 20 mmol/L (21-32) Anion Gap 10 (6-14) Blood Urea Nitrogen 16 mg/dL (8-26) Creatinine 0.8 mg/dL (0.7-1.3) Estimated GFR (Cockcroft-Gault) 95.8 Glucose Level 126 mg/dL (70-99) Calcium Level 7.9 mg/dL (8.5-10.1) Test 03/02/19 05:29 5/9/19 12:11 03/02/19 17:50 03/02/19 18:53 Glucose (Fingerstick) 121 mg/dL (70-99) 108 mg/dL (70-99) 71 mg/dL (70-99) Hemoglobin 9.8 g/dL (13.0-17.5) Hematocrit 30.2 % (39.0-53.0) Test 03/02/19 21:42 03/03/19 06:20 Glucose (Fingerstick) 104 mg/dL (70-99) White Blood Count 15.7 x10^3/uL (4.0-11.0) Red Blood Count 3.35 x10^6/uL (4.30-5.70) Hemoglobin 9.7 g/dL (13.0-17.5) Hematocrit 29.7 % (39.0-53.0) Mean Corpuscular Volume 89 fL (79-100) Mean Corpuscular Hemoglobin 29 pg (25-35) Mean Corpuscular Hemoglobin Concent 33 g/dL (31-37) Red Cell Distribution Width 14.8 % (11.5-14.5) Platelet Count 240 x10^3/uL (140-400) Sodium Level 140 mmol/L (136-145) Potassium Level 4.3 mmol/L (3.5-5.1) Chloride Level 109 mmol/L (98-107) Carbon Dioxide Level 23 mmol/L (21-32) Anion Gap 8 (6-14) Blood Urea Nitrogen 12 mg/dL (8-26) Creatinine 0.8 mg/dL (0.7-1.3) Estimated GFR (Cockcroft-Gault) 95.8 Glucose Level 85 mg/dL (70-99) Calcium Level 8.0 mg/dL (8.5-10.1) Vancomycin Level Trough 27.2 mcg/mL (10.0-20.0) Vancomycin Last Dose Date 03/02/19 Vancomycin Last Dose Time 1300 Laboratory Tests Test 03/02/19 12:11 03/02/19 17:50 03/02/19 18:53 03/02/19 21:42 Glucose (Fingerstick) 108 mg/dL (70-99) 71 mg/dL (70-99) 104 mg/dL (70-99) Hemoglobin 9.8 g/dL (13.0-17.5) Hematocrit 30.2 % (39.0-53.0) Test 03/03/19 06:20 White Blood Count 15.7 x10^3/uL (4.0-11.0) Red Blood Count 3.35 x10^6/uL (4.30-5.70) Hemoglobin 9.7 g/dL (13.0-17.5) Hematocrit 29.7 % (39.0-53.0) Mean Corpuscular Volume 89 fL (79-100) Mean Corpuscular Hemoglobin 29 pg (25-35) Mean Corpuscular Hemoglobin Concent 33 g/dL (31-37) Red Cell Distribution Width 14.8 % (11.5-14.5) Platelet Count 240 x10^3/uL (140-400) Sodium Level 140 mmol/L (136-145) Potassium Level 4.3 mmol/L (3.5-5.1) Chloride Level 109 mmol/L (98-107) Carbon Dioxide Level 23 mmol/L (21-32) Anion Gap 8 (6-14) Blood Urea Nitrogen 12 mg/dL (8-26) Creatinine 0.8 mg/dL (0.7-1.3) Estimated GFR (Cockcroft-Gault) 95.8 Glucose Level 85 mg/dL (70-99) Calcium Level 8.0 mg/dL (8.5-10.1) Vancomycin Level Trough 27.2 mcg/mL (10.0-20.0) Vancomycin Last Dose Date 03/02/19 Vancomycin Last Dose Time 1300 Microbiology 02/26/19 Blood Culture - Final, Complete NO GROWTH AFTER 5 DAYS 02/26/19 Urine Culture - Final, Complete 02/26/19 Urine Culture Result 1 (YAMINI) - Final, Complete 02/26/19 Urine Culture Result 2 (YAMINI) - Final, Complete 02/26/19 Antimicrobic Susceptibility - Final, Complete Medications Current Medications Piperacillin Sod/ Tazobactam Sod (Zosyn Per Pharmacy) 1 each PRN DAILY PRN MC SEE COMMENTS; Start 02/25/19 at 22:45; Stop 02/26/19 at 14:48; Status DC Sodium Chloride 1,000 ml @ 1,000 mls/hr 1X ONCE IV Last administered on 02/26/19at 00:25; Start 02/25/19 at 22:45; Stop 02/25/19 at 23:44; Status DC Piperacillin Sod/ Tazobactam Sod 2.25 gm/Sodium Chloride 50 ml @ 100 mls/hr ONCE ONCE IV Last administered on 02/26/19at 00:25; Start 02/26/19 at 00:15; Stop 02/26/19 at 00:44; Status DC Fentanyl Citrate (Fentanyl 2ml Vial) 50 mcg PRN Q1HR PRN IV PAIN; Start 02/26/19 at 00:30; Stop 02/27/19 at 00:29; Status DC Sodium Chloride 1,000 ml @ 125 mls/hr Q8H IV Last administered on 02/26/19at 02:01; Start 02/26/19 at 00:30; Stop 02/27/19 at 00:29; Status DC Sodium Chloride 1,000 ml @ 1,000 mls/hr 1X ONCE IV Last administered on 02/26/19at 02:40; Start 02/26/19 at 00:30; Stop 02/26/19 at 01:29; Status DC Piperacillin Sod/ Tazobactam Sod 2.25 gm/Sodium Chloride 50 ml @ 100 mls/hr Q6HRS IV Last administered on 02/26/19at 11:58; Start 02/26/19 at 06:00; Stop 02/26/19 at 14:48; Status DC Sodium Chloride 500 ml @ 500 mls/hr 1X ONCE IV Last administered on 02/26/19at 10:15; Start 02/26/19 at 10:15; Stop 02/26/19 at 11:14; Status DC Vancomycin HCl (Vanco Per Pharmacy) 1 each PRN DAILY PRN MC SEE COMMENTS Last administered on 03/03/19at 09:29; Start 02/26/19 at 11:15 Vancomycin HCl 2 gm/Sodium Chloride 500 ml @ 250 mls/hr ONCE ONCE IV Last administered on 02/26/19at 12:39; Start 02/26/19 at 11:30; Stop 02/26/19 at 13:29; Status DC Vancomycin HCl 1.25 gm/Sodium Chloride 250 ml @ 167 mls/hr Q24H IV Last administered on 02/27/19at 13:00; Start 02/27/19 at 13:00; Stop 02/27/19 at 15:00; Status DC Vancomycin HCl (Vancomycin Trough Level) 1 each 1X ONCE MC ; Start 02/28/19 at 12:30; Stop 02/28/19 at 12:30; Status DC Meropenem 500 mg/ Sodium Chloride 50 ml @ 100 mls/hr Q8HRS IV Last administered on 03/03/19 06:16; Start 02/26/19 at 15:00 Atorvastatin Calcium (Lipitor) 10 mg QHS PO Last administered on 03/02/19 21:49; Start 02/26/19 at 21:00 Calcium Carbonate/ Glycine (Tums) 250 mg PRN Q8HRS PRN PO INDIGESTION; Start 02/26/19 at 16:00 Divalproex Sodium (Depakote Er) 500 mg QHS PO Last administered on 03/02/19 21:48; Start 02/26/19 at 21:00 Famotidine (Pepcid) 20 mg DAILY PO Last administered on 03/02/19 09:48; Start 02/26/19 at 15:15 Folic Acid (Folic Acid) 1 mg DAILY PO Last administered on 03/02/19 09:46; Start 02/26/19 at 16:15 Lisinopril (Prinivil) 10 mg DAILY PO ; Start 02/26/19 at 16:15 Tamsulosin HCl (Flomax) 0.4 mg DAILY PO Last administered on 03/02/19 09:46; Start 02/26/19 at 16:15 Tramadol HCl (Ultram) 50 mg QID PO Last administered on 03/02/19 14:00; Start 02/26/19 at 17:00 Ascorbic Acid (Vitamin C) 500 mg DAILY PO Last administered on 03/02/19 09:47; Start 02/27/19 at 09:00 Citalopram Hydrobromide (CeleXA) 20 mg DAILY PO Last administered on 03/02/19 09:46; Start 02/27/19 at 09:00 Miconazole Nitrate (Monistat-Derm) 1 jaymie BID TP Last administered on 03/02/19 21:57; Start 02/26/19 at 21:00 Mirtazapine (Remeron) 15 mg QHS PO Last administered on 03/02/19 21:47; Start 02/26/19 at 21:00 Multivitamins (Thera M Plus) 1 tab DAILY PO Last administered on 03/02/19 09:47; Start 02/27/19 at 09:00 Nitroglycerin (Nitro-Dur) 1 patch DAILY TD Last administered on 02/27/19 11:11; Start 02/26/19 at 16:15 Oxcarbazepine (Trileptal) 300 mg BID PO Last administered on 03/02/19 21:47; Start 02/26/19 at 21:00 Zinc Sulfate (Orazinc) 220 mg BID PO Last administered on 03/02/19 21:49; Start 02/26/19 at 21:00 Dextrose (Dextrose 50%-Water Syringe) 12.5 gm PRN Q15MIN PRN IV SEE COMMENTS Last administered on 02/26/19at 16:39; Start 02/26/19 at 16:15 Potassium Chloride/Sodium Chloride 1,000 ml @ 100 mls/hr Q10H IV Last administered on 02/28/19at 04:00; Start 02/27/19 at 08:00; Stop 02/28/19 at 08:51; Status DC Potassium Chloride (Klor-Con) 40 meq 1X ONCE PO Last administered on 02/27/19 10:43; Start 02/27/19 at 08:00; Stop 02/27/19 at 08:01; Status DC Potassium Chloride (Klor-Con) 40 meq 1X ONCE PO Last administered on 02/27/19 11:03; Start 02/27/19 at 09:00; Stop 02/28/19 at 08:53; Status DC Potassium Chloride (Klor-Con) 40 meq 1X ONCE PO Last administered on 02/27/19 11:13; Start 02/27/19 at 10:00; Stop 02/28/19 at 08:53; Status DC Micafungin Sodium 100 mg/Dextrose 100 ml @ 100 mls/hr Q24H IV Last administered on 03/02/19 13:54; Start 02/27/19 at 13:00 Vancomycin HCl 1.25 gm/Sodium Chloride 250 ml @ 167 mls/hr Q18H IV Last administered on 03/02/19 13:58; Start 02/28/19 at 07:00; Stop 03/03/19 at 09:14; Status DC Vancomycin HCl (Vancomycin Trough Level) 1 each 1X ONCE MC ; Start 03/01/19 at 18:30; Stop 03/01/19 at 18:30; Status DC Morphine Sulfate (Morphine Sulfate) 1 mg PRN Q10MIN PRN IV SEVERE PAIN; Start 02/28/19 at 07:00; Stop 03/01/19 at 06:59; Status DC Ringer's Solution 1,000 ml @ 30 mls/hr Q24H IV ; Start 02/28/19 at 07:00; Stop 02/28/19 at 18:59; Status DC Hydromorphone HCl (Dilaudid) 0.5 mg PRN Q10MIN PRN IV SEV PAIN, Second choice; Start 02/28/19 at 07:00; Stop 03/01/19 at 06:59; Status DC Prochlorperazine Edisylate (Compazine) 5 mg PACU PRN PRN IV NAUSEA, MRX1; Start 02/28/19 at 07:00; Stop 03/01/19 at 06:59; Status DC Metronidazole 100 ml @ 100 mls/hr Q8HRS IV Last administered on 02/28/19at 05:58; Start 02/27/19 at 22:00; Stop 02/28/19 at 10:08; Status DC Potassium Chloride/Dextrose/ Sod Cl 1,000 ml @ 80 mls/hr 1X ONCE IV Last administered on 02/28/19at 09:41; Start 02/28/19 at 09:00; Stop 02/28/19 at 21:29; Status DC Vancomycin HCl (Vancomycin Oral Solution) 125 mg [id number] PO Last administered on 03/02/19at 21:49; Start 02/28/19 at 10:30 Sevoflurane (Ultane) 30 ml STK-MED ONCE IH ; Start 02/28/19 at 11:39; Stop 02/28/19 at 11:40; Status DC Fentanyl Citrate (Fentanyl 2ml Vial) 100 mcg STK-MED ONCE .ROUTE ; Start 02/28/19 at 11:39; Stop 02/28/19 at 11:40; Status DC Propofol 0 ml @ As Directed STK-MED ONCE IV ; Start 02/28/19 at 11:39; Stop 02/28/19 at 11:40; Status DC Lidocaine HCl (Lidocaine Pf 2% Vial) 5 ml STK-MED ONCE .ROUTE ; Start 02/28/19 at 11:39; Stop 02/28/19 at 11:40; Status DC Lidocaine HCl (Lidocaine Pf 2% Vial) 5 ml STK-MED ONCE .ROUTE ; Start 02/28/19 at 11:39; Stop 02/28/19 at 11:40; Status DC Dexamethasone Sodium Phosphate (Decadron) 4 mg STK-MED ONCE .ROUTE ; Start 02/28/19 at 11:39; Stop 02/28/19 at 11:40; Status DC Ondansetron HCl (Zofran) 4 mg STK-MED ONCE .ROUTE ; Start 02/28/19 at 11:39; Stop 02/28/19 at 11:40; Status DC Vancomycin HCl (Vancomycin Trough Level) 1 each 1X ONCE MC Last administered on 02/28/19at 19:30; Start 02/28/19 at 19:30; Stop 02/28/19 at 19:31; Status DC Lactobacillus Rhamnosus (Culturelle) 1 cap BID PO Last administered on 03/02/19at 21:49; Start 02/28/19 at 21:00 Ondansetron HCl (Zofran) 4 mg PRN Q6HRS PRN IV NAUSEA/VOMITING; Start 03/01/19 at 07:00; Stop 03/02/19 at 06:59; Status DC Fentanyl Citrate (Fentanyl 2ml Vial) 25 mcg PRN Q5MIN PRN IV MILD PAIN; Start 03/01/19 at 07:00; Stop 03/02/19 at 06:59; Status DC Fentanyl Citrate (Fentanyl 2ml Vial) 50 mcg PRN Q5MIN PRN IV MODERATE TO SEVERE PAIN; Start 03/01/19 at 07:00; Stop 03/02/19 at 06:59; Status DC Morphine Sulfate (Morphine Sulfate) 1 mg PRN Q10MIN PRN IV SEVERE PAIN; Start 03/01/19 at 07:00; Stop 03/02/19 at 06:59; Status DC Ringer's Solution 1,000 ml @ 30 mls/hr Q24H IV Last administered on 03/01/19at 15:00; Start 03/01/19 at 07:00; Stop 03/01/19 at 18:59; Status DC Lidocaine HCl (Xylocaine-Mpf 1% 2ml Vial) 2 ml PRN 1X PRN ID PRIOR TO IV START; Start 03/01/19 at 07:00; Stop 03/02/19 at 06:59; Status DC Hydromorphone HCl (Dilaudid) 0.5 mg PRN Q10MIN PRN IV SEV PAIN, Second choice; Start 03/01/19 at 07:00; Stop 03/02/19 at 06:59; Status DC Prochlorperazine Edisylate (Compazine) 5 mg PACU PRN PRN IV NAUSEA, MRX1; Start 03/01/19 at 07:00; Stop 03/02/19 at 06:59; Status DC Potassium Chloride/Dextrose/ Sod Cl 1,000 ml @ 80 mls/hr [id number] IV Last administered on 03/02/19at 21:50; Start 03/01/19 at 06:45 Sevoflurane (Ultane) 30 ml STK-MED ONCE IH ; Start 03/01/19 at 09:14; Stop 9 at 09:15; Status DC Succinylcholine Chloride (Anectine) 200 mg STK-MED ONCE .ROUTE ; Start 03/01/19 at 09:15; Stop 03/01/19 at 09:16; Status DC Fentanyl Citrate (Fentanyl 2ml Vial) 100 mcg STK-MED ONCE .ROUTE ; Start 03/01/19 at 09:15; Stop 03/01/19 at 09:16; Status DC Propofol 20 ml @ As Directed STK-MED ONCE IV ; Start 03/01/19 at 09:15; Stop 03/01/19 at 09:16; Status DC Lidocaine HCl (Lidocaine Pf 2% Vial) 5 ml STK-MED ONCE .ROUTE ; Start 03/01/19 at 09:15; Stop 03/01/19 at 09:16; Status DC Ondansetron HCl (Zofran) 4 mg STK-MED ONCE .ROUTE ; Start 03/01/19 at 09:15; Stop 03/01/19 at 09:16; Status DC Dexamethasone Sodium Phosphate (Decadron) 4 mg STK-MED ONCE .ROUTE ; Start 03/01/19 at 09:15; Stop 03/01/19 at 09:16; Status DC Rocuronium [place] (Zemuron) 50 mg STK-MED ONCE .ROUTE ; Start 03/01/19 at 09:37; Stop 03/01/19 at 09:38; Status DC Ephedrine Sulfate (ePHEDrine PF IN SALINE SYRINGE) 50 mg STK-MED ONCE IV ; Start 03/01/19 at 10:02; Stop 03/01/19 at 10:03; Status DC Ephedrine Sulfate (ePHEDrine PF IN SALINE SYRINGE) 50 mg STK-MED ONCE IV ; Start 03/01/19 at 10:02; Stop 03/01/19 at 10:03; Status DC Vasopressin (Vasostrict) 20 unit STK-MED ONCE .ROUTE ; Start 03/01/19 at 10:11; Stop 03/01/19 at 10:12; Status DC Neostigmine Methylsulfate (Neostigmine Methylsulfate) 5 mg STK-MED ONCE .ROUTE ; Start 03/01/19 at 10:33; Stop 03/01/19 at 10:34; Status DC Glycopyrrolate (Robinul) 1 mg STK-MED ONCE .ROUTE ; Start 03/01/19 at 10:33; Stop 03/01/19 at 10:34; Status DC Lidocaine/ Epinephrine (LIDOCAINE 1%-EPI 1:100,000 Multi-Dose) 20 ml STK-MED ONCE .ROUTE ; Start 03/01/19 at 12:29; Stop 03/01/19 at 13:29; Status DC Lidocaine HCl (Lidocaine Pf 2% Vial) 5 ml STK-MED ONCE .ROUTE ; Start 03/01/19 at 14:03; Stop 03/01/19 at 14:04; Status DC Propofol 20 ml @ As Directed STK-MED ONCE IV ; Start 03/01/19 at 14:03; Stop 03/01/19 at 14:04; Status DC Ondansetron HCl (Zofran) 4 mg STK-MED ONCE .ROUTE ; Start 03/01/19 at 14:03; Stop 03/01/19 at 14:04; Status DC Dexamethasone Sodium Phosphate (Decadron) 4 mg STK-MED ONCE .ROUTE ; Start 03/01/19 at 14:03; Stop 03/01/19 at 14:04; Status DC Rocuronium [place] (Zemuron) 50 mg STK-MED ONCE .ROUTE ; Start 03/01/19 at 14:03; Stop 03/01/19 at 14:04; Status DC Vasopressin (Vasostrict) 20 unit 1X ONCE IM ; Start 03/01/19 at 14:15; Stop 03/01/19 at 14:16; Status DC Vasopressin (Vasostrict) 20 unit STK-MED ONCE .ROUTE ; Start 03/01/19 at 14:06; Stop 03/01/19 at 14:07; Status DC Neostigmine Methylsulfate (Neostigmine Methylsulfate) 5 mg STK-MED ONCE .ROUTE ; Start 03/01/19 at 14:59; Stop 03/01/19 at 15:00; Status DC Glycopyrrolate (Robinul) 1 mg STK-MED ONCE .ROUTE ; Start 03/01/19 at 14:59; Stop 03/01/19 at 15:00; Status DC Cellulose (Surgicel Hemostat 4x8) 1 each STK-MED ONCE .ROUTE Last administered on 03/01/19at 15:06; Start 03/01/19 at 14:03; Stop 03/01/19 at 15:03; Status DC Ondansetron HCl (Zofran) 4 mg STK-MED ONCE .ROUTE ; Start 03/01/19 at 15:06; Stop 03/01/19 at 15:07; Status DC Dexamethasone Sodium Phosphate (Decadron) 4 mg STK-MED ONCE .ROUTE ; Start 03/01/19 at 15:06; Stop 03/01/19 at 15:07; Status DC Dexamethasone Sodium Phosphate (Decadron) 4 mg STK-MED ONCE .ROUTE ; Start 03/01/19 at 15:06; Stop 03/01/19 at 15:07; Status DC Sevoflurane (Ultane) 60 ml STK-MED ONCE IH ; Start 03/01/19 at 15:34; Stop 03/01/19 at 15:35; Status DC Sodium Chloride 1,000 ml @ 100 mls/hr Q10H IV Last administered on 03/01/19at 15:00; Start 03/01/19 at 15:00; Stop 03/02/19 at 00:30; Status DC Vancomycin HCl (Vancomycin Trough Level) 1 each 1X ONCE MC Last administered on 03/03/19at 06:30; Start 03/03/19 at 06:30; Stop 03/03/19 at 06:31; Status DC Vancomycin HCl (Vancomycin Random Level) 1 each 1X ONCE MC ; Start 03/03/19 at 13:00; Stop 03/03/19 at 13:01 Active Scripts Active Reported Tums (Calcium Carbonate) 200 Mg Tab.chew 200 Mg PO Q8HRS PRN Milk Of Magnesia (Magnesium Hydroxide) 400 Mg/5 Ml Oral.susp 400 Mg PO DAILY PRN Diflucan (Fluconazole) 200 Mg Tablet 1 Tab PO DAILY Depakote Er (Divalproex Sodium) 500 Mg Tab.er.24h 1 Tab PO QHS Augmentin 875-125 Tablet (Amoxicillin/Potassium Clav) 1 Each Tablet 1 Tab PO BID Eliquis (Apixaban) 5 Mg Tablet 5 Mg PO BID Vitamin C (Ascorbic Acid) 500 Mg Capsule.er 500 Mg PO DAILY Multivitamins (Multivitamin) 1 Each Tablet 1 Tab PO DAILY Zinc (Zinc Gluconate) 50 Mg Tablet 220 Mg PO BID Atorvastatin Calcium 20 Mg Tablet 0.5 Tab PO HS Aspirin 81 Mg Tab.chew 1 Tab PO DAILY Famotidine 20 Mg Tablet 20 Mg PO BID Folic Acid 1 Mg Tablet 1 Tab PO DAILY Miconazole 3 (Miconazole Nitrate) 24 Gm Cmb.pf.crm 24 Gm VG BID Senokot (Sennosides) 8.6 Mg Tablet 1 Tab PO BID PRN Flomax (Tamsulosin Hcl) 0.4 Mg Cap.er.24h 1 Cap PO DAILY NITRO-DUR 0.2mg/hr (Nitroglycerin) 1 Each Patch.td24 1 Each TD DAILY Polyethylene Glycol 3350 255 Gm Powder 17 Gm PO BID PRN Lisinopril 10 Mg Tablet 1 Tab PO DAILY Escitalopram Oxalate 10 Mg Tablet 1 Tab PO DAILY Tramadol Hcl 50 Mg Tablet 50 Mg PO QID Mirtazapine 15 Mg Tablet 1 Tab PO QHS Oxcarbazepine 300 Mg Tablet 300 Mg PO BID Vitals/I & O Vital Sign - Last 24 Hours 03/02/19 03/02/19 03/02/19 03/02/19 09:47 11:00 14:00 15:00 Temp 97.8 97.7 97.8 97.7 Pulse 74 78 Resp 18 18 B/P (MAP) 113/51 (71) 128/62 (84) Pulse Ox 93 99 O2 Delivery Room Air Room Air Room Air Room Air 5/07/1303/02/19 03/02/19 03/02/19 15:00 19:15 20:10 23:20 Temp 98.2 98.2 98.2 98.2 Pulse 79 75 Resp 18 20 B/P (MAP) 124/67 (86) 134/68 (90) Pulse Ox 98 98 O2 Delivery Room Air Room Air Room Air Room Air 03/03/19 03/03/19 03:08 07:00 Temp 98.3 96.8 98.3 96.8 Pulse 79 75 Resp 18 16 B/P (MAP) 129/75 (93) 144/74 (97) Pulse Ox 97 97 O2 Delivery Room Air Room Air Intake and Output 03/02/19 03/02/19 03/03/19 15:00 23:00 07:00 Intake Total 0 ml 120 ml Output Total 450 ml 400 ml Balance 0 ml -450 ml -280 ml ALVARO GALINDO MD March 03, 2019 09:38
[2019-03-03] MEDS: TAMSULOSIN 0.4 MG CAP.ER.24H. PO SCH (09:54)
[2019-03-03] MEDS: ZINC SULFATE 220 MG CAPSULE. PO SCH ×2 (09:54→21:19)
[2019-03-03] MEDS: ASCORBIC ACID 500 MG TABLET PO SCH (09:54)
[2019-03-03] MEDS: MULTIVITAMIN with MINERAL TABLET. PO SCH (09:54)
[2019-03-03] MEDS: FAMOTIDINE 20 MG TABLET. PO SCH (09:55)
[2019-03-03] MEDS: OXcarbazepine 300 MG TABLET PO SCH ×2 (09:55→21:19)
[2019-03-03] MEDS: CITALOPRAM 20 MG TABLET. PO SCH (09:55)
[2019-03-03] MEDS: LACTOBACILLUS RHAMNOSUS GG 1 CAPSULE. PO SCH ×2 (09:55→21:19)
[2019-03-03] MEDS: LISINOPRIL 10 MG TABLET PO SCH (09:55)
[2019-03-03] MEDS: VANCOMYCIN 125 MG/2.5 ML ORAL SOLUTION. PO SCH ×4 (09:56→21:19)
[2019-03-03] MEDS: MICONAZOLE NITRATE 2% TOPICAL CREAM 28GM TUBE. TP SCH ×2 (09:57→21:21)
[2019-03-03] MEDS: FOLIC ACID 1 MG TABLET. PO SCH (09:59)
[2019-03-03] MEDS: POTASSIUM CL 40MEQ D5-0.45NACL 1,000 ML IV SCH ×2 (10:09→21:15)
[2019-03-03 11:00] VITALS: BP 141/71
[2019-03-03] MEDS: MICAFUNGIN 100 MG in IV DEXTROSE 5% 100ML 100 ML IV SCH (12:20)
[2019-03-03] MEDS ORDERED: VANCOMYCIN RANDOM LEVEL. MC ONE (13:00)
--- NOTE | 2019-03-03 13:06 | NUR ---
SW following for discharge planning. Discussed with RN, pt currently on IV meropenem, IV vanco, IV micafungin, and PO vanco, pt has a wound vac and rectal tube. Pt does not meet rev codes for [facility]. [facility] contacted [facility] to determine if pt can return with all of the above, [facility] stated they cannot take pt with an IJ. Discussed with RN, picc line ordered by Dr. Andersen. DEXTER will continue to follow, possible discharge to [facility] today or tomorrow (03/04/19).
[2019-03-03 15:00] VITALS: BP 122/68
--- NOTE | 2019-03-03 15:14 | NUR ---
Pharmacy Vancomycin Dosing Note S: Consulted to monitor and dose vancomycin started 02/26/19. O: ROGELIO MYERS is a 68 year old M with Cellulitis Osteomyelitis, SACRAL WOUND . Other Antibiotics: MEROPENEM 500MG IV Q8HRS MICAFUNGIN 100 MG IV Q24HRS LABS: Last BUN: 12 Last Creatinine: 0.8 Creatinine Clearance: 66 mL/min Last WBC: 15.7 Last Procalcitonin: - Tmax (past 24 hours): 98.3 Microbiology: BLOOD CX (02/26): NGTD UCX KLEB PNEUMO, YEAST (INDWELLING CHEUNG) I/O: 120/850 Drug Levels: Last Random level: 24.2 on 03/04/19 at 0600 Last dose given 03/01/19 at 2126 Vancomycin Dosing: Dosing Weight: Actual Target Trough: 15-20 A: Based on: random level P: 1. HOLD Vancomycin doses 2. Follow up random level 03/04 @0600 3. Pharmacy will continue to monitor, follow and adjust therapy as needed. Alena Olmstead Erick, 03/03/19 [id number]
[2019-03-03] MEDS ORDERED: LIDOCAINE WITH 8.4% SOD BICARB 3 ML DISP.SYRIN. ONE ×2 (15:48→16:30)
[2019-03-03] MEDS ORDERED: LIDOCAINE WITH 8.4% SOD BICARB 3 ML DISP.SYRIN. INJ ONE (16:00)
[2019-03-03] MEDS ORDERED: IOHEXOL 240 MG/ML 50ML VIAL. ONE (16:14)
--- NOTE | 2019-03-03 16:57 | RAD ---
03/03/2019 4:51 PM Procedure: 1. Inability to place right upper extremity PICC line due to occluded right subclavian vein 2. Ultrasound and fluoroscopically guided placement of tunnel central venous catheter. Clinical Indication: needed for discharge to [facility] today Sedation: Conscious sedation was administered for minutes. The patient was monitored by a qualified independent observer throughout the time of sedation. Please refer to the medical record for exact doses of medications utilized to achieve moderate sedation. Fluoroscopy time: 4.7 minutes Dose area product: 6 4 Gycm2 Consent: The procedure was explained in its entirety to the patient or the patients designated customer retention representative by a member of the treatment team, including a discussion of the risks, benefits and commonly accepted alternatives to the procedure, as well as the expected consequences of no therapy whatsoever. Discussion of the risks included, but was not limited to, those that are most frequent and those that are rare but possibly severe or life-threatening, as well as the possibility of unforeseen complications. Sterility: All elements of maximal sterile barrier technique including the use of a cap, mask, sterile gown, sterile gloves, large sterile sheet, appropriate hand hygiene, and 2% chlorhexidine for cutaneous antisepsis (or acceptable alternative antiseptic per current guidelines) were followed for this procedure. Technique and Findings: Following informed consent, the patient was prepped and draped in the usual sterile fashion. Ultrasound evaluation of the right upper extremity was performed demonstrating patent right basilic vein. The vein is accessed using micropuncture technique and direct ultrasound guidance. Reference images were saved in the record. A guidewire would not advance past the level of the subclavian vein. Venography was performed demonstrating complete occlusion of the subclavian vein. Given resistance to passing a wire subacute for chronic etiology is somewhat favored. Acute thrombosis not excluded. Ultrasound interrogation of the right neck revealed patency and compressibility of the right internal jugular vein. A 21-gauge micropuncture was then used to gain access to this vein under ultrasound guidance. A hard copy ultrasound image was recorded. The needle was exchanged over a wire for a sheath. A small incision was made several centimeters inferior to the right clavicle. A power line was trimmed to length, advanced from the small skin incision to the venotomy site, and then advanced through a peel-away sheath to the level of the cavoatrial junction. Catheter was found to flush and aspirate normally. Catheter was secured in place with 2-0 Prolene suture and a sterile dressing was applied. Catheter was packed with heparin per protocol. The neck dermatotomy was closed with Dermabond. No immediate complications were identified. Impression: 1.Successful ultrasound and fluoroscopically guided placement of a right internal jugular tunneled central venous catheter 2. Inability to place right upper extremity PICC line secondary to occlusion of the right subclavian vein. Venous occlusion is felt to most likely be subacute or chronic elbow and acute thrombosis is not excluded. The findings were discussed with the patient's attending physician immediately following procedure.
[2019-03-03] MEDS ORDERED: CONTRAST GIVEN. MC PRN (17:00)
[2019-03-03] MEDS ORDERED: IOHEXOL 240 MG/ML 50ML VIAL. IV ONE (17:00)
[2019-03-03 19:00] VITALS: BP 94/73
[2019-03-03] MEDS: ATORVASTATIN CALCIUM 10 MG TABLET. PO SCH (21:19)
[2019-03-03] MEDS: MIRTAZAPINE 15 MG TABLET PO SCH (21:19)
[2019-03-03] MEDS: DIVALPROEX EXTENDED RELEASE 500 MG TAB.ER.24H. PO SCH (21:19)
[2019-03-03 23:00] VITALS: BP 118/59
--- NOTE | 2019-03-03 23:10 | PN ---
DATE: 03/03/2019 SUBJECTIVE: The patient was sitting slightly propped up in bed. He is definitely more awake, alert and attempting to eat his breakfast. On questioning him, he denied any complaint. The nursing staff did not voice any concerns that he had an uneventful night. His H and H remained stable and no further bleeding. PHYSICAL EXAMINATION: GENERAL: When I examined him, he looked pale, but no jaundice or cyanosis. No lymphadenopathy and no thyromegaly. No jugular venous distension. No lower limb edema. VITAL SIGNS: His heart rate was 79, blood pressure was 129/75, temperature was 98.3, respiratory rate was 18 and oxygen saturation was 97% on room air. HEAD, EYES, EARS, NOSE AND THROAT: Showed normocephalic and atraumatic. NECK: Supple. HEART: Showed normal first and second heart sounds. No gallop, rub or murmur. CHEST: Clear to auscultation. No crepitation or rhonchi. ABDOMEN: Distended, soft and nontender. No guarding or rigidity. No organomegaly. All hernial orifices are intact. Bowel sounds normal. NEUROLOGICAL: He is definitely more awake, alert and responding appropriately. All his cranial nerves are intact. He moves his upper extremities without difficulty. He is actually attempting to feed himself, has large sacral decubitus ulcer, status post debridement with profuse bleeding after the surgical debridement requiring return to the OR to control the bleed. He received 4 units of packed 2 units of RBCs. He is mostly bed bound. His intake over the last 24 hours was 3015, no output was recorded. LABORATORY DATA: His lab work this morning showed a white cell count 15,700; hemoglobin 10; hematocrit 30; MCV 89 and platelet count 240. His chemistry showed a serum sodium of 140, potassium 4.3, chloride 109, bicarbonate 23, anion gap of 8, BUN 12, creatinine was 0.8, estimated GFR was 96 mL per minute, his glucose was 85 and calcium was 8. His nasal screen for MRSA by PCR was positive. His C. diff toxin was positive. ASSESSMENT: 1. Altered mental status, multifactorial, improving. 2. Acute kidney injury, resolving. His serum creatinine is down to 0.8 mg/dL. 3. Probable urinary tract infection. 4. Infected sacral decubitus ulcer. 5. Hypokalemia, resolved. 6. He has multiple other medical problems including: A. Congestive heart failure. B. Coronary artery disease. C. Hypercholesterolemia. D. Atrial fibrillation, rate controlled. His amiodarone and Coreg were discontinued. E. Hypertension. F. Chronic obstructive pulmonary disease. G. Type 2 diabetes mellitus. H. Depression and anxiety. PLAN: Continue with IV fluid, continue IV antibiotic. Continue to monitor his H and H and transfuse him as needed. We will continue the oral vancomycin. We will consult the case management associate to see whether he can qualifies to be admitted again to [facility]. CINDY SULLIVAN MD DR: AMY/afsaneh JOB#: [id number] / [id number]
[2019-03-04 03:00] VITALS: BP 105/55
[2019-03-04] MEDS ORDERED: VANCOMYCIN RANDOM LEVEL. MC ONE (06:00)
[2019-03-04] MEDS: MEROPENEM 500 MG in IV NORMAL SALINE 50ML 50 ML IV SCH ×3 (06:26→21:42)
[2019-03-04 07:00] VITALS: BP 134/61
[2019-03-04] MEDS: NITROGLYCERIN 0.2MG/HR PATCH. TD SCH (09:00)
[2019-03-04] MEDS: traMADol 50 MG TABLET PO SCH ×4 (09:00→20:33)
[2019-03-04] MEDS: FAMOTIDINE 20 MG TABLET. PO SCH (10:05)
[2019-03-04] MEDS: LACTOBACILLUS RHAMNOSUS GG 1 CAPSULE. PO SCH ×2 (10:05→20:22)
[2019-03-04] MEDS: CITALOPRAM 20 MG TABLET. PO SCH (10:05)
[2019-03-04] MEDS: ZINC SULFATE 220 MG CAPSULE. PO SCH ×2 (10:06→20:21)
[2019-03-04] MEDS: FOLIC ACID 1 MG TABLET. PO SCH (10:06)
[2019-03-04] MEDS: LISINOPRIL 10 MG TABLET PO SCH (10:06)
[2019-03-04] MEDS: TAMSULOSIN 0.4 MG CAP.ER.24H. PO SCH (10:06)
[2019-03-04] MEDS: ASCORBIC ACID 500 MG TABLET PO SCH (10:06)
[2019-03-04] MEDS: MULTIVITAMIN with MINERAL TABLET. PO SCH (10:06)
[2019-03-04] MEDS: OXcarbazepine 300 MG TABLET PO SCH ×2 (10:07→20:22)
[2019-03-04] MEDS: POTASSIUM CL 40MEQ D5-0.45NACL 1,000 ML IV SCH (10:08)
[2019-03-04] MEDS: MICONAZOLE NITRATE 2% TOPICAL CREAM 28GM TUBE. TP SCH ×2 (10:09→20:31)
[2019-03-04] MEDS: VANCOMYCIN 125 MG/2.5 ML ORAL SOLUTION. PO SCH ×4 (10:11→20:21)
[2019-03-04 11:00] VITALS: BP 109/80
[2019-03-04] MEDS: VANCOMYCIN PER PHARMACY MC PRN (11:58)
--- NOTE | 2019-03-04 11:59 | NUR ---
Pharmacy Vancomycin Dosing Note S: Consulted to monitor and dose vancomycin started 02/26/19. O: ROGELIO MYERS is a 68 year old M with Cellulitis, Osteomyelitis, SACRAL WOUND . Other Antibiotics: MEROPENEM 500MG IV Q8HRS MICAFUNGIN 100 MG IV Q24HRS LABS: Last BUN: 12 Last Creatinine: 0.8 Creatinine Clearance: 66 mL/min Last WBC: 15.7 Last Procalcitonin: - Tmax (past 24 hours): 98.3 Microbiology: BLOOD CX (02/26): NGTD UCX KLEB PNEUMO, YEAST (INDWELLING CHEUNG) I/O: 1510/2400 Drug Levels: Last Random level: 18.4 on 03/04/19 at 0545 Last dose given 03/02/19 at 1358 Vancomycin Dosing: Dosing Weight: Actual Target Trough: 15-20 A: Based on: levels P: 1. Begin Vancomycin 1250 mg IV q48h 2. Follow up Trough level to be ordered to further assess therapy 3. Pharmacy will continue to monitor, follow and adjust therapy as needed. Alena Olmstead RPH, 03/04/19 1200
--- NOTE | 2019-03-04 12:47 | PDOC ---
Infectious Disease Note Subjective Subjective Feeling alright Not very hungry Rectal tube still in place Denies N/V/cramps No F/C/S ROS ROS per HPI Vital Sign Vital Signs Vital Signs Date Time Temp Pulse Resp B/P (MAP) Pulse Ox O2 Delivery O2 Flow Rate FiO2 03/04/19 10:06 78 134/61 03/04/19 08:15 Room Air 03/04/19 07:00 98.2 18 95 98.2 Physical Exam PHYSICAL EXAM GENERAL: Propped up in bed, alert, watching TV HEENT: Pupils equally round. Normal conjunctivae. Oral cavity clear. NECK: Supple. LUNGS: Clear to auscultation anteriorly HEART: S1 and S2. ABDOMEN: Soft, nontender, bowel sounds present. Rectal tube in place GENITOURINARY: Indwelling Linn in place. EXTREMITIES: No gross edema or cyanosis. SKIN: Warm without generalized rash. Large sacrococcygeal NEUROLOGICAL: alert, coop Right chest PICC clean Labs Lab Laboratory Tests Test 03/03/19 13:15 03/04/19 00:50 03/04/19 05:45 03/04/19 08:25 Random Vancomycin Level 24.2 mcg/mL 18.4 mcg/mL Glucose (Fingerstick) 84 mg/dL (70-99) 88 mg/dL (70-99) Test 03/04/19 10:11 03/04/19 12:17 Glucose (Fingerstick) 84 mg/dL (70-99) 91 mg/dL (70-99) Micro Objective Assessment Infected chronic large sacral decubitus with bone exposure. He has a history of osteomyelitis status post debridement on 12/30/2018 at . Previous cultures grew extended-spectrum beta-lactamase, Escherichia coli, Morganella, pseudomonas (resistant Fortaz, intermediate Zosyn), Bacteroides and Clostridium species. He completed a course of meropenem.Now with worsening secondary infected wound, s/p I and D with wound vac on 03/01. No repeated cultures C difficile colitis, 5/5 Pyuria with growth Klebsiella, 5/5 Leukocytosis, better Methicillin-resistant Staphylococcus aureus screen positive. 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 Encephalopathy. Protein-calorie malnutrition. History of cerebrovascular accident. Paroxysmal atrial fibrillation. Diabetes mellitus type 2. Anemia s/p PRBCs Plan Plan of Care cont vancomycin, meropenem, micafungin and po vanc Random trough 18.4 Continue to monitor renal function closely Monitor labs Local wound care Optimize nutrition Contact isolation D/w nursing Patient seen and examined. Chart reviewed in detail. Case discussed with DEPARTMENT ADMINISTRATOR. Agree with above plan. YUNG PITT APRN March 04, 2019 12:47 MOSHE SHARMA MD March 04, 2019 22:18
[2019-03-04] MEDS: MICAFUNGIN 100 MG in IV DEXTROSE 5% 100ML 100 ML IV SCH (12:49)
[2019-03-04] MEDS: VANCOMYCIN 1.25 GM in IV NORMAL SALINE 250ML 250 ML IV SCH (14:26)
[2019-03-04 15:00] VITALS: BP 127/78
[2019-03-04 19:00] VITALS: BP 154/83
[2019-03-04] MEDS: ATORVASTATIN CALCIUM 10 MG TABLET. PO SCH (20:21)
[2019-03-04] MEDS: MIRTAZAPINE 15 MG TABLET PO SCH (20:22)
[2019-03-04] MEDS: DIVALPROEX EXTENDED RELEASE 500 MG TAB.ER.24H. PO SCH (20:22)
[2019-03-04 23:00] VITALS: BP 146/86
--- NOTE | 2019-03-05 02:02 | PN ---
DATE: 03/04/2019 SUBJECTIVE: The patient is resting slightly propped up in bed, sleeping comfortably in no apparent distress. He is very lethargic, but arousable. On questioning him, he denied any complaint. The nursing staff did not voice any concern that he had an uneventful night. When I examined him, he looked pale, not jaundiced. He apparently has had a PICC line placed successfully through the internal jugular vein. 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 PHYSICAL EXAMINATION: GENERAL: When I examined him, he looked well and was clearly in no apparent respiratory distress, pale, but no jaundice, cyanosis or thyromegaly. No jugular venous distension. No lower limb edema. VITAL SIGNS: His heart rate was 82, blood pressure was 105/55, temperature was 97.9, respiratory rate was 18, and oxygen saturation was 92% on room air. The rest of clinical exam is stable, has not changed, continues to have a rectal tube and indwelling Linn catheter and wound vacuum-assisted closure device in place. His intake was incompletely recorded, output was 850. LABORATORY DATA: No lab works done. As of yesterday, his BUN was 12, creatinine 0.8 and his hemoglobin 9.7, hematocrit 29.7. ASSESSMENT: 1. Altered mental status, multifactorial, improving. 2. Acute kidney injury, resolving. His serum creatinine is down to 2.8 mg/dL. 3. Probable urinary tract infection. 4. Infected sacral decubitus ulcer with exposed bones. 5. Hypokalemia, it has resolved. 6. He has multiple other medical problems including: A. Congestive heart failure. B. Coronary artery disease. C. Hypercholesterolemia. D. Atrial fibrillation, rate controlled. His amiodarone and Coreg were discontinued because of a long sinus pauses. E. Hypertension. F. Chronic obstructive pulmonary disease. G. Type 2 diabetes mellitus. H. Depression and anxiety. PLAN: To continue with IV antibiotic. Monitor his H and H and transfuse him as needed. Continue with oral vancomycin. As of yesterday, I was informed that the patient will stay until Wednesday, where the Infectious Disease is requested. CINDY SULLIVAN MD DR: AMY/afsaneh JOB#: [id number] / [id number]
[2019-03-05] MEDS: POTASSIUM CL 40MEQ D5-0.45NACL 1,000 ML IV SCH ×3 (02:03→23:15)
[2019-03-05 03:00] VITALS: BP 122/58
[2019-03-05] MEDS: MEROPENEM 500 MG in IV NORMAL SALINE 50ML 50 ML IV SCH ×3 (05:11→23:00)
[2019-03-05 05:34] LABS: CALCIUM 8.4 mg/dL (8.5-10.1); CREATININE 0.7 mg/dL (0.7-1.3); GFR 111.8; POTASSIUM 4.5 mmol/L (3.5-5.1)
[2019-03-05 05:53] LABS: HEMATOCRIT 30.8 % (39.0-53.0); RED BLOOD COUNT 3.47 x10^6/uL (4.30-5.70); RED CELL DISTRIBUTION WIDTH 15.1 % (11.5-14.5); WHITE BLOOD COUNT 18.3 x10^3/uL (4.0-11.0)
[2019-03-05 07:00] VITALS: BP 119/73
[2019-03-05] MEDS: ASCORBIC ACID 500 MG TABLET PO SCH (10:09)
[2019-03-05] MEDS: OXcarbazepine 300 MG TABLET PO SCH ×2 (10:09→21:09)
[2019-03-05] MEDS: ZINC SULFATE 220 MG CAPSULE. PO SCH ×2 (10:09→21:09)
[2019-03-05] MEDS: LACTOBACILLUS RHAMNOSUS GG 1 CAPSULE. PO SCH ×2 (10:10→21:09)
[2019-03-05] MEDS: TAMSULOSIN 0.4 MG CAP.ER.24H. PO SCH (10:10)
[2019-03-05] MEDS: FAMOTIDINE 20 MG TABLET. PO SCH (10:10)
[2019-03-05] MEDS: LISINOPRIL 10 MG TABLET PO SCH (10:11)
[2019-03-05] MEDS: FOLIC ACID 1 MG TABLET. PO SCH (10:11)
[2019-03-05] MEDS: traMADol 50 MG TABLET PO SCH ×4 (10:11→21:00)
[2019-03-05] MEDS: MULTIVITAMIN with MINERAL TABLET. PO SCH (10:12)
[2019-03-05] MEDS: NITROGLYCERIN 0.2MG/HR PATCH. TD SCH (10:12)
[2019-03-05] MEDS: VANCOMYCIN 125 MG/2.5 ML ORAL SOLUTION. PO SCH ×4 (10:13→21:09)
[2019-03-05] MEDS: CITALOPRAM 20 MG TABLET. PO SCH (10:13)
[2019-03-05] MEDS: MICONAZOLE NITRATE 2% TOPICAL CREAM 28GM TUBE. TP SCH ×2 (10:14→21:10)
[2019-03-05 11:00] VITALS: BP 91/59
--- NOTE | 2019-03-05 11:29 | PDOC ---
Infectious Disease Note Subjective Subjective Tired Not very hungry Rectal tube still in place Denies N/V/cramps No F/C/S ROS ROS per HPI Vital Sign Vital Signs Vital Signs Date Time Temp Pulse Resp B/P (MAP) Pulse Ox O2 Delivery O2 Flow Rate FiO2 03/05/19 10:11 20 Room Air 03/05/19 10:11 76 119/73 03/05/19 07:00 97.9 95 97.9 Physical Exam PHYSICAL EXAM GENERAL: Sleeping, arouses to name HEENT: Pupils equally round. Normal conjunctivae. Oral cavity clear. NECK: Supple. LUNGS: Clear to auscultation anteriorly HEART: S1 and S2. ABDOMEN: Soft, nontender, bowel sounds present. Rectal tube in place GENITOURINARY: Indwelling Linn in place. EXTREMITIES: No gross edema or cyanosis. SKIN: Warm without generalized rash. Sacrococcygeal wound vac in place NEUROLOGICAL: Answers appropriately Right chest PICC clean Labs Lab Laboratory Tests Test 03/04/19 12:17 03/04/19 16:58 03/04/19 20:57 03/05/19 04:50 Glucose (Fingerstick) 91 mg/dL (70-99) 97 mg/dL (70-99) 92 mg/dL (70-99) White Blood Count 18.3 x10^3/uL (4.0-11.0) Red Blood Count 3.47 x10^6/uL (4.30-5.70) Hemoglobin 10.0 g/dL (13.0-17.5) Hematocrit 30.8 % (39.0-53.0) Mean Corpuscular Volume 89 fL (79-100) Mean Corpuscular Hemoglobin 29 pg (25-35) Mean Corpuscular Hemoglobin Concent 33 g/dL (31-37) Red Cell Distribution Width 15.1 % (11.5-14.5) Platelet Count 225 x10^3/uL (140-400) Sodium Level 144 mmol/L (136-145) Potassium Level 4.5 mmol/L (3.5-5.1) Chloride Level 111 mmol/L (98-107) Carbon Dioxide Level 28 mmol/L (21-32) Anion Gap 5 (6-14) Blood Urea Nitrogen 7 mg/dL (8-26) Creatinine 0.7 mg/dL (0.7-1.3) Estimated GFR (Cockcroft-Gault) 111.8 Glucose Level 97 mg/dL (70-99) Calcium Level 8.4 mg/dL (8.5-10.1) Test 03/05/19 08:00 03/05/19 10:51 Glucose (Fingerstick) 93 mg/dL (70-99) 85 mg/dL (70-99) Micro Objective Assessment Infected chronic large sacral decubitus with bone exposure. He has a history of osteomyelitis status post debridement on 12/30/2018 at . Pre vious cultures grew extended-spectrum beta-lactamase, Escherichia coli, Morganella, pseudomonas (resistant Fortaz, intermediate Zosyn), Bacteroides and Clostridium species. He completed a course of meropenem. Now with worsening secondary infected wound, s/p I and D with wound vac on 03/01. No repeated cultures C difficile colitis, 5/5 Pyuria with growth Klebsiella, 5/5 Leukocytosis Methicillin-resistant Staphylococcus aureus screen positive. 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 Encephalopathy. Protein-calorie malnutrition. History of cerebrovascular accident. Paroxysmal atrial fibrillation. Diabetes mellitus type 2. Anemia s/p PRBCs Plan Plan of Care cont vancomycin, meropenem, micafungin and po vanc Random trough 18.4 Continue to monitor renal function closely Monitor labs Local wound care Optimize nutrition Contact isolation D/w nursing Patient seen and examined. Chart reviewed in detail. Case discussed with FRONT END MANAGER. Agree with above plan. YUNG PITT APRN March 05, 2019 11:29 MOSHE SHARMA MD March 05, 2019 18:49
[2019-03-05] MEDS: VANCOMYCIN PER PHARMACY MC PRN (12:28)
[2019-03-05] MEDS: MICAFUNGIN 100 MG in IV DEXTROSE 5% 100ML 100 ML IV SCH (14:51)
[2019-03-05 15:00] VITALS: BP 108/62
[2019-03-05 19:10] VITALS: BP 122/66
[2019-03-05] MEDS: MIRTAZAPINE 15 MG TABLET PO SCH (21:09)
[2019-03-05] MEDS: DIVALPROEX EXTENDED RELEASE 500 MG TAB.ER.24H. PO SCH (21:09)
[2019-03-05] MEDS: ATORVASTATIN CALCIUM 10 MG TABLET. PO SCH (21:09)
--- NOTE | 2019-03-05 21:42 | PN ---
DATE: 03/05/2019 SUBJECTIVE: The patient is resting, slightly propped up in bed, sleeping comfortably. He is arousable. On questioning him, he denied any complaint. The nursing staff did not voice any concerns. He had generally an uneventful night. PHYSICAL EXAMINATION: GENERAL: When I examined him, he looked pale, no jaundice, cyanosis, or thyromegaly. No jugular venous distension. No lower limb edema. VITAL SIGNS: His heart rate was 76, blood pressure was 119/73, temperature was 97.9, respiratory rate was 18 and oxygen saturation was 95% on room air. HEAD, EYES, EARS, NOSE AND THROAT: Showed normocephalic, atraumatic. NECK: Supple. HEART: Showed normal first and second sounds. No gallop, rub or murmur. CHEST: Clear to auscultation. No crepitation or rhonchi. ABDOMEN: Distended, soft, tender. No guarding or rigidity. No organomegaly. All hernial orifices intact. Bowel sounds normal. RECTAL: He has a rectal tube in place. NEUROLOGIC: He was sleepy, but arousable. All his cranial nerves are intact. He moves upper extremities to much greater extent than his lower extremities. He is mostly bedbound. He has large sacral stage decubitus ulcer. He has an indwelling Linn catheter. His intake over the last 24 hours was 1500, output was 2400. LABORATORY DATA: As of this morning, his white cell count was up to 18,300, hemoglobin 10, hematocrit 30, MCV 89 and platelet count 225,000. His chemistry showed serum sodium 144, potassium 4.5, chloride 111, bicarbonate 28, anion gap of 5, BUN 7, creatinine 0.7, estimated GFR was 111 mL per minute. His glucose was 97, calcium was 8.4. His urine culture has grown Klebsiella pneumoniae as well as yeast. ASSESSMENT: 1. Altered mental status, multifactorial, slowly improving. 2. Acute kidney injury, resolving. Serum creatinine is down to 0.7 mg/dL. 3. Probably urinary tract infection. 4. Infected sacral decubitus ulcer with exposed bone, status post debridement. 5. Hyperkalemia has resolved. 6. He has multiple other medical problems including: a. Congestive heart failure. b. Coronary artery disease. c. Hypercholesterolemia. d. Atrial fibrillation, rate controlled. His amiodarone and Coreg were discontinued because of long sinus pauses. e. Hypertension. f. Chronic obstructive pulmonary disease. g. Type 2 diabetes mellitus. h. Depression and anxiety. PLAN: To continue IV antibiotic. Continue to monitor her H and H and transfuse him as needed. Continue with oral vancomycin for Clostridium difficile colitis. Continue with IV antibiotic in the form of vancomycin, micafungin as well as meropenem. CINDY SULLIVAN MD DR: AMY/afsaneh JOB#: [id number] / [id number]
[2019-03-05 23:00] VITALS: BP 138/77
[2019-03-06 03:00] VITALS: BP 117/64
[2019-03-06] MEDS: MEROPENEM 500 MG in IV NORMAL SALINE 50ML 50 ML IV SCH ×2 (06:22→14:47)
[2019-03-06 07:00] VITALS: BP 150/78
[2019-03-06 07:13] LABS: BASO # 0.1 x10^3/uL (0.0-0.2); BASO % 1 % (0-3); EOS # 0.5 x10^3/uL (0.0-0.7); EOS % 3 % (0-3); HEMATOCRIT 27.3 % (39.0-53.0); HEMOGLOBIN 8.6 g/dL (13.0-17.5); LYMPH # 2.3 x10^3/uL (1.0-4.8); LYMPH % 14 % (24-48); MEAN CORPUSCULAR HEMOGLOBIN 28 pg (25-35); MEAN CORPUSCULAR HGB CONC 32 g/dL (31-37); MEAN CORPUSCULAR VOLUME 89 fL (79-100); MONO # 1.7 x10^3/uL (0.0-1.1); MONO % 10 % (0-9); NEUT # 12.1 x10^3uL (1.8-7.7); NEUT % 72 % (31-73); PLATELET COUNT 226 x10^3/uL (140-400); RED BLOOD COUNT 3.06 x10^6/uL (4.30-5.70); RED CELL DISTRIBUTION WIDTH 14.6 % (11.5-14.5); WHITE BLOOD COUNT 16.7 x10^3/uL (4.0-11.0)
[2019-03-06 08:52] LABS: % EOS 4 % (0-5); % LYMPHS 14 % (24-48); % MONOS 3 % (0-10); % SEGS 79 % (35-66); PLT ESTIMATE ADEQUATE (ADEQUATE)
[2019-03-06 08:53] LABS: ANISOCYTOSIS SLIGHT
[2019-03-06 08:54] LABS: BURR CELLS OCC
[2019-03-06] MEDS: traMADol 50 MG TABLET PO SCH ×2 (09:00→13:00)
[2019-03-06] MEDS: TAMSULOSIN 0.4 MG CAP.ER.24H. PO SCH (09:25)
[2019-03-06] MEDS: CITALOPRAM 20 MG TABLET. PO SCH (09:25)
[2019-03-06] MEDS: OXcarbazepine 300 MG TABLET PO SCH (09:25)
[2019-03-06] MEDS: FOLIC ACID 1 MG TABLET. PO SCH (09:25)
[2019-03-06] MEDS: ZINC SULFATE 220 MG CAPSULE. PO SCH (09:25)
[2019-03-06] MEDS: FAMOTIDINE 20 MG TABLET. PO SCH (09:25)
[2019-03-06] MEDS: LACTOBACILLUS RHAMNOSUS GG 1 CAPSULE. PO SCH (09:25)
[2019-03-06] MEDS: VANCOMYCIN 125 MG/2.5 ML ORAL SOLUTION. PO SCH ×2 (09:25→13:30)
[2019-03-06] MEDS: ASCORBIC ACID 500 MG TABLET PO SCH (09:25)
[2019-03-06] MEDS: MULTIVITAMIN with MINERAL TABLET. PO SCH (09:25)
[2019-03-06] MEDS: LISINOPRIL 10 MG TABLET PO SCH (09:26)
[2019-03-06] MEDS: MICONAZOLE NITRATE 2% TOPICAL CREAM 28GM TUBE. TP SCH (09:28)
[2019-03-06] MEDS: NITROGLYCERIN 0.2MG/HR PATCH. TD SCH (09:28)
--- NOTE | 2019-03-06 10:31 | NUR ---
DEXTER following for discharge planning. Discussed with RN, pt now has PICC line. [facility] can take pt back today, however RN advised we are waiting on ID re the abx. [facility]TER to set up stretcher transportation to take pt to [facility]. The latest [facility] will accept pt back is 1600. SW will continue to follow.
--- NOTE | 2019-03-06 10:51 | PDOC ---
Infectious Disease Note Subjective Subjective Feeling more rested Not very hungry Rectal tube still in place Denies N/V/cramps No F/C/S ROS ROS per HPI Vital Sign Vital Signs Vital Signs Date Time Temp Pulse Resp B/P (MAP) Pulse Ox O2 Delivery O2 Flow Rate FiO2 03/06/19 09:26 83 150/78 03/06/19 08:09 Room Air 03/06/19 07:00 97.9 18 99 97.9 Physical Exam PHYSICAL EXAM GENERAL: Alert, calm, watching TV HEENT: Oral cavity dry NECK: Supple. LUNGS: Clear to auscultation anteriorly HEART: S1 and S2. ABDOMEN: Soft, nontender, bowel sounds present. Rectal tube in place GENITOURINARY: Indwelling Linn in place. EXTREMITIES: No gross edema or cyanosis. SKIN: Warm without generalized rash. Sacrococcygeal wound very clean but exposed bone NEUROLOGICAL: Alert, answers appropriately Right chest PICC clean Labs Lab Laboratory Tests Test 03/05/19 10:51 03/05/19 16:39 03/05/19 21:24 03/06/19 06:40 Glucose (Fingerstick) 85 mg/dL (70-99) 99 mg/dL (70-99) 86 mg/dL (70-99) White Blood Count 16.7 x10^3/uL (4.0-11.0) Red Blood Count 3.06 x10^6/uL (4.30-5.70) Hemoglobin 8.6 g/dL (13.0-17.5) Hematocrit 27.3 % (39.0-53.0) Mean Corpuscular Volume 89 fL (79-100) Mean Corpuscular Hemoglobin 28 pg (25-35) Mean Corpuscular Hemoglobin Concent 32 g/dL (31-37) Red Cell Distribution Width 14.6 % (11.5-14.5) Platelet Count 226 x10^3/uL (140-400) Neutrophils (%) (Auto) 72 % (31-73) Lymphocytes (%) (Auto) 14 % (24-48) Monocytes (%) (Auto) 10 % (0-9) Eosinophils (%) (Auto) 3 % (0-3) Basophils (%) (Auto) 1 % (0-3) Neutrophils # (Auto) 12.1 x10^3uL (1.8-7.7) Lymphocytes # (Auto) 2.3 x10^3/uL (1.0-4.8) Monocytes # (Auto) 1.7 x10^3/uL (0.0-1.1) Eosinophils # (Auto) 0.5 x10^3/uL (0.0-0.7) Basophils # (Auto) 0.1 x10^3/uL (0.0-0.2) Segmented Neutrophils % 79 % (35-66) Lymphocytes % 14 % (24-48) Monocytes % 3 % (0-10) Eosinophils % 4 % (0-5) Platelet Estimate Adequate (ADEQUATE) Anisocytosis Slight [place] Cells Occ Test 03/06/19 07:00 Glucose (Fingerstick) 86 mg/dL (70-99) Micro Objective Assessment Infected chronic large sacral decubitus with bone exposure. He has a history of osteomyelitis status post debridement on 12/30/2018 at . Previous cultures grew extended-spectrum beta-lactamase, Escherichia coli, Morganella, pseudomonas (resistant Fortaz, intermediate Zosyn), Bacteroides and Clostridium species. He completed a course of meropenem. Now with worsening secondary infected wound, s/p I and D with wound vac on 03/01. No repeated cultures C difficile colitis, 5/5 Pyuria with growth Klebsiella, 5/5 Leukocytosis Methicillin-resistant Staphylococcus aureus screen positive. 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 Encephalopathy, better Protein-calorie malnutrition. History of cerebrovascular accident. Paroxysmal atrial fibrillation. Diabetes mellitus type 2. Anemia s/p PRBCs Plan Plan of Care cont vancomycin, meropenem for 5 weeks min, and po vanc QID for 2 weeks min then taper but will need to continue po for months D/c micafungin Random trough 18.4 Continue to monitor renal function closely Monitor labs Local wound care Optimize nutrition Contact isolation D/w Dr. Lin F/u ID office in 2 weeks [phone] d/w nursing Attending Co-Sign Attending Co-Sign The patient was seen and interviewed as well as examined at the bedside. The chart was reviewed. The case was discussed. Agree with the plan of care. YUNG PITT APRN March 06, 2019 10:51 JENNIFER MCNAMARA MD March 06, 2019 13:40
[2019-03-06 11:00] VITALS: BP 131/75
[2019-03-06] MEDS: POTASSIUM CL 40MEQ D5-0.45NACL 1,000 ML IV SCH (11:45)
--- NOTE | 2019-03-06 12:18 | NUR ---
SW following. SW set up non emergent ambulance transportation with the [place] [facility] to take pt back to [facility] at 1530. SW to cancel or change transportation if ID and Dr. Lin do not discharge patient. RN notified.
--- NOTE | 2019-03-06 12:45 | NUR ---
Wound Care Pt seen for wound care follow up and vac change to coccyx wound. Per pt's RN, pt is transferring to [facility] today at 1500. Wound Vac dressing removed, wound cleaned, measured and photographed. Wound bed is beefy red, with minimal slough, no active bleeding, and sacral bone in central wound base is now mostly covered with tissue. Wound repacked with Aquacel AG, ABD and tape, covered with transparent dressing to help keep stool off dressing. Pt repositioned onto right side with wedge and pillows, no other wounds noted on full skin inspection.
[2019-03-06] MEDS: MICAFUNGIN 100 MG in IV DEXTROSE 5% 100ML 100 ML IV SCH (13:30)
[2019-03-06] MEDS: VANCOMYCIN 1.25 GM in IV NORMAL SALINE 250ML 250 ML IV SCH (14:50)
[2019-03-06 15:00] VITALS: BP 150/69
[2019-03-06] MEDS ORDERED: VANC1.2514 IV (15:04)
[2019-03-06] MEDS ORDERED: VANC125C3 PO (15:04)
[2019-03-06] MEDS ORDERED: MERO500V15 IV (15:04)
--- NOTE | 2019-03-06 15:07 | SNU/HH DC ---
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 Chronic atrial fibrillation CONDITION ON DISCHARGE: Stable CODE STATUS: Code Status: Full [facility]: SNF STAY <30 DAYS: Yes LTAC: ADMIT TO LTAC: No POST DISCHARGE ORDERS: ACTIVITY ORDERS: Resume previous activity WEIGHT BEARING STATUS: Non weight bearing DIET AFTER DISCHARGE: Regular WOUND/INCISION CARE: Change dressing CHECKS AFTER DISCHARGE: CHECKS AFTER DISCHARGE: Check blood press - daily, Check blood sugar, ac/hs TREATMENT/EQUIPMENT ORDERS: ADAPTIVE EQUIPMENT NEEDED: None INFUSION EQUIPMENT NEEDED: PICC Line Physical Therapy For: Evalulation/Treatment Occupational Therapy For: Evaluation/Treatment Speech Language Pathology For: Evaluation/Treatment DISCHARGE MEDICATIONS: Home Meds Active Scripts Vancomycin Hcl (VANCOMYCIN HCL) 125 Mg Capsule, 125 MG PO QID for c diff for 35 Days, #140 CAP Prov:CINDY SULLIVAN MD 03/06/19 Vancomycin HCl in Dextrose 5 % (Vancomycin 1.25 Gram/250Ml-D5w) 1.25 Gm/250 Ml Plast..bag, 1.25 GM IV Q48H for osteo for 35 Days, #18 EACH Prov:CINDY SULLIVAN MD 03/06/19 Meropenem (MEROPENEM) 500 Mg Vial, 500 MG IV Q8H for osteomyelitis for 35 Days, #105 EACH Prov:CINDY SULLIVAN MD 03/06/19 Reported Medications Calcium Carbonate (TUMS) 200 Mg Tab.chew, 200 MG PO Q8HRS PRN for INDIGESTION, TAB.CHEW 02/26/19 Magnesium Hydroxide (MILK OF MAGNESIA) 400 Mg/5 Ml Oral.susp, 400 MG PO DAILY PRN for CONSTIPATION, MISC 02/26/19 Divalproex Sodium (DEPAKOTE ER) 500 Mg Tab.er.24h, 1 TAB PO QHS for seizures, #90 TAB 2 Refills 02/26/19 Apixaban (ELIQUIS) 5 Mg Tablet, 5 MG PO BID for a fib, TAB 01/25/19 Ascorbic Acid (VITAMIN C) 500 Mg Capsule.er, 500 MG PO DAILY for wound, CAP.SR 01/25/19 Multivitamin (MULTIVITAMINS) 1 Each Tablet, 1 TAB PO DAILY for wound, #90 TAB 3 Refills 01/25/19 Zinc Gluconate (ZINC) 50 Mg Tablet, 220 MG PO BID for wound, TAB 01/25/19 Atorvastatin Calcium (ATORVASTATIN CALCIUM) 20 Mg Tablet, 0.5 TAB PO HS for cholest., #30 TAB 5 Refills 01/25/19 Aspirin (ASPIRIN) 81 Mg Tab.chew, 1 TAB PO DAILY for blood, #30 TAB 3 Refills 01/25/19 Famotidine (FAMOTIDINE) 20 Mg Tablet, 20 MG PO BID for stomach, TAB 01/25/19 Folic Acid (FOLIC ACID) 1 Mg Tablet, 1 TAB PO DAILY for replacement, #90 TAB 1 Refill 01/25/19 Miconazole Nitrate (MICONAZOLE 3) 24 Gm Cmb.pf.crm, 24 GM VG BID for yeast, EACH 01/25/19 Sennosides (SENOKOT) 8.6 Mg Tablet, 1 TAB PO BID PRN for CONSTIPATION, #40 TAB 01/25/19 Tamsulosin Hcl (FLOMAX) 0.4 Mg Cap.er.24h, 1 CAP PO DAILY for flow, #30 CAP 11 Refills 01/25/19 Nitroglycerin (NITRO-DUR 0.2mg/hr) 1 Each Patch.td24, 1 EACH TD DAILY for heart, PATCH 01/25/19 Polyethylene Glycol 3350 (POLYETHYLENE GLYCOL 3350) 255 Gm Powder, 17 GM PO BID PRN for CONSTIPATION, #527 GM 01/25/19 Lisinopril (LISINOPRIL) 10 Mg Tablet, 1 TAB PO DAILY for htn, #30 TAB 5 Refills 01/25/19 Escitalopram Oxalate (ESCITALOPRAM OXALATE) 10 Mg Tablet, 1 TAB PO DAILY for depression, #30 TAB 3 Refills 01/25/19 Tramadol Hcl (TRAMADOL HCL) 50 Mg Tablet, 50 MG PO QID for pain, TAB 0 Refills 01/25/19 Mirtazapine (MIRTAZAPINE) 15 Mg Tablet, 1 TAB PO QHS for depression, #30 TAB 3 Refills 01/25/19 Oxcarbazepine (OXCARBAZEPINE) 300 Mg Tablet, 300 MG PO BID for ?, TAB 01/25/19 Discontinued Reported Medications Fluconazole (DIFLUCAN) 200 Mg Tablet, 1 TAB PO DAILY for yeast infection, #7 TAB 02/26/19 Amoxicillin/Potassium Clav (AUGMENTIN 875-125 TABLET) 1 Each Tablet, 1 TAB PO BID for wound healing, #14 TAB 02/26/19 CINDY SULLIVAN MD March 06, 2019 15:07
--- NOTE | 2019-03-06 15:19 | SNU/HH DC ---
DISCHARGE ORDERS DISCHARGE INFORMATION: DISCHARGE DATE: March 06, 2019 CONDITION ON DISCHARGE: Stable CODE STATUS: Code Status: Full CARE HOME: SNF STAY <30 DAYS: No POST DISCHARGE ORDERS: ACTIVITY ORDERS: Resume previous activity WEIGHT BEARING STATUS: Non weight bearing DIET AFTER DISCHARGE: Regular WOUND/INCISION CARE: Change dressing CHECKS AFTER DISCHARGE: CHECKS AFTER DISCHARGE: Check blood press - daily, Check blood sugar, ac/hs TREATMENT/EQUIPMENT ORDERS: ADAPTIVE EQUIPMENT NEEDED: None INFUSION EQUIPMENT NEEDED: PICC Line Physical Therapy For: Evalulation/Treatment Occupational Therapy For: Evaluation/Treatment Speech Language Pathology For: Evaluation/Treatment DISCHARGE MEDICATIONS: Home Meds Active Scripts Vancomycin Hcl (VANCOMYCIN HCL) 125 Mg Capsule, 125 MG PO QID for c diff for 35 Days, #140 CAP Prov:CINDY SULLIVAN MD 03/06/19 Vancomycin HCl in Dextrose 5 % (Vancomycin 1.25 Gram/250Ml-D5w) 1.25 Gm/250 Ml Plast..bag, 1.25 GM IV Q48H for osteo for 35 Days, #18 EACH Prov:CINDY SULLIVAN MD 03/06/19 Meropenem (MEROPENEM) 500 Mg Vial, 500 MG IV Q8H for osteomyelitis for 35 Days, #105 EACH Prov:CINDY SULLIVAN MD 03/06/19 Reported Medications Calcium Carbonate (TUMS) 200 Mg Tab.chew, 200 MG PO Q8HRS PRN for INDIGESTION, TAB.CHEW 02/26/19 Magnesium Hydroxide (MILK OF MAGNESIA) 400 Mg/5 Ml Oral.susp, 400 MG PO DAILY PRN for CONSTIPATION, MISC 02/26/19 Divalproex Sodium (DEPAKOTE ER) 500 Mg Tab.er.24h, 1 TAB PO QHS for seizures, #90 TAB 2 Refills 02/26/19 Apixaban (ELIQUIS) 5 Mg Tablet, 5 MG PO BID for a fib, TAB 01/25/19 Ascorbic Acid (VITAMIN C) 500 Mg Capsule.er, 500 MG PO DAILY for wound, CAP.SR 01/25/19 Multivitamin (MULTIVITAMINS) 1 Each Tablet, 1 TAB PO DAILY for wound, #90 TAB 3 Refills 01/25/19 Zinc Gluconate (ZINC) 50 Mg Tablet, 220 MG PO BID for wound, TAB 01/25/19 Atorvastatin Calcium (ATORVASTATIN CALCIUM) 20 Mg Tablet, 0.5 TAB PO HS for cholest., #30 TAB 5 Refills 01/25/19 Aspirin (ASPIRIN) 81 Mg Tab.chew, 1 TAB PO DAILY for blood, #30 TAB 3 Refills 01/25/19 Famotidine (FAMOTIDINE) 20 Mg Tablet, 20 MG PO BID for stomach, TAB 01/25/19 Folic Acid (FOLIC ACID) 1 Mg Tablet, 1 TAB PO DAILY for replacement, #90 TAB 1 Refill 01/25/19 Miconazole Nitrate (MICONAZOLE 3) 24 Gm Cmb.pf.crm, 24 GM VG BID for yeast, EACH 01/25/19 Sennosides (SENOKOT) 8.6 Mg Tablet, 1 TAB PO BID PRN for CONSTIPATION, #40 TAB 01/25/19 Tamsulosin Hcl (FLOMAX) 0.4 Mg Cap.er.24h, 1 CAP PO DAILY for flow, #30 CAP 11 Refills 01/25/19 Nitroglycerin (NITRO-DUR 0.2mg/hr) 1 Each Patch.td24, 1 EACH TD DAILY for heart, PATCH 01/25/19 Polyethylene Glycol 3350 (POLYETHYLENE GLYCOL 3350) 255 Gm Powder, 17 GM PO BID PRN for CONSTIPATION, #527 GM 01/25/19 Lisinopril (LISINOPRIL) 10 Mg Tablet, 1 TAB PO DAILY for htn, #30 TAB 5 Refills 01/25/19 Escitalopram Oxalate (ESCITALOPRAM OXALATE) 10 Mg Tablet, 1 TAB PO DAILY for depression, #30 TAB 3 Refills 01/25/19 Tramadol Hcl (TRAMADOL HCL) 50 Mg Tablet, 50 MG PO QID for pain, TAB 0 Refills 01/25/19 Mirtazapine (MIRTAZAPINE) 15 Mg Tablet, 1 TAB PO QHS for depression, #30 TAB 3 Refills 01/25/19 Oxcarbazepine (OXCARBAZEPINE) 300 Mg Tablet, 300 MG PO BID for ?, TAB 01/25/19 Discontinued Reported Medications Fluconazole (DIFLUCAN) 200 Mg Tablet, 1 TAB PO DAILY for yeast infection, #7 TAB 02/26/19 Amoxicillin/Potassium Clav (AUGMENTIN 875-125 TABLET) 1 Each Tablet, 1 TAB PO BID for wound healing, #14 TAB 02/26/19 CINDY SULLIVAN MD March 06, 2019 15:19
--- NOTE | 2019-03-06 16:43 | NUR ---
Pt discharged to [facility]. All belongings packed and sent with the patient. Attempted to call report, no one answered. Assisted pt to stretcher with EMS personnel.
--- NOTE | 2019-03-06 17:06 | PDOC ---
PROGRESS NOTES Assessment Assessment IMPRESSION: Metabolic encephalopathy. UTI? Leukocytosis. C. Diff. DM. COPD. Left cerebellar infract in 11/2018. HTN. HLD. Sacral decubitus. Achondroplasia. Obesity. Hx of cardiac arrest. RECOMMENDATIONS/PLAN: ASA 81 mg daily. EEG if needed. Treat medical diseases. OT/PT. Past Medical History Cardiovascular: AFIB (has been on eliquis), CAD, CHF, HTN, Hyperlipidemia, Other (cardiac arrests) Pulmonary: COPD, Pulmonary embolus, Previously Intubated CENTRAL NERVOUS SYSTEM: CVA Psych: Anxiety, Depression Musculoskeletal: Other (achondroplasia) Infectious disease: Other (sacral decube) Renal/: Benign prostatic enlarg. (chronic crooks) Endocrine: Diabetes Past Surgical History Multiple debridements. Family History Seizures. Social History [facility], , former smoker, no alcoho Allergies Coded Allergies: I S O L A T I O N *CONTACT* (Verified Allergy, Unknown, 01/27/19), mrsa No Known Medication Allergies (Verified Allergy, Unknown, 01/27/19) ROS Negative for fever, chills, weight loss, shortness of breath, chest pain, indigestion, hematochezia, melena, and dysuria. Full 14-point review of systems is negative. PHYSICAL EXAMINATION: General appearance in no acute distress. HEENT: Normocephalic and nontraumatic. Eyes, nose, ears, and throat are unremarkable. Neck is supple. No lymphadenopathy. No Crepitus. Cardiovascular: S1, S2, regular rate and rhythm. Pulmonary: Clear to auscultation bilaterally. Abdomen: Bowel sounds are positive. Abdomen is soft, nontender, and nondistended. Extremities: No rash, lesions, or edema. No restriction of range of motion NEUROLOGICAL EXAMINATION: Awake. Not oriented to time, but knew place and person. PERRL. EOMI. CN: no focal findings. Muscle tone: within normal. Muscle strength: 4+ DTR: 1-2 Plantar reflex: Neutral response bilaterally Gait: not examined in bed. Sensory exam: no abnormal findings. No acute cerebellar signs elicited. F-T-N test fine. Objective Objective Vital Signs Date Time Temp Pulse Resp B/P (MAP) Pulse Ox O2 Delivery O2 Flow Rate FiO2 03/06/19 15:00 97.9 84 18 150/69 (96) 97 Room Air 97.9 Intake and Output 03/06/19 07:00 Intake Total 50 ml Output Total 1950 ml Balance -1900 ml IV Total 50 ml Output Urine Total 1950 ml Vitals Signs Vitals VS - Last 72 Hours, by Label Date Time Temp Pulse Resp B/P (MAP) Pulse Ox O2 Delivery O2 Flow Rate FiO2 03/06/19 15:00 97.9 84 18 150/69 (96) 97 Room Air 97.9 03/06/19 11:00 97.7 84 17 131/75 (93) 96 Room Air 97.7 03/06/19 09:26 83 150/78 03/06/19 08:09 Room Air 03/06/19 07:00 97.9 83 18 150/78 (102) 99 Room Air 97.9 03/06/19 03:00 98.3 84 18 117/64 (81) 95 Room Air 98.3 03/05/19 23:00 97.7 85 18 138/77 (97) 93 Room Air 97.7 03/05/19 20:00 Room Air 03/05/19 19:10 98.1 86 16 122/66 (84) 98 Room Air 98.1 03/05/19 15:00 98.2 82 18 108/62 (77) 95 Room Air 98.2 03/05/19 11:11 18 Room Air 03/05/19 11:00 98.4 85 18 91/59 (70) 96 Room Air 98.4 03/05/19 10:11 20 Room Air 03/05/19 10:11 76 119/73 03/05/19 08:00 Room Air 03/05/19 07:00 97.9 76 18 119/73 (88) 95 Room Air 97.9 Laboratory Laboratory Laboratory Tests Test 03/05/19 21:24 03/06/19 06:40 03/06/19 07:00 03/06/19 11:54 Glucose (Fingerstick) 86 mg/dL (70-99) 86 mg/dL (70-99) 97 mg/dL (70-99) White Blood Count 16.7 x10^3/uL (4.0-11.0) Red Blood Count 3.06 x10^6/uL (4.30-5.70) Hemoglobin 8.6 g/dL (13.0-17.5) Hematocrit 27.3 % (39.0-53.0) Mean Corpuscular Volume 89 fL (79-100) Mean Corpuscular Hemoglobin 28 pg (25-35) Mean Corpuscular Hemoglobin Concent 32 g/dL (31-37) Red Cell Distribution Width 14.6 % (11.5-14.5) Platelet Count 226 x10^3/uL (140-400) Neutrophils (%) (Auto) 72 % (31-73) Lymphocytes (%) (Auto) 14 % (24-48) Monocytes (%) (Auto) 10 % (0-9) Eosinophils (%) (Auto) 3 % (0-3) Basophils (%) (Auto) 1 % (0-3) Neutrophils # (Auto) 12.1 x10^3uL (1.8-7.7) Lymphocytes # (Auto) 2.3 x10^3/uL (1.0-4.8) Monocytes # (Auto) 1.7 x10^3/uL (0.0-1.1) Eosinophils # (Auto) 0.5 x10^3/uL (0.0-0.7) Basophils # (Auto) 0.1 x10^3/uL (0.0-0.2) Segmented Neutrophils % 79 % (35-66) Lymphocytes % 14 % (24-48) Monocytes % 3 % (0-10) Eosinophils % 4 % (0-5) Platelet Estimate Adequate (ADEQUATE) Anisocytosis Slight [place] Cells Occ Microbiology 02/26/19 Blood Culture - Final, Complete NO GROWTH AFTER 5 DAYS 02/26/19 Urine Culture - Final, Complete 02/26/19 Urine Culture Result 1 (YAMINI) - Final, Complete 02/26/19 Urine Culture Result 2 (YAMINI) - Final, Complete 02/26/19 Antimicrobic Susceptibility - Final, Complete Comment Review of Relevant I have reviewed the following items lg (where applicable) has been applied. TARUN MOORE MD March 06, 2019 17:06
--- NOTE | 2019-03-06 20:43 | DS ---
DATE OF DISCHARGE: 03/06/2019 HOSPITAL COURSE: The patient is a 68-year-old male patient who was originally admitted with altered mental status. The patient is a 68-year-old male patient who has a history of large sacral decubitus ulcer with osteomyelitis, for which he underwent debridement at [facility]. At that time, his culture grew extended spectrum beta lactamase E. coli, Morganella, Pseudomonas that was resistant to ceftazidime, intermediate to Zosyn, bacteroides and Clostridium species. He completed a course of meropenem on 02/12/2019. The wound was very clean, healthy with granulating tissue and bone coverage. He was discharged from [facility] to [facility] on a wound VAC. He was seen in the Emergency Room of [facility] for evaluation of altered mental status, leukocytosis and also acute on chronic kidney injury. CT scan of the abdomen and pelvis showed no evidence of cortical disruption; however, osteomyelitis could not be completely excluded. General Surgery was consulted and he was started on vancomycin and Zosyn. He was seen in consultation by Infectious Disease as well as the surgical team and underwent surgical debridement. He did actually bleed extensively, required return to the OR and received 4 units of packed RBCs on the same day; however, he did very well generally. He was seen by the Infectious Disease specialist and his antibiotic was switched to meropenem and vancomycin as well as oral vancomycin as he developed diarrhea and was positive for C. diff colitis. He has a rectal tube and indwelling Linn catheter, and as he remained stable, a decision was made to discharge him to long-term side of [facility]. PHYSICAL EXAMINATION: GENERAL: When I saw him today, he looked well and was clearly in no apparent respiratory distress. He was pale, but no jaundice, cyanosis, or thyromegaly. No jugular venous distension. No lower limb edema. VITAL SIGNS: His heart rate was 84, blood pressure 131/75, temperature was 97.7, respiratory rate was 17 and oxygen saturation was 96% on room air. HEAD, EYES, EARS, NOSE AND THROAT: Showed normocephalic, atraumatic. NECK: Supple. HEART: Showed normal first and second sounds. No gallop, rub or murmur. CHEST: Clear to auscultation. No crepitation or rhonchi. ABDOMEN: Distended, soft, nontender. NEUROLOGIC: He is more awake, alert, responding appropriately. All cranial nerves intact. He moves his upper extremities to much greater extent than lower extremities. PELVIS: He has a rectal tube and indwelling Linn catheter and a large sacral decubitus ulcer covered with wound vacuum assisted closure device. INS AND OUTS: His intake over the last 24 hours was 1400, output was 2150. LABORATORY DATA: His lab work this morning showed a white cell count of 16,700, hemoglobin 8.6, hematocrit 27, MCV 89 and platelet count 226,000. His chemistry showed a serum sodium 144, potassium 4.5, chloride 111, bicarbonate 26, anion gap of 5, BUN 7, creatinine 0.7, estimated GFR was 111 mL per minute. His glucose was 97, calcium was 8.4. DISCHARGE MEDICATIONS: He was discharged to the long-term care side of [facility] to continue on meropenem 500 mg IV every 8 hours for 5 weeks, vancomycin 1.25 orally 4 times a day for C. diff colitis and vancomycin 1.25 grams IV every 48 hours for 35 days. She would continue on apixaban 5 mg twice a day, ascorbic acid 500 mg daily, aspirin 81 mg once a day, atorvastatin calcium 20 mg daily and 0.5 mg at bedtime. He is on calcium carbonate for Tums 200 mg every 8 hours, divalproex sodium for Depakote 500 mg once a day, escitalopram oxalate 10 mg daily, famotidine 20 mg twice a day, folic acid 1 mg once a day, lisinopril 10 mg daily, magnesium hydroxide for milk of magnesia 30 mL p.o. daily p.r.n. for constipation, mirtazapine 15 mg at bedtime, multivitamin 1 tablet daily, nitroglycerin for Nitro-Dur 1 patch topically daily, oxcarbazepine 300 mg twice a day, polyethylene glycol 17 grams daily, senna-S twice a day, tamsulosin 0.4 mg at bedtime, tramadol 50 mg 4 times a day and zinc gluconate 220 mg twice a day. FINAL DISCHARGE DIAGNOSES: 1. Altered mental status, multifocal slowly improving. 2. Acute kidney injury, resolved. His most recent serum creatinine is down to 0.7 mg/dL. 3. Urinary tract infection. 4. Infected sacral decubitus ulcer with exposed bone, status post debridement. 5. Acute blood loss anemia, status post blood transfusion. He received 4 units of packed red blood cells. 6. Hyperlipidemia. 7. The patient has multiple medical problems including: A. Congestive heart failure. B. Coronary artery disease. C. Hypercholesterolemia. D. Atrial fibrillation. E. Hypertension. F. Chronic obstructive pulmonary disease. G. Type 2 diabetes. H. Depression and anxiety. CINDY SULLIVAN MD DR: AMY/afsaneh JOB#: [id number] / [id number]
[2019-03-07] MEDS ORDERED: ASPIRIN CHEWABLE 81 MG TABLET. PO SCH (08:00)
== END 2019-03-06 15:53 | disposition home or self-care (01) | DRG 853 ==
LOC: ER 21:56 → 4 NORTH 02-26 01:13
PROVIDERS: ADMIT Internal Medicine; ATTEND Internal Medicine
PROC: 30233N1 Transfusion of Nonautologous Red Blood Cells into Peripheral Vein, Percutaneous Approach (ICD-10-PCS; 2019-02-28)
PROC: 0Y310ZZ Control Bleeding in Left Buttock, Open Approach (ICD-10-PCS; 2019-03-01)
PROC: 0KBN0ZZ Excision of Right Hip Muscle, Open Approach (ICD-10-PCS; 2019-03-01)
PROC: 0Y300ZZ Control Bleeding in Right Buttock, Open Approach (ICD-10-PCS; 2019-03-01)
PROC: 0KBP0ZZ Excision of Left Hip Muscle, Open Approach (ICD-10-PCS; principal; 2019-03-01 09:30)
PROC: 0JH63XZ Insertion of Tunneled Vascular Access Device into Chest Subcutaneous Tissue and Fascia, Percutaneous Approach (ICD-10-PCS; 2019-03-03)
PROC: 02HV33Z Insertion of Infusion Device into Superior Vena Cava, Percutaneous Approach (ICD-10-PCS; 2019-03-03)
PROC: B5181ZA Fluoroscopy of Superior Vena Cava using Low Osmolar Contrast, Guidance (ICD-10-PCS; 2019-03-03)
PROC: B548ZZA Ultrasonography of Superior Vena Cava, Guidance (ICD-10-PCS; 2019-03-03)
PROC: B5161ZZ Fluoroscopy of Right Subclavian Vein using Low Osmolar Contrast (ICD-10-PCS; 2019-03-03)
DX: A41.9 Sepsis, unspecified organism (principal); G93.41 Metabolic encephalopathy; L89.154 Pressure ulcer of sacral region, stage 4; N17.9 Acute kidney failure, unspecified; E46 Unspecified protein-calorie malnutrition; N39.0 Urinary tract infection, site not specified; A04.72 Enterocolitis due to Clostridium difficile, not specified as recurrent; D62 Acute posthemorrhagic anemia; Z68.44 Body mass index [BMI] 60.0-69.9, adult; I82.B11 Acute embolism and thrombosis of right subclavian vein; I11.0 Hypertensive heart disease with heart failure; E11.22 Type 2 diabetes mellitus with diabetic chronic kidney disease; E66.9 Obesity, unspecified; E78.00 Pure hypercholesterolemia, unspecified; B95.62 Methicillin resistant Staphylococcus aureus infection as the cause of diseases classified elsewhere; E78.5 Hyperlipidemia, unspecified; E87.6 Hypokalemia; F32.9 Major depressive disorder, single episode, unspecified; F41.9 Anxiety disorder, unspecified; I25.10 Atherosclerotic heart disease of native coronary artery without angina pectoris; I48.0 Paroxysmal atrial fibrillation; I50.9 Heart failure, unspecified; J44.9 Chronic obstructive pulmonary disease, unspecified; N32.0 Bladder-neck obstruction; Z79.82 Long term (current) use of aspirin; Z86.73 Personal history of transient ischemic attack (TIA), and cerebral infarction without residual deficits; Z87.891 Personal history of nicotine dependence; Z87.440 Personal history of urinary (tract) infections; Z86.711 Personal history of pulmonary embolism; Z74.01 Bed confinement status; Q77.4 Achondroplasia
CPT/HCPCS: 36415; 36558; 36569; 70450; 71045; 74176; 76937; 77001; 80048; 80053; 80202; 81001; 82565; 82962; 83605; 83690; 84145; 84484; 85007; 85014; 85018; 85025; 85027; 85651; 86850; 86900; 86901; 86920; 87040; 87086; 87186; 87493; 87641; A7015; C1751; C1769; C1892; J0171; J0330; J1100; J2001; J2185; J2248; J2405; J2543; J2704; J2710; J3010; J3370; J3480; J3490; J7030; J7040; J7042; J7050; J7120; P9016; 99285-25; A4461

== ENCOUNTER 2019-11-09 18:09 | Inpatient (IN) | payer MEDICARE, MEDICAID ==
[~2019-11-09] VITALS: Ht 132.1 cm; Wt 98.9 kg
[~2019-11-09 18:09] MED LIST changes: +AMOX1TAB61 PO; +CALC200T3 PO; +DIVA500T4 PO; +FLUC200T PO; +MAGN400O7 PO; -MELA3TAB2 PO; +MELA3TAB56 PO; +MERO500V15 IV; -NITR1PAT5 TD; +NITR1PAT72 TD; +VANC1.2514 IV; +VANC125C3 PO; +[UNRECOGNIZED DRUG - CODE] VG; -[UNRECOGNIZED DRUG - CODE] VG
[2019-11-09] MEDS ORDERED: ONDANSETRON PF 4 MG/2 ML VIAL. IVP ONE (18:15)
[2019-11-09] MEDS ORDERED: IV NORMAL SALINE 1000ML BAG 1,000 ML IV ONE ×2 (18:15→20:45)
[2019-11-09 18:41] LABS: BASO % 0 % (0-3); EOS # 0.1 x10^3/uL (0.0-0.7); EOS % 1 % (0-3); HEMATOCRIT 32.8 % (39.0-53.0); HEMOGLOBIN 10.7 g/dL (13.0-17.5); LYMPH # 0.4 x10^3/uL (1.0-4.8); LYMPH % 5 % (24-48); MEAN CORPUSCULAR HEMOGLOBIN 27 pg (25-35); MEAN CORPUSCULAR HGB CONC 33 g/dL (31-37); MEAN CORPUSCULAR VOLUME 83 fL (79-100); MONO # 0.2 x10^3/uL (0.0-1.1); MONO % 2 % (0-9); NEUT # 8.9 x10^3/uL (1.8-7.7); NEUT % 92 % (31-73); PLATELET COUNT 275 x10^3/uL (140-400); RED BLOOD COUNT 3.97 x10^6/uL (4.30-5.70); RED CELL DISTRIBUTION WIDTH 16.7 % (11.5-14.5); WHITE BLOOD COUNT 9.6 x10^3/uL (4.0-11.0)
[2019-11-09] MEDS ORDERED: fentaNYL PF VIAL 100 MCG/2 ML VIAL IVP ONE (18:45)
[2019-11-09 18:50] LABS: PROTHROMBIN TIME PATIENT 15.5 SEC (11.7-14.0)
[2019-11-09 18:57] LABS: % BANDS 19 % (0-9); % LYMPHS 6 % (24-48); % MONOS 1 % (0-10); % SEGS 74 % (35-66); CALCIUM 9.4 mg/dL (8.5-10.1); CREATININE 1.6 mg/dL (0.7-1.3); GFR 42.9; POTASSIUM 4.6 mmol/L (3.5-5.1)
[2019-11-09 18:59] LABS: PLT ESTIMATE ADEQUATE (ADEQUATE)
[2019-11-09 19:00] LABS: POLYCHROMASIA SLIGHT; TOXIC GRANULATION SLIGHT; TOXIC VACUOLATION MOD
[2019-11-09 19:03] LABS: ALBUMIN 2.9 g/dL (3.4-5.0); ALBUMIN/GLOBULIN RATIO 0.7 (1.0-1.7); TOTAL BILIRUBIN 0.3 mg/dL (0.2-1.0); TOTAL PROTEIN 6.8 g/dL (6.4-8.2)
[2019-11-09 19:36] LABS: VAL ACID < 3 mcg/mL (50-100)
[2019-11-09 19:36] LABS: INFLUENZA A PATIENT NEGATIVE (NEGATIVE); INFLUENZA B PATIENT NEGATIVE (NEGATIVE)
--- NOTE | 2019-11-09 19:49 | RAD ---
Exam: CT head INDICATION: Fever, cough and abdominal pain TECHNIQUE: Sequential axial images through the head were obtained without the administration of IV contrast. Comparisons: None FINDINGS: Evaluation is limited secondary to patient motion. No large focal parenchymal lesion or hemorrhage is identified. There is no midline shift or sulcal effacement. No large acute vascular territory infarction is identified. Villarreal-white distinction is preserved. There is stable prominence of the ventricular system. The basal cisterns are well maintained. The visualized portions of the paranasal sinuses and mastoid air cells are well-pneumatized. No acute fractures. IMPRESSION: Limited evaluation secondary to patient motion. No large abnormality identified. Recommend repeat imaging when patient's condition improves. Exposure: One or more of the following in the visualized dose reduction techniques were utilized for this examination: 1. Automated exposure control 2. Adjustment of the MA and/or KV according to patient size Use of iterative of reconstructive technique Electronically signed by: Roger Lance MD (11/09/2019 7:46 PM) [facility]
[2019-11-09 20:00] LABS: BILIRUBIN,URINE NEGATIVE (NEG); CLARITY,URINE CLOUDY; COLOR,URINE YELLOW; NITRITE,URINE NEGATIVE (NEG); PROTEIN,URINE 100 mg/dL (NEG-TRACE); UROBILINOGEN,URINE 0.2 mg/dL (0.2 mg/dL)
[2019-11-09] MEDS ORDERED: CEFEPIME HCL IV Push 2 GM VIAL. IVP ONE (20:00)
[2019-11-09 20:07] LABS: BACTERIA,URINE MODERATE /HPF (0-FEW); WBC,URINE TNTC /HPF (0-4)
--- NOTE | 2019-11-09 20:25 | RAD ---
Study: CT chest, abdomen and pelvis without contrast INDICATION: Fever, cough, abdominal pain and vomiting. COMPARISON: CT abdomen/pelvis 02/26/2019 TECHNIQUE: Helical CT imaging performed of the chest, abdomen and pelvis performed without the use of intravenous contrast. Coronal and sagittal reformats were obtained. One or more of the following individualized dose reduction techniques were utilized for this examination: 1. Automated exposure control 2. Adjustment of the mA and/or kV according to patient size 3. Use of iterative reconstruction technique. FINDINGS: CT Chest: Imaging through the upper chest/lower neck is degraded due to the patient's arms overlying this region. Multifocal calcific atherosclerosis to include involvement of the coronary arteries. Retropharyngeal course of the right carotid artery. Calcific plaque within the left cervical internal carotid artery just distal to the bifurcation, image 5 series 2, resulting in uncertain degree of stenosis given the absence of contrast. Normal main pulmonary artery caliber. Scattered calcified granulomas. No pericardial effusion Motion degraded evaluation of the lungs. No confluent infiltrate. Mild volume loss. Partially visualized maxillary sinus mucosal thickening. Cervical spine degenerative changes with multiple levels exhibiting bony central canal and neural foraminal stenosis. Advanced arthrosis of both shoulders. Straightening of thoracic kyphosis. Scattered degenerative changes. CT Abdomen/Pelvis: Limited evaluation of the solid organs without intravenous contrast. No focal liver abnormality. Unchanged appearance of the gallbladder and biliary tree. No localized peripancreatic inflammatory changes and mild haziness of the central mesentery caudal to the pancreas is similar to the prior. Splenic granulomas. No newly seen adrenal gland abnormality. Unchanged kidneys with a redemonstrated calcification at the mid pole on the right. No hydroureteronephrosis. Small amount of air within the urinary bladder. A Linn catheter is present however the tip terminates within the prosthetic urethra and the balloon in the region of the bulbar urethra. The transverse colon extends into a ventral midline defect at the mid abdomen that appears surgically created. The colon is mostly collapsed. Nonobstructed small bowel. Unremarkable stomach. Multifocal calcific atherosclerosis. Unchanged focal ectasia of the infrarenal aorta measuring 2.7 cm on image 87 series 2. No newly seen lymphadenopathy. No free fluid or air. Small fat-containing umbilical hernia. Sacral decubitus ulceration is redemonstrated and is overall similar in size to the 02/26/2019 comparison. Less pronounced surrounding inflammatory changes from the prior. The lower sacrum and coccyx have been resected no newly seen osseous destruction at this location. Air tracks towards the anorectal region but again with less pronounced inflammatory changes and no definite findings of cutaneous fistulization. Chronic deformity of the proximal femurs. As before, severe central canal stenosis at multiple lumbar levels on a background of diffuse central canal narrowing due to short pedicles. IMPRESSION: CT Chest: 1. No acute abnormality of the chest. No findings to suggest an organizing pneumonia. 2. Multiple chronic findings as detailed above. CT Abdomen/Pelvis: 1. Faint mesenteric haziness caudal to the pancreas appears somewhat similar to the 02/26/2019 comparison and is felt unlikely related to mild pancreatitis but consider correlation with lipase levels as no other abnormality is seen to potentially account for the patient's reported abdominal pain and vomiting. 2. The transverse colon extends into a defect at the ventral midline abdomen that appears surgically created. Recommend correlation for surgical history. No bowel obstruction. 3. A Linn catheter tip is present within the prosthetic urethra and the balloon is inflated within the bulbous urethra. Advancement is recommended. 4. Similar size of a prominent sacral decubitus ulcer extending to the tip of the remaining sacrum in the setting of prior lower sacral and coccygeal resection. No newly seen CT manifestations of osteomyelitis. Less pronounced inflammatory changes along this ulceration relative to the comparison suggesting a degree of healing. 5. Additional chronic findings as above. Electronically signed by: BARRY BAE MD (11/09/2019 8:22 PM) [id number]
[2019-11-09 20:30] VITALS: BP 90/53
--- NOTE | 2019-11-09 20:30 | NUR ---
Pt was admitted as med/tele pt from ER with c/o weakness and sepsis. Pt comes from [facility], A/Ox3, flat affect, no current c/o pain, on RA and tolerating well. Pt states he is bedrest, currently has a sacral wound, VSS, SR/ST on telemetry, H&P completed, home meds restarted. Bed in low/locked position, call light within reach, will continue to monitor for status changes.
[2019-11-09] MEDS ORDERED: ONDANSETRON PF 4 MG/2 ML VIAL. IV PRN (20:45)
[2019-11-09] MEDS ORDERED: IV DEXTROSE 5 %-0.45 % NACL 1,000 ML IV ONE (20:45)
[2019-11-09] MEDS ORDERED: VANCOMYCIN 2 GM in IV NORMAL SALINE 500ML BAG 500 ML IV ONE (21:00)
[2019-11-09] MEDS ORDERED: CITA20TA9 PO (22:03)
[2019-11-09] MEDS ORDERED: TRAZ-118 PO (22:03)
[2019-11-09] MEDS ORDERED: GABA300C18 PO (22:03)
[2019-11-09] MEDS ORDERED: LISI-338 PO (22:03)
[2019-11-09] MEDS ORDERED: NITR0.4T22 SL (22:03)
[2019-11-09] MEDS ORDERED: ATOR10TA60 PO (22:03)
[2019-11-09] MEDS ORDERED: ACET325T9 PO (22:03)
[2019-11-09] MEDS ORDERED: ZINC220T3 PO (22:03)
[2019-11-09] MEDS ORDERED: NITROGLYCERIN SUBLINGUAL 0.4 MG BOTTLE OF 25. SL PRN (22:15)
[2019-11-09] MEDS ORDERED: ACETAMINOPHEN 325 MG TABLET. PO PRN (22:15)
[2019-11-09] MEDS: GABAPENTIN 300 MG CAPSULE. PO SCH (22:35)
[2019-11-09] MEDS: MIRTAZAPINE 15 MG TABLET PO SCH (22:35)
[2019-11-09] MEDS: traMADol 50 MG TABLET PO PRN (22:36)
[2019-11-09] MEDS: OXcarbazepine 300 MG TABLET PO SCH (22:36)
[2019-11-09] MEDS: ATORVASTATIN CALCIUM 10 MG TABLET. PO SCH (22:36)
[2019-11-09] MEDS: APIXABAN 5 MG TABLET. PO SCH (22:36)
[2019-11-09] MEDS: traZODone 50 MG TABLET. PO SCH (22:37)
[2019-11-09 23:00] VITALS: BP 91/51
[2019-11-09] MEDS ORDERED: FAMOTIDINE 20 MG TABLET. PO SCH (23:00)
--- NOTE | 2019-11-09 23:09 | RAD ---
Chest AP portable at 1839: Reason for examination: short of breath. Comparison is made to previous study dated 03/01/2019. The heart size is normal. Mediastinum is unremarkable. Lung tapia show some hazy increased density in the mid to lower right lung field which may reflect mild infiltrates. No gross pleural effusions are seen. No acute bony abnormalities are present. IMPRESSION: Mild hazy increased density in the mid and lower right lung field consistent with mild or early infiltrates. Electronically signed by: Haley Ross MD (11/09/2019 11:06 PM) [id number]
[2019-11-10] MEDS: VANCOMYCIN PER PHARMACY MC PRN ×2 (01:02→08:45)
--- NOTE | 2019-11-10 01:02 | NUR ---
Pharmacy Vancomycin Dosing Note S:Consulted to monitor and dose vancomycin started 11/09/19. O:ROGELIO MYERS is a 69 year old M with Sepsis . Height: 4 feet, 4 inches Weight: 91.542643 kg [place] Body Weight: 31.60 Adjusted Body Weight: 55.64 Dosing Weight: Actual Other Antibiotics: CEFEPIME 2GM Q12 LABS: Last BUN: 42 Last Creatinine: 1.6 Creatinine Clearance: 40.5 mL/min Last WBC: 9.6 Last Procalcitonin: Tmax (past 24 hours): Microbiology: I/O: Drug Levels: Last level: on at Last dose given 11/09/19 at 2130 Vancomycin Dosing: Loading Dose: 2000 mg x1 Dosing Weight: Actual Target Trough: 15-20 A: Based on: WT AND CRCL P: 1. Begin Vancomycin 1500 mg IV q24h 2. Follow up Trough level on 11/11/19 at 2030 3. Pharmacy will continue to monitor, follow and adjust therapy as needed. LESLYE MENDOZA RPH, 11/10/19101 Signed: 11/10/19 at 101 by LESLYE MENDOZA RPH PHA
--- NOTE | 2019-11-10 02:33 | PHYS DOC ---
Past Medical History Past Medical History: A-Fib, Anxiety, Asthma, CHF, Depression, Diabetes-Type II, GERD, Heart Disease, Hypertension, Other Additional Past Medical Histor: sacral wounds,achondroplasia,cerebral infarct ,sepsis Past Surgical History: Colectomy Alcohol Use: None Drug Use: None Adult General Chief Complaint Chief Complaint: FEVER HPI HPI Patient is a 69 year old male with history of achondroplasia, CVA, hypertension, sacral decubitus ulcer, colostomy who presents with fever, bloody urine fully catheter crease confusion. Staff members also report nausea vomiting and decreased colostomy output members. History is limited due to the patient's mental status. [] Review of Systems Review of Systems Review of systems as per history of present illness. All other systems were reviewed and found to be within normal limits, except as documented in this note. Current Medications Current Medications Current Medications Medications (Trade) Dose Ordered Sig/Ronald Start Time Stop Time Status Last Admin Dose Admin Ondansetron HCl (Zofran) 4 mg 1X ONCE 11/09/19 18:15 11/09/19 18:19 DC 11/09/19 18:47 4 MG Sodium Chloride 1,000 ml @ 1,000 mls/hr 1X ONCE 11/09/19 18:15 11/09/19 19:14 DC 11/09/19 18:47 1,000 MLS/HR Allergies Allergies Allergies Coded Allergies Type Severity Reaction Last Updated Verified I S O L A T I O N *CONTACT* Allergy Unknown 01/27/19 Yes No Known Medication Allergies Allergy Unknown 03/01/19 Yes Physical Exam Physical Exam Constitutional: Well developed, well nourished, no acute distress, non-toxic appearance. [] HENT: Normocephalic, atraumatic, bilateral external ears normal, oropharynx moist, nose normal. [] Eyes: PERRLA, EOMI, conjunctiva normal. [] Neck: Normal range of motion. [] Cardiovascular:Heart rate regular rhythm, no murmur [] Lungs & Thorax: Bilateral breath sounds clear to auscultation [] Abdomen: Bowel sounds normal, soft, no distention, colostomy in place, stool in bag.. [] Skin: Warm, dry, no erythema, no rash. [] Back: No tenderness, stage III decubitus ulcer overlying cellulitis or purulent drainage. [] Extremities: No tenderness. [] Neurologic: Alert and oriented X 3, normal motor function, normal sensory function, no focal deficits noted. [] Psychologic: Affect normal, judgement normal, mood normal. [] Current Patient Data Vital Signs Vital Signs Date Time Temp Pulse Resp B/P (MAP) Pulse Ox O2 Delivery O2 Flow Rate FiO2 11/09/19 18:23 102.6 115 20 137/82 (100) 95 Room Air 102.6 Lab Values Laboratory Tests Test 11/09/19 18:23 11/09/19 18:25 White Blood Count 9.6 x10^3/uL (4.0-11.0) Red Blood Count 3.97 x10^6/uL (4.30-5.70) L Hemoglobin 10.7 g/dL (13.0-17.5) L Hematocrit 32.8 % (39.0-53.0) L Mean Corpuscular Volume 83 fL (79-100) Mean Corpuscular Hemoglobin 27 pg (25-35) Mean Corpuscular Hemoglobin Concent 33 g/dL (31-37) Red Cell Distribution Width 16.7 % (11.5-14.5) H Platelet Count 275 x10^3/uL (140-400) Neutrophils (%) (Auto) 92 % (31-73) H Lymphocytes (%) (Auto) 5 % (24-48) L Monocytes (%) (Auto) 2 % (0-9) Eosinophils (%) (Auto) 1 % (0-3) Basophils (%) (Auto) 0 % (0-3) Neutrophils # (Auto) 8.9 x10^3/uL (1.8-7.7) H Lymphocytes # (Auto) 0.4 x10^3/uL (1.0-4.8) L Monocytes # (Auto) 0.2 x10^3/uL (0.0-1.1) Eosinophils # (Auto) 0.1 x10^3/uL (0.0-0.7) Basophils # (Auto) 0.0 x10^3/uL (0.0-0.2) Segmented Neutrophils % 74 % (35-66) H Band Neutrophils % 19 % (0-9) H Lymphocytes % 6 % (24-48) L Monocytes % 1 % (0-10) Toxic Granulation Slight Toxic Vacuolation Mod Platelet Estimate Adequate (ADEQUATE) Polychromasia Slight Prothrombin Time 15.5 SEC (11.7-14.0) H Prothrombin Time INR 1.3 (0.8-1.1) H Activated Partial Thromboplast Time 27 SEC (24-38) Sodium Level 139 mmol/L (136-145) Potassium Level 4.6 mmol/L (3.5-5.1) Chloride Level 105 mmol/L (98-107) Carbon Dioxide Level 24 mmol/L (21-32) Anion Gap 10 (6-14) Blood Urea Nitrogen 42 mg/dL (8-26) H Creatinine 1.6 mg/dL (0.7-1.3) H Estimated GFR (Cockcroft-Gault) 42.9 BUN/Creatinine Ratio 26 (6-20) H Glucose Level 120 mg/dL (70-99) H Lactic Acid Level 3.3 mmol/L (0.4-2.0) H Calcium Level 9.4 mg/dL (8.5-10.1) Total Bilirubin 0.3 mg/dL (0.2-1.0) Aspartate Amino Transferase (AST) 41 U/L (15-37) H Alanine Aminotransferase (ALT) 48 U/L (16-63) Alkaline Phosphatase 141 U/L (46-116) H Troponin I Quantitative 0.026 ng/mL (0.000-0.055) ZQ-Qve-V-Type Natriuretic Peptide 238 pg/mL (0-124) H Total Protein 6.8 g/dL (6.4-8.2) Albumin 2.9 g/dL (3.4-5.0) L Albumin/Globulin Ratio 0.7 (1.0-1.7) L Lipase 233 U/L (73-393) Valproic Acid Level < 3 mcg/mL (50-100) L Valproic Acid Last Dose Date 11/08/19 Valproic Acid Last Dose Time 1000 Influenza Type A Antigen Negative (NEGATIVE) Influenza Type B Antigen Negative (NEGATIVE) Laboratory Tests 11/09/19 18:23 Laboratory Tests 11/09/19 18:23 EKG EKG [] Radiology/Procedures Radiology/Procedures [CT head/CT abdomen pelvis: FOlly catheter lumen and prostatic trauma ] Course & Med Decision Making Course & Med Decision Making Pertinent Labs and Imaging studies reviewed. (See chart for details) [[place] catheter removed and replaced. Bladder drained. IV fluids, antibiotics given. Patient given fluids paced upon ideal body weight. Will admit to the hospitalist service] Pretty Disclaimer Dragon Disclaimer This electronic medical record was generated, in whole or in part, using a voice recognition dictation system. Departure Departure Impression: Primary Impression: Sepsis Additional Impressions: Urinary tract infection Nausea and vomiting Disposition: ADMITTED INPATIENT Condition: STABLE Referrals: Ozzy AHN MD (PCP) Problem Qualifiers MAURO MILLER DO Nov 10, 2019 02:33
[2019-11-10 03:00] VITALS: BP 134/61
--- NOTE | 2019-11-10 06:48 | EKG ---
[facility] [address] [place] [address] Test Date: 2019-11-09 Test Time: 18:16:10 Pat Name: ROGELIO MYERS Department: Room: Gender: M Statement Services Representative: : 1950 Requested By: MAURO MILLER Order Number: [id number] Reading MD: Measurements Intervals [place] Rate: 99 P: 2 SD: 150 QRS: 68 QRSD: 76 T: 68 QT: 326 QTc: 423 Interpretive Statements SINUS RHYTHM R-S TRANSITION ZONE IN V LEADS DISPLACED TO THE LEFT LOW LIMB LEAD VOLTAGE NO SPECIFIC ECG ABNORMALITIES RI6.01 No previous ECG available for comparison
[2019-11-10 07:00] VITALS: BP 103/57
[2019-11-10 07:48] LABS: CALCIUM 8.2 mg/dL (8.5-10.1); CREATININE 1.1 mg/dL (0.7-1.3); GFR 66.2; POTASSIUM 4.5 mmol/L (3.5-5.1)
[2019-11-10 08:30] LABS: BASO % 0 % (0-3); EOS # 0.2 x10^3/uL (0.0-0.7); EOS % 2 % (0-3); HEMATOCRIT 29.8 % (39.0-53.0); HEMOGLOBIN 9.5 g/dL (13.0-17.5); LYMPH # 0.9 x10^3/uL (1.0-4.8); LYMPH % 7 % (24-48); MEAN CORPUSCULAR HEMOGLOBIN 27 pg (25-35); MEAN CORPUSCULAR HGB CONC 32 g/dL (31-37); MEAN CORPUSCULAR VOLUME 84 fL (79-100); MONO # 1.2 x10^3/uL (0.0-1.1); MONO % 9 % (0-9); NEUT # 10.4 x10^3/uL (1.8-7.7); NEUT % 82 % (31-73); PLATELET COUNT 210 x10^3/uL (140-400); RED BLOOD COUNT 3.55 x10^6/uL (4.30-5.70); RED CELL DISTRIBUTION WIDTH 16.7 % (11.5-14.5); WHITE BLOOD COUNT 12.7 x10^3/uL (4.0-11.0)
[2019-11-10] MEDS: LACTOBACILLUS RHAMNOSUS GG 1 CAPSULE. PO SCH ×2 (08:47→20:03)
[2019-11-10] MEDS: OXcarbazepine 300 MG TABLET PO SCH ×2 (08:47→20:03)
[2019-11-10] MEDS: TAMSULOSIN 0.4 MG CAP.ER.24H. PO SCH (08:47)
[2019-11-10] MEDS: GABAPENTIN 300 MG CAPSULE. PO SCH ×2 (08:47→20:03)
[2019-11-10] MEDS: CITALOPRAM 20 MG TABLET. PO SCH (08:47)
[2019-11-10] MEDS: ZINC SULFATE 220 MG CAPSULE. PO SCH ×2 (08:47→20:03)
[2019-11-10] MEDS: FOLIC ACID 1 MG TABLET. PO SCH (08:48)
[2019-11-10] MEDS: ASCORBIC ACID 500 MG TABLET PO SCH (08:48)
[2019-11-10] MEDS: FAMOTIDINE 20 MG TABLET. PO SCH ×2 (08:51→20:03)
[2019-11-10] MEDS: MULTIVITAMIN with MINERAL TABLET. PO SCH (08:51)
[2019-11-10] MEDS: APIXABAN 5 MG TABLET. PO SCH ×2 (08:52→20:03)
[2019-11-10] MEDS: MICONAZOLE NITRATE 2% TOPICAL CREAM 28GM TUBE. TP SCH ×2 (08:52→20:02)
[2019-11-10] MEDS: LISINOPRIL 5 MG TABLET. PO SCH (09:00)
[2019-11-10] MEDS ORDERED: MICONAZOLE NITRATE VG SCH (09:00)
[2019-11-10] MEDS ORDERED: CEFEPIME HCL IV Push 2 GM VIAL. IVP SCH (09:00)
--- NOTE | 2019-11-10 09:44 | NUR ---
Wound Care Wound care consult for sacral pressure ulcer stage IV, See assessment. WC team assessed wound, and applied Veraflo with NS wash of 10ml for 5 min every 4 hours. No other wounds noted on full skin inspection. Discussed POC with patient and RN. Pt on P500 bed, turned to right side with heels floated. Pt educated on PU prevention. WC will follow up on Wednesday for dressing change.
[2019-11-10 11:00] VITALS: BP 99/49
--- NOTE | 2019-11-10 14:34 | NUR ---
SS following for discharge planning. SS reviewed pt chart. Pt is from [facility], ; fax [phone]. SS contacted [facility] and verified that pt is a LTC resident from there facility and is able to return when medically stable for discharge. SS will continue to follow for discharge planning.
[2019-11-10 15:00] VITALS: BP 89/42
[2019-11-10] MEDS ORDERED: ALBUMIN HUMAN 25% 100 ML IV ONE (15:00)
--- NOTE | 2019-11-10 15:20 | PDOC1 ---
History and Physical Date of Admission Date of Admission 11/10/2019 Identification/Chief Complaint Chief Complaint altered mental status Source Source: Chart review, Patient History of Present Illness History of Present Illness Patient is a 69-year-old gentleman with past medical history of her chondroplasty and several comorbidities that include cerebrovascular accident hypertension sacral decubitus ulcer colostomy and a chronic decubitus ulcer which most likely is due to his bedridden status. The patient has had admissions for similar presentation in the past and he was found to have urinary tract infection at that time. The patient has several risk factor for sepsis including is acute us ulcer. The patient upon workup in the emergency department was also found to have a pneumonic process. His Right middle and lower lobe pneumonia. She was sent from this institution due to "altered mental status". The patient is quite poor historian most of this is from review off his chart. The patient upon review of system which might not be reliable denies fever no chills he denies cold-like symptoms no cough sputum production he denies abdominal pain no urinary symptoms. Patient has not had any changes to his recent medications either. He was found to have significant bandemia at 19% and a lactic acidosis of 3.3 which most likely was due to the septic process secondary to pneumonia. Patient has been started on broad-spectrum antibiotics and admitted to the CVICU. The patient at the time of my note is in no apparent distress, he responds in simple sentences. he denies symptoms at the present time. A colostomy is present with no evidence of infection, there seems to be less output as per referring facility nevertheless the patient significant other asked to have his [place] me evaluated given that there seems to be a piece of foreign object embedded in his ostomy. Patient denies abdominal discomfort there has been no blood in his bag either. Patient denies vomiting no pleurisy no new symptoms were reported during my visit. Plan of care explained detail and discussed with nursing staff at bedside Past Medical History Cardiovascular: AFIB, CAD, CHF, HTN, Hyperlipidemia, Other Pulmonary: COPD, Pulmonary embolus, Previously Intubated CENTRAL NERVOUS SYSTEM: CVA Psych: Anxiety, Depression Infectious disease: Other Renal/: Benign prostatic enlarg. Endocrine: Diabetes Past Surgical History Past Surgical History: Other Social History Smoke: No ALCOHOL: none Drugs: None Current Problem List Problem List Problems Medical Problems: (1) Nausea and vomiting Status: Acute (2) Sepsis Status: Acute (3) Urinary tract infection Status: Acute Current Medications Current Medications Current Medications Medications (Trade) Dose Ordered Sig/Ronald Start Time Stop Time Status Last Admin Dose Admin Acetaminophen (Tylenol) 650 mg PRN Q4HRS PRN 11/09/19 22:15 Apixaban (Eliquis) 5 mg BID 11/09/19 23:00 11/10/19 08:52 5 MG Ascorbic Acid (Vitamin C) 500 mg DAILY 11/10/19 09:00 11/10/19 08:48 500 MG Atorvastatin Calcium (Lipitor) 10 mg HS 11/09/19 23:00 11/09/19 22:36 10 MG Cefepime HCl (Maxipime) 2 gm Q12HR 11/10/19 09:00 11/10/19 14:49 DC 11/10/19 08:50 2 GM Citalopram Hydrobromide (CeleXA) 20 mg DAILY 11/10/19 09:00 11/10/19 08:47 20 MG Dextrose/Sodium Chloride 1,000 ml @ 125 mls/hr 1X ONCE 11/09/19 20:45 11/10/19 04:44 DC 11/09/19 20:45 125 MLS/HR Famotidine (Pepcid) 20 mg BID 11/10/19 10:00 11/10/19 08:51 20 MG Fentanyl Citrate (Fentanyl 2ml Vial) 50 mcg 1X ONCE 11/09/19 18:45 11/09/19 18:46 DC 11/09/19 18:47 50 MCG Folic Acid (Folic Acid) 1 mg DAILY 11/10/19 09:00 11/10/19 08:48 1 MG Gabapentin (Neurontin) 300 mg BID 11/09/19 23:00 11/10/19 08:47 300 MG Info (Anti-Coagulation Monitoring By Pharmacy) 1 each PRN DAILY PRN 11/10/19 08:45 Lactobacillus Rhamnosus (Culturelle) 1 cap BID 11/10/19 09:00 11/10/19 08:47 1 CAP Lisinopril (Prinivil) 5 mg DAILY 11/10/19 09:00 Miconazole Nitrate (Monistat-Derm) 1 jaymie BID 11/10/19 09:00 11/10/19 08:52 1 JAYMIE Mirtazapine (Remeron) 15 mg QHS 11/09/19 23:00 11/09/19 22:35 15 MG Multivitamins (Thera M Plus) 1 tab DAILY 11/10/19 09:00 11/10/19 08:51 1 TAB Nitroglycerin (Nitrostat) 0.4 mg PRN Q5MIN PRN 11/09/19 22:15 Non-Formulary Medication (Miconazole Nitrate (Miconazole 3)) 24 gm BID 11/10/19 09:00 UNV Ondansetron HCl (Zofran) 4 mg PRN Q8HRS PRN 11/09/19 20:45 11/10/19 20:44 Oxcarbazepine (Trileptal) 300 mg BID 11/09/19 23:00 11/10/19 08:47 300 MG Piperacillin Sod/ Tazobactam Sod 4.5 gm/Sodium Chloride 100 ml @ 200 mls/hr Q6HRS 11/10/19 18:00 Sodium Chloride 1,000 ml @ 1,000 mls/hr 1X ONCE 11/09/19 20:45 11/09/19 21:44 DC 11/09/19 20:45 1,000 MLS/HR Tamsulosin HCl (Flomax) 0.4 mg DAILY 11/10/19 09:00 11/10/19 08:47 0.4 MG Tramadol HCl (Ultram) 50 mg PRN Q6HRS PRN 11/09/19 22:15 11/09/19 22:36 50 MG Trazodone HCl (Desyrel) 50 mg HS 11/09/19 23:00 Vancomycin HCl (Vanco Per Pharmacy) 1 each PRN DAILY PRN 11/09/19 20:00 11/10/19 08:45 1 EACH Vancomycin HCl (Vancomycin Trough Level) 1 each 1X ONCE 11/11/19 20:30 11/11/19 20:31 Vancomycin HCl 1.5 gm/Sodium Chloride 500 ml @ 250 mls/hr Q24H 11/10/19 21:00 Vancomycin HCl 2 gm/Sodium Chloride 500 ml @ 250 mls/hr 1X ONCE 11/09/19 21:00 11/09/19 22:59 DC 11/09/19 21:24 250 MLS/HR Zinc Sulfate (Orazinc) 220 mg BID 11/10/19 09:00 11/10/19 08:47 220 MG Allergies Allergies Allergies Coded Allergies Type Severity Reaction Last Updated Verified I S O L A T I O N *CONTACT* Allergy Unknown 01/27/19 Yes No Known Medication Allergies Allergy Unknown 03/01/19 Yes ROS Review of System CONSTITUTIONAL: No fever or chills EYES: No recent changes SKIN: No rash or itching CARDIOVASCULAR: No chest pain, syncope, palpitations, or edema RESPIRATORY: No SOB or cough GASTROINTESTINAL: No nausea, vomiting or abdominal pain NEUROLOGICAL: No headaches or weakness ENDOCRINE: No cold or heat intolerance GENITOURINARY: No urgency or frequency of urination MUSCULOSKELETAL: No back pain or joint pain LYMPHATICS: No enlarged lymph nodes PSYCHIATRIC: No anxiety or depression Unreliable Physical Exam Physical Exam Gen.: chronically ill appearing currently in no acute distress Head: Normal shape atraumatic Eyes: Pupils equal reactive to light and accommodation, normal conjunctivae and lids Ears: Normal shape Nose: Normal shape no trauma Mouth: No exudates of the back of throat no thrush no lesions Neck: Supple no JVD no carotid bruit or lymphadenopathy no thyromegaly Chest: Lungs with shallow inspiratory effort. Rhonchi present bilaterally Cardiovascular: S1-S2 regular rhythm no murmurs gallops or rubs Abdomen: Bowel sounds present soft nontender no hepatosplenomegaly appreciated sign colostomy present with no signs of infection liquid fecal material in the bag no evidence of blood Extremities: No clubbing no cyanosis no edema peripheral pulses palpated bilaterally Neurological: Alert awake oriented in person, cranial nerves II through XII intact, no sensory deficits appreciated, motor deficit noted and lower extremities upper extremities 3 out of 5 strength Psych: Appropriate mood, cooperative Vitals Vitals Vital Signs Date Time Temp Pulse Resp B/P (MAP) Pulse Ox O2 Delivery O2 Flow Rate FiO2 11/10/19 11:00 99.1 71 24 99/49 (66) 100 Room Air 99.1 11/10/19 03:00 97.0 Labs Labs Laboratory Tests Test 11/09/19 18:23 11/09/19 18:25 11/09/19 18:46 11/09/19 19:52 White Blood Count 9.6 x10^3/uL (4.0-11.0) Red Blood Count 3.97 x10^6/uL (4.30-5.70) Hemoglobin 10.7 g/dL (13.0-17.5) Hematocrit 32.8 % (39.0-53.0) Mean Corpuscular Volume 83 fL (79-100) Mean Corpuscular Hemoglobin 27 pg (25-35) Mean Corpuscular Hemoglobin Concent 33 g/dL (31-37) Red Cell Distribution Width 16.7 % (11.5-14.5) Platelet Count 275 x10^3/uL (140-400) Neutrophils (%) (Auto) 92 % (31-73) Lymphocytes (%) (Auto) 5 % (24-48) Monocytes (%) (Auto) 2 % (0-9) Eosinophils (%) (Auto) 1 % (0-3) Basophils (%) (Auto) 0 % (0-3) Neutrophils # (Auto) 8.9 x10^3/uL (1.8-7.7) Lymphocytes # (Auto) 0.4 x10^3/uL (1.0-4.8) Monocytes # (Auto) 0.2 x10^3/uL (0.0-1.1) Eosinophils # (Auto) 0.1 x10^3/uL (0.0-0.7) Basophils # (Auto) 0.0 x10^3/uL (0.0-0.2) Segmented Neutrophils % 74 % (35-66) Band Neutrophils % 19 % (0-9) Lymphocytes % 6 % (24-48) Monocytes % 1 % (0-10) Toxic Granulation Slight Toxic Vacuolation Mod Platelet Estimate Adequate (ADEQUATE) Polychromasia Slight Prothrombin Time 15.5 SEC (11.7-14.0) Prothromb Time International Ratio 1.3 (0.8-1.1) Activated Partial Thromboplast Time 27 SEC (24-38) Sodium Level 139 mmol/L (136-145) Potassium Level 4.6 mmol/L (3.5-5.1) Chloride Level 105 mmol/L (98-107) Carbon Dioxide Level 24 mmol/L (21-32) Anion Gap 10 (6-14) Blood Urea Nitrogen 42 mg/dL (8-26) Creatinine 1.6 mg/dL (0.7-1.3) Estimated GFR (Cockcroft-Gault) 42.9 BUN/Creatinine Ratio 26 (6-20) Glucose Level 120 mg/dL (70-99) Lactic Acid Level 3.3 mmol/L (0.4-2.0) Calcium Level 9.4 mg/dL (8.5-10.1) Total Bilirubin 0.3 mg/dL (0.2-1.0) Aspartate Amino Transf (AST/SGOT) 41 U/L (15-37) Alanine Aminotransferase (ALT/SGPT) 48 U/L (16-63) Alkaline Phosphatase 141 U/L (46-116) Troponin I Quantitative 0.026 ng/mL (0.000-0.055) [id number]-Zzg-P-Type Natriuretic Peptide 238 pg/mL (0-124) Total Protein 6.8 g/dL (6.4-8.2) Albumin 2.9 g/dL (3.4-5.0) Albumin/Globulin Ratio 0.7 (1.0-1.7) Lipase 233 U/L (73-393) Valproic Acid (Depakene) Level < 3 mcg/mL (50-100) Valproic Acid Last Dose Date 11/08/19 Valproic Acid Last Dose Time 1000 Influenza Type A Antigen Negative (NEGATIVE) Influenza Type B Antigen Negative (NEGATIVE) Glucose (Fingerstick) 105 mg/dL (70-99) Urine Collection Type U cath Urine Color Yellow Urine Clarity Cloudy Urine pH 7.0 Urine Specific [place] 1.010 Urine Protein 100 mg/dL (NEG-TRACE) Urine Glucose (UA) Negative mg/dL (NEG) Urine Ketones (Stick) Negative mg/dL (NEG) Urine Blood Moderate (NEG) Urine Nitrite Negative (NEG) Urine Bilirubin Negative (NEG) Urine Urobilinogen Dipstick 0.2 mg/dL (0.2 mg/dL) Urine Leukocyte Esterase Large (NEG) Urine RBC 11-20 /HPF (0-2) Urine WBC Tntc /HPF (0-4) Urine Squamous Epithelial Cells None /LPF Urine Bacteria Moderate /HPF (0-FEW) Test 11/09/19 22:22 11/10/19 06:25 11/10/19 08:04 Lactic Acid Level 0.9 mmol/L (0.4-2.0) Sodium Level 140 mmol/L (136-145) Potassium Level 4.5 mmol/L (3.5-5.1) Chloride Level 110 mmol/L (98-107) Carbon Dioxide Level 19 mmol/L (21-32) Anion Gap 11 (6-14) Blood Urea Nitrogen 34 mg/dL (8-26) Creatinine 1.1 mg/dL (0.7-1.3) Estimated GFR (Cockcroft-Gault) 66.2 Glucose Level 81 mg/dL (70-99) Calcium Level 8.2 mg/dL (8.5-10.1) White Blood Count 12.7 x10^3/uL (4.0-11.0) Red Blood Count 3.55 x10^6/uL (4.30-5.70) Hemoglobin 9.5 g/dL (13.0-17.5) Hematocrit 29.8 % (39.0-53.0) Mean Corpuscular Volume 84 fL (79-100) Mean Corpuscular Hemoglobin 27 pg (25-35) Mean Corpuscular Hemoglobin Concent 32 g/dL (31-37) Red Cell Distribution Width 16.7 % (11.5-14.5) Platelet Count 210 x10^3/uL (140-400) Neutrophils (%) (Auto) 82 % (31-73) Lymphocytes (%) (Auto) 7 % (24-48) Monocytes (%) (Auto) 9 % (0-9) Eosinophils (%) (Auto) 2 % (0-3) Basophils (%) (Auto) 0 % (0-3) Neutrophils # (Auto) 10.4 x10^3/uL (1.8-7.7) Lymphocytes # (Auto) 0.9 x10^3/uL (1.0-4.8) Monocytes # (Auto) 1.2 x10^3/uL (0.0-1.1) Eosinophils # (Auto) 0.2 x10^3/uL (0.0-0.7) Basophils # (Auto) 0.0 x10^3/uL (0.0-0.2) Laboratory Tests Test 11/09/19 18:23 11/09/19 18:25 11/09/19 18:46 11/09/19 19:52 White Blood Count 9.6 x10^3/uL (4.0-11.0) Red Blood Count 3.97 x10^6/uL (4.30-5.70) Hemoglobin 10.7 g/dL (13.0-17.5) Hematocrit 32.8 % (39.0-53.0) Mean Corpuscular Volume 83 fL (79-100) Mean Corpuscular Hemoglobin 27 pg (25-35) Mean Corpuscular Hemoglobin Concent 33 g/dL (31-37) Red Cell Distribution Width 16.7 % (11.5-14.5) Platelet Count 275 x10^3/uL (140-400) Neutrophils (%) (Auto) 92 % (31-73) Lymphocytes (%) (Auto) 5 % (24-48) Monocytes (%) (Auto) 2 % (0-9) Eosinophils (%) (Auto) 1 % (0-3) Basophils (%) (Auto) 0 % (0-3) Neutrophils # (Auto) 8.9 x10^3/uL (1.8-7.7) Lymphocytes # (Auto) 0.4 x10^3/uL (1.0-4.8) Monocytes # (Auto) 0.2 x10^3/uL (0.0-1.1) Eosinophils # (Auto) 0.1 x10^3/uL (0.0-0.7) Basophils # (Auto) 0.0 x10^3/uL (0.0-0.2) Segmented Neutrophils % 74 % (35-66) Band Neutrophils % 19 % (0-9) Lymphocytes % 6 % (24-48) Monocytes % 1 % (0-10) Toxic Granulation Slight Toxic Vacuolation Mod Platelet Estimate Adequate (ADEQUATE) Polychromasia Slight Prothrombin Time 15.5 SEC (11.7-14.0) Prothromb Time International Ratio 1.3 (0.8-1.1) Activated Partial Thromboplast Time 27 SEC (24-38) Sodium Level 139 mmol/L (136-145) Potassium Level 4.6 mmol/L (3.5-5.1) Chloride Level 105 mmol/L (98-107) Carbon Dioxide Level 24 mmol/L (21-32) Anion Gap 10 (6-14) Blood Urea Nitrogen 42 mg/dL (8-26) Creatinine 1.6 mg/dL (0.7-1.3) Estimated GFR (Cockcroft-Gault) 42.9 BUN/Creatinine Ratio 26 (6-20) Glucose Level 120 mg/dL (70-99) Lactic Acid Level 3.3 mmol/L (0.4-2.0) Calcium Level 9.4 mg/dL (8.5-10.1) Total Bilirubin 0.3 mg/dL (0.2-1.0) Aspartate Amino Transf (AST/SGOT) 41 U/L (15-37) Alanine Aminotransferase (ALT/SGPT) 48 U/L (16-63) Alkaline Phosphatase 141 U/L (46-116) Troponin I Quantitative 0.026 ng/mL (0.000-0.055) JT-Xul-F-Type Natriuretic Peptide 238 pg/mL (0-124) Total Protein 6.8 g/dL (6.4-8.2) Albumin 2.9 g/dL (3.4-5.0) Albumin/Globulin Ratio 0.7 (1.0-1.7) Lipase 233 U/L (73-393) Valproic Acid (Depakene) Level < 3 mcg/mL (50-100) Valproic Acid Last Dose Date 11/08/19 Valproic Acid Last Dose Time 1000 Influenza Type A Antigen Negative (NEGATIVE) Influenza Type B Antigen Negative (NEGATIVE) Glucose (Fingerstick) 105 mg/dL (70-99) Urine Collection Type U cath Urine Color Yellow Urine Clarity Cloudy Urine pH 7.0 Urine Specific [place] 1.010 Urine Protein 100 mg/dL (NEG-TRACE) Urine Glucose (UA) Negative mg/dL (NEG) Urine Ketones (Stick) Negative mg/dL (NEG) Urine Blood Moderate (NEG) Urine Nitrite Negative (NEG) Urine Bilirubin Negative (NEG) Urine Urobilinogen Dipstick 0.2 mg/dL (0.2 mg/dL) Urine Leukocyte Esterase Large (NEG) Urine RBC 11-20 /HPF (0-2) Urine WBC Tntc /HPF (0-4) Urine Squamous Epithelial Cells None /LPF Urine Bacteria Moderate /HPF (0-FEW) Test 11/09/19 22:22 11/10/19 06:25 11/10/19 08:04 Lactic Acid Level 0.9 mmol/L (0.4-2.0) Sodium Level 140 mmol/L (136-145) Potassium Level 4.5 mmol/L (3.5-5.1) Chloride Level 110 mmol/L (98-107) Carbon Dioxide Level 19 mmol/L (21-32) Anion Gap 11 (6-14) Blood Urea Nitrogen 34 mg/dL (8-26) Creatinine 1.1 mg/dL (0.7-1.3) Estimated GFR (Cockcroft-Gault) 66.2 Glucose Level 81 mg/dL (70-99) Calcium Level 8.2 mg/dL (8.5-10.1) White Blood Count 12.7 x10^3/uL (4.0-11.0) Red Blood Count 3.55 x10^6/uL (4.30-5.70) Hemoglobin 9.5 g/dL (13.0-17.5) Hematocrit 29.8 % (39.0-53.0) Mean Corpuscular Volume 84 fL (79-100) Mean Corpuscular Hemoglobin 27 pg (25-35) Mean Corpuscular Hemoglobin Concent 32 g/dL (31-37) Red Cell Distribution Width 16.7 % (11.5-14.5) Platelet Count 210 x10^3/uL (140-400) Neutrophils (%) (Auto) 82 % (31-73) Lymphocytes (%) (Auto) 7 % (24-48) Monocytes (%) (Auto) 9 % (0-9) Eosinophils (%) (Auto) 2 % (0-3) Basophils (%) (Auto) 0 % (0-3) Neutrophils # (Auto) 10.4 x10^3/uL (1.8-7.7) Lymphocytes # (Auto) 0.9 x10^3/uL (1.0-4.8) Monocytes # (Auto) 1.2 x10^3/uL (0.0-1.1) Eosinophils # (Auto) 0.2 x10^3/uL (0.0-0.7) Basophils # (Auto) 0.0 x10^3/uL (0.0-0.2) VTE Prophylaxis Ordered VTE Prophylaxis Devices: Yes VTE Pharmacological Prophylaxi: No Assessment/Plan Assessment/Plan Sepsis secondary to right mid and lower lobe pneumonia and decubitus ulcer and possible urinary tract infection Lactic acidosis secondary to the above Bandemia resolved Acute renal failure secondary to septic process improved Bedridden status Chronic sacral decubitus ulcer stage IV Altered mental status secondary to sepsis improved History of a chondroplasty a History of paroxysmal atrial fibrillation History of multiple strokes including cerebellar infarct History off hypertension History of dyslipidemia 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 with [place] Plan: We'll adjust antibiotic therapy and provide an anaerobic coverage We'll have speech therapy evaluate patient for possible aspiration We'll do a fistulogram Check C. difficile We'll start Solu Cortef due to hypotension We'll give albumin Resume home medications Labs in the a.m. Further recommendations based on the clinical course DVT prophylaxis with NATHALIE Magana MD Nov 10, 2019 15:20
[2019-11-10] MEDS: PIPERACILLIN/TAZOBACTAM 4.5 GM in IV NORMAL SALINE 100ML 100 ML IV SCH (18:08)
[2019-11-10 19:00] VITALS: BP 127/62
[2019-11-10] MEDS: traZODone 50 MG TABLET. PO SCH (20:03)
[2019-11-10] MEDS: ATORVASTATIN CALCIUM 10 MG TABLET. PO SCH (20:03)
[2019-11-10] MEDS: MIRTAZAPINE 15 MG TABLET PO SCH (20:03)
[2019-11-10] MEDS ORDERED: VANCOMYCIN 1.5 GM in IV NORMAL SALINE 500ML BAG 500 ML IV SCH (21:00)
[2019-11-10] MEDS: HYDROCORTISONE SOD SUCC/PF 100 MG/2 ML VIAL. IVP SCH (21:46)
--- NOTE | 2019-11-10 22:23 | NUR ---
Patient transferred to [facility] room 250 via P500 bed. Patient A/O. VSS. All belongings brought to room 250 with patient. Report given to Diamond HARDIN.
[2019-11-10 22:30] VITALS: BP 124/47
[2019-11-11] MEDS: PIPERACILLIN/TAZOBACTAM 4.5 GM in IV NORMAL SALINE 100ML 100 ML IV SCH ×2 (00:53→05:26)
[2019-11-11 03:55] VITALS: BP 135/60
[2019-11-11] MEDS: HYDROCORTISONE SOD SUCC/PF 100 MG/2 ML VIAL. IVP SCH ×3 (05:30→22:35)
[2019-11-11 07:10] VITALS: BP 121/54
[2019-11-11] MEDS ORDERED: ONDANSETRON PF 4 MG/2 ML VIAL. IVP PRN (08:30)
[2019-11-11] MEDS ORDERED: MORPHINE SULFATE 2 MG/ML VIAL. IV PRN (08:30)
[2019-11-11] MEDS: OXcarbazepine 300 MG TABLET PO SCH ×2 (08:50→21:28)
[2019-11-11] MEDS: ZINC SULFATE 220 MG CAPSULE. PO SCH ×2 (08:50→21:27)
[2019-11-11] MEDS: MULTIVITAMIN with MINERAL TABLET. PO SCH (08:50)
[2019-11-11] MEDS: APIXABAN 5 MG TABLET. PO SCH ×2 (08:50→21:27)
[2019-11-11] MEDS: FOLIC ACID 1 MG TABLET. PO SCH (08:50)
[2019-11-11] MEDS: FAMOTIDINE 20 MG TABLET. PO SCH ×2 (08:51→21:28)
[2019-11-11] MEDS: CITALOPRAM 20 MG TABLET. PO SCH (08:51)
[2019-11-11] MEDS: GABAPENTIN 300 MG CAPSULE. PO SCH ×2 (08:51→21:28)
[2019-11-11] MEDS: TAMSULOSIN 0.4 MG CAP.ER.24H. PO SCH (08:51)
[2019-11-11] MEDS: ASCORBIC ACID 500 MG TABLET PO SCH (08:51)
[2019-11-11] MEDS: LACTOBACILLUS RHAMNOSUS GG 1 CAPSULE. PO SCH ×2 (08:51→21:28)
[2019-11-11] MEDS: MICONAZOLE NITRATE 2% TOPICAL CREAM 28GM TUBE. TP SCH ×2 (08:52→22:34)
[2019-11-11] MEDS: LISINOPRIL 5 MG TABLET. PO SCH (08:52)
[2019-11-11 11:15] VITALS: BP 105/65
--- NOTE | 2019-11-11 11:26 | PDOC ---
Infectious Disease Note Vital Sign Vital Signs Vital Signs Date Time Temp Pulse Resp B/P (MAP) Pulse Ox O2 Delivery O2 Flow Rate FiO2 11/11/19 08:52 52 121/54 11/11/19 07:10 97.9 20 98 Room Air 97.9 11/10/19 20:12 2.0 Labs Micro Microbiology 11/09/19 Blood Culture - Preliminary, Resulted NO GROWTH AFTER 1 DAY Objective Assessment Sepsis with lactic acidosis, POA Leukocytosis CAUTI, POA Acute encephalopathy- improved Chronic sacral decub stage IV -h/o ESBL + E. coli, moganella, PSA & anaerobes MRSA colonization h/o C. diff 2019 ILIR - improved A- fib Achondroplasia Plan Plan of Care Continue vancomycin change Zosyn to meropenem Add po vanc BID, prophylaxis Probiotics Linn changed in ER Monitor WBC/temp and renal function closely f/u cultures Maintain aspiration precautions Local wound care and offloading Wound care team consulted Contact isolation Thank you [id number] Patient seen and examined. Chart reviewed in detail. Case discussed with COLLECTION SPECIALIST. Agree with above plan. YUNG PITT APRN Nov 11, 2019 11:26 MOSHE SHARMA MD Nov 11, 2019 21:40
--- NOTE | 2019-11-11 11:48 | PDOC ---
PROGRESS NOTES Chief Complaint Chief Complaint Sepsis secondary to right mid and lower lobe pneumonia and decubitus ulcer and possible urinary tract infection Lactic acidosis secondary to the above Bandemia resolved Acute renal failure secondary to septic process improved Bedridden status Chronic sacral decubitus ulcer stage IV Altered mental status secondary to sepsis improved History of a chondroplasty a History of paroxysmal atrial fibrillation History of multiple strokes including cerebellar infarct History off hypertension History of dyslipidemia 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 with Eliquis History of Present Illness History of Present Illness he is nasty bec he wants to eat 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 20 mins at least in room showing all the NPO signs that he cant eat STage 4 decub -[facility] resident - I CONSULTED ID Wound care also has been consulted PLAN; PICKING BELT OPERATOR eval ID consult IVF and PPI iV while nPO Turn q2 SNU on dc FULL CODE for now susana pereira Vitals Vitals Vital Signs Date Time Temp Pulse Resp B/P (MAP) Pulse Ox O2 Delivery O2 Flow Rate FiO2 11/11/19 08:52 52 121/54 11/11/19 08:00 Room Air 11/11/19 07:10 97.9 20 98 97.9 11/10/19 20:12 2.0 Physical Exam General: Alert, Oriented X3, No acute distress, Other (no voice, bad dentition) Heart: Regular rate, Normal S1, Normal S2, No murmurs Lungs: Clear, Other (stage 4 decub) Abdomen: Normal bowel sounds, Soft, No tenderness Extremities: No clubbing, No cyanosis, No edema, Normal pulses Assessment and Plan Assessmemt and Plan Problems Medical Problems: (1) Nausea and vomiting Status: Acute (2) Sepsis Status: Acute (3) Urinary tract infection Status: Acute Comment Review of Relevant I have reviewed the following items lg (where applicable) has been applied. Labs Laboratory Tests Test 11/09/19 18:23 11/09/19 18:25 11/09/19 18:46 11/09/19 19:52 White Blood Count 9.6 x10^3/uL (4.0-11.0) Red Blood Count 3.97 x10^6/uL (4.30-5.70) Hemoglobin 10.7 g/dL (13.0-17.5) Hematocrit 32.8 % (39.0-53.0) Mean Corpuscular Volume 83 fL (79-100) Mean Corpuscular Hemoglobin 27 pg (25-35) Mean Corpuscular Hemoglobin Concent 33 g/dL (31-37) Red Cell Distribution Width 16.7 % (11.5-14.5) Platelet Count 275 x10^3/uL (140-400) Neutrophils (%) (Auto) 92 % (31-73) Lymphocytes (%) (Auto) 5 % (24-48) Monocytes (%) (Auto) 2 % (0-9) Eosinophils (%) (Auto) 1 % (0-3) Basophils (%) (Auto) 0 % (0-3) Neutrophils # (Auto) 8.9 x10^3/uL (1.8-7.7) Lymphocytes # (Auto) 0.4 x10^3/uL (1.0-4.8) Monocytes # (Auto) 0.2 x10^3/uL (0.0-1.1) Eosinophils # (Auto) 0.1 x10^3/uL (0.0-0.7) Basophils # (Auto) 0.0 x10^3/uL (0.0-0.2) Segmented Neutrophils % 74 % (35-66) Band Neutrophils % 19 % (0-9) Lymphocytes % 6 % (24-48) Monocytes % 1 % (0-10) Toxic Granulation Slight Toxic Vacuolation Mod Platelet Estimate Adequate (ADEQUATE) Polychromasia Slight Prothrombin Time 15.5 SEC (11.7-14.0) Prothromb Time International Ratio 1.3 (0.8-1.1) Activated Partial Thromboplast Time 27 SEC (24-38) Sodium Level 139 mmol/L (136-145) Potassium Level 4.6 mmol/L (3.5-5.1) Chloride Level 105 mmol/L (98-107) Carbon Dioxide Level 24 mmol/L (21-32) Anion Gap 10 (6-14) Blood Urea Nitrogen 42 mg/dL (8-26) Creatinine 1.6 mg/dL (0.7-1.3) Estimated GFR (Cockcroft-Gault) 42.9 BUN/Creatinine Ratio 26 (6-20) Glucose Level 120 mg/dL (70-99) Lactic Acid Level 3.3 mmol/L (0.4-2.0) Calcium Level 9.4 mg/dL (8.5-10.1) Total Bilirubin 0.3 mg/dL (0.2-1.0) Aspartate Amino Transf (AST/SGOT) 41 U/L (15-37) Alanine Aminotransferase (ALT/SGPT) 48 U/L (16-63) Alkaline Phosphatase 141 U/L (46-116) Troponin I Quantitative 0.026 ng/mL (0.000-0.055) CC-Xnz-X-Type Natriuretic Peptide 238 pg/mL (0-124) Total Protein 6.8 g/dL (6.4-8.2) Albumin 2.9 g/dL (3.4-5.0) Albumin/Globulin Ratio 0.7 (1.0-1.7) Lipase 233 U/L (73-393) Valproic Acid (Depakene) Level < 3 mcg/mL (50-100) Valproic Acid Last Dose Date 11/08/19 Valproic Acid Last Dose Time 1000 Influenza Type A Antigen Negative (NEGATIVE) Influenza Type B Antigen Negative (NEGATIVE) Glucose (Fingerstick) 105 mg/dL (70-99) Urine Collection Type U cath Urine Color Yellow Urine Clarity Cloudy Urine pH 7.0 Urine Specific [place] 1.010 Urine Protein 100 mg/dL (NEG-TRACE) Urine Glucose (UA) Negative mg/dL (NEG) Urine Ketones (Stick) Negative mg/dL (NEG) Urine Blood Moderate (NEG) Urine Nitrite Negative (NEG) Urine Bilirubin Negative (NEG) Urine Urobilinogen Dipstick 0.2 mg/dL (0.2 mg/dL) Urine Leukocyte Esterase Large (NEG) Urine RBC 11-20 /HPF (0-2) Urine WBC Tntc /HPF (0-4) Urine Squamous Epithelial Cells None /LPF Urine Bacteria Moderate /HPF (0-FEW) Test 11/09/19 22:22 11/09/19 23:00 11/10/19 06:25 11/10/19 08:04 Lactic Acid Level 0.9 mmol/L (0.4-2.0) Nasal Screen MRSA (PCR) Positive (Negative) Sodium Level 140 mmol/L (136-145) Potassium Level 4.5 mmol/L (3.5-5.1) Chloride Level 110 mmol/L (98-107) Carbon Dioxide Level 19 mmol/L (21-32) Anion Gap 11 (6-14) Blood Urea Nitrogen 34 mg/dL (8-26) Creatinine 1.1 mg/dL (0.7-1.3) Estimated GFR (Cockcroft-Gault) 66.2 Glucose Level 81 mg/dL (70-99) Calcium Level 8.2 mg/dL (8.5-10.1) White Blood Count 12.7 x10^3/uL (4.0-11.0) Red Blood Count 3.55 x10^6/uL (4.30-5.70) Hemoglobin 9.5 g/dL (13.0-17.5) Hematocrit 29.8 % (39.0-53.0) Mean Corpuscular Volume 84 fL (79-100) Mean Corpuscular Hemoglobin 27 pg (25-35) Mean Corpuscular Hemoglobin Concent 32 g/dL (31-37) Red Cell Distribution Width 16.7 % (11.5-14.5) Platelet Count 210 x10^3/uL (140-400) Neutrophils (%) (Auto) 82 % (31-73) Lymphocytes (%) (Auto) 7 % (24-48) Monocytes (%) (Auto) 9 % (0-9) Eosinophils (%) (Auto) 2 % (0-3) Basophils (%) (Auto) 0 % (0-3) Neutrophils # (Auto) 10.4 x10^3/uL (1.8-7.7) Lymphocytes # (Auto) 0.9 x10^3/uL (1.0-4.8) Monocytes # (Auto) 1.2 x10^3/uL (0.0-1.1) Eosinophils # (Auto) 0.2 x10^3/uL (0.0-0.7) Basophils # (Auto) 0.0 x10^3/uL (0.0-0.2) Microbiology 11/09/19 Blood Culture - Preliminary, Resulted NO GROWTH AFTER 1 DAY Medications Current Medications Ondansetron HCl (Zofran) 4 mg 1X ONCE IVP Last administered on 11/09/19at 18:47; Start 11/09/19 at 18:15; Stop 11/09/19 at 18:19; Status DC Sodium Chloride 1,000 ml @ 1,000 mls/hr 1X ONCE IV Last administered on 11/09/19at 18:47; Start 11/09/19 at 18:15; Stop 11/09/19 at 19:14; Status DC Fentanyl Citrate (Fentanyl 2ml Vial) 50 mcg 1X ONCE IVP Last administered on 11/09/19at 18:47; Start 11/09/19 at 18:45; Stop 11/09/19 at 18:46; Status DC Cefepime HCl (Maxipime) 2 gm 1X ONCE IVP Last administered on 11/09/19at 21:24; Start 11/09/19 at 20:00; Stop 11/09/19 at 20:01; Status DC Vancomycin HCl (Vanco Per Pharmacy) 1 each PRN DAILY PRN MC SEE COMMENTS Last administered on 11/10/19at 08:45; Start 11/09/19 at 20:00 Vancomycin HCl 2 gm/Sodium Chloride 500 ml @ 250 mls/hr 1X ONCE IV Last administered on 11/09/19at 21:24; Start 11/09/19 at 21:00; Stop 11/09/19 at 22:59; Status DC Ondansetron HCl (Zofran) 4 mg PRN Q8HRS PRN IV NAUSEA/VOMITING; Start 11/09/19 at 20:45; Stop 11/10/19 at 20:44; Status DC Cefepime HCl (Maxipime) 2 gm Q12HR IVP Last administered on 11/10/19at 08:50; Start 11/10/19 at 09:00; Stop 11/10/19 at 14:49; Status DC Sodium Chloride 1,000 ml @ 1,000 mls/hr 1X ONCE IV Last administered on 11/09/19at 20:45; Start 11/09/19 at 20:45; Stop 11/09/19 at 21:44; Status DC Dextrose/Sodium Chloride 1,000 ml @ 125 mls/hr 1X ONCE IV Last administered on 11/09/19at 20:45; Start 11/09/19 at 20:45; Stop 11/10/19 at 04:44; Status DC Acetaminophen (Tylenol) 650 mg PRN Q4HRS PRN PO MILD PAIN 1-3; Start 11/09/19 at 22:15 Apixaban (Eliquis) 5 mg BID PO Last administered on 11/11/19at 08:50; Start 11/09/19 at 23:00 Atorvastatin Calcium (Lipitor) 10 mg HS PO Last administered on 11/10/19 20: 03; Start 11/09/19 at 23:00 Citalopram Hydrobromide (CeleXA) 20 mg DAILY PO Last administered on 11/11/19 08:51; Start 11/10/19 at 09:00 Famotidine (Pepcid) 20 mg QHS PO Last administered on 11/09/19at 22:36; Start 11/09/19 at 23:00; Stop 11/10/19 at 08:37; Status DC Folic Acid (Folic Acid) 1 mg DAILY PO Last administered on 11/11/19 08:50; Start 11/10/19 at 09:00 Gabapentin (Neurontin) 300 mg BID PO Last administered on 11/11/19 08:51; Start 11/09/19 at 23:00 Lisinopril (Prinivil) 5 mg DAILY PO Last administered on 11/11/19at 08:52; Start 11/10/19 at 09:00 Mirtazapine (Remeron) 15 mg QHS PO Last administered on 11/10/19at 20:03; Start 11/09/19 at 23:00 Nitroglycerin (Nitrostat) 0.4 mg PRN Q5MIN PRN SL CHEST PAIN; Start 11/09/19 at 22:15 Oxcarbazepine (Trileptal) 300 mg BID PO Last administered on 11/11/19 08:50; Start 11/09/19 at 23:00 Tamsulosin HCl (Flomax) 0.4 mg DAILY PO Last administered on 11/11/19 08:51; Start 11/10/19 at 09:00 Tramadol HCl (Ultram) 50 mg PRN Q6HRS PRN PO MODERATE PAIN 4-6 Last administered on 11/09/19 22:36; Start 11/09/19 at 22:15 Trazodone HCl (Desyrel) 50 mg HS PO Last administered on 11/10/19at 20:03; Start 11/09/19 at 23:00 Ascorbic Acid (Vitamin C) 500 mg DAILY PO Last administered on 11/11/19 08:51; Start 11/10/19 at 09:00 Non-Formulary Medication (Miconazole Nitrate (Miconazole 3)) 24 gm BID VG ; Start 11/10/19 at 09:00; Status UNV Multivitamins (Thera M Plus) 1 tab DAILY PO Last administered on 11/11/19at 08:50; Start 11/10/19 at 09:00 Zinc Sulfate (Orazinc) 220 mg BID PO Last administered on 11/11/19at 08:50; Start 11/10/19 at 09:00 Miconazole Nitrate (Monistat-Derm) 1 jaymie BID TP Last administered on 11/11/19at 08:52; Start 11/10/19 at 09:00 Vancomycin HCl 1.5 gm/Sodium Chloride 500 ml @ 250 mls/hr Q24H IV Last administered on 11/10/19at 20:00; Start 11/10/19 at 21:00 Vancomycin HCl (Vancomycin Trough Level) 1 each 1X ONCE MC ; Start 11/11/19 at 20:30; Stop 11/11/19 at 20:31 Lactobacillus Rhamnosus (Culturelle) 1 cap BID PO Last administered on 11/11/19at 08:51; Start 11/10/19 at 09:00 Info (Anti-Coagulation Monitoring By Pharmacy) 1 each PRN DAILY PRN MC SEE COMMENTS; Start 11/10/19 at 08:45 Famotidine (Pepcid) 20 mg BID PO Last administered on 11/11/19at 08:51; Start 11/10/19 at 10:00 Piperacillin Sod/ Tazobactam Sod 4.5 gm/Sodium Chloride 100 ml @ 200 mls/hr Q6HRS IV Last administered on 11/11/19at 05:26; Start 11/10/19 at 18:00; Stop 11/11/19 at 11:26; Status DC Albumin Human 100 ml @ 100 mls/hr 1X ONCE IV Last administered on 11/10/19at 15:15; Start 11/10/19 at 15:00; Stop 11/10/19 at 15:59; Status DC Hydrocortisone Sodium Succinate (Solu-CORTEF) 100 mg Q8HRS IVP Last admini stered on 11/11/19at 05:30; Start 11/10/19 at 22:00 Ondansetron HCl (Zofran) 4 mg PRN Q6HRS PRN IVP NAUSEA/VOMITING; Start 11/11/19 at 08:30 Morphine Sulfate (Morphine Sulfate) 2 mg PRN Q2HR PRN IV MODERATE TO SEVERE PAIN; Start 11/11/19 at 08:30 Vancomycin HCl (Vancomycin Oral Solution) 125 mg BID PO ; Start 11/11/19 at 12:00 Meropenem 500 mg/ Sodium Chloride 50 ml @ 100 mls/hr Q6HRS IV ; Start 11/11/19 at 12:00 Active Scripts Active Reported Zinc Sulfate 220 Mg Tablet 1 Tab PO BID 30 Days Tylenol (Acetaminophen) 325 Mg Tablet 650 Mg PO PRN Q4HRS PRN Trazodone Hcl 50 Mg Tablet 50 Mg PO HS NITROGLYCERIN SubLingual (Nitroglycerin) 0.4 Mg Tab.subl 0.4 Mg SL PRN Q5MIN PRN Gabapentin (Gabapentin) 300 Mg Capsule 300 Mg PO BID Celexa (Citalopram Hydrobromide) 20 Mg Tablet 20 Mg PO DAILY Lisinopril 5 Mg Tablet 5 Mg PO DAILY Atorvastatin Calcium 10 Mg Tablet 10 Mg PO HS Eliquis (Apixaban) 5 Mg Tablet 5 Mg PO BID Vitamin C (Ascorbic Acid) 500 Mg Capsule.er 500 Mg PO DAILY Multivitamins (Multivitamin) 1 Each Tablet 1 Tab PO DAILY Famotidine 20 Mg Tablet 20 Mg PO BID Folic Acid 1 Mg Tablet 1 Tab PO DAILY Miconazole 3 (Miconazole Nitrate) 24 Gm Cmb.pf.crm 24 Gm VG BID Flomax (Tamsulosin Hcl) 0.4 Mg Cap.er.24h 1 Cap PO DAILY Tramadol Hcl 50 Mg Tablet 50 Mg PO PRN Q6HRS PRN Mirtazapine 15 Mg Tablet 1 Tab PO QHS Oxcarbazepine 300 Mg Tablet 300 Mg PO BID Vitals/I & O Vital Sign - Last 24 Hours 11/10/19 11/10/19 11/10/19 11/10/19 15:00 19:00 20:12 22:30 Temp 98.5 98.2 98.5 98.5 98.2 98.5 Pulse 74 73 57 Resp 24 20 20 B/P (MAP) 89/42 (58) 127/62 (83) 124/47 (72) Pulse Ox 100 90 99 O2 Delivery Room Air Nasal Cannula Nasal Cannula Room Air O2 Flow Rate 2.0 11/11/19 11/11/19 11/11/19 11/11/19 03:55 07:10 08:00 08:52 Temp 97.9 97.9 Pulse 55 52 52 Resp 20 20 B/P (MAP) 135/60 (85) 121/54 (76) 121/54 Pulse Ox 100 98 O2 Delivery Room Air Room Air Room Air Intake and Output 11/10/19 11/10/19 11/11/19 15:00 23:00 07:00 Intake Total 600 ml 200 ml Output Total 475 ml 200 ml Balance 125 ml 0 ml VIDAL HINDS MD Nov 11, 2019 11:48
--- NOTE | 2019-11-11 11:52 | PDOC ---
PROGRESS NOTES Chief Complaint Chief Complaint Sepsis secondary to right mid and lower lobe pneumonia and decubitus ulcer and possible urinary tract infection Lactic acidosis secondary to the above Bandemia resolved Acute renal failure secondary to septic process improved Bedridden status Chronic sacral decubitus ulcer stage IV Altered mental status secondary to sepsis improved History of a chondroplasty a History of paroxysmal atrial fibrillation History of multiple strokes including cerebellar infarct History off hypertension History of dyslipidemia 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 with Eliquis History of Present Illness History of Present Illness stage 4 decub, wound care on I added ID LAvtate now 0;.9 from high on admission UTI too WBC 12,m hgb 9 CAn be bradycardic ON liq diet, unsyre why - order by DR johnson HE is a transfer from ICU? PLAn: ADAT ID consult PT OT turn q2 Add esr Vitals Vitals Vital Signs Date Time Temp Pulse Resp B/P (MAP) Pulse Ox O2 Delivery O2 Flow Rate FiO2 11/11/19 08:52 52 121/54 11/11/19 08:00 Room Air 11/11/19 07:10 97.9 20 98 97.9 11/10/19 20:12 2.0 Physical Exam General: Alert, Oriented X3, No acute distress, Other (no voice, bad dentition) Heart: Regular rate, Normal S1, Normal S2, No murmurs Lungs: Clear, Other (stage 4 decub) Abdomen: Normal bowel sounds, Soft, No tenderness Extremities: No clubbing, No cyanosis, No edema, Normal pulses Review of Systems Review of Systems neg 14 pt Assessment and Plan Assessmemt and Plan Problems Medical Problems: (1) Nausea and vomiting Status: Acute (2) Sepsis Status: Acute (3) Urinary tract infection Status: Acute Comment Review of Relevant I have reviewed the following items lg (where applicable) has been applied. Labs Laboratory Tests Test 11/09/19 18:23 11/09/19 18:25 11/09/19 18:46 11/09/19 19:52 White Blood Count 9.6 x10^3/uL (4.0-11.0) Red Blood Count 3.97 x10^6/uL (4.30-5.70) Hemoglobin 10.7 g/dL (13.0-17.5) Hematocrit 32.8 % (39.0-53.0) Mean Corpuscular Volume 83 fL (79-100) Mean Corpuscular Hemoglobin 27 pg (25-35) Mean Corpuscular Hemoglobin Concent 33 g/dL (31-37) Red Cell Distribution Width 16.7 % (11.5-14.5) Platelet Count 275 x10^3/uL (140-400) Neutrophils (%) (Auto) 92 % (31-73) Lymphocytes (%) (Auto) 5 % (24-48) Monocytes (%) (Auto) 2 % (0-9) Eosinophils (%) (Auto) 1 % (0-3) Basophils (%) (Auto) 0 % (0-3) Neutrophils # (Auto) 8.9 x10^3/uL (1.8-7.7) Lymphocytes # (Auto) 0.4 x10^3/uL (1.0-4.8) Monocytes # (Auto) 0.2 x10^3/uL (0.0-1.1) Eosinophils # (Auto) 0.1 x10^3/uL (0.0-0.7) Basophils # (Auto) 0.0 x10^3/uL (0.0-0.2) Segmented Neutrophils % 74 % (35-66) Band Neutrophils % 19 % (0-9) Lymphocytes % 6 % (24-48) Monocytes % 1 % (0-10) Toxic Granulation Slight Toxic Vacuolation Mod Platelet Estimate Adequate (ADEQUATE) Polychromasia Slight Prothrombin Time 15.5 SEC (11.7-14.0) Prothromb Time International Ratio 1.3 (0.8-1.1) Activated Partial Thromboplast Time 27 SEC (24-38) Sodium Level 139 mmol/L (136-145) Potassium Level 4.6 mmol/L (3.5-5.1) Chloride Level 105 mmol/L (98-107) Carbon Dioxide Level 24 mmol/L (21-32) Anion Gap 10 (6-14) Blood Urea Nitrogen 42 mg/dL (8-26) Creatinine 1.6 mg/dL (0.7-1.3) Estimated GFR (Cockcroft-Gault) 42.9 BUN/Creatinine Ratio 26 (6-20) Glucose Level 120 mg/dL (70-99) Lactic Acid Level 3.3 mmol/L (0.4-2.0) Calcium Level 9.4 mg/dL (8.5-10.1) Total Bilirubin 0.3 mg/dL (0.2-1.0) Aspartate Amino Transf (AST/SGOT) 41 U/L (15-37) Alanine Aminotransferase (ALT/SGPT) 48 U/L (16-63) Alkaline Phosphatase 141 U/L (46-116) Troponin I Quantitative 0.026 ng/mL (0.000-0.055) [id number]-Type Natriuretic Peptide 238 pg/mL (0-124) Total Protein 6.8 g/dL (6.4-8.2) Albumin 2.9 g/dL (3.4-5.0) Albumin/Globulin Ratio 0.7 (1.0-1.7) Lipase 233 U/L (73-393) Valproic Acid (Depakene) Level < 3 mcg/mL (50-100) Valproic Acid Last Dose Date 11/08/19 Valproic Acid Last Dose Time 1000 Influenza Type A Antigen Negative (NEGATIVE) Influenza Type B Antigen Negative (NEGATIVE) Glucose (Fingerstick) 105 mg/dL (70-99) Urine Collection Type U cath Urine Color Yellow Urine Clarity Cloudy Urine pH 7.0 Urine Specific [place] 1.010 Urine Protein 100 mg/dL (NEG-TRACE) Urine Glucose (UA) Negative mg/dL (NEG) Urine Ketones (Stick) Negative mg/dL (NEG) Urine Blood Moderate (NEG) Urine Nitrite Negative (NEG) Urine Bilirubin Negative (NEG) Urine Urobilinogen Dipstick 0.2 mg/dL (0.2 mg/dL) Urine Leukocyte Esterase Large (NEG) Urine RBC 11-20 /HPF (0-2) Urine WBC Tntc /HPF (0-4) Urine Squamous Epithelial Cells None /LPF Urine Bacteria Moderate /HPF (0-FEW) Test 11/09/19 22:22 11/09/19 23:00 11/10/19 06:25 11/10/19 08:04 Lactic Acid Level 0.9 mmol/L (0.4-2.0) Nasal Screen MRSA (PCR) Positive (Negative) Sodium Level 140 mmol/L (136-145) Potassium Level 4.5 mmol/L (3.5-5.1) Chloride Level 110 mmol/L (98-107) Carbon Dioxide Level 19 mmol/L (21-32) Anion Gap 11 (6-14) Blood Urea Nitrogen 34 mg/dL (8-26) Creatinine 1.1 mg/dL (0.7-1.3) Estimated GFR (Cockcroft-Gault) 66.2 Glucose Level 81 mg/dL (70-99) Calcium Level 8.2 mg/dL (8.5-10.1) White Blood Count 12.7 x10^3/uL (4.0-11.0) Red Blood Count 3.55 x10^6/uL (4.30-5.70) Hemoglobin 9.5 g/dL (13.0-17.5) Hematocrit 29.8 % (39.0-53.0) Mean Corpuscular Volume 84 fL (79-100) Mean Corpuscular Hemoglobin 27 pg (25-35) Mean Corpuscular Hemoglobin Concent 32 g/dL (31-37) Red Cell Distribution Width 16.7 % (11.5-14.5) Platelet Count 210 x10^3/uL (140-400) Neutrophils (%) (Auto) 82 % (31-73) Lymphocytes (%) (Auto) 7 % (24-48) Monocytes (%) (Auto) 9 % (0-9) Eosinophils (%) (Auto) 2 % (0-3) Basophils (%) (Auto) 0 % (0-3) Neutrophils # (Auto) 10.4 x10^3/uL (1.8-7.7) Lymphocytes # (Auto) 0.9 x10^3/uL (1.0-4.8) Monocytes # (Auto) 1.2 x10^3/uL (0.0-1.1) Eosinophils # (Auto) 0.2 x10^3/uL (0.0-0.7) Basophils # (Auto) 0.0 x10^3/uL (0.0-0.2) Microbiology 11/09/19 Blood Culture - Preliminary, Resulted NO GROWTH AFTER 1 DAY Medications Current Medications Ondansetron HCl (Zofran) 4 mg 1X ONCE IVP Last administered on 11/09/19at 18:47; Start 11/09/19 at 18:15; Stop 11/09/19 at 18:19; Status DC Sodium Chloride 1,000 ml @ 1,000 mls/hr 1X ONCE IV Last administered on 11/09/19at 18:47; Start 11/09/19 at 18:15; Stop 11/09/19 at 19:14; Status DC Fentanyl Citrate (Fentanyl 2ml Vial) 50 mcg 1X ONCE IVP Last administered on 11/09/19at 18:47; Start 11/09/19 at 18:45; Stop 11/09/19 at 18:46; Status DC Cefepime HCl (Maxipime) 2 gm 1X ONCE IVP Last administered on 11/09/19at 21:24; Start 11/09/19 at 20:00; Stop 11/09/19 at 20:01; Status DC Vancomycin HCl (Vanco Per Pharmacy) 1 each PRN DAILY PRN MC SEE COMMENTS Last administered on 11/10/19at 08:45; Start 11/09/19 at 20:00 Vancomycin HCl 2 gm/Sodium Chloride 500 ml @ 250 mls/hr 1X ONCE IV Last administered on 11/09/19at 21:24; Start 11/09/19 at 21:00; Stop 11/09/19 at 22:59; Status DC Ondansetron HCl (Zofran) 4 mg PRN Q8HRS PRN IV NAUSEA/VOMITING; Start 11/09/19 at 20:45; Stop 11/10/19 at 20:44; Status DC Cefepime HCl (Maxipime) 2 gm Q12HR IVP Last administered on 11/10/19at 08:50; Start 11/10/19 at 09:00; Stop 11/10/19 at 14:49; Status DC Sodium Chloride 1,000 ml @ 1,000 mls/hr 1X ONCE IV Last administered on 11/09/19at 20:45; Start 11/09/19 at 20:45; Stop 11/09/19 at 21:44; Status DC Dextrose/Sodium Chloride 1,000 ml @ 125 mls/hr 1X ONCE IV Last administered on 11/09/19at 20:45; Start 11/09/19 at 20:45; Stop 11/10/19 at 04:44; Status DC Acetaminophen (Tylenol) 650 mg PRN Q4HRS PRN PO MILD PAIN 1-3; Start 11/09/19 at 22:15 Apixaban (Eliquis) 5 mg BID PO Last administered on 1/18/20at 08:50; Start 11/09/19 at 23:00 Atorvastatin Calcium (Lipitor) 10 mg HS PO Last administered on 11/10/19 20:03; Start 11/09/19 at 23:00 Citalopram Hydrobromide (CeleXA) 20 mg DAILY PO Last administered on 11/11/19 08:51; Start 11/10/19 at 09:00 Famotidine (Pepcid) 20 mg QHS PO Last administered on 11/09/19at 22:36; Start 11/09/19 at 23:00; Stop 11/10/19 at 08:37; Status DC Folic Acid (Folic Acid) 1 mg DAILY PO Last administered on 11/11/19 08:50; Start 11/10/19 at 09:00 Gabapentin (Neurontin) 300 mg BID PO Last administered on 11/11/19 08:51; Start 11/09/19 at 23:00 Lisinopril (Prinivil) 5 mg DAILY PO Last administered on 11/11/19at 08:52; Start 11/10/19 at 09:00 Mirtazapine (Remeron) 15 mg QHS PO Last administered on 11/10/19at 20:03; Start 11/09/19 at 23:00 Nitroglycerin (Nitrostat) 0.4 mg PRN Q5MIN PRN SL CHEST PAIN; Start 11/09/19 at 22:15 Oxcarbazepine (Trileptal) 300 mg BID PO Last administered on 11/11/19 08:50; Start 11/09/19 at 23:00 Tamsulosin HCl (Flomax) 0.4 mg DAILY PO Last administered on 11/11/19 08:51; Start 11/10/19 at 09:00 Tramadol HCl (Ultram) 50 mg PRN Q6HRS PRN PO MODERATE PAIN 4-6 Last administered on 11/09/19 22:36; Start 11/09/19 at 22:15 Trazodone HCl (Desyrel) 50 mg HS PO Last administered on 11/10/19at 20:03; Start 11/09/19 at 23:00 Ascorbic Acid (Vitamin C) 500 mg DAILY PO Last administered on 11/11/19at 08:51; Start 11/10/19 at 09:00 Non-Formulary Medication (Miconazole Nitrate (Miconazole 3)) 24 gm BID VG ; Start 11/10/19 at 09:00; Status UNV Multivitamins (Thera M Plus) 1 tab DAILY PO Last administered on 11/11/19at 08:50; Start 11/10/19 at 09:00 Zinc Sulfate (Orazinc) 220 mg BID PO Last administered on 11/11/19at 08:50; Start 11/10/19 at 09:00 Miconazole Nitrate (Monistat-Derm) 1 jaymie BID TP Last administered on 11/11/19at 08:52; Start 11/10/19 at 09:00 Vancomycin HCl 1.5 gm/Sodium Chloride 500 ml @ 250 mls/hr Q24H IV Last administered on 11/10/19at 20:00; Start 11/10/19 at 21:00 Vancomycin HCl (Vancomycin Trough Level) 1 each 1X ONCE MC ; Start 11/11/19 at 20:30; Stop 11/11/19 at 20:31 Lactobacillus Rhamnosus (Culturelle) 1 cap BID PO Last administered on 11/11at 08:51; Start 11/10/19 at 09:00 Info (Anti-Coagulation Monitoring By Pharmacy) 1 each PRN DAILY PRN MC SEE COMMENTS; Start 11/10/19 at 08:45 Famotidine (Pepcid) 20 mg BID PO Last administered on 11/11/19at 08:51; Start 11/10/19 at 10:00 Piperacillin Sod/ Tazobactam Sod 4.5 gm/Sodium Chloride 100 ml @ 200 mls/hr Q6HRS IV Last administered on 11/11/19at 05:26; Start 11/10/19 at 18:00; Stop 11/11/19 at 11:26; Status DC Albumin Human 100 ml @ 100 mls/hr 1X ONCE IV Last administered on 11/10/19at 15:15; Start 11/10/19 at 15:00; Stop 11/10/19 at 15:59; Status DC Hydrocortisone Sodium Succinate (Solu-CORTEF) 100 mg Q8HRS IVP Last administered on 11/11/19at 05:30; Start 11/10/19 at 22:00 Ondansetron HCl (Zofran) 4 mg PRN Q6HRS PRN IVP NAUSEA/VOMITING; Start 11/11/19 at 08:30 Morphine Sulfate (Morphine Sulfate) 2 mg PRN Q2HR PRN IV MODERATE TO SEVERE PAIN; Start 11/11/19 at 08:30 Vancomycin HCl (Vancomycin Oral Solution) 125 mg BID PO ; Start 11/11/19 at 12:00 Meropenem 500 mg/ Sodium Chloride 50 ml @ 100 mls/hr Q6HRS IV ; Start 11/11/19 at 12:00 Active Scripts Active Reported Zinc Sulfate 220 Mg Tablet 1 Tab PO BID 30 Days Tylenol (Acetaminophen) 325 Mg Tablet 650 Mg PO PRN Q4HRS PRN Trazodone Hcl 50 Mg Tablet 50 Mg PO HS NITROGLYCERIN SubLingual (Nitroglycerin) 0.4 Mg Tab.subl 0.4 Mg SL PRN Q5MIN PRN Gabapentin (Gabapentin) 300 Mg Capsule 300 Mg PO BID Celexa (Citalopram Hydrobromide) 20 Mg Tablet 20 Mg PO DAILY Lisinopril 5 Mg Tablet 5 Mg PO DAILY Atorvastatin Calcium 10 Mg Tablet 10 Mg PO HS Eliquis (Apixaban) 5 Mg Tablet 5 Mg PO BID Vitamin C (Ascorbic Acid) 500 Mg Capsule.er 500 Mg PO DAILY Multivitamins (Multivitamin) 1 Each Tablet 1 Tab PO DAILY Famotidine 20 Mg Tablet 20 Mg PO BID Folic Acid 1 Mg Tablet 1 Tab PO DAILY Miconazole 3 (Miconazole Nitrate) 24 Gm Cmb.pf.crm 24 Gm VG BID Flomax (Tamsulosin Hcl) 0.4 Mg Cap.er.24h 1 Cap PO DAILY Tramadol Hcl 50 Mg Tablet 50 Mg PO PRN Q6HRS PRN Mirtazapine 15 Mg Tablet 1 Tab PO QHS Oxcarbazepine 300 Mg Tablet 300 Mg PO BID Vitals/I & O Vital Sign - Last 24 Hours 11/10/19 11/10/19 11/10/19 11/10/19 15:00 19:00 20:12 22:30 Temp 98.5 98.2 98.5 98.5 98.2 98.5 Pulse 74 73 57 Resp 24 20 20 B/P (MAP) 89/42 (58) 127/62 (83) 124/47 (72) Pulse Ox 100 90 99 O2 Delivery Room Air Nasal Cannula Nasal Cannula Room Air O2 Flow Rate 2.0 11/11/19 11/11/19 11/11/19 11/11/19 03:55 07:10 08:00 08:52 Temp 97.9 97.9 Pulse 55 52 52 Resp 20 20 B/P (MAP) 135/60 (85) 121/54 (76) 121/54 Pulse Ox 100 98 O2 Delivery Room Air Room Air Room Air Intake and Output 11/10/19 11/10/19 11/11/19 15:00 23:00 07:00 Intake Total 600 ml 200 ml Output Total 475 ml 200 ml Balance 125 ml 0 ml VIDAL HINDS MD Nov 11, 2019 11:52
[2019-11-11] MEDS: MEROPENEM 500 MG in IV NORMAL SALINE 50ML 50 ML IV SCH ×3 (12:02→22:36)
[2019-11-11] MEDS: VANCOMYCIN 125 MG/2.5 ML ORAL SOLUTION. PO SCH ×2 (12:02→21:27)
--- NOTE | 2019-11-11 13:22 | CONS ---
DATE OF CONSULTATION: 11/11/2019 REFERRING PHYSICIAN: Patel Larsen MD REASON FOR CONSULTATION: Sepsis, urinary tract infection, pneumonia and wounds. HISTORY OF PRESENT ILLNESS: This patient is a 69-year-old male, [place] [facility] resident, who was sent to the ER with complaints of abdominal pain associated with nausea, vomiting, fever and altered mental status as well as hematuria. Urinalysis was suggestive of infection. Abdominal/pelvis CT scan showed Linn catheter tip present within the prostatic urethra at the balloon inflated within the bulbous urethra. Linn catheter was replaced. He is currently on vancomycin and Zosyn. The patient says that he is feeling better. His abdominal pain, nausea and vomiting have settled down. He has a history of stage 4 sacral decubitus ulcer with a history of osteomyelitis associated with ESBL positive E. coli, Morganella, pseudomonas (resistant to ceftazidime and intermediate to Zosyn), Bacteroides and Clostridium sepsis for which he was treated with a course of meropenem in 2018. He has been seen by the wound care team and now has a VeraFlo in place. He has a history chronic Linn due to bladder outlet obstruction. He denies chills, sweats or body aches. Denies shortness of air, cough or chest discomfort. PAST MEDICAL HISTORY: Chronic sacral decubitus wound with history of osteomyelitis with cultures positive for ESBL producing E. coli, Morganella, pseudomonas (resistant ceftazidime, intermediate to Zosyn) Bacteroides and Clostridium species. Chronic Linn for history of bladder outlet obstruction. Coronary artery disease, congestive heart failure, hypercholesterolemia, atrial fibrillation, hypertension, COPD, type 2 diabetes, depression, anxiety, achondroplasia, history of pulmonary embolism, history of urinary tract infections, history of MRSA in nares. History of Clostridium difficile on 02/2019. PAST SURGICAL HISTORY: Surgical debridement of sacral decubitus ulcer, colostomy. SOCIAL HISTORY: [facility] resident. He is . He is a former smoker. FAMILY HISTORY: Noncontributory. ALLERGIES: No known drug allergies. MEDICATIONS: Vancomycin, Zosyn, Eliquis, gabapentin, folic acid, probiotics, lisinopril, Remeron and Flomax. Other medications are available and have been reviewed on the DEC. REVIEW OF SYSTEMS: Per HPI, otherwise all other review of systems negative. PHYSICAL EXAMINATION: VITAL SIGNS: Temperature is 97.9, blood pressure 121/54, heart rate 52, respiratory rate 20 and pulse oximetry 98% on room air. GENERAL: The patient is propped up in bed, alert and watching TV. HEENT: Pupils equally round and reactive. Oropharynx pink and moist. No thrush. NECK: Supple. LUNGS: Clear. HEART: S1, S2. ABDOMEN: Obese, soft, nontender with bowel sounds present. Ostomy without signs of complications. GENITOURINARY: Indwelling Linn in place (1-17). EXTREMITIES: No gross edema or cyanosis. SKIN: Warm to touch without cyanosis, generalized rash. Sacrococcygeal wound with VeraFlo in place, (pictures reviewed). NEUROLOGIC: Alert, answering questions appropriately. Peripheral IV. LABORATORY DATA: Recent WBC 12.7, hemoglobin 9.5 and platelets 210,000. Creatinine 1.1 from 1.6, BUN 34, sodium 140, potassium 4.5, lactic acid 0.9 from 3.3, glucose 81. Total bilirubin 0.3, AST 41, ALT 48. BNP 238. Albumin 2.9. Lipase 233. MRSA screen, nares positive. CT abdomen/pelvis per HPI. No acute abnormality of the chest. Sacral decubitus ulcer extending to the tip of the remaining sacrum. No new lesions seen. CT manifestations of osteomyelitis. Head CT limited evaluation secondary to patient motion. No large abnormality identified. ASSESSMENT: 1. Sepsis with lactic acidosis present on admission. 2. Leukocytosis. 3. Catheter-associated urinary tract infection present on admission. 4. Acute encephalopathy, 5. Chronic sacral decubitus stage 4, now with VeraFlo in place. 6. Methicillin-resistant Staphylococcus aureus colonization, nares. 7. Acute kidney injury, improved. 8. History of atrial fibrillation. 9. Achondroplasia. PLAN: The patient is clinically improving. Continue the vancomycin, but switch the Zosyn to meropenem given a history of ESBL and history of pseudomonas intermediate to Zosyn. Further antibiotic modifications pending culture results. Continue probiotics. Linn catheter has been changed. Continue to monitor WBC count, temperature and renal function closely. Maintain aspiration precautions. Local wound care and offloading. Wound care team is following. Contact isolation. Thank you, Dr. Larsen for asking us to participate in this patient's care. Should you have further questions or concerns, please call. MOSHE SHARMA MD DR: Bigg JOB#: [id number] / [id number] NEHA
[2019-11-11] MEDS: VANCOMYCIN PER PHARMACY MC PRN (14:55)
[2019-11-11] MEDS: ANTI-COAG MONITOR BY PHARMACY. MC PRN (14:59)
[2019-11-11 15:35] VITALS: BP 104/42
[2019-11-11 19:55] VITALS: BP 130/53
[2019-11-11 21:02] LABS: VANC TR 22.6 mcg/mL (10.0-20.0)
[2019-11-11] MEDS: MIRTAZAPINE 15 MG TABLET PO SCH (21:27)
[2019-11-11] MEDS: traZODone 50 MG TABLET. PO SCH (21:28)
[2019-11-11] MEDS: ATORVASTATIN CALCIUM 10 MG TABLET. PO SCH (21:28)
[2019-11-11] MEDS: traMADol 50 MG TABLET PO PRN (21:28)
[2019-11-11 23:52] VITALS: BP 118/47
[2019-11-12 03:47] VITALS: BP 164/62
[2019-11-12] MEDS ORDERED: VANCOMYCIN 1 GM in IV NORMAL SALINE 250ML 250 ML IV SCH (05:00)
[2019-11-12] MEDS: VANCOMYCIN PER PHARMACY MC PRN (05:59)
--- NOTE | 2019-11-12 05:59 | NUR ---
Pharmacy Vancomycin Dosing Note S:Consulted to monitor and dose vancomycin started 11/09/19. O:ROGELIO MYERS is a 69 year old M with Sepsis . Height: 4 feet, 4 inches Weight: 91.125889 kg [place] Body Weight: 31.60 Adjusted Body Weight: 55.64 Dosing Weight: Actual Other Antibiotics: CEFEPIME 2GM Q12 LABS: Last BUN: 34 Last Creatinine: 1.1 Creatinine Clearance: 59 mL/min Last WBC: 12.7 Last Procalcitonin: Tmax (past 24 hours): 99.1 Microbiology: Blood: NGTD (after 1 day) I/O: 3450/750 Drug Levels: Last Trough level: 22.6 on 11/11/19 at 2030 Last dose given 11/10/19 at 2000 Vancomycin Dosing: Loading Dose: 2000 mg x1 Dosing Weight: Actual Target Trough: 15-20 A: Based on: TROUGH P: 1. Begin Vancomycin 1000 mg IV q24h 2. Follow up Trough level on 11/14/19 at 0430 3. Pharmacy will continue to monitor, follow and adjust therapy as needed. LESLYE MENDOZA RPH, 11/12/19 0559 Signed: 11/12/19 at 0559 by LESLYE MENDOZA RPH PHA
[2019-11-12] MEDS: MEROPENEM 500 MG in IV NORMAL SALINE 50ML 50 ML IV SCH ×3 (06:00→17:38)
[2019-11-12] MEDS: HYDROCORTISONE SOD SUCC/PF 100 MG/2 ML VIAL. IVP SCH (06:12)
[2019-11-12 07:00] VITALS: BP 137/86
[2019-11-12] MEDS: VANCOMYCIN 125 MG/2.5 ML ORAL SOLUTION. PO SCH ×4 (08:52→21:21)
[2019-11-12] MEDS: TAMSULOSIN 0.4 MG CAP.ER.24H. PO SCH (08:52)
[2019-11-12] MEDS: FOLIC ACID 1 MG TABLET. PO SCH (08:53)
[2019-11-12] MEDS: GABAPENTIN 300 MG CAPSULE. PO SCH ×2 (08:53→21:21)
[2019-11-12] MEDS: LACTOBACILLUS RHAMNOSUS GG 1 CAPSULE. PO SCH ×2 (08:53→21:21)
[2019-11-12] MEDS: MULTIVITAMIN with MINERAL TABLET. PO SCH (08:53)
[2019-11-12] MEDS: ASCORBIC ACID 500 MG TABLET PO SCH (08:53)
[2019-11-12] MEDS: ZINC SULFATE 220 MG CAPSULE. PO SCH ×2 (08:53→21:21)
[2019-11-12] MEDS: CITALOPRAM 20 MG TABLET. PO SCH (08:53)
[2019-11-12] MEDS: OXcarbazepine 300 MG TABLET PO SCH ×2 (08:53→21:21)
[2019-11-12] MEDS: FAMOTIDINE 20 MG TABLET. PO SCH ×2 (08:53→21:21)
[2019-11-12] MEDS: APIXABAN 5 MG TABLET. PO SCH ×2 (08:54→21:21)
[2019-11-12] MEDS: LISINOPRIL 5 MG TABLET. PO SCH (08:54)
[2019-11-12] MEDS: MICONAZOLE NITRATE 2% TOPICAL CREAM 28GM TUBE. TP SCH ×2 (08:57→21:22)
--- NOTE | 2019-11-12 09:28 | PDOC ---
Infectious Disease Note Subjective Subjective Doing alright Denies pain/N/V/confusion No F/C last 24 hours Appetite good ROS ROS per HPI Vital Sign Vital Signs Vital Signs Date Time Temp Pulse Resp B/P (MAP) Pulse Ox O2 Delivery O2 Flow Rate FiO2 11/12/19 08:54 50 137/86 11/12/19 07:00 97.5 16 98 Room Air 97.5 11/11/19 19:55 2.0 Physical Exam PHYSICAL EXAM GENERAL: Propped up in bed, alert and watching TV. HEENT: Pupils equally round and reactive. Oropharynx pink and moist. No thrush. NECK: Supple. LUNGS: Clear. HEART: S1, S2. ABDOMEN: Obese, soft, nontender with bowel sounds present. Ostomy without signs of complications. GENITOURINARY: Indwelling Linn in place (11-10). EXTREMITIES: No gross edema or cyanosis. SKIN: Warm to touch without cyanosis, generalized rash. Sacrococcygeal wound with VeraFlo in place, (pictures reviewed). NEUROLOGIC: Alert, answering questions appropriately. Peripheral IV - ok Labs Lab Laboratory Tests Test 11/11/19 20:30 Vancomycin Level Trough 22.6 mcg/mL (10.0-20.0) Vancomycin Last Dose Date Vancomycin Last Dose Time Micro Microbiology 11/09/19 Blood Culture - Preliminary, Resulted NO GROWTH AFTER 2 DAY 11/09. URINE CULTURE RES 1 Preliminary Gram negative rods Greater than 100,000 colony forming units per mL Objective Assessment Sepsis with lactic acidosis, POA - improving Leukocytosis CAUTI, POA GNR Recurrent c. 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 coli, moganella, PSA & anaerobes MRSA colonization, nares h/o C. diff 2018 ILIR - improved A- fib Achondroplasia Plan Plan of Care d/c vancomycin Trough 22.6 Continue merrem Continue po vanc BID but increase dose to QID Probiotics Linn changed in ER CBC in am f/u cultures Maintain aspiration precautions Local wound care and offloading Wound care team consulted Contact isolation Patient seen and examined. Chart reviewed in detail. Case discussed with [employer]. Agree with above plan. YUNG PITT APRN Nov 12, 2019 09:28 MOSHE SHARMA MD Nov 12, 2019 20:09
[2019-11-12 10:55] VITALS: BP 128/70
--- NOTE | 2019-11-12 11:25 | PDOC ---
PROGRESS NOTES Chief Complaint Chief Complaint GNR UTI, compliacted INdwelling crooks - no crooks at SNU Sepsis with no virgen dysfcn - secondary to right mid and lower lobe pneumonia and decubitus ulcer and GNR uTI Lactic acidosis secondary to the above, resolved Bandemia resolved Acute renal failure secondary to septic process improved Bedridden status SNU resident Bradycardia, chronci,s table - no AV nodals on file Chronic sacral decubitus ulcer stage IV Altered mental status secondary to sepsis improved History of a chondroplasty a History of paroxysmal atrial fibrillation History of multiple strokes including cerebellar infarct History off hypertension History of dyslipidemia 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 with Eliquis History of Present Illness History of Present Illness stage 4 decub, wound care on added ID on wednesday SNU resident NO crooks in SNU,m has crooks here and GNR uTI on URINE cx BC neg prelim x 1 day HR 40s, known, no sxs -0 NO NEED for cards, not on any AV dagoberto agents LAvtate now 0.9 from high on admission WBC 12,m hgb 9 HE is a transfer from ICU= for sepsis etc PLAn: upgrade to reg diet SNU on dc dc crooks today BLadder scan protocol Turn q2 WOund care for sacral Ff up GNR uti on uroine cx ID on board sicne wednesday only Vitals Vitals Vital Signs Date Time Temp Pulse Resp B/P (MAP) Pulse Ox O2 Delivery O2 Flow Rate FiO2 11/12/19 10:55 97.6 52 16 128/70 (89) 98 Room Air 97.6 11/11/19 19:55 2.0 Physical Exam Physical Exam GENERAL: Propped up in bed, alert and watching TV. HEENT: Pupils equally round and reactive. Oropharynx pink and moist. No thrush. NECK: Supple. LUNGS: Clear. HEART: S1, S2. ABDOMEN: Obese, soft, nontender with bowel sounds present. Ostomy without signs of complications. GENITOURINARY: Indwelling Crooks in place (1-17). EXTREMITIES: No gross edema or cyanosis. SKIN: Warm to touch without cyanosis, generalized rash. Sacrococcygeal wound with VeraFlo in place, (pictures reviewed). NEUROLOGIC: Alert, answering questions appropriately. Peripheral IV - ok General: Alert, Oriented X3, No acute distress, Other (no voice, bad dentition) Heart: Regular rate, Normal S1, Normal S2, No murmurs Lungs: Clear, Other (stage 4 decub) Abdomen: Normal bowel sounds, Soft, No tenderness Extremities: No clubbing, No cyanosis, No edema, Normal pulses Labs LABS Laboratory Tests Test 11/11/19 20:30 Vancomycin Level Trough 22.6 mcg/mL (10.0-20.0) Vancomycin Last Dose Date Vancomycin Last Dose Time Review of Systems Review of Systems neg 14 pt, reviewed Assessment and Plan Assessmemt and Plan Problems Medical Problems: (1) Nausea and vomiting Status: Acute (2) Sepsis Status: Acute (3) Urinary tract infection Status: Acute Comment Review of Relevant I have reviewed the following items lg (where applicable) has been applied. Labs Laboratory Tests Test 11/10/19 15:45 11/11/19 07:25 11/11/19 20:30 Clostridium difficile Toxin B Gene Positive (Negative) Erythrocyte Sedimentation Rate 52 (0-15) Vancomycin Level Trough 22.6 mcg/mL (10.0-20.0) Vancomycin Last Dose Date Vancomycin Last Dose Time Laboratory Tests Test 11/11/19 20:30 Vancomycin Level Trough 22.6 mcg/mL (10.0-20.0) Vancomycin Last Dose Date Vancomycin Last Dose Time Microbiology 11/09/19 Urine Culture - Preliminary, Resulted 11/09/19 Urine Culture Result 1 (YAMINI) - Preliminary, Resulted 11/09/19 Blood Culture - Preliminary, Resulted NO GROWTH AFTER 2 DAYS Medications Current Medications Ondansetron HCl (Zofran) 4 mg 1X ONCE IVP Last administered on 11/09/19at 18:47; Start 11/09/19 at 18:15; Stop 11/09/19 at 18:19; Status DC Sodium Chloride 1,000 ml @ 1,000 mls/hr 1X ONCE IV Last administered on 11/09/19at 18:47; Start 11/09/19 at 18:15; Stop 11/09/19 at 19:14; Status DC Fentanyl Citrate (Fentanyl 2ml Vial) 50 mcg 1X ONCE IVP Last administered on 11/09/19at 18:47; Start 11/09/19 at 18:45; Stop 11/09/19 at 18:46; Status DC Cefepime HCl (Maxipime) 2 gm 1X ONCE IVP Last administered on 11/09/19at 21:24; Start 11/09/19 at 20:00; Stop 11/09/19 at 20:01; Status DC Vancomycin HCl (Vanco Per Pharmacy) 1 each PRN DAILY PRN MC SEE COMMENTS Last administered on 11/12/19at 05:59; Start 11/09/19 at 20:00; Stop 11/12/19 at 09:27; Status DC Vancomycin HCl 2 gm/Sodium Chloride 500 ml @ 250 mls/hr 1X ONCE IV Last administered on 11/09/19at 21:24; Start 11/09/19 at 21:00; Stop 11/09/19 at 22:59; Status DC Ondansetron HCl (Zofran) 4 mg PRN Q8HRS PRN IV NAUSEA/VOMITING; Start 11/09/19 at 20:45; Stop 11/10/19 at 20:44; Status DC Cefepime HCl (Maxipime) 2 gm Q12HR IVP Last administered on 11/10/19at 08:50; Start 11/10/19 at 09:00; Stop 11/10/19 at 14:49; Status DC Sodium Chloride 1,000 ml @ 1,000 mls/hr 1X ONCE IV Last administered on 11/09/19at 20:45; Start 11/09/19 at 20:45; Stop 11/09/19 at 21:44; Status DC Dextrose/Sodium Chloride 1,000 ml @ 125 mls/hr 1X ONCE IV Last administered on 11/09/19at 20:45; Start 11/09/19 at 20:45; Stop 11/10/19 at 04:44; Status DC Acetaminophen (Tylenol) 650 mg PRN Q4HRS PRN PO MILD PAIN 1-3; Start 11/09/19 at 22:15 Apixaban (Eliquis) 5 mg BID PO Last administered on 11/12/19at 08:54; Start 11/09/19 at 23:00 Atorvastatin Calcium (Lipitor) 10 mg HS PO Last administered on 11/11/19at 21:28; Start 11/09/19 at 23:00 Citalopram Hydrobromide (CeleXA) 20 mg DAILY PO Last administered on 11/12/19at 08:53; Start 11/10/19 at 09:00 Famotidine (Pepcid) 20 mg QHS PO Last administered on 11/09/19at 22:36; Start 11/09/19 at 23:00; Stop 11/10/19 at 08:37; Status DC Folic Acid (Folic Acid) 1 mg DAILY PO Last administered on 11/12/19at 08:53; Start 11/10/19 at 09:00 Gabapentin (Neurontin) 300 mg BID PO Last administered on 11/12/19at 08:53; Start 11/09/19 at 23:00 Lisinopril (Prinivil) 5 mg DAILY PO Last administered on 11/12/19at 08:54; Start 11/10/19 at 09:00 Mirtazapine (Remeron) 15 mg QHS PO Last administered on 11/11/19 21:27; Start 11/09/19 at 23:00 Nitroglycerin (Nitrostat) 0.4 mg PRN Q5MIN PRN SL CHEST PAIN; Start 11/09/19 at 22:15 Oxcarbazepine (Trileptal) 300 mg BID PO Last administered on 11/12/19at 08:53; Start 11/09/19 at 23:00 Tamsulosin HCl (Flomax) 0.4 mg DAILY PO Last administered on 11/12/19at 08:52; Start 11/10/19 at 09:00 Tramadol HCl (Ultram) 50 mg PRN Q6HRS PRN PO MODERATE PAIN 4-6 Last administered on 11/11/19 21:28; Start 11/09/19 at 22:15 Trazodone HCl (Desyrel) 50 mg HS PO Last administered on 11/11/19 21:28; Start 11/09/19 at 23:00 Ascorbic Acid (Vitamin C) 500 mg DAILY PO Last administered on 11/12/19at 08:53; Start 11/10/19 at 09:00 Non-Formulary Medication (Miconazole Nitrate (Miconazole 3)) 24 gm BID VG ; Start 11/10/19 at 09:00; Status UNV Multivitamins (Thera M Plus) 1 tab DAILY PO Last administered on 11/12/19at 08:53; Start 11/10/19 at 09:00 Zinc Sulfate (Orazinc) 220 mg BID PO Last administered on 11/12/19at 08:53; Start 11/10/19 at 09:00 Miconazole Nitrate (Monistat-Derm) 1 jaymie BID TP Last administered on 11/12/19at 08:57; Start 11/10/19 at 09:00 Vancomycin HCl 1.5 gm/Sodium Chloride 500 ml @ 250 mls/hr Q24H IV Last administered on 11/10/19at 20:00; Start 11/10/19 at 21:00; Stop 11/11/19 at 22:04; Status DC Vancomycin HCl (Vancomycin Trough Level) 1 each 1X ONCE MC Last administered on 11/11/19at 20:30; Start 11/11/19 at 20:30; Stop 11/11/19 at 20:31; Status DC Lactobacillus Rhamnosus (Culturelle) 1 cap BID PO Last administered on 11/12/19at 08:53; Start 11/10/19 at 09:00 Info (Anti-Coagulation Monitoring By Pharmacy) 1 each PRN DAILY PRN MC SEE COMMENTS Last administered on 11/11/19at 14:59; Start 11/10/19 at 08:45 Famotidine (Pepcid) 20 mg BID PO Last administered on 11/12/19at 08:53; Start 11/10/19 at 10:00 Piperacillin Sod/ Tazobactam Sod 4.5 gm/Sodium Chloride 100 ml @ 200 mls/hr Q6HRS IV Last administered on 11/11/19at 05:26; Start 11/10/19 at 18:00; Stop 11/11/19 at 11:26; Status DC Albumin Human 100 ml @ 100 mls/hr 1X ONCE IV Last administered on 11/10/19at 15:15; Start 11/10/19 at 15:00; Stop 11/10/19 at 15:59; Status DC Hydrocortisone Sodium Succinate (Solu-CORTEF) 100 mg Q8HRS IVP Last administered on 11/12/19at 06:12; Start 11/10/19 at 22:00; Stop 11/12/19 at 08:47; Status DC Ondansetron HCl (Zofran) 4 mg PRN Q6HRS PRN IVP NAUSEA/VOMITING; Start 11/11/19 at 08:30 Morphine Sulfate (Morphine Sulfate) 2 mg PRN Q2HR PRN IV MODERATE TO SEVERE PAIN; Start 11/11/19 at 08:30 Vancomycin HCl (Vancomycin Oral Solution) 125 mg BID PO Last administered on 11/12/19at 08:52; Start 11/11/19 at 12:00; Stop 11/12/19 at 09:27; Status DC Meropenem 500 mg/ Sodium Chloride 50 ml @ 100 mls/hr Q6HRS IV Last administered on 11/12/19at 06:00; Start 11/11/19 at 12:00 Vancomycin HCl 1 gm/Sodium Chloride 250 ml @ 250 mls/hr Q24H IV Last administered on 11/12/19at 04:46; Start 11/12/19 at 05:00; Stop 11/12/19 at 09:27; Status DC Vancomycin HCl (Vancomycin Trough Level) 1 each 1X ONCE MC ; Start 11/14/19 at 04:30; Stop 11/14/19 at 04:31; Status Cancel Vancomycin HCl (Vancomycin Oral Solution) 125 mg QID PO ; Start 11/12/19 at 13:00 Active Scripts Active Reported Zinc Sulfate 220 Mg Tablet 1 Tab PO BID 30 Days Tylenol (Acetaminophen) 325 Mg Tablet 650 Mg PO PRN Q4HRS PRN Trazodone Hcl 50 Mg Tablet 50 Mg PO HS NITROGLYCERIN SubLingual (Nitroglycerin) 0.4 Mg Tab.subl 0.4 Mg SL PRN Q5MIN PRN Gabapentin (Gabapentin) 300 Mg Capsule 300 Mg PO BID Celexa (Citalopram Hydrobromide) 20 Mg Tablet 20 Mg PO DAILY Lisinopril 5 Mg Tablet 5 Mg PO DAILY Atorvastatin Calcium 10 Mg Tablet 10 Mg PO HS Eliquis (Apixaban) 5 Mg Tablet 5 Mg PO BID Vitamin C (Ascorbic Acid) 500 Mg Capsule.er 500 Mg PO DAILY Multivitamins (Multivitamin) 1 Each Tablet 1 Tab PO DAILY Famotidine 20 Mg Tablet 20 Mg PO BID Folic Acid 1 Mg Tablet 1 Tab PO DAILY Miconazole 3 (Miconazole Nitrate) 24 Gm Cmb.pf.crm 24 Gm VG BID Flomax (Tamsulosin Hcl) 0.4 Mg Cap.er.24h 1 Cap PO DAILY Tramadol Hcl 50 Mg Tablet 50 Mg PO PRN Q6HRS PRN Mirtazapine 15 Mg Tablet 1 Tab PO QHS Oxcarbazepine 300 Mg Tablet 300 Mg PO BID Vitals/I & O Vital Sign - Last 24 Hours 11/11/19 11/11/19 11/11/1911/11/20 15:35 19:55 20:30 23:52 Temp 97.5 97.9 97.0 97.5 97.9 97.0 Pulse 69 59 49 Resp 20 20 18 B/P (MAP) 104/42 (62) 130/53 (78) 118/47 (70) Pulse Ox 97 98 98 O2 Delivery Room Air Nasal Cannula Room Air Room Air O2 Flow Rate 2.0 11/12/19 11/12/19 11/12/19 11/12/19 03:47 07:00 08:00 08:54 Temp 97.4 97.5 97.4 97.5 Pulse 47 50 50 Resp 20 16 B/P (MAP) 164/62 (96) 137/86 (103) 137/86 Pulse Ox 99 98 O2 Delivery Room Air Room Air Room Air 11/12/19 10:55 Temp 97.6 97.6 Pulse 52 Resp 16 B/P (MAP) 128/70 (89) Pulse Ox 98 O2 Delivery Room Air Intake and Output 11/11/19 11/11/19 11/12/19 15:00 23:00 07:00 Intake Total 590 ml 240 ml Output Total 350 ml 600 ml Balance 240 ml 240 ml -600 ml VIDAL HINDS MD Nov 12, 2019 11:25
--- NOTE | 2019-11-12 14:27 | NUR ---
Patient told this nurse that he's been on crooks catheter in the SNU, checked records from [facility], noted crooks care orders. Notified Dr Wei at 1411, this nurse was instructed to keep catheter in place.
--- NOTE | 2019-11-12 14:52 | PDOC ---
Provider Note Provider Note Need to maintain crooks on dc, he has chronic crooks in SNU,THis was just recently changed VIDAL HINDS MD Nov 12, 2019 14:52
[2019-11-12 15:00] VITALS: BP 125/52
[2019-11-12 19:56] VITALS: BP 97/42
[2019-11-12] MEDS: ATORVASTATIN CALCIUM 10 MG TABLET. PO SCH (21:21)
[2019-11-12] MEDS: traZODone 50 MG TABLET. PO SCH (21:21)
[2019-11-12] MEDS: MIRTAZAPINE 15 MG TABLET PO SCH (21:21)
[2019-11-12 23:30] VITALS: BP 120/59
--- NOTE | 2019-11-12 23:48 | NUR ---
PT transferred via bed to room 400. Report given to WILFRED Shea. Pt belongings packed up and transferred with pt. Housekeeping made aware that pt had C-diff.
[2019-11-13] MEDS: MEROPENEM 500 MG in IV NORMAL SALINE 50ML 50 ML IV SCH ×5 (00:29→23:53)
[2019-11-13 03:00] VITALS: BP 119/64
[2019-11-13 04:09] LABS: BASO # 0.1 x10^3/uL (0.0-0.2); BASO % 1 % (0-3); EOS # 0.2 x10^3/uL (0.0-0.7); EOS % 2 % (0-3); HEMATOCRIT 32.6 % (39.0-53.0); HEMOGLOBIN 10.3 g/dL (13.0-17.5); LYMPH % 20 % (24-48); MEAN CORPUSCULAR HEMOGLOBIN 27 pg (25-35); MEAN CORPUSCULAR HGB CONC 32 g/dL (31-37); MEAN CORPUSCULAR VOLUME 84 fL (79-100); MONO # 1.2 x10^3/uL (0.0-1.1); MONO % 12 % (0-9); NEUT # 6.4 x10^3/uL (1.8-7.7); NEUT % 65 % (31-73); PLATELET COUNT 209 x10^3/uL (140-400); RED BLOOD COUNT 3.87 x10^6/uL (4.30-5.70); RED CELL DISTRIBUTION WIDTH 17.2 % (11.5-14.5); WHITE BLOOD COUNT 9.9 x10^3/uL (4.0-11.0)
[2019-11-13 07:00] VITALS: BP 139/50
--- NOTE | 2019-11-13 08:16 | PDOC ---
Infectious Disease Note Subjective Subjective Doing alright but a little cold Denies pain/N/V/confusion No F/C last 24 hours Appetite good ROS ROS o/w neg Vital Sign Vital Signs Vital Signs Date Time Temp Pulse Resp B/P (MAP) Pulse Ox O2 Delivery O2 Flow Rate FiO2 11/13/19 07:00 97.3 53 18 139/50 (79) 100 Room Air 97.3 11/13/19 03:00 2.0 Physical Exam PHYSICAL EXAM GENERAL: Propped up in bed, alert HEENT: Pupils equally round and reactive. Oropharynx pink and moist. No thrush. NECK: Supple. LUNGS: Clear. HEART: S1, S2. ABDOMEN: Obese, soft, nontender with bowel sounds present. Ostomy without signs of complications. GENITOURINARY: Indwelling Linn in place (1-17). EXTREMITIES: No gross edema or cyanosis. SKIN: Warm to touch without cyanosis, generalized rash. Sacrococcygeal wound with VeraFlo in place, (pictures reviewed). NEUROLOGIC: Alert, answering questions appropriately. Peripheral IV - ok Labs Lab Laboratory Tests Test 11/13/19 03:15 White Blood Count 9.9 x10^3/uL (4.0-11.0) Red Blood Count 3.87 x10^6/uL (4.30-5.70) Hemoglobin 10.3 g/dL (13.0-17.5) Hematocrit 32.6 % (39.0-53.0) Mean Corpuscular Volume 84 fL (79-100) Mean Corpuscular Hemoglobin 27 pg (25-35) Mean Corpuscular Hemoglobin Concent 32 g/dL (31-37) Red Cell Distribution Width 17.2 % (11.5-14.5) Platelet Count 209 x10^3/uL (140-400) Neutrophils (%) (Auto) 65 % (31-73) Lymphocytes (%) (Auto) 20 % (24-48) Monocytes (%) (Auto) 12 % (0-9) Eosinophils (%) (Auto) 2 % (0-3) Basophils (%) (Auto) 1 % (0-3) Neutrophils # (Auto) 6.4 x10^3/uL (1.8-7.7) Lymphocytes # (Auto) 2.0 x10^3/uL (1.0-4.8) Monocytes # (Auto) 1.2 x10^3/uL (0.0-1.1) Eosinophils # (Auto) 0.2 x10^3/uL (0.0-0.7) Basophils # (Auto) 0.1 x10^3/uL (0.0-0.2) Micro Microbiology 11/09/19 Urine Culture - Preliminary, Resulted 11/09/19 Urine Culture Result 1 (YAMINI) - Preliminary, Resulted 11/09/19 Blood Culture - Preliminary, Resulted NO GROWTH AFTER 3 DAYS Objective Assessment Sepsis with lactic acidosis, POA - improving Leukocytosis - better CAUTI, POA 11/09 GNR Recurrent c. 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 coli, moganella, PSA & anaerobes MRSA colonization, nares h/o C. diff 2018 ILIR - improved A- fib Achondroplasia Plan Plan of Care Continue merrem f/u cults Continue po vanc BID but increase dose to QID Probiotics Linn changed in ER CBC in am Maintain aspiration precautions Local wound care and offloading Wound care team consulted Contact isolation D/w nursing JENNIFER MCNAMARA MD Nov 13, 2019 08:16
--- NOTE | 2019-11-13 09:23 | NUR ---
IP: Pt is C.diff and mrsa screen + requiring contact plus precautions using brown sign.
[2019-11-13] MEDS: ZINC SULFATE 220 MG CAPSULE. PO SCH ×2 (09:38→21:19)
[2019-11-13] MEDS: LISINOPRIL 5 MG TABLET. PO SCH (09:38)
[2019-11-13] MEDS: FAMOTIDINE 20 MG TABLET. PO SCH ×2 (09:38→21:18)
[2019-11-13] MEDS: APIXABAN 5 MG TABLET. PO SCH ×2 (09:38→21:19)
[2019-11-13] MEDS: MULTIVITAMIN with MINERAL TABLET. PO SCH (09:38)
[2019-11-13] MEDS: TAMSULOSIN 0.4 MG CAP.ER.24H. PO SCH (09:38)
[2019-11-13] MEDS: CITALOPRAM 20 MG TABLET. PO SCH (09:39)
[2019-11-13] MEDS: OXcarbazepine 300 MG TABLET PO SCH ×2 (09:39→21:19)
[2019-11-13] MEDS: VANCOMYCIN 125 MG/2.5 ML ORAL SOLUTION. PO SCH ×4 (09:39→21:19)
[2019-11-13] MEDS: ASCORBIC ACID 500 MG TABLET PO SCH (09:39)
[2019-11-13] MEDS: LACTOBACILLUS RHAMNOSUS GG 1 CAPSULE. PO SCH ×2 (09:39→21:19)
[2019-11-13] MEDS: FOLIC ACID 1 MG TABLET. PO SCH (09:39)
[2019-11-13] MEDS: GABAPENTIN 300 MG CAPSULE. PO SCH ×2 (09:39→21:18)
[2019-11-13] MEDS: MICONAZOLE NITRATE 2% TOPICAL CREAM 28GM TUBE. TP SCH ×2 (09:42→21:00)
--- NOTE | 2019-11-13 10:11 | PDOC ---
PROGRESS NOTES Chief Complaint Chief Complaint impression GNR UTI, compliacted CAUTI, POA 11/09 GNR URINE CULTURE RES 1 Preliminary Gram negative rods Greater than 100,000 colony forming units per mL Recurrent c. difficile, 11/10 [facility]dwelling crooks - no crooks at SNU Sepsis with no virgen dysfcn - secondary to right mid and lower lobe pneumonia and decubitus ulcer and GNR uTI Lactic acidosis secondary to the above, resolved Bandemia resolved Acute renal failure secondary to septic process improved Bedridden status SNU resident Bradycardia, chronci,stable - Chronic sacral decubitus ulcer stage IV prominent sacral decubitus ulcer e xtending to the tip of the remaining sacrum in the setting of prior lower sacral and coccygeal resection Altered mental status secondary to sepsis improved History of chondroplasty History of paroxysmal atrial fibrillation History of multiple strokes including cerebellar infarct History of hypertension History of dyslipidemia 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 with Eliquis 28 min pt exam, chart review, > 50% of time spent with exam, chart review, pt care coordination History of Present Illness History of Present Illness stage 4 decub, wound care on added ID on wednesday SNU resident NO crooks in SNU,m has crooks here and GNR uTI on URINE cx BC neg prelim x 1 day HR 40s, known, no sxs -0 NO NEED for cards, not on any AV dagoberto agents LAvtate now 0.9 from high on admission WBC 12,m hgb 9 HE is a transfer from ICU= for sepsis etc PLAn: upgrade to reg diet SNU on dc dc crooks today BLadder scan protocol Turn q2 WOund care for sacral Ff up GNR uti on uroine cx ID on board [facility] wednesday only Vitals Vitals Vital Signs Date Time Temp Pulse Resp B/P (MAP) Pulse Ox O2 Delivery O2 Flow Rate FiO2 11/13/19 09:38 53 139/50 11/13/19 08:30 Room Air 11/13/19 07:00 97.3 18 100 97.3 11/13/19 03:00 2.0 Physical Exam Physical Exam GENERAL: Propped up in bed, alert HEENT: Pupils equally round and reactive. Oropharynx pink and moist. No thrush. NECK: Supple. LUNGS: Clear. HEART: S1, S2. ABDOMEN: Obese, soft, nontender with bowel sounds present. Ostomy without signs of complications. GENITOURINARY: Indwelling Crooks in place (1-17). EXTREMITIES: No gross edema or cyanosis. SKIN: Warm to touch without cyanosis, generalized rash. Sacrococcygeal wound with VeraFlo in place, (pictures reviewed). NEUROLOGIC: Alert, answering questions appropriately. Peripheral IV - ok General: Alert, Oriented X3, No acute distress, Other (no voice, bad dentition) Heart: Regular rate, Normal S1, Normal S2, No murmurs Lungs: Clear, Other (stage 4 decub) Abdomen: Normal bowel sounds, Soft, No tenderness Extremities: No clubbing, No cyanosis, No edema, Normal pulses Labs LABS SPEC #: [id number] NASIR: 11/09/19 STATUS: RES REQ #: [id number] RECD: 11/09/[address]: MAURO MILLER DO SOURCE: STRA CATH ENTR: 11/09/[address]: ROSALINO HUTSON III, DO SPDESC: STR Ozzy ERWIN MD ORDERED: URINE CULTURE Procedure Result URINE CULTURE Preliminary Preliminary report URINE CULTURE RES 1 Preliminary Gram negative rods Greater than 100,000 colony forming units per mL Performed at: DA - [facility] [address], [place], [place] [id number] Payroll Bookkeeper: LUZ MARIA Crandall MD, Phone: [phone] Study: CT chest, abdomen and pelvis without contrast INDICATION: Fever, cough, abdominal pain and vomiting. COMPARISON: CT abdomen/pelvis 02/26/2019 TECHNIQUE: Helical CT imaging performed of the chest, abdomen and pelvis performed without the use of intravenous contrast. Coronal and sagittal reformats were obtained. One or more of the following individualized dose reduction techniques were utilized for this examination: 1. Automated exposure control 2. Adjustment of the mA and/or kV according to patient size 3. Use of iterative reconstruction technique. FINDINGS: CT Chest: Imaging through the upper chest/lower neck is degraded due to the patient's arms overlying this region. Multifocal calcific atherosclerosis to include involvement of the coronary arteries. Retropharyngeal course of the right carotid artery. Calcific plaque within the left cervical internal carotid artery just distal to the bifurcation, image 5 series 2, resulting in uncertain degree of stenosis given the absence of contrast. Normal main pulmonary artery caliber. Scattered calcified granulomas. No pericardial effusion Motion degraded evaluation of the lungs. No confluent infiltrate. Mild volume loss. Partially visualized maxillary sinus mucosal thickening. Cervical spine degenerative changes with multiple levels exhibiting bony central canal and neural foraminal stenosis. Advanced arthrosis of both shoulders. Straightening of thoracic kyphosis. Scattered degenerative changes. CT Abdomen/Pelvis: Limited evaluation of the solid organs without intravenous contrast. No focal liver abnormality. Unchanged appearance of the gallbladder and biliary tree. No localized peripancreatic inflammatory changes and mild haziness of the central mesentery caudal to the pancreas is similar to the prior. Splenic granulomas. No newly seen adrenal gland abnormality. Unchanged kidneys with a redemonstrated calcification at the mid pole on the right. No hydroureteronephrosis. Small amount of air within the urinary bladder. A Crooks catheter is present however the tip terminates within the prosthetic urethra and the balloon in the region of the bulbar urethra. The transverse colon extends into a ventral midline defect at the mid abdomen that appears surgically created. The colon is mostly collapsed. Nonobstructed small bowel. Unremarkable stomach. Multifocal calcific atherosclerosis. Unchanged focal ectasia of the infrarenal aorta measuring 2.7 cm on image 87 series 2. No newly seen lymphadenopathy. No free fluid or air. Small fat-containing umbilical hernia. Sacral decubitus ulceration is redemonstrated and is overall similar in size to the 02/26/2019 comparison. Less pronounced surrounding inflammatory changes from the prior. The lower sacrum and coccyx have been resected no newly seen osseous destruction at this location. Air tracks towards the anorectal region but again with less pronounced inflammatory changes and no definite findings of cutaneous fistulization. Chronic deformity of the proximal femurs. As before, severe central canal stenosis at multiple lumbar levels on a background of diffuse central canal narrowing due to short pedicles. IMPRESSION: CT Chest: 1. No acute abnormality of the chest. No findings to suggest an organizing pneumonia. 2. Multiple chronic findings as detailed above. CT Abdomen/Pelvis: 1. Faint mesenteric haziness caudal to the pancreas appears somewhat similar to the 02/26/2019 comparison and is felt unlikely related to mild pancreatitis but consider correlation with lipase levels as no other abnormality is seen to potentially account for the patient's reported abdominal pain and vomiting. 2. The transverse colon extends into a defect at the ventral midline abdomen that appears surgically created. Recommend correlation for surgical history. No bowel obstruction. 3. A Crooks catheter tip is present within the prosthetic urethra and the balloon is inflated within the bulbous urethra. Advancement is recommended. 4. Similar size of a prominent sacral decubitus ulcer extending to the tip of the remaining sacrum in the setting of prior lower sacral and coccygeal resection. No newly seen CT manifestations of osteomyelitis. Less pronounced inflammatory changes along this ulceration relative to the comparison suggesting a degree of healing. 5. Additional chronic findings as above. Electronically signed by: BARRY BAE MD (11/09/2019 8:22 PM) [facility] [id number] DICTATED and SIGNED BY: BARRY BAE MD DATE: 11/09/192021 Laboratory Tests Test 11/13/19 03:15 White Blood Count 9.9 x10^3/uL (4.0-11.0) Red Blood Count 3.87 x10^6/uL (4.30-5.70) Hemoglobin 10.3 g/dL (13.0-17.5) Hematocrit 32.6 % (39.0-53.0) Mean Corpuscular Volume 84 fL (79-100) Mean Corpuscular Hemoglobin 27 pg (25-35) Mean Corpuscular Hemoglobin Concent 32 g/dL (31-37) Red Cell Distribution Width 17.2 % (11.5-14.5) Platelet Count 209 x10^3/uL (140-400) Neutrophils (%) (Auto) 65 % (31-73) Lymphocytes (%) (Auto) 20 % (24-48) Monocytes (%) (Auto) 12 % (0-9) Eosinophils (%) (Auto) 2 % (0-3) Basophils (%) (Auto) 1 % (0-3) Neutrophils # (Auto) 6.4 x10^3/uL (1.8-7.7) Lymphocytes # (Auto) 2.0 x10^3/uL (1.0-4.8) Monocytes # (Auto) 1.2 x10^3/uL (0.0-1.1) Eosinophils # (Auto) 0.2 x10^3/uL (0.0-0.7) Basophils # (Auto) 0.1 x10^3/uL (0.0-0.2) Assessment and Plan Assessmemt and Plan Problems Medical Problems: (1) Nausea and vomiting Status: Acute (2) Sepsis Status: Acute (3) Urinary tract infection Status: Acute Comment Review of Relevant I have reviewed the following items lg (where applicable) has been applied. Labs Laboratory Tests Test 11/11/19 20:30 11/13/19 03:15 Vancomycin Level Trough 22.6 mcg/mL (10.0-20.0) Vancomycin Last Dose Date Vancomycin Last Dose Time White Blood Count 9.9 x10^3/uL (4.0-11.0) Red Blood Count 3.87 x10^6/uL (4.30-5.70) Hemoglobin 10.3 g/dL (13.0-17.5) Hematocrit 32.6 % (39.0-53.0) Mean Corpuscular Volume 84 fL (79-100) Mean Corpuscular Hemoglobin 27 pg (25-35) Mean Corpuscular Hemoglobin Concent 32 g/dL (31-37) Red Cell Distribution Width 17.2 % (11.5-14.5) Platelet Count 209 x10^3/uL (140-400) Neutrophils (%) (Auto) 65 % (31-73) Lymphocytes (%) (Auto) 20 % (24-48) Monocytes (%) (Auto) 12 % (0-9) Eosinophils (%) (Auto) 2 % (0-3) Basophils (%) (Auto) 1 % (0-3) Neutrophils # (Auto) 6.4 x10^3/uL (1.8-7.7) Lymphocytes # (Auto) 2.0 x10^3/uL (1.0-4.8) Monocytes # (Auto) 1.2 x10^3/uL (0.0-1.1) Eosinophils # (Auto) 0.2 x10^3/uL (0.0-0.7) Basophils # (Auto) 0.1 x10^3/uL (0.0-0.2) Laboratory Tests Test 11/13/19 03:15 White Blood Count 9.9 x10^3/uL (4.0-11.0) Red Blood Count 3.87 x10^6/uL (4.30-5.70) Hemoglobin 10.3 g/dL (13.0-17.5) Hematocrit 32.6 % (39.0-53.0) Mean Corpuscular Volume 84 fL (79-100) Mean Corpuscular Hemoglobin 27 pg (25-35) Mean Corpuscular Hemoglobin Concent 32 g/dL (31-37) Red Cell Distribution Width 17.2 % (11.5-14.5) Platelet Count 209 x10^3/uL (140-400) Neutrophils (%) (Auto) 65 % (31-73) Lymphocytes (%) (Auto) 20 % (24-48) Monocytes (%) (Auto) 12 % (0-9) Eosinophils (%) (Auto) 2 % (0-3) Basophils (%) (Auto) 1 % (0-3) Neutrophils # (Auto) 6.4 x10^3/uL (1.8-7.7) Lymphocytes # (Auto) 2.0 x10^3/uL (1.0-4.8) Monocytes # (Auto) 1.2 x10^3/uL (0.0-1.1) Eosinophils # (Auto) 0.2 x10^3/uL (0.0-0.7) Basophils # (Auto) 0.1 x10^3/uL (0.0-0.2) Microbiology 11/09/19 Urine Culture - Preliminary, Resulted 11/09/19 Urine Culture Result 1 (YAMINI) - Preliminary, Resulted 11/09/19 Blood Culture - Preliminary, Resulted NO GROWTH AFTER 3 DAYS Medications Current Medications Ondansetron HCl (Zofran) 4 mg 1X ONCE IVP Last administered on 11/09/19at 18:47; Start 11/09/19 at 18:15; Stop 11/09/19 at 18:19; Status DC Sodium Chloride 1,000 ml @ 1,000 mls/hr 1X ONCE IV Last administered on 11/09/19at 18:47; Start 11/09/19 at 18:15; Stop 11/09/19 at 19:14; Status DC Fentanyl Citrate (Fentanyl 2ml Vial) 50 mcg 1X ONCE IVP Last administered on 11/09/19at 18:47; Start 11/09/19 at 18:45; Stop 11/09/19 at 18:46; Status DC Cefepime HCl (Maxipime) 2 gm 1X ONCE IVP Last administered on 11/09/19at 21:24; Start 11/09/19 at 20:00; Stop 11/09/19 at 20:01; Status DC Vancomycin HCl (Vanco Per Pharmacy) 1 each PRN DAILY PRN MC SEE COMMENTS Last a dministered on 11/12/19at 05:59; Start 11/09/19 at 20:00; Stop 11/12/19 at 09:27; Status DC Vancomycin HCl 2 gm/Sodium Chloride 500 ml @ 250 mls/hr 1X ONCE IV Last administered on 11/09/19at 21:24; Start 11/09/19 at 21:00; Stop 11/09/19 at 22:59; Status DC Ondansetron HCl (Zofran) 4 mg PRN Q8HRS PRN IV NAUSEA/VOMITING; Start 11/09/19 at 20:45; Stop 11/10/19 at 20:44; Status DC Cefepime HCl (Maxipime) 2 gm Q12HR IVP Last administered on 11/10/19at 08:50; Start 11/10/19 at 09:00; Stop 11/10/19 at 14:49; Status DC Sodium Chloride 1,000 ml @ 1,000 mls/hr 1X ONCE IV Last administered on 11/09/19at 20:45; Start 11/09/19 at 20:45; Stop 11/09/19 at 21:44; Status DC Dextrose/Sodium Chloride 1,000 ml @ 125 mls/hr 1X ONCE IV Last administered on 11/09/19at 20:45; Start 11/09/19 at 20:45; Stop 11/10/19 at 04:44; Status DC Acetaminophen (Tylenol) 650 mg PRN Q4HRS PRN PO MILD PAIN 1-3; Start 11/09/19 at 22:15 Apixaban (Eliquis) 5 mg BID PO Last administered on 11/13/19at 09:38; Start 11/09/19 at 23:00 Atorvastatin Calcium (Lipitor) 10 mg HS PO Last administered on 11/12/19at 21:21; Start 11/09/19 at 23:00 Citalopram Hydrobromide (CeleXA) 20 mg DAILY PO Last administered on 11/13/19at 09:39; Start 11/10/19 at 09:00 Famotidine (Pepcid) 20 mg QHS PO Last administered on 11/09/19at 22:36; Start 11/09/19 at 23:00; Stop 11/10/19 at 08:37; Status DC Folic Acid (Folic Acid) 1 mg DAILY PO Last administered on 11/13/19at 09:39; Start 11/10/19 at 09:00 Gabapentin (Neurontin) 300 mg BID PO Last administered on 11/13/19at 09:39; Start 11/09/19 at 23:00 Lisinopril (Prinivil) 5 mg DAILY PO Last administered on 11/13/19at 09:38; Start 11/10/19 at 09:00 Mirtazapine (Remeron) 15 mg QHS PO Last administered on 11/12/19at 21:21; Start 11/09/19 at 23:00 Nitroglycerin (Nitrostat) 0.4 mg PRN Q5MIN PRN SL CHEST PAIN; Start 11/09/19 at 22:15 Oxcarbazepine (Trileptal) 300 mg BID PO Last administered on 11/13/19at 09:39; Start 11/09/19 at 23:00 Tamsulosin HCl (Flomax) 0.4 mg DAILY PO Last administered on 11/13/19 09:38; Start 11/10/19 at 09:00 Tramadol HCl (Ultram) 50 mg PRN Q6HRS PRN PO MODERATE PAIN 4-6 Last administered on 11/11/19 21:28; Start 11/09/19 at 22:15 Trazodone HCl (Desyrel) 50 mg HS PO Last administered on 11/12/19 21:21; Start 11/09/19 at 23:00 Ascorbic Acid (Vitamin C) 500 mg DAILY PO Last administered on 11/13/19 09:39; Start 11/10/19 at 09:00 Non-Formulary Medication (Miconazole Nitrate (Miconazole 3)) 24 gm BID VG ; Start 11/10/19 at 09:00; Status UNV Multivitamins (Thera M Plus) 1 tab DAILY PO Last administered on 11/13/19 09:38; Start 11/10/19 at 09:00 Zinc Sulfate (Orazinc) 220 mg BID PO Last administered on 11/13/19 09:38; Start 11/10/19 at 09:00 Miconazole Nitrate (Monistat-Derm) 1 jaymie BID TP Last administered on 11/13/19 09:42; Start 11/10/19 at 09:00 Vancomycin HCl 1.5 gm/Sodium Chloride 500 ml @ 250 mls/hr Q24H IV Last administered on 11/10/19 20:00; Start 11/10/19 at 21:00; Stop 11/11/19 at 22:04; Status DC Vancomycin HCl (Vancomycin Trough Level) 1 each 1X ONCE MC Last administered on 11/11/19 20:30; Start 11/11/19 at 20:30; Stop 11/11/19 at 20:31; Status DC Lactobacillus Rhamnosus (Culturelle) 1 cap BID PO Last administered on 11/13/19 09:39; Start 11/10/19 at 09:00 Info (Anti-Coagulation Monitoring By Pharmacy) 1 each PRN DAILY PRN MC SEE COMMENTS Last administered on 11/11/19at 14:59; Start 11/10/19 at 08:45 Famotidine (Pepcid) 20 mg BID PO Last administered on 1/20/20at 09:38; Start 11/10/19 at 10:00 Piperacillin Sod/ Tazobactam Sod 4.5 gm/Sodium Chloride 100 ml @ 200 mls/hr Q6HRS IV Last administered on 11/11/19at 05:26; Start 11/10/19 at 18:00; Stop 11/11/19 at 11:26; Status DC Albumin Human 100 ml @ 100 mls/hr 1X ONCE IV Last administered on 11/10/19at 15:15; Start 11/10/19 at 15:00; Stop 11/10/19 at 15:59; Status DC Hydrocortisone Sodium Succinate (Solu-CORTEF) 100 mg Q8HRS IVP Last administered on 11/12/19at 06:12; Start 11/10/19 at 22:00; Stop 11/12/19 at 08:47; Status DC Ondansetron HCl (Zofran) 4 mg PRN Q6HRS PRN IVP NAUSEA/VOMITING; Start 11/11/19 at 08:30 Morphine Sulfate (Morphine Sulfate) 2 mg PRN Q2HR PRN IV MODERATE TO SEVERE PAIN; Start 11/11/19 at 08:30 Vancomycin HCl (Vancomycin Oral Solution) 125 mg BID PO Last administered on 11/12/19at 08:52; Start 11/11/19 at 12:00; Stop 11/12/19 at 09:27; Status DC Meropenem 500 mg/ Sodium Chloride 50 ml @ 100 mls/hr Q6HRS IV Last administered on 11/13/19at 05:53; Start 11/11/19 at 12:00 Vancomycin HCl 1 gm/Sodium Chloride 250 ml @ 250 mls/hr Q24H IV Last administered on 11/12/19at 04:46; Start 11/12/19 at 05:00; Stop 11/12/19 at 09:27; Status DC Vancomycin HCl (Vancomycin Trough Level) 1 each 1X ONCE MC ; Start 11/14/19 at 04:30; Stop 11/14/19 at 04:31; Status Cancel Vancomycin HCl (Vancomycin Oral Solution) 125 mg QID PO Last administered on 11/13/19at 09:39; Start 11/12/19 at 13:00 Active Scripts Active Reported Zinc Sulfate 220 Mg Tablet 1 Tab PO BID 30 Days Tylenol (Acetaminophen) 325 Mg Tablet 650 Mg PO PRN Q4HRS PRN Trazodone Hcl 50 Mg Tablet 50 Mg PO HS NITROGLYCERIN SubLingual (Nitroglycerin) 0.4 Mg Tab.subl 0.4 Mg SL PRN Q5MIN PRN Gabapentin (Gabapentin) 300 Mg Capsule 300 Mg PO BID Celexa (Citalopram Hydrobromide) 20 Mg Tablet 20 Mg PO DAILY Lisinopril 5 Mg Tablet 5 Mg PO DAILY Atorvastatin Calcium 10 Mg Tablet 10 Mg PO HS Eliquis (Apixaban) 5 Mg Tablet 5 Mg PO BID Vitamin C (Ascorbic Acid) 500 Mg Capsule.er 500 Mg PO DAILY Multivitamins (Multivitamin) 1 Each Tablet 1 Tab PO DAILY Famotidine 20 Mg Tablet 20 Mg PO BID Folic Acid 1 Mg Tablet 1 Tab PO DAILY Miconazole 3 (Miconazole Nitrate) 24 Gm Cmb.pf.crm 24 Gm VG BID Flomax (Tamsulosin Hcl) 0.4 Mg Cap.er.24h 1 Cap PO DAILY Tramadol Hcl 50 Mg Tablet 50 Mg PO PRN Q6HRS PRN Mirtazapine 15 Mg Tablet 1 Tab PO QHS Oxcarbazepine 300 Mg Tablet 300 Mg PO BID Vitals/I & O Vital Sign - Last 24 Hours 11/12/19 11/12/19 11/12/19 11/12/19 10:55 15:00 19:45 19:56 Temp 97.6 97.6 97.7 97.6 97.6 97.7 Pulse 52 60 56 Resp 16 16 20 B/P (MAP) 128/70 (89) 125/52 (76) 97/42 (60) Pulse Ox 98 97 99 O2 Delivery Room Air Room Air Room Air Room Air O2 Flow Rate 2.0 11/12/19 11/13/19 11/13/19 11/13/19 23:30 03:00 07:00 08:30 Temp 97.4 97.6 97.3 97.4 97.6 97.3 Pulse 54 48 53 Resp 16 16 18 B/P (MAP) 120/59 (79) 119/64 (82) 139/50 (79) Pulse Ox 99 100 100 O2 Delivery Room Air Nasal Cannula Room Air Room Air O2 Flow Rate 2.0 11/13/19 09:38 Pulse 53 B/P (MAP) 139/50 Intake and Output 111/12/19 11/13/19 15:00 23:00 07:00 Intake Total 600 ml 200 ml Output Total 300 ml 475 ml Balance 600 ml -100 ml -475 ml DIONISIO VILLA MD Nov 13, 2019 10:11
[2019-11-13] MEDS: ANTI-COAG MONITOR BY PHARMACY. MC PRN (10:16)
[2019-11-13 11:00] VITALS: BP 102/68
--- NOTE | 2019-11-13 11:44 | NUR ---
SW following. Discussed with RN, pt is from [facility]. Plan is to return back when ready. Possible procedure today.
[2019-11-13 14:52] VITALS: BP 118/60
--- NOTE | 2019-11-13 15:01 | NUR ---
Wound Care Wound care follow up for sacral pressure ulcer stage IV, See assessment. WC team assessed, pictured and measured wounds. Veraflo vac dressing changed using NS wash of 10ml for 5 min every 4 hours. Pt has stage II PU to head of penis, A&D ointment applied. Pt has yeast rash under pannus and in groin, nystatin powder applied. No other wounds noted on full skin inspection. Discussed POC with patient and RN. Pt on P500 bed, turned to right side with heels floated. Pt educated on PU prevention. WC will follow up on Wednesday for dressing change.
--- NOTE | 2019-11-13 17:12 | NUR ---
Spoke to [facility] who has stated in their paperwork they believe that patient had ostomy placed in June 2019 at [facility]. [facility] wound care team notified.
--- NOTE | 2019-11-13 17:36 | NUR ---
Wound/Ostomy Care Pt's wound vac malfunctioning, troubleshooting completed with [employer] specialist, vac showing strong seal at -125 mmHg intermittent with Veraflo, will continue to follow. Upon repositioning pt from R side during vac procedure, pt's ostomy bag began to leak. Appliance removed, stool cleaned from skin, noticed that bridge was still in place at stoma site, with sutures, although distal bridge sutures were not intact with skin. Pt does have some areas of hypergranulation around bridge, with ulcerations beneath plastic bridge causing the pt some pain. Pt stated surgery was here at [facility] a few months ago, but after reviewing [employer], no surgical procedures for ostomy placement have been documented. Alexsandra RN on phone with [facility] to locate surgeon, as bridge needs to be removed d/t embedment into skin. New ostomy appliance placed onto stoma site, cutting slits to allow placement under bridge, then applying stoma ring to fill in cracks around bridge, in order to keep stool off skin. Pt tolerated well, assisted pt to upright position for dinner. Will continue to follow for wound/ostomy needs.
[2019-11-13 19:05] VITALS: BP 121/51
[2019-11-13] MEDS: ATORVASTATIN CALCIUM 10 MG TABLET. PO SCH (21:18)
[2019-11-13] MEDS: traZODone 50 MG TABLET. PO SCH (21:19)
[2019-11-13] MEDS: MIRTAZAPINE 15 MG TABLET PO SCH (21:19)
[2019-11-13 23:39] VITALS: BP 141/98
--- NOTE | 2019-11-14 01:15 | NUR ---
Patient refusing to turn. Explained to the patient the importance of turning with a sacral wound. He verbalized understanding but wants to lay on back. Patient remains on P500 bed. Wound vac intact to sacral area.
[2019-11-14 03:50] VITALS: BP 156/68
[2019-11-14] MEDS: MEROPENEM 500 MG in IV NORMAL SALINE 50ML 50 ML IV SCH ×3 (05:47→18:18)
[2019-11-14 05:48] LABS: CALCIUM 8.3 mg/dL (8.5-10.1); CREATININE 1.1 mg/dL (0.7-1.3); GFR 66.2; POTASSIUM 3.8 mmol/L (3.5-5.1)
[2019-11-14 07:00] VITALS: BP 134/60
--- NOTE | 2019-11-14 07:57 | PDOC ---
Infectious Disease Note Subjective Subjective Doing ok. Eating breakfast Denies pain/N/V/confusion No F/C last 24 hours Appetite good ROS ROS o/w neg Vital Sign Vital Signs Vital Signs Date Time Temp Pulse Resp B/P (MAP) Pulse Ox O2 Delivery O2 Flow Rate FiO2 11/14/19 03:50 98.3 59 18 156/68 (97) 98 Room Air 98.3 Physical Exam PHYSICAL EXAM GENERAL: Propped up in bed, alert HEENT: Pupils equally round and reactive. Oropharynx pink and moist. No t hrush. NECK: Supple. LUNGS: Clear. HEART: S1, S2. ABDOMEN: Obese, soft, nontender with bowel sounds present. Ostomy without signs of complications. GENITOURINARY: Indwelling Linn in place (1-17). EXTREMITIES: No gross edema or cyanosis. SKIN: Warm to touch without cyanosis, generalized rash. Sacrococcygeal wound with VeraFlo in place, (pictures reviewed). NEUROLOGIC: Alert, answering questions appropriately. Peripheral IV - ok Labs Lab Laboratory Tests Test 11/14/19 03:30 Sodium Level 147 mmol/L (136-145) Potassium Level 3.8 mmol/L (3.5-5.1) Chloride Level 113 mmol/L (98-107) Carbon Dioxide Level 24 mmol/L (21-32) Anion Gap 10 (6-14) Blood Urea Nitrogen 30 mg/dL (8-26) Creatinine 1.1 mg/dL (0.7-1.3) Estimated GFR (Cockcroft-Gault) 66.2 Glucose Level 75 mg/dL (70-99) Calcium Level 8.3 mg/dL (8.5-10.1) Micro URINE CULTURE RES 1 Final Gram negative rods Morganella morganii Greater than 100,000 colony forming units per mL Performed at: DA - [facility] [id number], [place], [place] [id number] Spout Positioner: LUZ MARIA Crandall MD, Phone: [phone] ANTIMICROBIAL SUSCEPTIBILITY Final Comment S = Susceptible; I = Intermediate; R = Resistant P = Positive; N = Negative MICS are expressed in micrograms per mL Antibiotic RSLT#1 RSLT#2 RSLT#3 RSLT#4 Amoxicillin/Clavulanic Acid R>=32 Ampicillin R>=32 Cefazolin R>=64 Cefuroxime R>=64 Ciprofloxacin R>=4 Ertapenem S<=0.12 Gentamicin S<=1 Imipenem S =1 Levofloxacin R>=8 Meropenem S<=0.25 Nitrofurantoin R =128 Piperacillin/Tazobactam S<=4 Tetracycline R>=16 Tobramycin S<=1 Trimethoprim/Sulfa S<=20 Microbiology 11/09/19 Urine Culture - Preliminary, Resulted 11/09/19 Urine Culture Result 1 (YAMINI) - Preliminary, Resulted 11/09/19 Blood Culture - Preliminary, Resulted NO GROWTH AFTER 3 DAYS Objective Assessment Sepsis with lactic acidosis, POA - improving Leukocytosis - better CAUTI, POA 11/09 Morganella (Zosyn 11/10 - Meropenem 11/11) Recurrent c. 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 coli, moganella, PSA & anaerobes MRSA colonization, nares h/o C. diff 2018 ILIR - improved A- fib Achondroplasia Plan Plan of Care Continue merrem - through 11/19 a sec option is Invanz 1 gm IV q 24 Continue po vanc QID for 2 weeks through 12/03 Probiotics Linn changed in ER Maintain aspiration precautions Local wound care and offloading Wound care team consulted Contact isolation D/w nursing JENNIFER MCNAMARA MD Nov 14, 2019 07:57
[2019-11-14] MEDS: TAMSULOSIN 0.4 MG CAP.ER.24H. PO SCH (09:54)
[2019-11-14] MEDS: FAMOTIDINE 20 MG TABLET. PO SCH ×2 (09:54→21:36)
[2019-11-14] MEDS: LACTOBACILLUS RHAMNOSUS GG 1 CAPSULE. PO SCH ×2 (09:54→21:36)
[2019-11-14] MEDS: ASCORBIC ACID 500 MG TABLET PO SCH (09:54)
[2019-11-14] MEDS: MULTIVITAMIN with MINERAL TABLET. PO SCH (09:54)
[2019-11-14] MEDS: CITALOPRAM 20 MG TABLET. PO SCH (09:55)
[2019-11-14] MEDS: ZINC SULFATE 220 MG CAPSULE. PO SCH ×2 (09:55→21:36)
[2019-11-14] MEDS: GABAPENTIN 300 MG CAPSULE. PO SCH ×2 (09:55→21:36)
[2019-11-14] MEDS: OXcarbazepine 300 MG TABLET PO SCH ×2 (09:55→21:36)
[2019-11-14] MEDS: LISINOPRIL 5 MG TABLET. PO SCH (09:55)
[2019-11-14] MEDS: FOLIC ACID 1 MG TABLET. PO SCH (09:55)
[2019-11-14] MEDS: APIXABAN 5 MG TABLET. PO SCH ×2 (09:55→21:36)
[2019-11-14] MEDS: MICONAZOLE NITRATE 2% TOPICAL CREAM 28GM TUBE. TP SCH ×2 (09:56→21:00)
[2019-11-14] MEDS: VANCOMYCIN 125 MG/2.5 ML ORAL SOLUTION. PO SCH ×4 (09:57→21:36)
[2019-11-14 11:00] VITALS: BP 128/72
--- NOTE | 2019-11-14 11:57 | NUR ---
SW following. Discussed with RN, pt is a LTC resident at [facility]. IV meropenem through 11/19 per notes. Surgery consult due to spacer needing to be removed. SW will continue to follow.
--- NOTE | 2019-11-14 13:22 | PDOC2 ---
NANDO WHIPPLE PHYSICIAN PRESIDENT 11/14/19 1322: CONSULT Date of Consult Date of Consult DATE: 11/14/19 TIME: 13:14 Reason for Consult Reason for Consult: colostomy issue Referring Physician Referring Physician: QUIQUE Identification/Chief Complaint Chief Complaint AMS Source Source: Caregiver, Chart review, Patient History of Present Illness Reason for Visit: here with altered mental status. He has a history of sacral decub and diverting loop transverse colostomy placed in [facility] Jun 2019. Wound/ ostomy nurse requested consult with ostomy bridge still in place. Past Medical History Cardiovascular: AFIB, CAD, CHF, HTN, Hyperlipidemia, Other Pulmonary: COPD, Pulmonary embolus, Previously Intubated CENTRAL NERVOUS SYSTEM: CVA Psych: Anxiety, Depression Musculoskeletal: Other Infectious disease: Other Renal/: Benign prostatic enlarg. Endocrine: Diabetes Past Surgical History Past Surgical History: Other (colostomy, debridement) Social History No ALCOHOL: none Drugs: None Current Problem List Problem List Problems Medical Problems: (1) Nausea and vomiting Status: Acute (2) Sepsis Status: Acute (3) Urinary tract infection Status: Acute Current Medications Current Medications Current Medications Ondansetron HCl (Zofran) 4 mg 1X ONCE IVP Last administered on 11/09/19at 18:47; Start 11/09/19 at 18:15; Stop 11/09/19 at 18:19; Status DC Sodium Chloride 1,000 ml @ 1,000 mls/hr 1X ONCE IV Last administered on 11/09at 18:47; Start 11/09/19 at 18:15; Stop 11/09/19 at 19:14; Status DC Fentanyl Citrate (Fentanyl 2ml Vial) 50 mcg 1X ONCE IVP Last administered on 11/09/19at 18:47; Start 11/09/19 at 18:45; Stop 11/09/19 at 18:46; Status DC Cefepime HCl (Maxipime) 2 gm 1X ONCE IVP Last administered on 11/09/19at 21:24; Start 11/09/19 at 20:00; Stop 11/09/19 at 20:01; Status DC Vancomycin HCl (Vanco Per Pharmacy) 1 each PRN DAILY PRN MC SEE COMMENTS Last administered on 11/12/19at 05:59; Start 11/09/19 at 20:00; Stop 11/12/19 at 09:27; Status DC Vancomycin HCl 2 gm/Sodium Chloride 500 ml @ 250 mls/hr 1X ONCE IV Last administered on 11/09/19at 21:24; Start 11/09/19 at 21:00; Stop 11/09/19 at 22:59; Status DC Ondansetron HCl (Zofran) 4 mg PRN Q8HRS PRN IV NAUSEA/VOMITING; Start 11/09/19 at 20:45; Stop 11/10/19 at 20:44; Status DC Cefepime HCl (Maxipime) 2 gm Q12HR IVP Last administered on 11/10/19at 08:50; Start 11/10/19 at 09:00; Stop 11/10/19 at 14:49; Status DC Sodium Chloride 1,000 ml @ 1,000 mls/hr 1X ONCE IV Last administered on 11/09/19at 20:45; Start 11/09/19 at 20:45; Stop 11/09/19 at 21:44; Status DC Dextrose/Sodium Chloride 1,000 ml @ 125 mls/hr 1X ONCE IV Last administered on 11/09/19at 20:45; Start 11/09/19 at 20:45; Stop 11/10/19 at 04:44; Status DC Acetaminophen (Tylenol) 650 mg PRN Q4HRS PRN PO MILD PAIN 1-3; Start 11/09/19 at 22:15 Apixaban (Eliquis) 5 mg BID PO Last administered on 11/14/19at 09:55; Start 11/09/19 at 23:00 Atorvastatin Calcium (Lipitor) 10 mg HS PO Last administered on 11/13/19at 21:18; Start 11/09/19 at 23:00 Citalopram Hydrobromide (CeleXA) 20 mg DAILY PO Last administered on 11/14/19at 09:55; Start 11/10/19 at 09:00 Famotidine (Pepcid) 20 mg QHS PO Last administered on 11/09/19at 22:36; Start 11/09/19 at 23:00; Stop 11/10/19 at 08:37; Status DC Folic Acid (Folic Acid) 1 mg DAILY PO Last administered on 11/14/19at 09:55; Start 11/10/19 at 09:00 Gabapentin (Neurontin) 300 mg BID PO Last administered on 11/14/19 09:55; Start 11/09/19 at 23:00 Lisinopril (Prinivil) 5 mg DAILY PO Last administered on 11/14/19at 09:55; Start 11/10/19 at 09:00 Mirtazapine (Remeron) 15 mg QHS PO Last administered on 11/13/19at 21:19; Start 11/09/19 at 23:00 Nitroglycerin (Nitrostat) 0.4 mg PRN Q5MIN PRN SL CHEST PAIN; Start 11/09/19 at 22:15 Oxcarbazepine (Trileptal) 300 mg BID PO Last administered on 11/14/19at 09:55; Start 11/09/19 at 23:00 Tamsulosin HCl (Flomax) 0.4 mg DAILY PO Last administered on 11/14/19at 09:54; Start 11/10/19 at 09:00 Tramadol HCl (Ultram) 50 mg PRN Q6HRS PRN PO MODERATE PAIN 4-6 Last administered on 11/11/19at 21:28; Start 11/09/19 at 22:15 Trazodone HCl (Desyrel) 50 mg HS PO Last administered on 11/13/19at 21:19; Start 11/09/19 at 23:00 Ascorbic Acid (Vitamin C) 500 mg DAILY PO Last administered on 11/14/19at 09:54; Start 11/10/19 at 09:00 Non-Formulary Medication (Miconazole Nitrate (Miconazole 3)) 24 gm BID VG ; Start 11/10/19 at 09:00; Status UNV Multivitamins (Thera M Plus) 1 tab DAILY PO Last administered on 11/14/19at 09:54; Start 11/10/19 at 09:00 Zinc Sulfate (Orazinc) 220 mg BID PO Last administered on 11/14/19at 09:55; Start 11/10/19 at 09:00 Miconazole Nitrate (Monistat-Derm) 1 jaymie BID TP Last administered on 11/14/19at 09:56; Start 11/10/19 at 09:00 Vancomycin HCl 1.5 gm/Sodium Chloride 500 ml @ 250 mls/hr Q24H IV Last administered on 11/10/19at 20:00; Start 11/10/19 at 21:00; Stop 11/11/19 at 22:04; Status DC Vancomycin HCl (Vancomycin Trough Level) 1 each 1X ONCE MC Last administered on 11/11/19at 20:30; Start 11/11/19 at 20:30; Stop 11/11/19 at 20:31; Status DC Lactobacillus Rhamnosus (Culturelle) 1 cap BID PO Last administered on 11/14/19at 09:54; Start 11/10/19 at 09:00 Info (Anti-Coagulation Monitoring By Pharmacy) 1 each PRN DAILY PRN MC SEE COMMENTS Last administered on 11/13/19at 10:16; Start 11/10/19 at 08:45 Famotidine (Pepcid) 20 mg BID PO Last administered on 11/14/19at 09:54; Start 11/10/19 at 10:00 Piperacillin Sod/ Tazobactam Sod 4.5 gm/Sodium Chloride 100 ml @ 200 mls/hr Q6HRS IV Last administered on 11/11/19at 05:26; Start 11/10/19 at 18:00; Stop 11/11/19 at 11:26; Status DC Albumin Human 100 ml @ 100 mls/hr 1X ONCE IV Last administered on 11/10/19at 15:15; Start 11/10/19 at 15:00; Stop 11/10/19 at 15:59; Status DC Hydrocortisone Sodium Succinate (Solu-CORTEF) 100 mg Q8HRS IVP Last admi nistered on 11/12/19at 06:12; Start 11/10/19 at 22:00; Stop 11/12/19 at 08:47; Status DC Ondansetron HCl (Zofran) 4 mg PRN Q6HRS PRN IVP NAUSEA/VOMITING; Start 11/11/19 at 08:30 Morphine Sulfate (Morphine Sulfate) 2 mg PRN Q2HR PRN IV MODERATE TO SEVERE PAIN; Start 11/11/19 at 08:30 Vancomycin HCl (Vancomycin Oral Solution) 125 mg BID PO Last administered on 11/12/19at 08:52; Start 11/11/19 at 12:00; Stop 11/12/19 at 09:27; Status DC Meropenem 500 mg/ Sodium Chloride 50 ml @ 100 mls/hr Q6HRS IV Last ad ministered on 1/21/20at 12:32; Start 11/11/19 at 12:00 Vancomycin HCl 1 gm/Sodium Chloride 250 ml @ 250 mls/hr Q24H IV Last ad ministered on 11/12/19at 04:46; Start 11/12/19 at 05:00; Stop 11/12/19 at 09:27; Status DC Vancomycin HCl (Vancomycin Trough Level) 1 each 1X ONCE MC ; Start 11/14/19 at 04:30; Stop 11/14/19 at 04:31; Status Cancel Vancomycin HCl (Vancomycin Oral Solution) 125 mg QID PO Last administered on 11/14/19at 09:57; Start 11/12/19 at 13:00 Active Scripts Active Reported Zinc Sulfate 220 Mg Tablet 1 Tab PO BID 30 Days Tylenol (Acetaminophen) 325 Mg Tablet 650 Mg PO PRN Q4HRS PRN Trazodone Hcl 50 Mg Tablet 50 Mg PO HS NITROGLYCERIN SubLingual (Nitroglycerin) 0.4 Mg Tab.subl 0.4 Mg SL PRN Q5MIN PRN Gabapentin (Gabapentin) 300 Mg Capsule 300 Mg PO BID Celexa (Citalopram Hydrobromide) 20 Mg Tablet 20 Mg PO DAILY Lisinopril 5 Mg Tablet 5 Mg PO DAILY Atorvastatin Calcium 10 Mg Tablet 10 Mg PO HS Eliquis (Apixaban) 5 Mg Tablet 5 Mg PO BID Vitamin C (Ascorbic Acid) 500 Mg Capsule.er 500 Mg PO DAILY Multivitamins (Multivitamin) 1 Each Tablet 1 Tab PO DAILY Famotidine 20 Mg Tablet 20 Mg PO BID Folic Acid 1 Mg Tablet 1 Tab PO DAILY Miconazole 3 (Miconazole Nitrate) 24 Gm Cmb.pf.crm 24 Gm VG BID Flomax (Tamsulosin Hcl) 0.4 Mg Cap.er.24h 1 Cap PO DAILY Tramadol Hcl 50 Mg Tablet 50 Mg PO PRN Q6HRS PRN Mirtazapine 15 Mg Tablet 1 Tab PO QHS Oxcarbazepine 300 Mg Tablet 300 Mg PO BID Allergies Allergies: Coded Allergies: I S O L A T I O N *CONTACT* (Verified Allergy, Unknown, 01/27/19) mrsa No Known Medication Allergies (Verified Allergy, Unknown, 03/01/19) ROS General: No: Chills, Other (fevers) PSYCHOLOGICAL ROS: No: Anxiety, Depression Eyes: No Blurry vision, No Double vision HEENT: No: Heacaches, Sore Throat Hematological and Lymphatic: No: Bleeding Problems, Blood Clots Respiratory: YES: Shortness of breath; No: Cough Cardiovascular: No Chest Pain, No Palpitations Gastrointestinal: No Nausea, No Abdominal Pain Genitourinary: YES Other (crooks) Musculoskeletal: Yes Joint Pain, Yes Muscular Weakness Neurological: Yes Impaired Coord/balance; No Numbness/Tingling Skin: Yes Other (see hpi) Physical Exam General: Cooperative, No acute distress HEENT: Atraumatic, PERRLA Lungs: Clear to auscultation, Normal air movement Heart: Regular rate, Normal S1, Normal S2 Abdomen: Soft, Other (stoma pink, viable, stool present, ostomy bridge removed, some skin maceration around bridge site ) Extremities: No clubbing, No cyanosis Skin: Other Neuro: Normal speech, Sensation intact Psych/Mental Status: Mental status NL, Mood NL Vitals VITALS Vital Signs Date Time Temp Pulse Resp B/P (MAP) Pulse Ox O2 Delivery O2 Flow Rate FiO2 11/14/19 11:00 98.0 60 18 128/72 (90) 96 Room Air 98.0 Labs Labs Laboratory Tests Test 11/13/19 03:15 11/14/19 03:30 White Blood Count 9.9 x10^3/uL (4.0-11.0) Red Blood Count 3.87 x10^6/uL (4.30-5.70) Hemoglobin 10.3 g/dL (13.0-17.5) Hematocrit 32.6 % (39.0-53.0) Mean Corpuscular Volume 84 fL (79-100) Mean Corpuscular Hemoglobin 27 pg (25-35) Mean Corpuscular Hemoglobin Concent 32 g/dL (31-37) Red Cell Distribution Width 17.2 % (11.5-14.5) Platelet Count 209 x10^3/uL (140-400) Neutrophils (%) (Auto) 65 % (31-73) Lymphocytes (%) (Auto) 20 % (24-48) Monocytes (%) (Auto) 12 % (0-9) Eosinophils (%) (Auto) 2 % (0-3) Basophils (%) (Auto) 1 % (0-3) Neutrophils # (Auto) 6.4 x10^3/uL (1.8-7.7) Lymphocytes # (Auto) 2.0 x10^3/uL (1.0-4.8) Monocytes # (Auto) 1.2 x10^3/uL (0.0-1.1) Eosinophils # (Auto) 0.2 x10^3/uL (0.0-0.7) Basophils # (Auto) 0.1 x10^3/uL (0.0-0.2) Sodium Level 147 mmol/L (136-145) Potassium Level 3.8 mmol/L (3.5-5.1) Chloride Level 113 mmol/L (98-107) Carbon Dioxide Level 24 mmol/L (21-32) Anion Gap 10 (6-14) Blood Urea Nitrogen 30 mg/dL (8-26) Creatinine 1.1 mg/dL (0.7-1.3) Estimated GFR (Cockcroft-Gault) 66.2 Glucose Level 75 mg/dL (70-99) Calcium Level 8.3 mg/dL (8.5-10.1) Laboratory Tests Test 11/14/19 03:30 Sodium Level 147 mmol/L (136-145) Potassium Level 3.8 mmol/L (3.5-5.1) Chloride Level 113 mmol/L (98-107) Carbon Dioxide Level 24 mmol/L (21-32) Anion Gap 10 (6-14) Blood Urea Nitrogen 30 mg/dL (8-26) Creatinine 1.1 mg/dL (0.7-1.3) Estimated GFR (Cockcroft-Gault) 66.2 Glucose Level 75 mg/dL (70-99) Calcium Level 8.3 mg/dL (8.5-10.1) Assessment/Plan Assessment/Plan diverting colostomy--bridge removed, wound care around skin where bridge was--stoma pink, viable and functioning CALVIN POLLARD MD 11/14/19 1538: CONSULT Assessment/Plan Assessment/Plan Above reviewed, agree with plan NANDO WHIPPLE APRN Nov 14, 2019 13:22 CALVIN POLLARD MD Nov 14, 2019 15:38
[2019-11-14 15:00] VITALS: BP 108/50
--- NOTE | 2019-11-14 15:11 | NUR ---
Wound/Ostomy Care Requested and received pt's medical records from [facility] re: pt's ostomy surgery from 06/2019, and noted pt's surgeon was Dr. Bargg. Called Dr. Bragg's office and spoke with his nurse Duyen, explaining findings of stoma bridge still being in place and causing some skin breakdown beneath plastic edges of bridge, into pt's abdomen. Duyen stated that pt was seen in their office last week and orders were sent back to [facility] for shipyard painting supervisor to remove bridge, to which the [facility] staff replied that they do not have an shipyard painting supervisor. This RN informed Duyen that bridge could be taken out while at [facility], to which she agreed. Paged Dr. Keane to assess pt's colostomy and bridge prior to removal, Darleen WEST at bedside, she removed sutures and this RN removed bridge, pt tolerated well. Pt does have a Stage II pressure ulcer from the plastic bridge device, that was cleaned, measured and photographed. Ulcers are superficial, with pink and red granulation tissue present. Ulcerations dressed with Geena collagen, Aquacel AG and covered with a Tegaderm, then stoma ring and 2 piece colostomy appliance cut to fit and applied over stoma, good adherence achieved, recommend continuing current dressing change with appliance change in 3-5 days, as wounds have very little drainage. Will continue to follow for wound and ostomy needs.
--- NOTE | 2019-11-14 16:39 | PDOC ---
PROGRESS NOTES Chief Complaint Chief Complaint impression GNR UTI, compliacted CAUTI, POA 11/09 GNR URINE CULTURE RES 1 Preliminary Gram negative rods Greater than 100,000 colony forming units per mL Recurrent c. difficile, 11/10 [facility] - no crooks at [facility] Sepsis with no virgen dysfcn - secondary to right mid and lower lobe pneumonia and decubitus ulcer and GNR uTI Lactic acidosis secondary to the above, resolved Bandemia resolved Acute renal failure secondary to septic process improved Bedridden status SNU resident Bradycardia, chronci,stable - Chronic sacral decubitus ulcer stage IV prominent sacral decubitus ulcer e xtending to the tip of the remaining sacrum in the setting of prior lower sacral and coccygeal resection Altered mental status secondary to sepsis improved History of chondroplasty History of paroxysmal atrial fibrillation History of multiple strokes including cerebellar infarct History of hypertension History of dyslipidemia 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 with Eliquis Plan: Continue vancomycin by mouth Continue with antibiotics as per ID Continue with wound care Further recommendations based on clinical course Reassess in the a.m. History of Present Illness History of Present Illness Patient seems clinically improved. Much more alert compared to a few days ago when I interacted with the patient. No acute events were reported overnight reassurance provided Vitals Vitals Vital Signs Date Time Temp Pulse Resp B/P (MAP) Pulse Ox O2 Delivery O2 Flow Rate FiO2 11/14/19 15:00 98.1 60 18 108/50 (69) 96 Room Air 98.1 Physical Exam Physical Exam GENERAL: Propped up in bed, alert HEENT: Pupils equally round and reactive. Oropharynx pink and moist. No thrush. NECK: Supple. LUNGS: Clear. HEART: S1, S2. ABDOMEN: Obese, soft, nontender with bowel sounds present. Ostomy without signs of complications. GENITOURINARY: Indwelling Crooks in place (11-10). EXTREMITIES: No gross edema or cyanosis. SKIN: Warm to touch without cyanosis, generalized rash. Sacrococcygeal wound with VeraFlo in place, (pictures reviewed). NEUROLOGIC: Alert, answering questions appropriately. Peripheral IV - ok General: Cooperative, No acute distress Heart: Regular rate, Normal S1, Normal S2 Lungs: Clear, Other (stage 4 decub) Abdomen: Soft, Other (stoma pink, viable, stool present, ostomy bridge removed, some skin maceration around bridge site ) Extremities: No clubbing, No cyanosis Skin: Other Labs LABS Laboratory Tests Test 11/14/19 03:30 Sodium Level 147 mmol/L (136-145) Potassium Level 3.8 mmol/L (3.5-5.1) Chloride Level 113 mmol/L (98-107) Carbon Dioxide Level 24 mmol/L (21-32) Anion Gap 10 (6-14) Blood Urea Nitrogen 30 mg/dL (8-26) Creatinine 1.1 mg/dL (0.7-1.3) Estimated GFR (Cockcroft-Gault) 66.2 Glucose Level 75 mg/dL (70-99) Calcium Level 8.3 mg/dL (8.5-10.1) Assessment and Plan Assessmemt and Plan Problems Medical Problems: (1) Nausea and vomiting Status: Acute (2) Sepsis Status: Acute (3) Urinary tract infection Status: Acute Comment Review of Relevant I have reviewed the following items lg (where applicable) has been applied. Labs Laboratory Tests Test 11/13/19 03:15 11/14/19 03:30 White Blood Count 9.9 x10^3/uL (4.0-11.0) Red Blood Count 3.87 x10^6/uL (4.30-5.70) Hemoglobin 10.3 g/dL (13.0-17.5) Hematocrit 32.6 % (39.0-53.0) Mean Corpuscular Volume 84 fL (79-100) Mean Corpuscular Hemoglobin 27 pg (25-35) Mean Corpuscular Hemoglobin Concent 32 g/dL (31-37) Red Cell Distribution Width 17.2 % (11.5-14.5) Platelet Count 209 x10^3/uL (140-400) Neutrophils (%) (Auto) 65 % (31-73) Lymphocytes (%) (Auto) 20 % (24-48) Monocytes (%) (Auto) 12 % (0-9) Eosinophils (%) (Auto) 2 % (0-3) Basophils (%) (Auto) 1 % (0-3) Neutrophils # (Auto) 6.4 x10^3/uL (1.8-7.7) Lymphocytes # (Auto) 2.0 x10^3/uL (1.0-4.8) Monocytes # (Auto) 1.2 x10^3/uL (0.0-1.1) Eosinophils # (Auto) 0.2 x10^3/uL (0.0-0.7) Basophils # (Auto) 0.1 x10^3/uL (0.0-0.2) Sodium Level 147 mmol/L (136-145) Potassium Level 3.8 mmol/L (3.5-5.1) Chloride Level 113 mmol/L (98-107) Carbon Dioxide Level 24 mmol/L (21-32) Anion Gap 10 (6-14) Blood Urea Nitrogen 30 mg/dL (8-26) Creatinine 1.1 mg/dL (0.7-1.3) Estimated GFR (Cockcroft-Gault) 66.2 Glucose Level 75 mg/dL (70-99) Calcium Level 8.3 mg/dL (8.5-10.1) Laboratory Tests Test 11/14/19 03:30 Sodium Level 147 mmol/L (136-145) Potassium Level 3.8 mmol/L (3.5-5.1) Chloride Level 113 mmol/L (98-107) Carbon Dioxide Level 24 mmol/L (21-32) Anion Gap 10 (6-14) Blood Urea Nitrogen 30 mg/dL (8-26) Creatinine 1.1 mg/dL (0.7-1.3) Estimated GFR (Cockcroft-Gault) 66.2 Glucose Level 75 mg/dL (70-99) Calcium Level 8.3 mg/dL (8.5-10.1) Microbiology 11/09/19 Urine Culture - Final, Complete 11/09/19 Urine Culture Result 1 (YAMINI) - Final, Complete 11/09/19 Antimicrobic Susceptibility - Final, Complete 11/09/19 Blood Culture - Preliminary, Resulted NO GROWTH AFTER 4 DAYS Medications Current Medications Ondansetron HCl (Zofran) 4 mg 1X ONCE IVP Last administered on 11/09/19at 18:47; Start 11/09/19 at 18:15; Stop 11/09/19 at 18:19; Status DC Sodium Chloride 1,000 ml @ 1,000 mls/hr 1X ONCE IV Last administered on 11/09/19at 18:47; Start 11/09/19 at 18:15; Stop 11/09/19 at 19:14; Status DC Fentanyl Citrate (Fentanyl 2ml Vial) 50 mcg 1X ONCE IVP Last administered on 11/09/19at 18:47; Start 11/09/19 at 18:45; Stop 11/09/19 at 18:46; Status DC Cefepime HCl (Maxipime) 2 gm 1X ONCE IVP Last administered on 11/09/19at 21:24; Start 11/09/19 at 20:00; Stop 11/09/19 at 20:01; Status DC Vancomycin HCl (Vanco Per Pharmacy) 1 each PRN DAILY PRN MC SEE COMMENTS Last administered on 11/12/19at 05:59; Start 11/09/19 at 20:00; Stop 11/12/19 at 09:27; Status DC Vancomycin HCl 2 gm/Sodium Chloride 500 ml @ 250 mls/hr 1X ONCE IV Last administered on 11/09/19at 21:24; Start 11/09/19 at 21:00; Stop 11/09/19 at 22:59; Status DC Ondansetron HCl (Zofran) 4 mg PRN Q8HRS PRN IV NAUSEA/VOMITING; Start 11/09/19 at 20:45; Stop 11/10/19 at 20:44; Status DC Cefepime HCl (Maxipime) 2 gm Q12HR IVP Last administered on 11/10/19at 08:50; Start 11/10/19 at 09:00; Stop 11/10/19 at 14:49; Status DC Sodium Chloride 1,000 ml @ 1,000 mls/hr 1X ONCE IV Last administered on 11/09/19at 20:45; Start 11/09/19 at 20:45; Stop 11/09/19 at 21:44; Status DC Dextrose/Sodium Chloride 1,000 ml @ 125 mls/hr 1X ONCE IV Last administered on 11/09/19at 20:45; Start 11/09/19 at 20:45; Stop 11/10/19 at 04:44; Status DC Acetaminophen (Tylenol) 650 mg PRN Q4HRS PRN PO MILD PAIN 1-3; Start 11/09/19 at 22:15 Apixaban (Eliquis) 5 mg BID PO Last administered on 11/14/19at 09:55; Start 11/09/19 at 23:00 Atorvastatin Calcium (Lipitor) 10 mg HS PO Last administered on 11/13/19at 21:18; Start 11/09/19 at 23:00 Citalopram Hydrobromide (CeleXA) 20 mg DAILY PO Last administered on 11/14/19at 09:55; Start 11/10/19 at 09:00 Famotidine (Pepcid) 20 mg QHS PO Last administered on 11/09/19at 22:36; Start 11/09/19 at 23:00; Stop 11/10/19 at 08:37; Status DC Folic Acid (Folic Acid) 1 mg DAILY PO Last administered on 11/14/19at 09:55; Start 11/10/19 at 09:00 Gabapentin (Neurontin) 300 mg BID PO Last administered on 11/14/19at 09:55; Start 11/09/19 at 23:00 Lisinopril (Prinivil) 5 mg DAILY PO Last administered on 11/14/19at 09:55; Start 11/10/19 at 09:00 Mirtazapine (Remeron) 15 mg QHS PO Last administered on 11/13/19at 21:19; Start 11/09/19 at 23:00 Nitroglycerin (Nitrostat) 0.4 mg PRN Q5MIN PRN SL CHEST PAIN; Start 11/09/19 at 22:15 Oxcarbazepine (Trileptal) 300 mg BID PO Last administered on 11/14/19at 09:55; Start 11/09/19 at 23:00 Tamsulosin HCl (Flomax) 0.4 mg DAILY PO Last administered on 11/14/19at 09:54; Start 11/10/19 at 09:00 Tramadol HCl (Ultram) 50 mg PRN Q6HRS PRN PO MODERATE PAIN 4-6 Last administered on 11/11/19at 21:28; Start 11/09/19 at 22:15 Trazodone HCl (Desyrel) 50 mg HS PO Last administered on 11/13/19at 21:19; Start 11/09/19 at 23:00 Ascorbic Acid (Vitamin C) 500 mg DAILY PO Last administered on 11/14/19at 09:54; Start 11/10/19 at 09:00 Non-Formulary Medication (Miconazole Nitrate (Miconazole 3)) 24 gm BID VG ; Start 11/10/19 at 09:00; Status UNV Multivitamins (Thera M Plus) 1 tab DAILY PO Last administered on 11/14/19at 09:54; Start 11/10/19 at 09:00 Zinc Sulfate (Orazinc) 220 mg BID PO Last administered on 11/14/19at 09:55; Start 11/10/19 at 09:00 Miconazole Nitrate (Monistat-Derm) 1 jaymie BID TP Last administered on 11/14/19at 09:56; Start 11/10/19 at 09:00 Vancomycin HCl 1.5 gm/Sodium Chloride 500 ml @ 250 mls/hr Q24H IV Last administered on 11/10/19at 20:00; Start 11/10/19 at 21:00; Stop 11/11/19 at 22:04; Status DC Vancomycin HCl (Vancomycin Trough Level) 1 each 1X ONCE MC Last administered on 11/11/19at 20:30; Start 11/11/19 at 20:30; Stop 11/11/19 at 20:31; Status DC Lactobacillus Rhamnosus (Culturelle) 1 cap BID PO Last administered on 11/14/19at 09:54; Start 11/10/19 at 09:00 Info (Anti-Coagulation Monitoring By Pharmacy) 1 each PRN DAILY PRN MC SEE COMMENTS Last administered on 11/13/19at 10:16; Start 11/10/19 at 08:45 Famotidine (Pepcid) 20 mg BID PO Last administered on 11/14/19at 09:54; Start 11/10/19 at 10:00 Piperacillin Sod/ Tazobactam Sod 4.5 gm/Sodium Chloride 100 ml @ 200 mls/hr Q6HRS IV Last administered on 11/11/19at 05:26; Start 11/10/19 at 18:00; Stop 11/11/19 at 11:26; Status DC Albumin Human 100 ml @ 100 mls/hr 1X ONCE IV Last administered on 11/10/19at 15:15; Start 11/10/19 at 15:00; Stop 11/10/19 at 15:59; Status DC Hydrocortisone Sodium Succinate (Solu-CORTEF) 100 mg Q8HRS IVP Last administered on 11/12/19at 06:12; Start 11/10/19 at 22:00; Stop 11/12/19 at 08:47; Status DC Ondansetron HCl (Zofran) 4 mg PRN Q6HRS PRN IVP NAUSEA/VOMITING; Start 11/11/19 at 08:30 Morphine Sulfate (Morphine Sulfate) 2 mg PRN Q2HR PRN IV MODERATE TO SEVERE PAIN; Start 11/11/19 at 08:30 Vancomycin HCl (Vancomycin Oral Solution) 125 mg BID PO Last administered on 11/12/19at 08:52; Start 11/11/19 at 12:00; Stop 11/12/19 at 09:27; Status DC Meropenem 500 mg/ Sodium Chloride 50 ml @ 100 mls/hr Q6HRS IV Last administered on 11/14/19at 12:32; Start 11/11/19 at 12:00 Vancomycin HCl 1 gm/Sodium Chloride 250 ml @ 250 mls/hr Q24H IV Last administered on 11/12/19at 04:46; Start 11/12/19 at 05:00; Stop 11/12/19 at 09:27; Status DC Vancomycin HCl (Vancomycin Trough Level) 1 each 1X ONCE MC ; Start 11/14/19 at 04:30; Stop 11/14/19 at 04:31; Status Cancel Vancomycin HCl (Vancomycin Oral Solution) 125 mg QID PO Last administered on 11/14/19at 13:50; Start 11/12/19 at 13:00 Active Scripts Active Reported Zinc Sulfate 220 Mg Tablet 1 Tab PO BID 30 Days Tylenol (Acetaminophen) 325 Mg Tablet 650 Mg PO PRN Q4HRS PRN Trazodone Hcl 50 Mg Tablet 50 Mg PO HS NITROGLYCERIN SubLingual (Nitroglycerin) 0.4 Mg Tab.subl 0.4 Mg SL PRN Q5MIN PRN Gabapentin (Gabapentin) 300 Mg Capsule 300 Mg PO BID Celexa (Citalopram Hydrobromide) 20 Mg Tablet 20 Mg PO DAILY Lisinopril 5 Mg Tablet 5 Mg PO DAILY Atorvastatin Calcium 10 Mg Tablet 10 Mg PO HS Eliquis (Apixaban) 5 Mg Tablet 5 Mg PO BID Vitamin C (Ascorbic Acid) 500 Mg Capsule.er 500 Mg PO DAILY Multivitamins (Multivitamin) 1 Each Tablet 1 Tab PO DAILY Famotidine 20 Mg Tablet 20 Mg PO BID Folic Acid 1 Mg Tablet 1 Tab PO DAILY Miconazole 3 (Miconazole Nitrate) 24 Gm Cmb.pf.crm 24 Gm VG BID Flomax (Tamsulosin Hcl) 0.4 Mg Cap.er.24h 1 Cap PO DAILY Tramadol Hcl 50 Mg Tablet 50 Mg PO PRN Q6HRS PRN Mirtazapine 15 Mg Tablet 1 Tab PO QHS Oxcarbazepine 300 Mg Tablet 300 Mg PO BID Vitals/I & O Vital Sign - Last 24 Hours 11/13/19 11/13/19 11/13/19 11/14/19 19:05 19:35 23:39 03:50 Temp 97.5 98.2 98.3 97.5 98.2 98.3 Pulse 63 66 59 Resp 18 18 18 B/P (MAP) 121/51 (74) 141/98 (112) 156/68 (97) Pulse Ox 99 98 98 O2 Delivery Room Air Room Air Room Air Room Air 11/14/19 11/14/19 11/14/19 11/14/19 07:00 09:55 11:00 15:00 Temp 98.0 98.0 98.1 98.0 98.0 98.1 Pulse 65 65 60 60 Resp 18 18 18 B/P (MAP) 134/60 (84) 134/60 128/72 (90) 108/50 (69) Pulse Ox 98 96 96 O2 Delivery Room Air Room Air Room Air Intake and Output 11/13/19 11/13/19 11/14/19 15:00 23:00 07:00 Intake Total 50 ml 400 ml 200 ml Output Total 600 ml 250 ml Balance 50 ml -200 ml -50 ml NATHALIE DUKE MD Nov 14, 2019 16:39
[2019-11-14 19:05] VITALS: BP 122/52
[2019-11-14] MEDS: traZODone 50 MG TABLET. PO SCH (21:36)
[2019-11-14] MEDS: MIRTAZAPINE 15 MG TABLET PO SCH (21:36)
[2019-11-14] MEDS: ATORVASTATIN CALCIUM 10 MG TABLET. PO SCH (21:36)
[2019-11-14 23:05] VITALS: BP 106/45
[2019-11-15] VITALS (7 sets, daily range): BP systolic 98–166; BP diastolic 62–92
[2019-11-15] MEDS: MEROPENEM 500 MG in IV NORMAL SALINE 50ML 50 ML IV SCH ×2 (00:07→06:04)
--- NOTE | 2019-11-15 07:34 | PDOC ---
Infectious Disease Note Subjective Subjective Doing ok. Denies pain/N/V/confusion No F/C last 24 hours Appetite ok No abd pain ROS ROS o/w neg Vital Sign Vital Signs Vital Signs Date Time Temp Pulse Resp B/P (MAP) Pulse Ox O2 Delivery O2 Flow Rate FiO2 11/15/19 03:25 97.7 54 18 131/62 (85) 97 Room Air 97.7 Physical Exam PHYSICAL EXAM GENERAL: Propped up in bed, alert HEENT: Pupils equally round and reactive. Oropharynx pink and moist. No thrush. NECK: Supple. LUNGS: Clear. HEART: S1, S2. ABDOMEN: Obese, soft, nontender with bowel sounds present. Ostomy without signs of complications. GENITOURINARY: Indwelling Linn in place (1-17). EXTREMITIES: No gross edema or cyanosis. SKIN: Warm to touch without cyanosis, generalized rash. Sacrococcygeal wound with VeraFlo in place, (pictures reviewed). NEUROLOGIC: Alert, answering questions appropriately. Peripheral IV - ok Labs Micro URINE CULTURE RES 1 Final Gram negative rods Morganella morganii Greater than 100,000 colony forming units per mL Performed at: DA - [facility] [address], [place], [place] [id number] Student Life Advisor: LUZ MARIA Crandall MD, Phone: [phone] ANTIMICROBIAL SUSCEPTIBILITY Final Comment S = Susceptible; I = Intermediate; R = Resistant P = Positive; N = Negative MICS are expressed in micrograms per mL Antibiotic RSLT#1 RSLT#2 RSLT#3 RSLT#4 Amoxicillin/Clavulanic Acid R>=32 Ampicillin R>=32 Cefazolin R>=64 Cefuroxime R>=64 Ciprofloxacin R>=4 Ertapenem S<=0.12 Gentamicin S<=1 Imipenem S =1 Levofloxacin R>=8 Meropenem S<=0.25 Nitrofurantoin R =128 Piperacillin/Tazobactam S<=4 Tetracycline R>=16 Tobramycin S<=1 Trimethoprim/Sulfa S<=20 Microbiology 11/09/19 Urine Culture - Preliminary, Resulted 11/09/19 Urine Culture Result 1 (YAMINI) - Preliminary, Resulted 11/09/19 Blood Culture - Preliminary, Resulted NO GROWTH AFTER 3 DAYS Objective Assessment Sepsis with lactic acidosis, POA - improving Leukocytosis - better CAUTI, POA 11/09 Morganella (Zosyn 11/10 - Meropenem 11/11) Recurrent c. 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 coli, moganella, PSA & anaerobes MRSA colonization, nares h/o C. diff 2018 ILIR - improved A- fib Achondroplasia Plan Plan of Care Continue merrem - through 11/19 (will change to 1 gm IV q 8 for facility) a sec option is Invanz 1 gm IV q 24 Continue po vanc QID for 2 weeks through 12/03 Probiotics Linn changed in ER Maintain aspiration precautions Local wound care and offloading Wound care team consulted Contact isolation Ok to transfer to from ID standpoint Rx in chart. Does not need labs drawn from ID standpoint Can F/u in ID office in 2 weeks if needed [phone] D/w nursing JENNIFER MCNAMARA MD Nov 15, 2019 07:34
--- NOTE | 2019-11-15 11:02 | NUR ---
SW following. Discussed with RN, pt needing IV abx through 11/19. Dr. Farfan gave a q8 option and a q24 option. SW spoke with [facility], they need to check prices. SW will continue to follow.
[2019-11-15] MEDS: GABAPENTIN 300 MG CAPSULE. PO SCH ×2 (11:03→21:44)
[2019-11-15] MEDS: FAMOTIDINE 20 MG TABLET. PO SCH ×2 (11:03→21:44)
[2019-11-15] MEDS: MULTIVITAMIN with MINERAL TABLET. PO SCH (11:03)
[2019-11-15] MEDS: ZINC SULFATE 220 MG CAPSULE. PO SCH ×2 (11:03→21:44)
[2019-11-15] MEDS: ASCORBIC ACID 500 MG TABLET PO SCH (11:04)
[2019-11-15] MEDS: OXcarbazepine 300 MG TABLET PO SCH ×2 (11:04→21:45)
[2019-11-15] MEDS: CITALOPRAM 20 MG TABLET. PO SCH (11:04)
[2019-11-15] MEDS: APIXABAN 5 MG TABLET. PO SCH ×2 (11:04→21:44)
[2019-11-15] MEDS: LACTOBACILLUS RHAMNOSUS GG 1 CAPSULE. PO SCH ×2 (11:04→21:44)
[2019-11-15] MEDS: TAMSULOSIN 0.4 MG CAP.ER.24H. PO SCH (11:04)
[2019-11-15] MEDS: LISINOPRIL 5 MG TABLET. PO SCH (11:04)
[2019-11-15] MEDS: FOLIC ACID 1 MG TABLET. PO SCH (11:04)
[2019-11-15] MEDS: MICONAZOLE NITRATE 2% TOPICAL CREAM 28GM TUBE. TP SCH ×2 (11:05→21:44)
[2019-11-15] MEDS: VANCOMYCIN 125 MG/2.5 ML ORAL SOLUTION. PO SCH ×4 (11:05→21:45)
[2019-11-15] MEDS: MEROPENEM 1 GM in IV NORMAL SALINE 100ML 100 ML IV SCH ×2 (14:17→21:45)
--- NOTE | 2019-11-15 15:24 | PDOC ---
PROGRESS NOTES Chief Complaint Chief Complaint impression GNR UTI, compliacted CAUTI, POA 11/09 GNR URINE CULTURE RES 1 Preliminary Gram negative rods Greater than 100,000 colony forming units per mL Recurrent c. difficile, 11/10 [facility] crooks - no crooks at SNU Sepsis with no virgen dysfcn - secondary to right mid and lower lobe pneumonia and decubitus ulcer and GNR uTI Lactic acidosis secondary to the above, resolved Bandemia resolved Acute renal failure secondary to septic process improved Bedridden status SNU resident Bradycardia, chronci,stable - Chronic sacral decubitus ulcer stage IV prominent sacral decubitus ulcer e xtending to the tip of the remaining sacrum in the setting of prior lower sacral and coccygeal resection Altered mental status secondary to sepsis improved History of chondroplasty History of paroxysmal atrial fibrillation History of multiple strokes including cerebellar infarct History of hypertension History of dyslipidemia 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 with Eliquis Plan: hopefully discharge soon Continue with antibiotics as per ID Continue with wound care Further recommendations based on clinical course Reassess in the a.m. History of Present Illness History of Present Illness Patient seems clinically improved. Much more alert compared to a few days ago when I interacted with the patient. No acute events were reported overnight reassurance provided Vitals Vitals Vital Signs Date Time Temp Pulse Resp B/P (MAP) Pulse Ox O2 Delivery O2 Flow Rate FiO2 11/15/19 11:04 58 166/92 11/15/19 11:00 98.0 18 98 Room Air 98.0 Physical Exam Physical Exam GENERAL: Propped up in bed, alert HEENT: Pupils equally round and reactive. Oropharynx pink and moist. No thrush. NECK: Supple. LUNGS: Clear. HEART: S1, S2. ABDOMEN: Obese, soft, nontender with bowel sounds present. Ostomy without signs of complications. GENITOURINARY: Indwelling Crooks in place (11-10). EXTREMITIES: No gross edema or cyanosis. SKIN: Warm to touch without cyanosis, generalized rash. Sacrococcygeal wound with VeraFlo in place, (pictures reviewed). NEUROLOGIC: Alert, answering questions appropriately. Peripheral IV - ok General: Cooperative, No acute distress Heart: Regular rate, Normal S1, Normal S2 Lungs: Clear, Other (stage 4 decub) Abdomen: Soft, Other (stoma pink, viable, stool present, ostomy bridge removed, some skin maceration around bridge site ) Extremities: No clubbing, No cyanosis Skin: Other Assessment and Plan Assessmemt and Plan Problems Medical Problems: (1) Nausea and vomiting Status: Acute (2) Sepsis Status: Acute (3) Urinary tract infection Status: Acute Comment Review of Relevant I have reviewed the following items lg (where applicable) has been applied. Labs Laboratory Tests Test 11/14/19 03:30 Sodium Level 147 mmol/L (136-145) Potassium Level 3.8 mmol/L (3.5-5.1) Chloride Level 113 mmol/L (98-107) Carbon Dioxide Level 24 mmol/L (21-32) Anion Gap 10 (6-14) Blood Urea Nitrogen 30 mg/dL (8-26) Creatinine 1.1 mg/dL (0.7-1.3) Estimated GFR (Cockcroft-Gault) 66.2 Glucose Level 75 mg/dL (70-99) Calcium Level 8.3 mg/dL (8.5-10.1) Microbiology 11/09/19 Urine Culture - Final, Complete 11/09/19 Urine Culture Result 1 (YAMINI) - Final, Complete 11/09/19 Antimicrobic Susceptibility - Final, Complete 11/09/19 Blood Culture - Final, Complete NO GROWTH AFTER 5 DAYS Medications Current Medications Ondansetron HCl (Zofran) 4 mg 1X ONCE IVP Last administered on 11/09/19at 18:47; Start 11/09/19 at 18:15; Stop 11/09/19 at 18:19; Status DC Sodium Chloride 1,000 ml @ 1,000 mls/hr 1X ONCE IV Last administered on 11/09/19at 18:47; Start 11/09/19 at 18:15; Stop 11/09/19 at 19:14; Status DC Fentanyl Citrate (Fentanyl 2ml Vial) 50 mcg 1X ONCE IVP Last administered on 11/09/19at 18:47; Start 11/09/19 at 18:45; Stop 11/09/19 at 18:46; Status DC Cefepime HCl (Maxipime) 2 gm 1X ONCE IVP Last administered on 11/09/19at 21:24; Start 11/09/19 at 20:00; Stop 11/09/19 at 20:01; Status DC Vancomycin HCl (Vanco Per Pharmacy) 1 each PRN DAILY PRN MC SEE COMMENTS Last administered on 11/12/19at 05:59; Start 11/09/19 at 20:00; Stop 11/12/19 at 09:27; Status DC Vancomycin HCl 2 gm/Sodium Chloride 500 ml @ 250 mls/hr 1X ONCE IV Last administered on 11/09/19at 21:24; Start 11/09/19 at 21:00; Stop 11/09/19 at 22:59; Status DC Ondansetron HCl (Zofran) 4 mg PRN Q8HRS PRN IV NAUSEA/VOMITING; Start 11/09/19 at 20:45; Stop 11/10/19 at 20:44; Status DC Cefepime HCl (Maxipime) 2 gm Q12HR IVP Last administered on 11/10/19at 08:50; Start 11/10/19 at 09:00; Stop 11/10/19 at 14:49; Status DC Sodium Chloride 1,000 ml @ 1,000 mls/hr 1X ONCE IV Last administered on 11/09/19at 20:45; Start 11/09/19 at 20:45; Stop 11/09/19 at 21:44; Status DC Dextrose/Sodium Chloride 1,000 ml @ 125 mls/hr 1X ONCE IV Last administered on 11/09/19at 20:45; Start 11/09/19 at 20:45; Stop 11/10/19 at 04:44; Status DC Acetaminophen (Tylenol) 650 mg PRN Q4HRS PRN PO MILD PAIN 1-3; Start 11/09/19 a t 22:15 Apixaban (Eliquis) 5 mg BID PO Last administered on 11/15/19at 11:04; Start 11/09/19 at 23:00 Atorvastatin Calcium (Lipitor) 10 mg HS PO Last administered on 11/14/19at 21:36; Start 11/09/19 at 23:00 Citalopram Hydrobromide (CeleXA) 20 mg DAILY PO Last administered on 11/15/19at 11:04; Start 11/10/19 at 09:00 Famotidine (Pepcid) 20 mg QHS PO Last administered on 11/09/19at 22:36; Start 11/09/19 at 23:00; Stop 11/10/19 at 08:37; Status DC Folic Acid (Folic Acid) 1 mg DAILY PO Last administered on 11/15/19 11:04; Start 11/10/19 at 09:00 Gabapentin (Neurontin) 300 mg BID PO Last administered on 11/15/19 11:03; Start 11/09/19 at 23:00 Lisinopril (Prinivil) 5 mg DAILY PO Last administered on 11/15/19 11:04; Start 11/10/19 at 09:00 Mirtazapine (Remeron) 15 mg QHS PO Last administered on 11/14/19at 21:36; Start 11/09/19 at 23:00 Nitroglycerin (Nitrostat) 0.4 mg PRN Q5MIN PRN SL CHEST PAIN; Start 11/09/19 at 22:15 Oxcarbazepine (Trileptal) 300 mg BID PO Last administered on 11/15/19 11:04; Start 11/09/19 at 23:00 Tamsulosin HCl (Flomax) 0.4 mg DAILY PO Last administered on 11/15/19at 11:04; Start 11/10/19 at 09:00 Tramadol HCl (Ultram) 50 mg PRN Q6HRS PRN PO MODERATE PAIN 4-6 Last administered on 11/11/19 21:28; Start 11/09/19 at 22:15 Trazodone HCl (Desyrel) 50 mg HS PO Last administered on 11/14/19at 21:36; Start 11/09/19 at 23:00 Ascorbic Acid (Vitamin C) 500 mg DAILY PO Last administered on 11/15/19at 11:04; Start 11/10/19 at 09:00 Non-Formulary Medication (Miconazole Nitrate (Miconazole 3)) 24 gm BID VG ; Start 11/10/19 at 09:00; Status UNV Multivitamins (Thera M Plus) 1 tab DAILY PO Last administered on 11/15/19 11: 03; Start 11/10/19 at 09:00 Zinc Sulfate (Orazinc) 220 mg BID PO Last administered on 11/15/19 11:03; Start 11/10/19 at 09:00 Miconazole Nitrate (Monistat-Derm) 1 jaymie BID TP Last administered on 11/15/19at 11:05; Start 11/10/19 at 09:00 Vancomycin HCl 1.5 gm/Sodium Chloride 500 ml @ 250 mls/hr Q24H IV Last administered on 11/10/19at 20:00; Start 11/10/19 at 21:00; Stop 11/11/19 at 22:04; Status DC Vancomycin HCl (Vancomycin Trough Level) 1 each 1X ONCE MC Last administered on 11/11/19at 20:30; Start 11/11/19 at 20:30; Stop 11/11/19 at 20:31; Status DC Lactobacillus Rhamnosus (Culturelle) 1 cap BID PO Last administered on 11/15at 11:04; Start 11/10/19 at 09:00 Info (Anti-Coagulation Monitoring By Pharmacy) 1 each PRN DAILY PRN MC SEE COMMENTS Last administered on 11/13/19at 10:16; Start 11/10/19 at 08:45 Famotidine (Pepcid) 20 mg BID PO Last administered on 11/15/19at 11:03; Start 11/10/19 at 10:00 Piperacillin Sod/ Tazobactam Sod 4.5 gm/Sodium Chloride 100 ml @ 200 mls/hr Q6HRS IV Last administered on 11/11/19at 05:26; Start 11/10/19 at 18:00; Stop 11/11/19 at 11:26; Status DC Albumin Human 100 ml @ 100 mls/hr 1X ONCE IV Last administered on 11/10/19at 15:15; Start 11/10/19 at 15:00; Stop 11/10/19 at 15:59; Status DC Hydrocortisone Sodium Succinate (Solu-CORTEF) 100 mg Q8HRS IVP Last administered on 11/12/19at 06:12; Start 11/10/19 at 22:00; Stop 11/12/19 at 08:47; Status DC Ondansetron HCl (Zofran) 4 mg PRN Q6HRS PRN IVP NAUSEA/VOMITING; Start 11/11/19 at 08:30 Morphine Sulfate (Morphine Sulfate) 2 mg PRN Q2HR PRN IV MODERATE TO SEVERE PAIN; Start 11/11/19 at 08:30 Vancomycin HCl (Vancomycin Oral Solution) 125 mg BID PO Last administered on 11/12/19at 08:52; Start 11/11/19 at 12:00; Stop 11/12/19 at 09:27; Status DC Meropenem 500 mg/ Sodium Chloride 50 ml @ 100 mls/hr Q6HRS IV Last administered on 11/15/19at 06:04; Start 11/11/19 at 12:00; Stop 11/15/19 at 08:34; Status DC Vancomycin HCl 1 gm/Sodium Chloride 250 ml @ 250 mls/hr Q24H IV Last administered on 11/12/19at 04:46; Start 11/12/19 at 05:00; Stop 11/12/19 at 09:27; Status DC Vancomycin HCl (Vancomycin Trough Level) 1 each 1X ONCE MC ; Start 11/14/19 at 04:30; Stop 11/14/19 at 04:31; Status Cancel Vancomycin HCl (Vancomycin Oral Solution) 125 mg QID PO Last administered on 11/15/19at 14:17; Start 11/12/19 at 13:00 Meropenem 1 gm/ Sodium Chloride 100 ml @ 200 mls/hr Q8HRS IV Last administered on 11/15/19at 14:17; Start 11/15/19 at 14:00 Active Scripts Active Reported Zinc Sulfate 220 Mg Tablet 1 Tab PO BID 30 Days Tylenol (Acetaminophen) 325 Mg Tablet 650 Mg PO PRN Q4HRS PRN Trazodone Hcl 50 Mg Tablet 50 Mg PO HS NITROGLYCERIN SubLingual (Nitroglycerin) 0.4 Mg Tab.subl 0.4 Mg SL PRN Q5MIN PRN Gabapentin (Gabapentin) 300 Mg Capsule 300 Mg PO BID Celexa (Citalopram Hydrobromide) 20 Mg Tablet 20 Mg PO DAILY Lisinopril 5 Mg Tablet 5 Mg PO DAILY Atorvastatin Calcium 10 Mg Tablet 10 Mg PO HS Eliquis (Apixaban) 5 Mg Tablet 5 Mg PO BID Vitamin C (Ascorbic Acid) 500 Mg Capsule.er 500 Mg PO DAILY Multivitamins (Multivitamin) 1 Each Tablet 1 Tab PO DAILY Famotidine 20 Mg Tablet 20 Mg PO BID Folic Acid 1 Mg Tablet 1 Tab PO DAILY Miconazole 3 (Miconazole Nitrate) 24 Gm Cmb.pf.crm 24 Gm VG BID Flomax (Tamsulosin Hcl) 0.4 Mg Cap.er.24h 1 Cap PO DAILY Tramadol Hcl 50 Mg Tablet 50 Mg PO PRN Q6HRS PRN Mirtazapine 15 Mg Tablet 1 Tab PO QHS Oxcarbazepine 300 Mg Tablet 300 Mg PO BID Vitals/I & O Vital Sign - Last 24 Hours 11/14/19 11/14/19 11/14/19 11/15/19 19:05 19:45 23:05 03:25 Temp 97.8 98.7 97.7 97.8 98.7 97.7 Pulse 67 67 54 Resp 20 18 18 B/P (MAP) 122/52 (75) 106/45 (65) 131/62 (85) Pulse Ox 96 95 97 O2 Delivery Room Air Room Air Room Air Room Air 11/15/19 11/15/19 11/15/19 11/15/19 07:00 08:00 11:00 11:04 Temp 97.9 98.0 97.9 98.0 Pulse 58 68 58 Resp 18 18 B/P (MAP) 166/92 (116) 161/65 (97) 166/92 Pulse Ox 99 98 O2 Delivery Room Air Room Air Room Air Intake and Output 11/14/19 11/14/19 11/15/19 15:00 23:00 07:00 Intake Total 240 ml 300 ml Output Total 1150 ml Balance 240 ml -850 ml NATHALIE DUKE MD Nov 15, 2019 15:23
[2019-11-15] MEDS: MIRTAZAPINE 15 MG TABLET PO SCH (21:44)
[2019-11-15] MEDS: traZODone 50 MG TABLET. PO SCH (21:44)
[2019-11-15] MEDS: ATORVASTATIN CALCIUM 10 MG TABLET. PO SCH (21:45)
[2019-11-16 03:09] VITALS: BP 104/54
[2019-11-16] MEDS: MEROPENEM 1 GM in IV NORMAL SALINE 100ML 100 ML IV SCH ×2 (06:11→13:40)
[2019-11-16 07:00] VITALS: BP 124/52
[2019-11-16] MEDS ORDERED: MERO1VIA15 IV (08:59)
[2019-11-16] MEDS ORDERED: LACT1CAP19 PO (08:59)
[2019-11-16] MEDS ORDERED: VANC500V PO (08:59)
--- NOTE | 2019-11-16 09:00 | SNU/HH DC ---
DISCHARGE ORDERS DISCHARGE INFORMATION: DISCHARGE DATE: Nov 16, 2019 FINAL DIAGNOSIS Problems Medical Problems: (1) Nausea and vomiting Status: Acute (2) C diff associated diarrhea Status: Acute (3) Urinary tract infection Status: Acute CONDITION ON DISCHARGE: Stable CODE STATUS: Code Status: Full SENIOR CARE: SNF STAY <30 DAYS: Yes POST DISCHARGE ORDERS: ACTIVITY ORDERS: Activity as tolerated WEIGHT BEARING STATUS: Non weight bearing DIET AFTER DISCHARGE: Regular WOUND/INCISION CARE: Change dressing CHECKS AFTER DISCHARGE: CHECKS AFTER DISCHARGE: Check blood press - daily, Check blood sugar, ac/hs TREATMENT/EQUIPMENT ORDERS: ADAPTIVE EQUIPMENT NEEDED: None Physical Therapy For: Evalulation/Treatment Occupational Therapy For: Evaluation/Treatment Speech Language Pathology For: Evaluation/Treatment DISCHARGE MEDICATIONS: Home Meds Active Scripts Lactobacillus Rhamnosus Gg (CULTURELLE) 1 Each Cap.sprink, 1 CAP PO BID for probiotic for 14 Days, #28 CAP Prov:NATHALIE DUKE MD 11/16/19 Vancomycin Hcl (VANCOMYCIN HCL) 500 Mg Vial, 125 MG PO QID for c diff for 14 Days, #56 EACH stop date 12/03 Prov:NATHALIE DUKE MD 11/16/19 Meropenem (MEROPENEM) 1 Gm Vial, 1 GM IV Q8HRS for UTI for 4 Days, #12 EACH stop date 11/19 Prov:NATHALIE DUKE MD 11/16/19 Reported Medications Zinc Sulfate (ZINC SULFATE) 220 Mg Tablet, 1 TAB PO BID for supplement for 30 Days, #60 TAB 0 Refills 11/09/19 Acetaminophen (TYLENOL) 325 Mg Tablet, 650 MG PO PRN Q4HRS PRN for PAIN, TAB 11/09/19 Trazodone Hcl (TRAZODONE HCL) 50 Mg Tablet, 50 MG PO HS for insomnia , TAB 11/09/19 Nitroglycerin (NITROGLYCERIN SubLingual) 0.4 Mg Tab.subl, 0.4 MG SL PRN Q5MIN PRN for CHEST PAIN, BOTTLE 11/09/19 Gabapentin (GABAPENTIN ) 300 Mg Capsule, 300 MG PO BID for NEUROGENIC PAIN, CAP 11/09/19 Citalopram Hydrobromide (CELEXA) 20 Mg Tablet, 20 MG PO DAILY for depression, TAB 11/09/19 Lisinopril (LISINOPRIL) 5 Mg Tablet, 5 MG PO DAILY for FOR HYPERTENSION, #30 TAB 0 Refills 11/09/19 Atorvastatin Calcium (ATORVASTATIN CALCIUM) 10 Mg Tablet, 10 MG PO HS for FOR CHOLESTEROL, #30 TAB 0 Refills 11/09/19 Apixaban (ELIQUIS) 5 Mg Tablet, 5 MG PO BID for a fib, TAB 01/25/19 Ascorbic Acid (VITAMIN C) 500 Mg Capsule.er, 500 MG PO DAILY for wound, CAP.SR 01/25/19 Multivitamin (MULTIVITAMINS) 1 Each Tablet, 1 TAB PO DAILY for wound, #90 TAB 3 Refills 01/25/19 Famotidine (FAMOTIDINE) 20 Mg Tablet, 20 MG PO BID for stomach, TAB 01/25/19 Folic Acid (FOLIC ACID) 1 Mg Tablet, 1 TAB PO DAILY for replacement, #90 TAB 1 Refill 01/25/19 Miconazole Nitrate (MICONAZOLE 3) 24 Gm Cmb.pf.crm, 24 GM VG BID for yeast, EACH 01/25/19 Tamsulosin Hcl (FLOMAX) 0.4 Mg Cap.er.24h, 1 CAP PO DAILY for flow, #30 CAP 11 Refills 01/25/19 Tramadol Hcl (TRAMADOL HCL) 50 Mg Tablet, 50 MG PO PRN Q6HRS PRN for PAIN, TAB 0 Refills 01/25/19 Mirtazapine (MIRTAZAPINE) 15 Mg Tablet, 1 TAB PO QHS for depression, #30 TAB 3 Refills 01/25/19 Oxcarbazepine (OXCARBAZEPINE) 300 Mg Tablet, 300 MG PO BID for ?, TAB 01/25/19 NATHALIE DUKE MD Nov 16, 2019 09:00
--- NOTE | 2019-11-16 09:21 | NUR ---
[facility] following. Discussed with RN, [facility] can do the q8 meropenem. [facility] faxing discharge orders and scripts. Awaiting transportation time for pt to discharge today. [facility] will continue to follow. Addendum: 11/16/19 at 1106 by MIREYA RENTERIA Transportation scheduled for between [id number]. [facility] left voicemail for pt's son, Harry. RN notified.
--- NOTE | 2019-11-16 09:23 | PDOC3 ---
Discharge Summary Visit Information Date of Admission: Nov 10, 2019 Date of Discharge: Nov 16, 2019 Admitting Diagnosis: Sepsis secondary to right mid and lower lobe pneumonia Admitting Diagnosis Comment: Sepsis secondary to right mid and lower lobe pneumonia and decubitus ulcer and possible urinary tract infection Lactic acidosis secondary to the above Bandemia resolved Acute renal failure secondary to septic process improved Bedridden status Chronic sacral decubitus ulcer stage IV Altered mental status secondary to sepsis improved History of a chondroplasty a History of paroxysmal atrial fibrillation History of multiple strokes including cerebellar infarct History off hypertension History of dyslipidemia History of deep venous thrombosis and pulmonary emboli on chronic anti coagulation with Eliquis Final Diagnosis GNR UTI, complicated CAUTI, POA 11/09 GNR URINE CULTURE RES 1 Preliminary Gram negative rods Greater than 100,000 colony forming units per mL Recurrent c. 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 Sepsis with no organ dysfcn - secondary to right mid and lower lobe pneumonia and decubitus ulcer and GNR uTI Lactic acidosis secondary to the above, resolved Bandemia secondary to septic process, resolved, Sepsis resolbed Acute renal failure secondary to septic process improved Bedridden status SNU resident Bradycardia, chronic,stable - Chronic sacral decubitus ulcer stage IV prominent sacral decubitus ulcer extending to the tip of the remaining sacrum in the setting of prior lower sacral and coccygeal resection Altered mental status secondary to sepsis improved History of achondroplasty History of paroxysmal atrial fibrillation History of multiple strokes including cerebellar infarct History of hypertension History of dyslipidemia 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 with Eliquis Brief Hospital Course Allergies Allergies Coded Allergies Type Severity Reaction Last Updated Verified I S O L A T I O N *CONTACT* Allergy Unknown 01/27/19 Yes No Known Medication Allergies Allergy Unknown 03/01/19 Yes Vital Signs Vital Signs Date Time Temp Pulse Resp B/P (MAP) Pulse Ox O2 Delivery O2 Flow Rate FiO2 11/16/19 07:00 97.9 60 18 124/52 (76) 98 Room Air 97.9 Brief Hospital Course [facility] [address], [place] [address] PHYSICIAN SERVICES History & Physical : [id number] Signed Patient: ROGELIO MYERS Acct:[id number] Unit: [id number] : 1950 Loc: [address] [place] [address] Room/ Bed: 254-1 Age/Sex: 69 / M ADM Status: ADM IN ADM Date: 11/09/19 History and Physical Date of Admission Date of Admission 11/10/2019 Identification/Chief Complaint Chief Complaint altered mental status Source Source: Chart review, Patient History of Present Illness History of Present Illness Patient is a 69-year-old gentleman with past medical history of her chondroplasty and several comorbidities that include cerebrovascular accident hypertension sacral decubitus ulcer colostomy and a chronic decubitus ulcer which most likely is due to his bedridden status. The patient has had admissions for similar presentation in the past and he was found to have urinary tract infection at that time. The patient has several risk factor for sepsis including is acute us ulcer. The patient upon workup in the emergency department was also found to have a pneumonic process. His Right middle and lower lobe pneumonia. She was sent from this institution due to "altered mental status". The patient is quite poor historian most of this is from review off his chart. The patient upon review of system which might not be reliable denies fever no chills he denies cold-like symptoms no cough sputum production he denies abdominal pain no urinary symptoms. Patient has not had any changes to his recent medications either. He was found to have significant bandemia at 19% and a lactic acidosis of 3.3 which most likely was due to the septic process secondary to pneumonia. Patient has been started on broad-spectrum antibiotics and admitted to the CVICU. The patient at the time of my note is in no apparent distress, he responds in simple sentences. he denies symptoms at the present time. A colostomy is present with no evidence of infection, there seems to be less output as per referring facility nevertheless the patient significant other asked to have his [place] me evaluated given that there seems to be a piece of foreign object embedded in his ostomy. Patient denies abdominal discomfort there has been no blood in his bag either. Patient denies vomiting no pleurisy no new symptoms were reported during my visit. Plan of care explained detail and d iscussed with nursing staff at bedside Mr. Myers was admitted to the cardiac floor initially due to the suspected septic process. Patient had several focus of infection including his decubitus ulcer with which is prompted by his bedridden status. Given the significant bandemia upon admission and granted that his colostomy bag there was quite liquid material noticed this was checked for Clostridium difficile which was positive. Patient was started on broad-spectrum antibiotics for his pneumonic process his UTI with gram-negative organisms and also for he C. difficile infection with po vancomycin. He responded well to therapy. Surgical consultation was requested on 11/14/2019 since he had an ostomy with a bridge in place still. This was removed and there was no evidence of infection around his stoma. Patient was deemed appropriate for dismissal with Merrem 1 g every 8 hours as per infectious disease applications sales consultant stop date on November 19. Patient will also continue with his vancomycin by mouth 2 weeks duration stop date on December 03, 2019 Greater than 35 minutes were spent in the discharge process the patient in counseling coronation of care and arrangements for safe discharge Discharge Information Condition at Discharge: Improved Follow Up: Weeks Disposition/Orders: D/C to Another Facility Scheduled Apixaban (Eliquis) 5 Mg Tablet, 5 MG PO BID for a fib, (Reported) Entered as Reported by: DALE DODD on 01/25/19 1257 Last Action: Continued on 11/09/192213 by Horacio Evans Ascorbic Acid (Vitamin C) 500 Mg Capsule.er, 500 MG PO DAILY for wound, (Reported) Entered as Reported by: DALE DODD on 01/25/19 1257 Last Action: Converted on 11/09/192213 by Horacio Evans Atorvastatin Calcium (Atorvastatin Calcium) 10 Mg Tablet, 10 MG PO HS for FOR CHOLESTEROL, #30 Ref 0 (Reported) Entered as Reported by: Horacio Evans on 11/09/192202 Last Taken: UNKNOWN on Unknown Date & Time Last Action: Continued on 11/09/192213 by Horacio Evans Citalopram Hydrobromide (Celexa) 20 Mg Tablet, 20 MG PO DAILY for depression, (Reported) Entered as Reported by: Horacio Evans on 11/09/192202 Last Taken: UNKNOWN on Unknown Date & Time Last Action: Continued on 2213 by Horacio Evans Famotidine (Famotidine) 20 Mg Tablet, 20 MG PO BID for stomach, (Reported) Entered as Reported by: DALE DODD on 01/25/19 1257 Last Action: Continued on 11/09/192213 by Horacio Evans Folic Acid (Folic Acid) 1 Mg Tablet, 1 TAB PO DAILY for replacement, #90 Ref 1 (Reported) Entered as Reported by: DALE DODD on 01/25/19 1257 Last Action: Continued on 11/09/192213 by Horacio Evans Gabapentin (Gabapentin ) 300 Mg Capsule, 300 MG PO BID for NEUROGENIC PAIN, (Reported) Entered as Reported by: Horacio Evans on 11/09/192202 Last Taken: UNKNOWN on Unknown Date & Time Last Action: Continued on 11/09/192213 by Horacio Evans Lactobacillus Rhamnosus Gg (Culturelle) 1 Each Cap.sprink, 1 CAP PO BID for probiotic for 14 Days, #28 Prescribed by: NATHALIE DUKE MD on 11/16/19 0859 Lisinopril (Lisinopril) 5 Mg Tablet, 5 MG PO DAILY for FOR HYPERTENSION, #30 Ref 0 (Reported) Entered as Reported by: Horacio Evans on 11/09/192202 Last Taken: UNKNOWN on Unknown Date & Time Last Action: Continued on 11/09/192213 by Horacio Evans Meropenem (Meropenem) 1 Gm Vial, 1 GM IV Q8HRS for UTI for 4 Days, #12 stop date 11/19 Prescribed by: NATHALIE DUKE MD on 11/16/19 0859 Miconazole Nitrate (Miconazole 3) 24 Gm Cmb.pf.crm, 24 GM VG BID for yeast, (Reported) Entered as Reported by: DALE DODD on 01/25/19 1257 Last Action: Converted on 11/09/192213 by Horacio Evans Mirtazapine (Mirtazapine) 15 Mg Tablet, 1 TAB PO QHS for depression, #30 Ref 3 (Reported) Entered as Reported by: DALE DODD on 01/25/19 1257 Last Action: Continued on 11/09/192213 by Horacio Evans Multivitamin (Multivitamins) 1 Each Tablet, 1 TAB PO DAILY for wound, #90 Ref 3 (Reported) Entered as Reported by: DALE DODD on 01/25/19 1257 Last Action: Converted on 11/09/192213 by Horacio Evans Oxcarbazepine (Oxcarbazepine) 300 Mg Tablet, 300 MG PO BID for ?, (Reported) Entered as Reported by: DALE DODD on 01/25/19 1257 Last Action: Continued on 11/09/192213 by Horacio Evans Tamsulosin Hcl (Flomax) 0.4 Mg Cap.er.24h, 1 CAP PO DAILY for flow, #30 Ref 11 (Reported) Entered as Reported by: DALE DODD on 01/25/19 1257 Last Action: Continued on 11/09/192213 by Horacio Evans Trazodone Hcl (Trazodone Hcl) 50 Mg Tablet, 50 MG PO HS for insomnia , (Reported) Entered as Reported by: Horacio Evans on 11/09/192202 Last Taken: UNKNOWN on Unknown Date & Time Last Action: Continued on 11/09/192213 by Horacio Evans Vancomycin Hcl (Vancomycin Hcl) 500 Mg Vial, 125 MG PO QID for c diff for 14 Days, #56 stop date 12/03 Prescribed by: NATHALIE DUKE MD on 11/16/19 0859 Zinc Sulfate (Zinc Sulfate) 220 Mg Tablet, 1 TAB PO BID for supplement for 30 Days, #60 Ref 0 (Reported) Entered as Reported by: Horacio Evans on 11/09/192202 Last Taken: UNKNOWN on Unknown Date & Time Last Action: Converted on 11/09/192213 by Horacio Evans Scheduled PRN Acetaminophen (Tylenol) 325 Mg Tablet, 650 MG PO PRN Q4HRS PRN for PAIN, (Reported) Entered as Reported by: Horacio Evans on 11/09/192202 Last Taken: UNKNOWN on Unknown Date & Time Last Action: Continued on 11/09/192213 by Horacio Evans Nitroglycerin (NITROGLYCERIN SubLingual) 0.4 Mg Tab.subl, 0.4 MG SL PRN Q5MIN PRN for CHEST PAIN, (Reported) Entered as Reported by: Horacio Evans on 11/09/192202 Last Taken: UNKNOWN on Unknown Date & Time Last Action: Continued on 11/09/192213 by Horacio Evans Tramadol Hcl (Tramadol Hcl) 50 Mg Tablet, 50 MG PO PRN Q6HRS PRN for PAIN, Ref 0 (Reported) Entered as Reported by: DALE DODD on 01/25/19 1257 Last Action: Continued on 11/09/194 by NATHALIE Mancera MD Nov 16, 2019 09:23
[2019-11-16] MEDS: ASCORBIC ACID 500 MG TABLET PO SCH (10:15)
[2019-11-16] MEDS: TAMSULOSIN 0.4 MG CAP.ER.24H. PO SCH (10:15)
[2019-11-16] MEDS: CITALOPRAM 20 MG TABLET. PO SCH (10:15)
[2019-11-16] MEDS: FOLIC ACID 1 MG TABLET. PO SCH (10:15)
[2019-11-16] MEDS: APIXABAN 5 MG TABLET. PO SCH (10:15)
[2019-11-16] MEDS: GABAPENTIN 300 MG CAPSULE. PO SCH (10:16)
[2019-11-16] MEDS: FAMOTIDINE 20 MG TABLET. PO SCH (10:16)
[2019-11-16] MEDS: LISINOPRIL 5 MG TABLET. PO SCH (10:16)
[2019-11-16] MEDS: MULTIVITAMIN with MINERAL TABLET. PO SCH (10:16)
[2019-11-16] MEDS: ZINC SULFATE 220 MG CAPSULE. PO SCH (10:16)
[2019-11-16] MEDS: OXcarbazepine 300 MG TABLET PO SCH (10:16)
[2019-11-16] MEDS: MICONAZOLE NITRATE 2% TOPICAL CREAM 28GM TUBE. TP SCH (10:17)
[2019-11-16] MEDS: VANCOMYCIN 125 MG/2.5 ML ORAL SOLUTION. PO SCH ×2 (10:17→12:49)
[2019-11-16] MEDS: LACTOBACILLUS RHAMNOSUS GG 1 CAPSULE. PO SCH (10:17)
[2019-11-16 11:00] VITALS: BP 129/54
--- NOTE | 2019-11-16 14:40 | NUR ---
Discharge Note: ROGELIO MYERS [place] Discharge instructions and discharge home medications reviewed with [facility] Nurse and a copy given to transportation. All questions have been answered and understanding verbalized. Lines and drains intact. Patient discharged to [facility]
== END 2019-11-16 14:45 | disposition home or self-care (01) | DRG 698 ==
LOC: ER 18:09 → 2 SOUTH 18:30 → 6 SOUTH 11-10 22:00 → 4 NORTH 11-12 23:20
PROVIDERS: ADMIT Internal Medicine; ATTEND Internal Medicine
DX: T83.518A Infection and inflammatory reaction due to other urinary catheter, initial encounter (principal); A41.9 Sepsis, unspecified organism; L89.154 Pressure ulcer of sacral region, stage 4; J18.9 Pneumonia, unspecified organism; N39.0 Urinary tract infection, site not specified; A04.71 Enterocolitis due to Clostridium difficile, recurrent; G93.40 Encephalopathy, unspecified; J44.0 Chronic obstructive pulmonary disease with (acute) lower respiratory infection; N17.9 Acute kidney failure, unspecified; B96.89 Other specified bacterial agents as the cause of diseases classified elsewhere; E11.9 Type 2 diabetes mellitus without complications; E78.00 Pure hypercholesterolemia, unspecified; E78.5 Hyperlipidemia, unspecified; I11.0 Hypertensive heart disease with heart failure; I25.10 Atherosclerotic heart disease of native coronary artery without angina pectoris; I48.0 Paroxysmal atrial fibrillation; I50.9 Heart failure, unspecified; Q77.4 Achondroplasia; Y84.6 Urinary catheterization as the cause of abnormal reaction of the patient, or of later complication, without mention of misadventure at the time of the procedure; Z74.01 Bed confinement status; Z79.01 Long term (current) use of anticoagulants; Z86.14 Personal history of Methicillin resistant Staphylococcus aureus infection; Z86.711 Personal history of pulmonary embolism; Z86.718 Personal history of other venous thrombosis and embolism; Z86.73 Personal history of transient ischemic attack (TIA), and cerebral infarction without residual deficits; Z87.440 Personal history of urinary (tract) infections; Z87.891 Personal history of nicotine dependence; Z93.3 Colostomy status; F32.9 Major depressive disorder, single episode, unspecified; F41.9 Anxiety disorder, unspecified; K21.9 Gastro-esophageal reflux disease without esophagitis
CPT/HCPCS: 36415; 51702; 70450; 71045; 71250; 74176; 80048; 80053; 80164; 80202; 81001; 82962; 83605; 83690; 83880; 84484; 85007; 85025; 85610; 85651; 85730; 87040; 87086; 87186; 87493; 87641; 87804; 93005; 96361; 96374; J0692; J1720; J2185; J2270; J2405; J2543; J3010; J3370; J7030; J7040; J7050; P9046; 99285-25; G0378